=== PATIENT | male | born 1965 | race Caucasian/White ===

== ENCOUNTER 2016-07-13 00:56 | Inpatient (IN) | payer OTHER ==
[~2016-07-13] VITALS: Ht 185.4 cm; Wt 52.0 kg
[~2016-07-13 00:56] MED LIST: Z.0.NO CURRENT MEDS
[2016-07-13 01:10] VITALS: BP 135/88; PULSE 100; RESP 20; TEMP 98.2; O2SAT 100
[2016-07-13] MEDS ORDERED: ONDANSETRON HCL 4 MG/2 ML VIAL IV ONE (01:45)
[2016-07-13] MEDS ORDERED: MORPHINE SULFATE 4 MG/ML INJ IV PUSH ONE (01:45)
[2016-07-13] MEDS: SODIUM CHLOR 0.9% 1000 ML INJ 1,000 ML IV SCH ×4 (02:05→17:36)
[2016-07-13] MEDS ORDERED: QUET1TAB10 PO (02:08)
--- NOTE | 2016-07-13 02:33 | PD ---
HPI Chief Complaint: Fall Time Seen by Provider: 01:39 Travel History International Travel<30 days: No Contact w/Intl Traveler<30days: No Traveled to known affect area: No History of Present Illness HPI The patient is a 51 year old male who presents to the [facility] emergency department with a history of reportedly working on a roof at approximately 4 PM yesterday when he was attempting to throw a 10 pound bucket off the roof and got it caught on his right little finger. He reports that he has a history of right middle finger injury that does not allow him to extend it. The bucket drug him over the side of the roof. This was a 12 foot roof and he landed on his back. The patient reports that he was working with 3 other people and had to drive those people home prior to going to the emergency department. He went to the emergency Department with complaints of left-sided back pain and shortness of breath. The patient was evaluated at the hospital in [place], [place]. The patient was diagnosed with multiple left-sided rib fractures, compression fracture of T8, left-sided pneumothorax. A chest tube was placed at that facility and the patient was accepted in transfer by Dr. Parra, the trauma surgeon, on-call at this facility. The patient on arrival reports having severe left-sided chest wall pain. The chest tube appears to be in good position, minimal blood is noted to have drained from the tube. [facility] Past Medical History Narrative Medical The patient's past medical history is reportedly significant for chronic neck and back pain, hypertension, history of seizure disorder. Diminished Hearing: No Hypertension: Yes Medical other: Yes (CHRONIC BACK ISSUES, TRIGGER FINGER) Seizures: Yes Past Surgical History Narrative Surgical The patient's past surgical history is significant for a cervical spine fusion, halo placement, left arm ORIF, left foot ORIF, right hand surgery. Social History Alcohol Use: Yes Tobacco Use: Yes (ONE PACK A DAY) Substance Use: No Allergies-Medications (Allergen,Severity, Reaction): Coded Allergies: No Known Allergies (Unverified , 07/13/16) Reported Meds & Prescriptions Reported Meds & Active Scripts Active Reported Quetiapine (Quetiapine Fumarate) 300 Mg Tab 300 Mg PO HS Review of Systems Except as stated in HPI: all other systems reviewed are Neg General / Constitutional: No: Fever Eyes: No: Visual changes HENT: No: Headaches Cardiovascular: Positive: Chest Pain or Discomfort, Dyspnea on exertion Respiratory: No: Shortness of Breath Gastrointestinal: No: Abdominal Pain Genitourinary: No: Dysuria Musculoskeletal: No: Pain Skin: No Rash Neurologic: No: Weakness Psychiatric: No: Depression Endocrine: No: Polydipsia Hematologic/Lymphatic: No: Easy Bruising Physical Exam Narrative General: The patient is a well-developed thin appearing male in no acute distress. Head and Neck exam: Head is normocephalic atraumatic. Eyes: Pupils are equal round and reactive to light. Nose: Midline septum with pink mucous membranes Mouth: Dentition unremarkable. Moist mucus membranes. Posterior oropharynx is not erythematous. No tonsillar hypertrophy. Uvula midline. Airway patent. Neck: No palpable lymphadenopathy. No nuchal rigidity. No thyromegaly. Cardiovascular: Regular rate and rhythm without murmurs, gallops, or rubs. Lungs: Clear to auscultation bilaterally. No wheezes, rhonchi, or rales. The patient has left-sided chest wall tenderness on palpation. The patient has a chest tube in place on the left. Abdomen: Soft, without tenderness to palpation in all 4 quadrants of the abdomen. No guarding, rebound, or rigidity. Normal bowel sounds are audible. Extremities: No clubbing, cyanosis, or edema. 2+ pulses in all 4 extremities. Back: No spinous process tenderness to palpation. No costovertebral angle tenderness to palpation. Neurologic Exam: Grossly nonfocal. Skin Exam: No rash noted. The patient has an abrasion noted to the right arm, dorsal aspect. Data Data Last Documented VS Vital Signs Date Time Temp Pulse Resp B/P Pulse Ox O2 Delivery O2 Flow Rate FiO2 07/13/16 01:10 98.2 100 20 135/88 100 Orders Admit Order (Ed Use Only) (07/13/16 01:44) Consult Neurosurgery (07/13/16 ) Consult Application Packager (07/13/16 ) Ondansetron Inj (Zofran Inj) (07/13/16 01:45) Morphine Inj (Morphine Inj) (07/13/16 01:45) Sodium Chlor 0.9% 1000 Ml Inj (Ns 1000 M (07/13/16 01:45) MDM Medical Decision Making Medical Screen Exam Complete: Yes Emergency Medical Condition: Yes Medical Record Reviewed: Yes Interpretation(s) Last Impressions Thoracic Spine CT 07/13/16 0000 Signed Impressions: Service Date/Time: Wednesday, July 13, 2016 08:51 - CONCLUSION: T8 compressive deformity as described in detail above with appearance suggestive of an old injury, however some degree of acute or subacute progression cannot be excluded. If it would affect clinical management, injury could be further characterized with MRI. Toñito Cisneros MD Chest X-Ray 07/13/16 0000 Signed Impressions: Service Date/Time: Wednesday, July 13, 2016 03:12 - CONCLUSION: 1. Left chest tube without pneumothorax seen. 2. Left rib fractures. 3. Increased density at the left lower lung likely related to contusion, consolidation, or atelectasis. Toñito Reich MD Differential Diagnosis Intrathoracic trauma, versus pulmonary contusion, versus pneumothorax, versus rib fractures, versus intracranial abnormality, versus intra-abdominal trauma Narrative Course During the course of the patients emergency department visit, the patients history, examination, and differential diagnosis were reviewed with the patient. The patient had IV access obtained and blood work sent for analysis. The Patient was placed on a monitoring analyst with oximetry and blood pressure monitoring. The patient was placed in a TLSO. The patient was provided morphine for pain, Zofran for nausea, the patient was started on normal saline IV fluids. A call was placed out to the trauma surgeon that excepted the patient in transfer. He did agree to admit the patient for further evaluation and treatment at this time. The patients laboratory studies were reviewed from the other facility and remarkable for a white count of 12.2, hemoglobin 15.3, platelets 216 with 75.9 neutrophils lymphocytes 14.7, sodium 138, potassium 3.0, chloride 90 once, CO2 29, glucose 97, BUN is 4, creatinine 0.68, AST is 95, alkaline phosphatase 118, ALT 31, alcohol level CXXXV, CPK 429, MB percent 2.2 Radiology studies were reviewed from the other facility and remarkable for a chest x-ray that shows a left lower lobe pulmonary contusion with associated pneumothorax and multiple left rib fractures, pelvic x-ray shows no evidence of acute abnormality. CT scan of the brain without contrast shows no acute abnormality. CT scan of the C-spine shows no acute abnormality, left sided pneumothorax was noted CT scan of the abdomen and pelvis reveals no acute intra- abdominal or pelvic abnormality, CT scan of the chest with contrast reveals multiple left rib fractures with associated moderate left hydropneumothorax and left lower lobe contusion. The patients results were discussed with the patient, including the plan of care. I explained that further testing and/ or monitoring is indicated based on the patients history, examination, and/ or laboratory findings. Therefore, I recommended admission for additional evaluation. The patient expressed understanding and was agreeable with this plan. The patient was admitted to the hospital in guarded condition and sent to a bed under the care of the trauma surgeon, Dr. Parra. Critical Care Narrative Aggregate critical care time was 37 minutes. Time to perform other separately billable procedures was not included in the critical care time. My time did not include minutes spent treating any other patients simultaneously or on activities that did not directly contribute to the patient's treatment. The services I provided to this patient were to treat and/or prevent clinically significant deterioration that could result in: Respiratory failure, versus cardiovascular collapse I provided critical care services requiring my management, as noted below: Chart data review, documentation time, medication orders and management, vital sign assessments/reviewing monitor data, ordering and reviewing lab tests, ordering and interpreting/reviewing x-rays and diagnostic studies, care of the patient and discussion of the patient with the admitting physicians. Physician Communication Physician Communication The patient's case was discussed with Dr. Parra who did agree to admit the patient to the intensive care unit for close monitoring. Diagnosis Primary Impression: Multiple fractures of ribs of left side Qualified Code: S22.42XA - Closed fracture of multiple ribs of left side, initial encounter Additional Impressions: Pneumothorax on left Traumatic compression fracture of T8 thoracic vertebra Qualified Code: S22.060K - Traumatic compression fracture of T8 thoracic vertebra, with nonunion, subsequent encounter Admitting Information Admitting Physician Requests: Admit Cely Porras MD Jul 13, 2016 02:33
--- NOTE | 2016-07-13 03:48 | RADRPT ---
EXAM DATE/TIME: 07/13/2016 03:12 [facility] COMPARISON: No previous studies available for comparison. INDICATIONS : Evaluate for pneumothorax. MEDICAL HISTORY : None. SURGICAL HISTORY : None. ENCOUNTER: Initial ACUITY: 1 day PAIN SCORE: 7/10 LOCATION: Left chest FINDINGS: There is a left-sided chest tube in place. No pneumothorax is seen. There is increased density at the left base. Left-sided rib fractures are present. The right lung is clear. The heart size is normal. There is an anterior cervical fusion plate present. CONCLUSION: 1. Left chest tube without pneumothorax seen. 2. Left rib fractures. 3. Increased density at the left lower lung likely related to contusion, consolidation, or atelectasi julieth Reich MD on July 13, 2016 at 3:45 Board Certified Radiologist. This report was verified electronically.
--- NOTE | 2016-07-13 03:49 | PD.CONS ---
[facility] Service Critical Care Medicine Consult Requested By Dr. Corey Reason for Consult s/p Fall L rib fractures with pneumothorax T8 compression fracture Alcohol intoxation Primary Care Physician Juan Daniel Curtis History of Present Illness The patient is a 51 year old male who presents to [facility] emergency department as transfer from [facility]. He sustained a fall from the roof while he was working. This was a 12 foot roof and he landed on his back. He drove his coworkers home, prior to going to the emergency department. He was found to have multiple left-sided rib fractures, compression fracture of T8, left-sided pneumothorax and L lung contusion, for which a large bore chest tube was placed. The patients laboratory studies were remarkable for a white count of 12.2, potassium 3.0, alcohol level 150. I evaluated the patient in ED, he is complaining of severe left-sided chest wall pain. CXR showed chest tube appears to be in good position, with continued bloody output. Lab work pending. I have ordered PRN Dilaudid for pain Review of Systems ROS Limitations: Other (as per HPI) Past Family Social History Allergies: Coded Allergies: No Known Allergies (Unverified , 07/13/16) Past Medical History Chronic neck and back pain Seizure disorder Past Surgical History Cervical spine fusion Left arm ORIF, left foot ORIF Right hand surgery. Reported Medications Quetiapine (Quetiapine Fumarate) 300 Mg Tab 300 Mg PO HS PRN Percocet Active Ordered Medications Reviewed Family History Reviewed Social History Smokes 1 pack of cigarettes Occasional alcohol Physical Exam Vital Signs Vital Signs Date Time Temp Pulse Resp B/P Pulse Ox O2 Delivery O2 Flow Rate FiO2 07/13/16 01:10 98.2 100 20 135/88 100 Physical Exam General: well-developed thin appearing male who is dishevelled, in moderate distress due to pain Head and Neck exam: Head is normocephalic atraumatic. Eyes: Pupils are equal round and reactive to light. ENT: Moist mucus membranes. Uvula midline. Airway patent. Neck: No palpable lymphadenopathy. No nuchal rigidity. Cardiovascular: Regular rate and rhythm without murmurs, gallops, or rubs. Lungs: Clear to auscultation bilaterally. No wheezes, rhonchi, or rales. Has a left chest tube with bloody secretions Abdomen: Soft, without tenderness to palpation in all 4 quadrants of the abdomen. Extremities: No clubbing, cyanosis, or edema. 2+ pulses in all 4 extremities. Neurologic Exam: Limited exam as patient is in pain. No focal deficits Skin: Abrasion to the right arm Imaging Reports form [facility] reviewed Assessment and Plan Assessment and Plan NEURO: Acute and chronic pain T8 compression fracture Alcohol intoxication Seizure disorder Chronic pain -As needed Dilaudid for pain. -Neurosurgery consulted for T8 fracture, TLSO brace. Full spine precautions -Supplement multivitamin thiamine, watch for withdrawal RESP: L sided rib fracture L hemopneumothorax L lung contusion -Nasal cannula oxygen -DuoNeb q6 hours and PRN -Aggressive pulmonary toilet CV: -Normal saline IV fluids 125 ml per hour GI: -Nothing by mouth except Meds. Protonix for GI prophylaxis : -Monitor renal function closely. ID: -Monitor for infection especially pneumonia HEME: -Monitor CBC, CMP, coags ENDO: Hypokalemia -Electorate replace,ent protocol PROPH: -Bilateral lower extremity SCDs. Chemical DVT prophylaxis contraindicated due to hemothorax. IV Protonix for GI Prophylaxis LINES: -Utilize peripheral IVs, central line if needed Level 3 Code Status Full Discussed Condition With Dr. Colten Sibley,Tayler Fong MD Jul 13, 2016 03:49
[2016-07-13 03:50] LABS: MEAN CORPUSCULAR HGB CONC 36.5 % (32.0-36.0)
[2016-07-13] MEDS ORDERED: SODIUM PHOSPHATE INJ 30 MMOL in SODIUM CHLOR 0.9% 250 ML INJ 240 ML IV PRN ×2 (04:00→04:15)
[2016-07-13] MEDS ORDERED: MAGNESIUM OXIDE 400 MG TAB PO PRN ×2 (04:00→04:15)
[2016-07-13] MEDS ORDERED: POTASSIUM CHLOR 20 MEQ PREMIX 100 ML IV PRN ×4 (04:00→04:15)
[2016-07-13] MEDS ORDERED: MAGNESIUM SULFATE INJ 4 GM in SODIUM CHLORIDE 0.9% INJ 92 ML IV PRN ×2 (04:00→04:15)
[2016-07-13] MEDS ORDERED: POTASSIUM PHOSPHATE MONOBASIC 500 MG TAB PO PRN ×2 (04:00→04:15)
[2016-07-13] MEDS ORDERED: MAGNESIUM SULFATE INJ 2 GM in SODIUM CHLORIDE 0.9% INJ 96 ML IV PRN ×2 (04:00→04:15)
[2016-07-13] MEDS ORDERED: POTASSIUM PHOSPHATE INJ 30 MMOL in SODIUM CHLOR 0.9% 250 ML INJ 250 ML IV PRN ×2 (04:00→04:15)
[2016-07-13] MEDS ORDERED: POTASSIUM CL 40 MEQ/30 ML LIQ UDC PO/TUBE PRN ×4 (04:00→04:15)
[2016-07-13] MEDS ORDERED: POTASSIUM PHOSPHATE MONOBASIC 500 MG TAB PO/TUBE PRN ×2 (04:00→04:15)
[2016-07-13] MEDS ORDERED: POTASSIUM CHLOR 40 MEQ PREMIX 100 ML IV PRN ×4 (04:00→04:15)
[2016-07-13] MEDS ORDERED: RESP: ALBUTEROL 2.5 MG/IPRATROPIUM 0.5 MG NEB (PRN) NEB (04:15)
[2016-07-13 04:30] VITALS: BP 160/87; PULSE 95; RESP 16; O2SAT 98
[2016-07-13] MEDS: HYDROmorphone HCL PF 2 MG/ML VIAL IV PUSH PRN ×3 (04:53→19:39)
[2016-07-13 04:56] LABS: AUTOMATED NEUTROPHIL # 5.9 TH/MM3 (1.8-7.7); BASOPHIL % 0.3 % (0.0-2.0); EOSINOPHIL # 0.1 TH/MM3 (0-0.4); EOSINOPHIL % 0.8 % (0.0-4.0); HEMATOCRIT 35.5 % (39.0-51.0); LYMPH % 14.2 % (9.0-44.0); LYMPHOCYTE # 1.1 TH/MM3 (1.0-4.8); MEAN CELL VOLUME 94.6 FL (80.0-100.0); MEAN CORPUSCULAR HEMOGLOBIN 34.5 PG (27.0-34.0); MONO % 10.4 % (0.0-8.0); NEUT % 74.3 % (16.0-70.0); PLATELET COUNT 185 TH/MM3 (150-450); RED BLOOD COUNT 3.75 MIL/MM3 (4.50-5.90); RED CELL DISTRIBUTION WIDTH 12.8 % (11.6-17.2); WHITE BLOOD COUNT 7.9 TH/MM3 (4.0-11.0)
[2016-07-13 05:01] LABS: HEMO FLAGS AUTO DIFF
[2016-07-13 05:26] LABS: ANION GAP 5 MEQ/L (5-15); AST (GOT) 61 U/L (15-37); BICARBONATE 33.9 MEQ/L (21.0-32.0); BLOOD UREA NITROGEN 3 MG/DL (7-18); CHLORIDE 95 MEQ/L (98-107); GLOMERULAR FILTRATION RATE 129 ML/MIN (>89); MAGNESIUM 1.4 MG/DL (1.5-2.5); POTASSIUM 3.1 MEQ/L (3.5-5.1); SODIUM (NA) 134 MEQ/L (136-145)
[2016-07-13 05:29] LABS: ALKALINE PHOSPHATASE 110 U/L (45-117); ALT (GPT) 31 U/L (12-78)
[2016-07-13 06:01] LABS: SCAN/DIFF AUTO DIFF CONFIRMED
[2016-07-13 07:00] VITALS: O2SAT 99
[2016-07-13] MEDS ORDERED: ONDANSETRON HCL 4 MG/2 ML VIAL IV PRN (07:45)
[2016-07-13] MEDS ORDERED: ENALAPRILAT 1.25 MG/ML VIAL IV PRN (07:45)
[2016-07-13] MEDS ORDERED: MAGNESIUM HYDROXIDE SUSP 30 ML CUP PO PRN (07:45)
[2016-07-13] MEDS ORDERED: CHLORHEXIDINE GLUCONATE 2 % 1 PACK (2 CLOTHS) TOP PRN (07:45)
[2016-07-13] MEDS ORDERED: MISCELLANEOUS NURSING INFORMATION XX SCH (07:45)
[2016-07-13] MEDS ORDERED: THIAMINE INJ 100 MG in SODIUM CHLORIDE 0.9% INJ 100 ML IV SCH (09:00)
--- NOTE | 2016-07-13 09:25 | RADRPT ---
EXAM DATE/TIME: 07/13/2016 08:51 [facility] COMPARISON: CHEST SINGLE AP, July 13, 2016, 3:12. INDICATIONS : Fall. Evaluate thoracic spine fracture. RADIATION DOSE: 35.86 CTDIvol (mGy) MEDICAL HISTORY : Hypertension. SURGICAL HISTORY : C-spine surgery ENCOUNTER: Initial ACUITY: 1 day PAIN SCALE: 7/10 LOCATION: Bilateral back TECHNIQUE: Volumetric scanning of the thoracic spine was performed. Multiplanar reconstructions in the sagittal , coronal and oblique axial planes were performed. Using automated exposure control and adjustment o f the mA and/or kV according to patient size, radiation dose was kept as low as reasonably achievable to obtain optimal diagnostic quality images. FINDINGS: The thoracic spinal alignment is satisfactory. There is no evidence of bony canal stenosis or foramin al compromise. There is a severe compressive deformity at T8 with approximately 80% loss of central v ertebral body height. The compressive injury is slightly eccentric to the left. There is minimal post erior bowing of the posterior wall of the T8 vertebral body without significant fracture retropulsion . There is no involvement of the posterior elements. The age of this injury is not fully determined and some component of subacute injury is not excluded, however there are certainly areas where the margin of the bony defect are quite circumscribed and sc lerotic which would be inconsistent with recent injury. There is no significant her spinal hematoma. The vertebral elements elsewhere are intact. CONCLUSION: T8 compressive deformity as described in detail above with appearance suggestive of an old injury, ho wever some degree of acute or subacute progression cannot be excluded. If it would affect clinical ma nagement, injury could be further characterized with MRI. Toñito Cisneros MD on July 13, 2016 at 9:10 Board Certified Radiologist. This report was verified electronically.
--- NOTE | 2016-07-13 09:28 | PD.CONS ---
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 He went on a roof to be with a friend and fell. He was able to drive friends home and himself to [place] ED. He had a head CT, chest CT and was found to have a T8 compression fx as well as well as rib fx. He is at his neurologic baseline but has severe rib pain and back pain. He is on oxycodone and muscle relaxers as well as seroquel at home. He remains alert and cooperative with a GCS of 15. Review of Systems ROS Limitations: Intoxication, Other (pain) Constitutional: DENIES: Diaphoretic episodes, Fatigue, Fever, Weight gain, Weight loss, Chills, Dizziness, Change in appetite, Night Sweats Endocrine: DENIES: Heat/cold intolerance, Polydipsia, Polyuria, Polyphagia Eyes: DENIES: Blurred vision, Diplopia, Eye inflammation, Eye pain, Vision loss , Photosensitivity, Double Vision Ears, nose, mouth, throat: DENIES: Tinnitus, Hearing loss, Vertigo, Nasal discharge, Oral lesions, Throat pain, Hoarseness, Ear Pain, Running Nose, Epistaxis, Sinus Pain, Toothache, Odynophagia Respiratory: COMPLAINS OF: Shortness of breath Cardiovascular: DENIES: Chest pain, Palpitations, Syncope, Dyspnea on Exertion , PND, Lower Extremity Edema, Orthopnea, Claudication Gastrointestinal: DENIES: Abdominal pain, Black stools, Bloody stools, Constipation, Diarrhea, Nausea, Vomiting, Difficulty Swallowing, Anorexia Genitourinary: DENIES: Sexual dysfunction, Urinary frequency, Urinary incontinence, Urgency, Hematuria, Dysuria, Nocturia, Penile Discharge, Testicular Pain, Testicular Swelling Musculoskeletal: COMPLAINS OF: Muscle aches, Stiffness, Joint Swelling, Back pain, Neck pain Integumentary: DENIES: Abnormal pigmentation, Nail changes, Pruritus, Rash Hematologic/lymphatic: DENIES: Bruising, Lymphadenopathy Immunologic/allergic: DENIES: Eczema, Urticaria Past Family Social History Allergies: Coded Allergies: No Known Allergies (Unverified , 07/13/16) Past Medical History Spinal cord incomplete C9 injury , chronic pain, walks on one leg, 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 He cannot use intrinsics in both hands Chronic pain on chronic opioid and muscle relaxers Mood problems, OA Past Surgical History Cervical fusion Foot surgery Reported Medications Reported Meds & Active Scripts Active Reported Quetiapine (Quetiapine Fumarate) 300 Mg Tab 300 Mg PO HS Family History not known Social History Lives a a community home with other disabled individuals, smokes 1ppd, drinks alcohol Physical Exam Vital Signs Vital Signs Date Time Temp Pulse Resp B/P Pulse Ox O2 Delivery O2 Flow Rate FiO2 07/13/16 07:00 99 Nasal Cannula 2.00 07/13/16 04:30 95 16 160/87 98 Nasal Cannula 2 07/13/16 01:10 98.2 100 20 135/88 100 Physical Exam Alert, speech fluent, very cooperative, in severe distress secondary to pain Motor R/L delt 4/4, bib 4/4, tri 3/3, IO 1/1/ hip flex 4+/4, quads 4/3, gastroc 4/2 Hyperesthesia in the left lower extremity, no sensory change at T8/9, No Mcdermott, Babinski or clonus at this time, increased tone and fixed deformity in the hands with ulnar deviation Skin dry, muscle atrophy in all extremities, Abd with po BS, distant heart sounds, decreased lung aeration on the left with chest tube in place. Laboratory Laboratory Tests Test 07/13/16 04:45 White Blood Count 7.9 Red Blood Count 3.75 Hemoglobin 12.9 Hematocrit 35.5 Mean Corpuscular Volume 94.6 Mean Corpuscular Hemoglobin 34.5 Mean Corpuscular Hemoglobin 36.5 Concent Red Cell Distribution Width 12.8 Platelet Count 185 Mean Platelet Volume 7.2 Neutrophils (%) (Auto) 74.3 Lymphocytes (%) (Auto) 14.2 Monocytes (%) (Auto) 10.4 Eosinophils (%) (Auto) 0.8 Basophils (%) (Auto) 0.3 Neutrophils # (Auto) 5.9 Lymphocytes # (Auto) 1.1 Monocytes # (Auto) 0.8 Eosinophils # (Auto) 0.1 Basophils # (Auto) 0.0 CBC Comment AUTO DIFF Differential Comment AUTO DIFF CONFIRMED Sodium Level 134 Potassium Level 3.1 Chloride Level 95 Carbon Dioxide Level 33.9 Anion Gap 5 Blood Urea Nitrogen 3 Creatinine 0.65 Estimat Glomerular Filtration 129 Rate Random Glucose 96 Calcium Level 7.8 Phosphorus Level 3.3 Magnesium Level 1.4 Total Bilirubin 1.0 Aspartate Amino Transf 61 (AST/SGOT) Alanine Aminotransferase 31 (ALT/SGPT) Alkaline Phosphatase 110 Total Protein 7.1 Albumin 3.0 Result Diagram: 07/13/16 0445 07/13/16 0445 Imaging Last Impressions Chest X-Ray 07/13/16 0000 Signed Impressions: Service Date/Time: Wednesday, July 13, 2016 03:12 - CONCLUSION: 1. Left chest tube without pneumothorax seen. 2. Left rib fractures. 3. Increased density at the left lower lung likely related to contusion, consolidation, or atelectasis. Toñito Reich MD Assessment and Plan Diagnosis: (1) Spinal cord injury, cervical region Plan: The injury happened from the . He has very poor mobility but was independent with assistance in the community before this fall. ICD Code: S14.109A (2) Closed T8 spinal fracture Plan: The rib pain seems to be distracting the kirsten pain but a dedicated CT of the thoracic spine is pending. DVT prophylaxis with lovenox and SCDs is needed. ICD Code: S22.069A (3) Chronic pain ICD Code: G89.29 Assessment and Plan Previous medications were restarted. A low dose librium was added prn agitation for ETOH withdrawal. Problem Qualifiers (1) Spinal cord injury, cervical region: Qualified Code: S14.109A - Spinal cord injury, cervical region, initial encounter (2) Closed T8 spinal fracture: (3) Chronic pain: Qualified Code: G89.4 - Chronic pain syndrome Maged Varela Jul 13, 2016 09:28
[2016-07-13] MEDS: MULTIVITAMIN INJ 10 ML, THIAMINE INJ 100 MG, FOLIC ACID INJ 1 MG in SODIUM CHLORID 0.9%... IV SCH (09:40)
[2016-07-13] MEDS: DOCUSATE SODIUM 100 MG CAP PO SCH ×2 (09:41→21:26)
[2016-07-13] MEDS: PANTOPRAZOLE SODIUM 40 MG VIAL IV PUSH SCH (09:41)
[2016-07-13] MEDS: CYCLOBENZAPRINE HCL 10 MG TAB PO SCH ×2 (09:41→16:12)
[2016-07-13] MEDS: GABAPENTIN 400 MG CAP PO SCH ×3 (09:41→16:12)
[2016-07-13] MEDS: oxyCODONE HCL 20 MG CONTROLLED RELEASE TAB PO SCH ×2 (09:53→21:25)
[2016-07-13] MEDS: HYDROmorphone HCL PF 1 MG/ML VIAL IVP PRN ×2 (11:27→14:50)
[2016-07-13 12:00] VITALS: PULSE 76
[2016-07-13 14:00] VITALS: PULSE 86
--- NOTE | 2016-07-13 17:57 | HHI.CCPN ---
Subjective Brief History History of Present Illness The patient is a 51 year old male who presents to the [facility] emergency department as transfer from [facility]. He sustained a fall from the roof while he was working. This was a 12 foot roof and he landed on his back. He drove his coworkers home, prior to going to the emergency department. He was found to have multiple left-sided rib fractures, compression fracture of T8, left-sided pneumothorax and L lung contusion, for which a large bore chest tube was placed. The patients laboratory studies were remarkable for a white count of 12.2, potassium 3.0, alcohol level 150. Patient was transferred to surgical ICU with above-noted injuries It is conceivable that patient had aspirated at the time of event I 24 Hour Review/Hospital Course Since arrival to the ICU patient has been stable He is awake alert and oriented He is severe left chest pain and back pain which is currently managed Neurosurgery has been consult is regarding the compression fracture of T8 and additional studies have been ordered Pulmonary contusion is severe and patient will likely get worse before he gets better as far as respiratory system is concerned for aspiration has most likely occurred at the time of the accident Objective Vital Signs Date Time Temp Pulse Resp B/P Pulse Ox O2 Delivery O2 Flow Rate FiO2 07/13/16 14:00 86 07/13/16 07:00 99 Nasal Cannula 2.00 07/13/16 04:30 16 160/87 07/13/16 01:10 98.2 Result Diagram: 07/13/16 0445 07/13/16 0445 Imaging Last 24 hours Impressions Thoracic Spine CT 07/13/16 0000 Signed Impressions: Service Date/Time: Wednesday, July 13, 2016 08:51 - CONCLUSION: T8 compressive deformity as described in detail above with appearance suggestive of an old injury, however some degree of acute or subacute progression cannot be excluded. If it would affect clinical management, injury could be further characterized with MRI. Toñito Cisneros MD Chest X-Ray 07/13/16 0000 Signed Impressions: Service Date/Time: Wednesday, July 13, 2016 03:12 - CONCLUSION: 1. Left chest tube without pneumothorax seen. 2. Left rib fractures. 3. Increased density at the left lower lung likely related to contusion, consolidation, or atelectasis. 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 Neurosurgery has been consult did and their input is appreciated Hemodynamic/Cardiac Hemodynamically patient is stable but he is a heavy smoker and the cardiovascular history is really somewhat elusive He does not seem to have suffered any cardiac event at the time of his injury Pulmonary/Respiratory Severe left pulmonary contusion with serial refractions hemopneumothorax requiring chest tube placement Patient probably aspirated the time of injury so his recovery will be hampered by pulmonary problems including severe COPD on the that superimposed pulmonary injury and aspiration It is nothing conceivable that patient may and up on the respirator temporarily Abdomen/GI Nutrition Abdomen is soft patient's tolerating diet Assessment and Plan Attestation The exam, history, and the medical decision-making described in the above note were completed with the assistance of the mid-level provider. I reviewed and agree with the findings presented. I attest that I had a [id number] encounter with the patient on the same day, and personally performed and documented my assessment and findings in the medical record. Critical care time 40 minutes. Blair Cartagena MD Jul 13, 2016 17:57
[2016-07-13 20:00] VITALS: BP 132/76; PULSE 92; RESP 20; TEMP 98.8; O2SAT 94
[2016-07-13] MEDS: VALPROIC ACID 250 MG CAP PO SCH ×2 (21:00→21:26)
[2016-07-13] MEDS: QUEtiapine FUMARATE 300 MG TAB PO SCH (21:25)
[2016-07-13] MEDS: chlordiazePOXIDE 25 MG CAP PO PRN (21:34)
[2016-07-14] VITALS (7 sets, daily range): BP systolic 119–140; BP diastolic 66–100; PULSE 88–120; RESP 16–18; TEMP 96.8–98; O2SAT 94–98
[2016-07-14] MEDS: SODIUM CHLOR 0.9% 1000 ML INJ 1,000 ML IV SCH ×2 (00:24→03:36)
[2016-07-14] MEDS: CYCLOBENZAPRINE HCL 10 MG TAB PO SCH ×3 (01:35→17:42)
[2016-07-14] MEDS: HYDROmorphone HCL PF 2 MG/ML VIAL IV PUSH PRN (02:30)
[2016-07-14] MEDS ORDERED: CHLORHEXIDINE GLUCONATE 2 % 1 PACK (2 CLOTHS) TOP SCH (04:00)
[2016-07-14] MEDS: chlordiazePOXIDE 25 MG CAP PO PRN ×2 (06:11→23:24)
[2016-07-14] MEDS: ACETAMINOPHEN/HYDROcodone 325 MG/5 MG TAB PO PRN ×4 (06:12→22:31)
[2016-07-14 06:13] LABS: AUTOMATED NEUTROPHIL # 6.7 TH/MM3 (1.8-7.7); BASOPHIL % 0.4 % (0.0-2.0); EOSINOPHIL # 0.1 TH/MM3 (0-0.4); HEMATOCRIT 37.5 % (39.0-51.0); HEMO FLAGS DIFF FINAL; LYMPH % 11.9 % (9.0-44.0); MEAN CELL VOLUME 95.9 FL (80.0-100.0); MEAN CORPUSCULAR HEMOGLOBIN 34.2 PG (27.0-34.0); MEAN CORPUSCULAR HGB CONC 35.7 % (32.0-36.0); MONO % 8.5 % (0.0-8.0); NEUT % 78.2 % (16.0-70.0); PLATELET COUNT 152 TH/MM3 (150-450); RED BLOOD COUNT 3.91 MIL/MM3 (4.50-5.90); RED CELL DISTRIBUTION WIDTH 12.7 % (11.6-17.2); WHITE BLOOD COUNT 8.5 TH/MM3 (4.0-11.0)
[2016-07-14 06:33] LABS: ALT (GPT) 21 U/L (12-78); ANION GAP 8 MEQ/L (5-15); AST (GOT) 24 U/L (15-37); BICARBONATE 28.2 MEQ/L (21.0-32.0); BLOOD UREA NITROGEN 6 MG/DL (7-18); CHLORIDE 100 MEQ/L (98-107); GLOMERULAR FILTRATION RATE 160 ML/MIN (>89); POTASSIUM 3.8 MEQ/L (3.5-5.1); SODIUM (NA) 136 MEQ/L (136-145)
[2016-07-14 06:35] LABS: ALKALINE PHOSPHATASE 101 U/L (45-117); TOTAL BILIRUBIN ADULT 1.3 MG/DL (0.2-1.0)
--- NOTE | 2016-07-14 07:55 | RADRPT ---
EXAM DATE/TIME: 07/14/2016 06:52 [facility] COMPARISON: CHEST SINGLE AP, July 13, 2016, 3:12. INDICATIONS : Left pneumothorax, rib fractures, contusions. MEDICAL HISTORY : None. SURGICAL HISTORY : Chest tube, left. ENCOUNTER: Subsequent ACUITY: 2 days PAIN SCORE: 10/10 LOCATION: Left chest FINDINGS: A left thoracostomy tube remains in place. There is a residual small hemopneumothorax. There has been significant interval increase in opacity in the left lung which likely reflects significant collapse superimposed on underlying contusion. There is some leftward cardiomediastinal shift. The right lung is stable and clear. CONCLUSION: Prominence interval increase in left lung parenchymal opacity with leftward cardiomediastinal shift. This presumably reflects extensive left lung atelectasis/collapse superimposed on pre-existing lung c ontusion. Toñito Cisneros MD on July 14, 2016 at 7:50 Board Certified Radiologist. This report was verified electronically.
[2016-07-14] MEDS: GABAPENTIN 400 MG CAP PO SCH ×3 (08:15→17:42)
[2016-07-14] MEDS: DOCUSATE SODIUM 100 MG CAP PO SCH ×2 (08:15→22:30)
[2016-07-14] MEDS: VALPROIC ACID 250 MG CAP PO SCH ×2 (08:16→22:30)
[2016-07-14] MEDS: oxyCODONE HCL 20 MG CONTROLLED RELEASE TAB PO SCH ×2 (08:16→22:30)
[2016-07-14] MEDS: PANTOPRAZOLE SODIUM 40 MG VIAL IV PUSH SCH (08:17)
[2016-07-14] MEDS: HYDROmorphone HCL PF 1 MG/ML VIAL IVP PRN ×3 (09:18→18:37)
[2016-07-14] MEDS: MULTIVITAMIN INJ 10 ML, THIAMINE INJ 100 MG, FOLIC ACID INJ 1 MG in SODIUM CHLORID 0.9%... IV SCH (10:00)
--- NOTE | 2016-07-14 11:28 | HHI.NSPN ---
History Chief Complaint: pain Interval History 51 yr old on disability after a cervical injury presents after a fall from a roof. He is very drowsy from pain medications and at risk for alcohol withdrawal. GCS is 14 Review of Systems General: Negative for: fever, chills, insomnia Respiratory: Negative for: shortness of breath, cough, sputum Cardiovascular: Positive for: chest pain Exam Results Vital Signs Date Time Temp Pulse Resp B/P Pulse Ox O2 Delivery O2 Flow Rate FiO2 07/14/16 10:25 94 Nasal Cannula 2.00 07/14/16 08:00 97.4 96 18 138/93 Intake and Output 07/13/16 07/13/16 07/14/16 08:00 16:00 00:00 Intake Total 1760 ml 936 ml Output Total 345 ml 510 ml Balance 1415 ml 426 ml Physical Examination Awake, cooperative, complaint of pain, Speech slurring from sedation, oriented to [facility], follows complex commands Moves the right leg hip flexor well,weaker on the left, no new sensory level. Lab, Micro, Other Results Last Impressions Chest X-Ray 07/14/16 0600 Signed Impressions: Service Date/Time: Thursday, July 14, 2016 06:52 - CONCLUSION: Prominence interval increase in left lung parenchymal opacity with leftward cardiomediastinal shift. This presumably reflects extensive left lung atelectasis/collapse superimposed on pre-existing lung contusion. Toñito Cisneros MD Thoracic Spine CT 07/13/16 0000 Signed Impressions: Service Date/Time: Wednesday, July 13, 2016 08:51 - CONCLUSION: T8 compressive deformity as described in detail above with appearance suggestive of an old injury, however some degree of acute or subacute progression cannot be excluded. If it would affect clinical management, injury could be further characterized with MRI. Toñito Cisneros MD Laboratory Tests Test 07/13/16 07/14/16 11:30 05:26 Nasal Screen MRSA (PCR) NEGATIVE White Blood Count 8.5 TH/MM3 Red Blood Count 3.91 MIL/MM3 Hemoglobin 13.4 GM/DL Hematocrit 37.5 % Mean Corpuscular Volume 95.9 FL Mean Corpuscular Hemoglobin 34.2 PG Mean Corpuscular Hemoglobin 35.7 % Concent Red Cell Distribution Width 12.7 % Platelet Count 152 TH/MM3 Mean Platelet Volume 8.0 FL Neutrophils (%) (Auto) 78.2 % Lymphocytes (%) (Auto) 11.9 % Monocytes (%) (Auto) 8.5 % Eosinophils (%) (Auto) 1.0 % Basophils (%) (Auto) 0.4 % Neutrophils # (Auto) 6.7 TH/MM3 Lymphocytes # (Auto) 1.0 TH/MM3 Monocytes # (Auto) 0.7 TH/MM3 Eosinophils # (Auto) 0.1 TH/MM3 Basophils # (Auto) 0.0 TH/MM3 CBC Comment DIFF FINAL Differential Comment Sodium Level 136 MEQ/L Potassium Level 3.8 MEQ/L Chloride Level 100 MEQ/L Carbon Dioxide Level 28.2 MEQ/L Anion Gap 8 MEQ/L Blood Urea Nitrogen 6 MG/DL Creatinine 0.54 MG/DL Estimat Glomerular Filtration 160 ML/MIN Rate Random Glucose 91 MG/DL Calcium Level 8.1 MG/DL Total Bilirubin 1.3 MG/DL Aspartate Amino Transf 24 U/L (AST/SGOT) Alanine Aminotransferase 21 U/L (ALT/SGPT) Alkaline Phosphatase 101 U/L Total Protein 6.7 GM/DL Albumin 2.7 GM/DL Medical Decision Making Impression and Plan New fall from roof, back pain and old C5 to C7 fusion, incomplete C6 exam with some sedation from pain medication this am. The T8 fracture is healed with a kyphosis, muscle relaxers and librium is continued, PT/OT is continued. The brace is available for comfort but no instability is suspected at this time. Total Minutes: 15 Maged Varela Jul 14, 2016 11:28
--- NOTE | 2016-07-14 14:22 | HHI.PR ---
Subjective Subjective Notes Nursing reports patient's been agitated. Patient lethargic during visit Objective Vitals/I&O Vital Signs Date Time Temp Pulse Resp B/P Pulse Ox O2 Delivery O2 Flow Rate FiO2 07/14/16 12:00 97.8 110 18 139/100 95 136/88 07/14/16 10:25 Nasal Cannula 2.00 Labs Laboratory Tests Test 07/14/16 05:26 White Blood Count 8.5 Red Blood Count 3.91 Hemoglobin 13.4 Hematocrit 37.5 Mean Corpuscular Volume 95.9 Mean Corpuscular Hemoglobin 34.2 Mean Corpuscular Hemoglobin 35.7 Concent Red Cell Distribution Width 12.7 Platelet Count 152 Mean Platelet Volume 8.0 Neutrophils (%) (Auto) 78.2 Lymphocytes (%) (Auto) 11.9 Monocytes (%) (Auto) 8.5 Eosinophils (%) (Auto) 1.0 Basophils (%) (Auto) 0.4 Neutrophils # (Auto) 6.7 Lymphocytes # (Auto) 1.0 Monocytes # (Auto) 0.7 Eosinophils # (Auto) 0.1 Basophils # (Auto) 0.0 CBC Comment DIFF FINAL Differential Comment Sodium Level 136 Potassium Level 3.8 Chloride Level 100 Carbon Dioxide Level 28.2 Anion Gap 8 Blood Urea Nitrogen 6 Creatinine 0.54 Estimat Glomerular Filtration 160 Rate Random Glucose 91 Calcium Level 8.1 Total Bilirubin 1.3 Aspartate Amino Transf 24 (AST/SGOT) Alanine Aminotransferase 21 (ALT/SGPT) Alkaline Phosphatase 101 Total Protein 6.7 Albumin 2.7 Radiology Last Impressions Chest X-Ray 07/14/16 0600 Signed Impressions: Service Date/Time: Thursday, July 14, 2016 06:52 - CONCLUSION: Prominence interval increase in left lung parenchymal opacity with leftward cardiomediastinal shift. This presumably reflects extensive left lung atelectasis/collapse superimposed on pre-existing lung contusion. Toñito Cisneros MD Thoracic Spine CT 07/13/16 0000 Signed Impressions: Service Date/Time: Wednesday, July 13, 2016 08:51 - CONCLUSION: T8 compressive deformity as described in detail above with appearance suggestive of an old injury, however some degree of acute or subacute progression cannot be excluded. If it would affect clinical management, injury could be further characterized with MRI. Toñito Cisneros MD Narrative Exam GENERAL: 51-year-old cachectic male lying in bed. SKIN: Warm and dry. ENT: No nasal bleeding or discharge. Mucous membranes pink and moist. NECK: Trachea midline. No JVD. CARDIOVASCULAR: Regular rate and rhythm. RESPIRATORY: No accessory muscle use. Lungs clear and diminished to auscultation. Left lateral chest tube in place with serosanguineous drainage noted. No air leak. GASTROINTESTINAL: Abdomen soft, non-tender, nondistended. + BS. MUSCULOSKELETAL: Extremities without cyanosis, or edema. LEFT lower extremity weakness noted (chronic). NEUROLOGICAL: Lethargic, slurred speech. Follow commands x4. A/P Assessment and Plan 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 Fell from 12 ft, landing on his back. + ETOH. Ambulated at scene and was able to drive his coworkers home before transporting himself to the [facility]. Transferred to [place] for trauma services. INJURIES: T8 compression fx LEFT sided PTX LEFT lung contusion Serial LEFT rib fxs PMHx: Cervical spine fusion with halo placement, trigger finger, HTN, seizures, 1 PPD smoker, ETOH (drinks 8-12 12oz [place] Hard Lemonade daily) 07/12: LEFT [facility] (placed by [facility]) Diet: Regular Pulmonary: IS, LEFT CT still draining serosanguineous fluid. Keep on water seal. Pain: [place], Dilaudid. Flexeril, Neurontin. (Seroquel). OxyContin SR 20mg q12. Valproic Acid (for withdrawal). Librium PRN. Activity: Advance activity to OOB with assist. PT ordered. GI: IV Protonix Bowel: Colace, MOM. No BM yet. DVT: SCDs Expecting patient to go through alcohol withdrawal. Librium and Valproic acid on board. MVI bag daily. Seizure precautions. Change CT dressing daily. Case management consulted for discharge planning. Plan of care discussed with patient at bedside. Attending Statement The exam, history, and the medical decision-making described in the above note were completed with the assistance of the mid-level provider. I reviewed and agree with the findings presented. I attest that I had a [id number] encounter with the patient on the same day, and personally performed and documented my assessment and findings in the medical record. Ramesh Paul Jul 14, 2016 14:22 Blair Cartagena MD Jul 17, 2016 16:37
[2016-07-14] MEDS ORDERED: LACTULOSE SYRUP 20 GM/30 ML CUP PO ONE (14:30)
[2016-07-14] MEDS: QUEtiapine FUMARATE 300 MG TAB PO SCH (22:29)
[2016-07-14] MEDS: FAMOTIDINE 20 MG TAB PO SCH (22:30)
[2016-07-15] VITALS (7 sets, daily range): BP systolic 127–171; BP diastolic 76–97; PULSE 112–129; RESP 16–23; TEMP 96–98.7; O2SAT 90–98
[2016-07-15] MEDS: CYCLOBENZAPRINE HCL 10 MG TAB PO SCH ×4 (01:42→17:27)
[2016-07-15] MEDS: ACETAMINOPHEN/HYDROcodone 325 MG/5 MG TAB PO PRN (02:50)
[2016-07-15] MEDS: HYDROmorphone HCL PF 1 MG/ML VIAL IVP PRN ×3 (04:26→17:28)
[2016-07-15] MEDS: chlordiazePOXIDE 25 MG CAP PO PRN ×2 (08:58→21:21)
[2016-07-15] MEDS: VALPROIC ACID 250 MG CAP PO SCH ×2 (08:58→21:21)
[2016-07-15] MEDS: DOCUSATE SODIUM 100 MG CAP PO SCH ×2 (08:58→21:21)
[2016-07-15] MEDS: oxyCODONE HCL 20 MG CONTROLLED RELEASE TAB PO SCH (08:58)
[2016-07-15] MEDS: FAMOTIDINE 20 MG TAB PO SCH ×2 (08:58→21:21)
[2016-07-15] MEDS: GABAPENTIN 400 MG CAP PO SCH ×4 (08:58→17:37)
[2016-07-15] MEDS: MULTIVITAMIN INJ 10 ML, THIAMINE INJ 100 MG, FOLIC ACID INJ 1 MG in SODIUM CHLORID 0.9%... IV SCH (09:54)
--- NOTE | 2016-07-15 11:31 | HHI.PR ---
Subjective Subjective Notes PTD: 2 Patient sitting on the side of the bed with 2 staff members at bedside. Patient is anxious, and upset. He states he is in a lot of pain and wants more pain medication. Objective Vitals/I&O Vital Signs Date Time Temp Pulse Resp B/P Pulse Ox O2 Delivery O2 Flow Rate FiO2 07/15/16 08:00 96.0 112 18 142/76 94 07/14/16 22:27 Nasal Cannula 2.00 Labs Laboratory Tests Test 07/13/16 07/13/16 07/14/16 04:45 11:30 05:26 Phosphorus Level 3.3 MG/DL Magnesium Level 1.4 MG/DL Nasal Screen MRSA (PCR) NEGATIVE White Blood Count 8.5 TH/MM3 Red Blood Count 3.91 MIL/MM3 Hemoglobin 13.4 GM/DL Hematocrit 37.5 % Mean Corpuscular Volume 95.9 FL Mean Corpuscular Hemoglobin 34.2 PG Mean Corpuscular Hemoglobin 35.7 % Concent Red Cell Distribution Width 12.7 % Platelet Count 152 TH/MM3 Mean Platelet Volume 8.0 FL Neutrophils (%) (Auto) 78.2 % Lymphocytes (%) (Auto) 11.9 % Monocytes (%) (Auto) 8.5 % Eosinophils (%) (Auto) 1.0 % Basophils (%) (Auto) 0.4 % Neutrophils # (Auto) 6.7 TH/MM3 Lymphocytes # (Auto) 1.0 TH/MM3 Monocytes # (Auto) 0.7 TH/MM3 Eosinophils # (Auto) 0.1 TH/MM3 Basophils # (Auto) 0.0 TH/MM3 CBC Comment DIFF FINAL Differential Comment Sodium Level 136 MEQ/L Potassium Level 3.8 MEQ/L Chloride Level 100 MEQ/L Carbon Dioxide Level 28.2 MEQ/L Anion Gap 8 MEQ/L Blood Urea Nitrogen 6 MG/DL Creatinine 0.54 MG/DL Estimat Glomerular Filtration 160 ML/MIN Rate Random Glucose 91 MG/DL Calcium Level 8.1 MG/DL Total Bilirubin 1.3 MG/DL Aspartate Amino Transf 24 U/L (AST/SGOT) Alanine Aminotransferase 21 U/L (ALT/SGPT) Alkaline Phosphatase 101 U/L Total Protein 6.7 GM/DL Albumin 2.7 GM/DL Radiology Last Impressions Chest X-Ray 07/14/16 0600 Signed Impressions: Service Date/Time: Thursday, July 14, 2016 06:52 - CONCLUSION: Prominence interval increase in left lung parenchymal opacity with leftward cardiomediastinal shift. This presumably reflects extensive left lung atelectasis/collapse superimposed on pre-existing lung contusion. Toñito Cisneros MD Thoracic Spine CT 07/13/16 0000 Signed Impressions: Service Date/Time: Wednesday, July 13, 2016 08:51 - CONCLUSION: T8 compressive deformity as described in detail above with appearance suggestive of an old injury, however some degree of acute or subacute progression cannot be excluded. If it would affect clinical management, injury could be further characterized with MRI. Toñito Cisneros MD Narrative Exam GENERAL: This is a 51-year-old male who looks older than his stated age. He is painful and upset. SKIN: Warm and dry. HEAD: Atraumatic. Normocephalic. EYES: PERRLA ENT: No nasal bleeding or discharge. Mucous membranes pink and moist. NECK: Trachea midline. No JVD. CARDIOVASCULAR: Regular rate and rhythm. RESPIRATORY: No accessory muscle use. Lungs are clear to auscultation. Breath sounds equal bilaterally. No distress or dyspnea. Left lateral chest tube in place to Pleur-evac drainage system with serosanguineous drainage noted. Dressing D&I. GASTROINTESTINAL: BS + x 4 quads. Abdomen soft, non-tender, nondistended. MUSCULOSKELETAL: Extremities without cyanosis, or edema. + peripheral pulses x 4 extremities. Warm with good capillary refill and sensation. MAEW. NEUROLOGICAL: Awake and alert. Normal speech and pattern. A/P Problem List: (1) Spinal cord injury, cervical region (2) Chronic pain (3) Closed T8 spinal fracture (4) Pneumothorax on left (5) Multiple fractures of ribs of left side (6) Traumatic compression fracture of T8 thoracic vertebra Assessment and Plan DIOMEDE: This is a 51-year-old male who apparently was working on the top of a roof and attempted to throw a 10 pound bucket over the side and it got stuck on his hand and pulled him over the side of the roof. He fell approximately 12 feet and landed on his backside.+ EtOH. Apparently he ambulated at the scene and was able to drive his coworkers home before he transported himself to [facility]. He was then transferred to [facility] for trauma services. PMHx: Cervical spine fusion with halo placement, trigger finger, HTN, seizures, 1 PPD smoker, ETOH (drinks 8-12 12oz [place] Hard Lemonade daily) INJURIES: T8 compression fx Serial LEFT rib fxs LEFT sided PTX LEFT lung contusion Consults: Neurosurgery. [facility]. Diet: Regular diet. Tolerating po diet. Encourage good po intake with each meal. Pulmonary: Encourage good pulmonary toileting. IS at bedside and pt encouraged to use. Rationale for use explained to patient, and verbalized understanding. Intensified to include a cappella and EZ pap. CT thorax today to evaluate rib fractures, pneumothorax, lung contusion and pleural effusions. PAIN Management: [place] po. Dilaudid IV. Flexeril po. Neurontin po. Librium po. Increased OxyContin SR to 30 mg every 12. Added Ativan PRN. Additionally managed with Seroquel and valproic acid. Activity: BR. PT ordered. (TLSO brace when out of bed.) GI prophylaxis: Pepcid po. Bowel regimen: Colace and MOM. Lactulose daily. No BM yet. DVT prophylaxis: Mechanical VTE with SCDs. Chemical management TBD. DC Planning: Case management consulted for assistance with final discharge disposition. Emotional support provided to patient and family at bedside and plan of care discussed. Discussed with RN at bedside. Patient is hemodynamically stable and being managed on the med/surg floor. The exam, history, and the medical decision-making described in the above note were completed with the assistance of the mid-level provider. I reviewed and agree with the findings presented. I attest that I had a [id number] encounter with the patient on the same day, and personally performed and documented my assessment and findings in the medical record. Problem Qualifiers (1) Spinal cord injury, cervical region: Qualified Code: S14.109A - Spinal cord injury, cervical region, initial encounter (2) Chronic pain: Qualified Code: G89.4 - Chronic pain syndrome (3) Closed T8 spinal fracture: (4) Multiple fractures of ribs of left side: Qualified Code: S22.42XA - Closed fracture of multiple ribs of left side, initial encounter (5) Traumatic compression fracture of T8 thoracic vertebra: Qualified Code: S22.060K - Traumatic compression fracture of T8 thoracic vertebra, with nonunion, subsequent encounter Beatriz Murrell Jul 15, 2016 11:31 Juan Daniel Parra MD Jul 27, 2016 20:42
[2016-07-15] MEDS ORDERED: LORazepam 2 MG/ML VIAL IV PUSH PRN (12:15)
--- NOTE | 2016-07-15 17:12 | RADRPT ---
EXAM DATE/TIME: 07/15/2016 16:18 [facility] COMPARISON: CHEST SINGLE AP, July 14, 2016, 6:52. CT THORACIC SPINE W/O CONTRAST, July 13, 2016, 8:51. INDICATIONS : Follow-up rib fractures and effusions. RADIATION DOSE: 4.06 CTDIvol (mGy) MEDICAL HISTORY : Pneumothorax. SURGICAL HISTORY : Left chest tube placement. ENCOUNTER: Subsequent ACUITY: 2 days PAIN SCALE: 5/10 LOCATION: Left chest TECHNIQUE: Volumetric scanning of the chest was performed. Using automated exposure control and adjustment of t he mA and/or kV according to patient size, radiation dose was kept as low as reasonably achievable to obtain optimal diagnostic quality images. FINDINGS: A. left thoracostomy tube is present in satisfactory position with tip at the lung apex. There is min imal aerated left lung at the apex. The remainder of the lung is consolidated. The left mainstem bron chus is occluded or disrupted. Loculated pleural air and fluid is present at the posterior medial lef t lung base and a small anterior and apical pneumothorax remains. The right lung is satisfactorily ex panded. The cardiac contours are satisfactory. There is no evidence of mediastinal adenopathy. Extensive traumatic injury to the left chest wall is present with multiple rib fractures and moderate chest wall contusion present. CONCLUSION: Near-complete collapse of the left lung with occlusion or disruption of the left mainstem bronchus. S ee above discussion. Toñito Cisneros MD on July 15, 2016 at 17:05 Board Certified Radiologist. This report was verified electronically.
[2016-07-15] MEDS: MAGNESIUM HYDROXIDE SUSP 30 ML CUP PO SCH (21:00)
[2016-07-15] MEDS: QUEtiapine FUMARATE 300 MG TAB PO SCH (21:21)
[2016-07-15] MEDS: oxyCODONE HCL 10 MG CONTROLLED RELEASE TAB PO SCH (21:21)
[2016-07-15] MEDS: SODIUM CHLORIDE 0.9% FLUSH 5 ML FLUSH IVF PRN (21:22)
[2016-07-16] VITALS (10 sets, daily range): BP systolic 94–147; BP diastolic 63–81; PULSE 96–124; RESP 12–20; TEMP 98.2–99.9; O2SAT 96–100
[2016-07-16] MEDS: RESP: ALBUTEROL 2.5 MG/IPRATROPIUM 0.5 MG NEB (SCH) NEB ×7 (00:23→23:59)
[2016-07-16] MEDS: CYCLOBENZAPRINE HCL 10 MG TAB PO SCH ×3 (01:00→18:17)
[2016-07-16] MEDS: chlordiazePOXIDE 25 MG CAP PO PRN (03:15)
[2016-07-16] MEDS: HYDROmorphone HCL PF 1 MG/ML VIAL IVP PRN (03:16)
--- NOTE | 2016-07-16 04:13 | RADRPT ---
EXAM DATE/TIME: 07/16/2016 03:15 [facility] COMPARISON: CHEST SINGLE AP, July 14, 2016, 6:52. INDICATIONS : Evaluate for pulmonary effusions. MEDICAL HISTORY : None. SURGICAL HISTORY : Left sided chest tube. ENCOUNTER: Subsequent ACUITY: 4 - 6 days PAIN SCORE: Non-responsive. LOCATION: chest FINDINGS: The right lung is clear. ACDF hardware overlies the cervical spine. There is abnormal opacification o f the left mid to lower lung field with a left-sided chest tube in place. Overall there is been no si gnificant interval change in appearance of the chest. CONCLUSION: No significant change has occurred. Jovanni Moseley MD on July 16, 2016 at 4:10 Board Certified Radiologist. This report was verified electronically.
[2016-07-16] MEDS: FAMOTIDINE 20 MG TAB PO SCH ×2 (09:06→20:48)
[2016-07-16] MEDS: GABAPENTIN 400 MG CAP PO SCH ×3 (09:06→18:17)
[2016-07-16] MEDS: DOCUSATE SODIUM 100 MG CAP PO SCH ×2 (09:06→20:48)
[2016-07-16] MEDS: VALPROIC ACID 250 MG CAP PO SCH ×2 (09:06→20:48)
[2016-07-16] MEDS: oxyCODONE HCL 10 MG CONTROLLED RELEASE TAB PO SCH ×2 (09:06→20:48)
[2016-07-16 10:57] LABS: AUTOMATED NEUTROPHIL # 12.5 TH/MM3 (1.8-7.7); BASOPHIL % 0.1 % (0.0-2.0); EOSINOPHIL % 0.2 % (0.0-4.0); HEMATOCRIT 32.1 % (39.0-51.0); HEMO FLAGS DIFF FINAL; LYMPH % 4.2 % (9.0-44.0); LYMPHOCYTE # 0.6 TH/MM3 (1.0-4.8); MEAN CELL VOLUME 98.6 FL (80.0-100.0); MEAN CORPUSCULAR HEMOGLOBIN 33.5 PG (27.0-34.0); MONO % 8.1 % (0.0-8.0); NEUT % 87.4 % (16.0-70.0); PLATELET COUNT 152 TH/MM3 (150-450); RED BLOOD COUNT 3.26 MIL/MM3 (4.50-5.90); RED CELL DISTRIBUTION WIDTH 12.5 % (11.6-17.2); WHITE BLOOD COUNT 14.3 TH/MM3 (4.0-11.0)
[2016-07-16 11:20] LABS: ANION GAP 7 MEQ/L (5-15); AST (GOT) 18 U/L (15-37); BICARBONATE 27.8 MEQ/L (21.0-32.0); BLOOD UREA NITROGEN 7 MG/DL (7-18); CHLORIDE 102 MEQ/L (98-107); GLOMERULAR FILTRATION RATE 179 ML/MIN (>89); POTASSIUM 3.6 MEQ/L (3.5-5.1); SODIUM (NA) 137 MEQ/L (136-145)
[2016-07-16 11:23] LABS: ALKALINE PHOSPHATASE 81 U/L (45-117); ALT (GPT) 13 U/L (12-78); TOTAL BILIRUBIN ADULT 0.8 MG/DL (0.2-1.0)
[2016-07-16] MEDS ORDERED: PROPOFOL 500 MG/50 ML INJ 50 ML ONE (13:15)
[2016-07-16] MEDS ORDERED: PROPOFOL 1000 MG/100 ML INJ 100 ML ONE (13:29)
--- NOTE | 2016-07-16 15:47 | PD.PROCEDR ---
Procedure Note Procedure Endotracheal Intubation Diagnosis: Multitrauma, multiple rib fractures Indications: The patient is a 49-year-old male status post trauma with multiple left-sided rib fractures and associated complete atelectatic collapse with resorptive atelectasis of the left side. This is failed to clear despite maximal noninvasive medical therapy, and he is persistently hypoxemic from his inability to clear his secretions and his mucus plugging. After discussion with trauma service, decision was made to pursue elective intubation with therapeutic fiberoptic bronchoscopy to aid in pulmonary toilet and recruitment of severely atelectatic lung zones. Consent: Patient is not capacitated to make medical decisions. Family members were unable to be reached after multiple attempts. Trauma attending and myself both agree that his procedures medically necessary for the patient's continued improvement. Anesthesia: Propofol 150 mg IV, Rocuronium 100 mg IV Description of the Procedure: Patient was appropriately nothing by mouth. The patient was positioned in the sniffing position. Pre-oxygenation was performed using a [id number]. Anesthesia was induced. Patient was an easy one-handed [id number]. A Andrade #2 was used for laryngoscopy and a Grade 1 view was obtained. A 9.0 cuffed endotracheal tube was inserted atraumatically through the vocal cords. Confirmation of correct endotracheal tube placement was made by equal and bilateral breath sounds and colorimetric CO2 detection. The endotracheal tube was secured at 23 cm at the teeth. The endotracheal tube depth was confirmed to be in optimal position approximately 5 cm above the mickie visually and bronchoscopically. There were no immediate complications noted. The patient remained hemodynamically stable throughout the procedure. A chest x-ray has been ordered. I personally performed the procedure. Lauro Dunham MD Jul 16, 2016 15:47
--- NOTE | 2016-07-16 15:50 | PD.PROCEDR ---
Procedure Note Procedure Procedure: Therapeutic Fiberoptic Bronchoscopy Diagnosis: Multitrauma, multiple rib fractures Indications: The patient is a 49-year-old male status post trauma with multiple left-sided rib fractures and associated complete atelectatic collapse with resorptive atelectasis of the left side. This is failed to clear despite maximal noninvasive medical therapy, and he is persistently hypoxemic from his inability to clear his secretions and his mucus plugging. After discussion with trauma service, decision was made to pursue elective intubation with therapeutic fiberoptic bronchoscopy to aid in pulmonary toilet and recruitment of severely atelectatic lung zones. Consent: Patient is not capacitated make medical decisions. Multiple attempts were made to contact the family, which weren't reachable. The trauma attending and myself both agree that these procedures are medically necessary to the continued improvement of the patient Anesthesia: Propofol infusion Description of the Procedure: The patient was sedated and mechanically ventilated. The patient was placed on 100% FIO2 and a volume control mode of ventilation. The fiberoptic bronchoscopy was inserted via 9.0 oral endotracheal tube. The trachea, right and left mainstem bronchi, and sub- segmental bronchi were evaluated. The endobronchial anatomy was normal. Findings: Copious amounts of white secretions primarily in the left lung bernal , left upper lobe, left lingular lobe, left lower lobe. Minimal scant white secretions in the right lower lobe. These secretions were aggressively suctioned until no additional secretions were visualized. BAL samples: BAL samples were not sent. The patient remains afebrile with a downtrending white count. The patient tolerated the procedure well with no hemodynamic instability or hypoxia. There were no immediate complications noted. At the conclusion the procedure, the patient was placed on APRV ventilation for continued alveolar recruitment. There was minimal EBL. A chest x-ray has been ordered. I personally performed the procedure. Lauro Dunham MD Jul 16, 2016 15:50
--- NOTE | 2016-07-16 16:19 | RADRPT ---
EXAM DATE/TIME: 07/16/2016 15:58 [facility] COMPARISON: CHEST SINGLE AP, July 16, 2016, 3:15. INDICATIONS : Difficulty breathing. MEDICAL HISTORY : None. SURGICAL HISTORY : None. ENCOUNTER: Subsequent ACUITY: 4 - 6 days PAIN SCORE: 0/10 LOCATION: Bilateral chest FINDINGS: Left-sided chest remains in place. There is an apical left pneumothorax with 3.7 cm of separation. Th e right lung is clear and well aerated. There is parenchymal changes in the left mid lung. However, t his demonstrates improved aeration compared to the prior study. There is an endotracheal tube in plac e which appears to be in good position. The heart size is within normal limits. There are no pleural effusions. The bony structures are stable with multiple left-sided rib fractures. CONCLUSION: 1. Left chest tube in place with a 3.7 cm left apical pneumothorax. 2. Improved aeration of the left lung compared to the prior study. 3. Right lung remains grossly clear. 4. ET tube in good position. Jose Barkley MD on July 16, 2016 at 16:16 Board Certified Radiologist. This report was verified electronically.
[2016-07-16] MEDS ORDERED: ROCURONIUM INJ 100 MG/10 ML VIAL IV ONE (16:30)
[2016-07-16] MEDS ORDERED: fentaNYL DRIP 250 ML IV SCH (16:30)
[2016-07-16] MEDS ORDERED: PROPOFOL 1000 MG/100 ML INJ 100 ML IV SCH (16:30)
[2016-07-16] MEDS ORDERED: LABETALOL HCL 100 MG/20 ML VIAL ONE (18:48)
--- NOTE | 2016-07-16 18:55 | HHI.CCPN ---
Subjective Brief History History of Present Illness The patient is a 51 year old male who presents to the [facility] emergency department as transfer from [facility]. He sustained a fall from the roof while he was working. This was a 12 foot roof and he landed on his back. He drove his coworkers home, prior to going to the emergency department. He was found to have multiple left-sided rib fractures, compression fracture of T8, left-sided pneumothorax and L lung contusion, for which a large bore chest tube was placed. The patients laboratory studies were remarkable for a white count of 12.2, potassium 3.0, alcohol level 150. Patient was transferred to surgical ICU with above-noted injuries It is conceivable that patient had aspirated at the time of event I 24 Hour Review/Hospital Course Since arrival to the ICU patient has been stable He is awake alert and oriented He is severe left chest pain and back pain which is currently managed Neurosurgery has been consult is regarding the compression fracture of T8 and additional studies have been ordered Pulmonary contusion is severe and patient will likely get worse before he gets better as far as respiratory system is concerned for aspiration has most likely occurred at the time of the accident 07/16/2016 Patient was transferred to the floor 2 days ago and the has been doing well however became somewhat short of breath and repeat CAT scan was ordered which reveals complete collapse of the left lung with inspissated secretions and the collecting fluid around the lung Patient was transferred back to the ICU and remains well oxygenated on the 6 L nasal cannula nonetheless the left lung is completely atelectatic Today patient was intubated bronchoscoping and large amount of mucous material was obtained while the left lung reexpanded Drainage from the chest tube has also increased significantly pushing out all the fluid as the lung is reexpanded Will keep patient on the ventilator total tomorrow and then reassess needing possibly another bronchoscopy and then we'll work toward extubation Objective Vital Signs Date Time Temp Pulse Resp B/P Pulse Ox O2 Delivery O2 Flow Rate FiO2 07/16/16 16:53 100 60 07/16/16 08:42 Nasal Cannula 3.00 07/16/16 08:00 98.3 106 17 147/79 Intake and Output 07/15/16 07/15/16 07/16/16 08:00 16:00 00:00 Intake Total 914 ml 200 ml Output Total 780 ml 100 ml Balance 134 ml 200 ml -100 ml Result Diagram: 07/16/16 1031 07/16/16 1031 Imaging Last 24 hours Impressions Chest X-Ray 07/16/16 0000 Signed Impressions: Service Date/Time: Saturday, July 16, 2016 15:58 - CONCLUSION: 1. Left chest tube in place with a 3.7 cm left apical pneumothorax. 2. Improved aeration of the left lung compared to the prior study. 3. Right lung remains grossly clear. 4. ET tube in good position. Jose Barkley MD Chest X-Ray 07/16/16 0000 Signed Impressions: Service Date/Time: Saturday, July 16, 2016 03:15 - CONCLUSION: No significant change has occurred. 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 Alex Toscano and post bronchoscopy chest x- ray reveals reexpansion of the left lung Thanks to Dr. Toscano's great and expert job patient is now doing very well and lung is fully reexpanded Serosanguineous drainage from the chest tube Abdomen/GI Nutrition Abdomen is soft Renal/I&O Good urine output and good renal function patient well-hydrated Assessment and Plan Attestation The exam, history, and the medical decision-making described in the above note were completed with the assistance of the mid-level provider. I reviewed and agree with the findings presented. I attest that I had a [id number] encounter with the patient on the same day, and personally performed and documented my assessment and findings in the medical record. Critical care time [40] minutes. Blair Cartagena MD Jul 16, 2016 18:55
[2016-07-16] MEDS: QUEtiapine FUMARATE 300 MG TAB PO SCH (20:48)
[2016-07-16] MEDS: MAGNESIUM HYDROXIDE SUSP 30 ML CUP PO SCH (20:48)
[2016-07-16] MEDS: CHLORHEXIDINE 0.12% (ORAL KIT) 15 ML CUP MT SCH (20:56)
[2016-07-16] MEDS: SODIUM CHLOR 0.9% 1000 ML INJ 1,000 ML IV SCH (23:45)
[2016-07-17] VITALS (12 sets, daily range): BP systolic 127–155; BP diastolic 73–85; PULSE 89–105; RESP 12–16; TEMP 97.9–98; O2SAT 96–100
[2016-07-17] MEDS: CYCLOBENZAPRINE HCL 10 MG TAB PO SCH ×3 (00:01→17:00)
[2016-07-17] MEDS: NS + KCL 20 MEQ INJ 1,000 ML IV SCH ×3 (00:01→20:58)
[2016-07-17] MEDS: SODIUM CHLOR 0.9% 1000 ML INJ 1,000 ML IV SCH ×7 (00:46→06:52)
[2016-07-17] MEDS: RESP: ALBUTEROL 2.5 MG/IPRATROPIUM 0.5 MG NEB (SCH) NEB ×6 (03:33→23:46)
[2016-07-17 04:12] LABS: AUTOMATED NEUTROPHIL # 8.2 TH/MM3 (1.8-7.7); BASOPHIL % 0.2 % (0.0-2.0); EOSINOPHIL % 0.1 % (0.0-4.0); HEMATOCRIT 30.3 % (39.0-51.0); HEMO FLAGS DIFF FINAL; LYMPH % 7.1 % (9.0-44.0); LYMPHOCYTE # 0.7 TH/MM3 (1.0-4.8); MEAN CORPUSCULAR HEMOGLOBIN 34.3 PG (27.0-34.0); MEAN CORPUSCULAR HGB CONC 34.7 % (32.0-36.0); MONO % 11.3 % (0.0-8.0); NEUT % 81.3 % (16.0-70.0); PLATELET COUNT 145 TH/MM3 (150-450); RED BLOOD COUNT 3.06 MIL/MM3 (4.50-5.90); RED CELL DISTRIBUTION WIDTH 12.7 % (11.6-17.2); WHITE BLOOD COUNT 10.1 TH/MM3 (4.0-11.0)
[2016-07-17 04:55] LABS: ANION GAP 11 MEQ/L (5-15); AST (GOT) 17 U/L (15-37); BICARBONATE 22.3 MEQ/L (21.0-32.0); BLOOD UREA NITROGEN 10 MG/DL (7-18); CHLORIDE 106 MEQ/L (98-107); GLOMERULAR FILTRATION RATE 144 ML/MIN (>89); MAGNESIUM 1.6 MG/DL (1.5-2.5); POTASSIUM 3.6 MEQ/L (3.5-5.1); SODIUM (NA) 139 MEQ/L (136-145)
[2016-07-17 04:58] LABS: ALKALINE PHOSPHATASE 77 U/L (45-117); ALT (GPT) 12 U/L (12-78); TOTAL BILIRUBIN ADULT 0.8 MG/DL (0.2-1.0)
--- NOTE | 2016-07-17 07:13 | RADRPT ---
EXAM DATE/TIME: 07/17/2016 05:45 [facility] COMPARISON: CT THORAX W/O CONTRAST, July 15, 2016, 16:18. CHEST SINGLE AP, July 16, 2016, 15:58. POC UL [facility] VASCULAR ACCESS TEAM, July 16, 2016, 17:24. INDICATIONS : Trauma MEDICAL HISTORY : None. SURGICAL HISTORY : None. ENCOUNTER: Subsequent ACUITY: 4 - 6 days PAIN SCORE: Non-responsive. LOCATION: Bilateral chest FINDINGS: 2 AP views of the chest. Endotracheal tube, and left-sided chest tube remain in place. Nasogastric tu be is in place with the tip in the proximal stomach. Side port is in the stomach as well. Mild hyperaeration of the lungs. Lungs are clear. No evidence of pleural effusion or pneumothorax. Ca rdiomediastinal silhouette within normal limits. Left-sided rib fractures again seen. CONCLUSION: 1. Endotracheal tube, nasogastric tube, and left chest tube in place. 2. No evidence of pneumothorax. Stevie Prather MD on July 17, 2016 at 7:06 Board Certified Radiologist. This report was verified electronically.
[2016-07-17] MEDS: CHLORHEXIDINE 0.12% (ORAL KIT) 15 ML CUP MT SCH ×2 (08:00→20:00)
[2016-07-17] MEDS ORDERED: LACTULOSE SYRUP 20 GM/30 ML CUP PO ONE (08:30)
[2016-07-17] MEDS: FAMOTIDINE 20 MG TAB PO SCH ×2 (08:40→21:00)
[2016-07-17] MEDS: VALPROIC ACID 250 MG CAP PO SCH ×3 (08:40→20:58)
[2016-07-17] MEDS: GABAPENTIN 100 MG CAP PO SCH ×3 (08:41→17:48)
[2016-07-17] MEDS: oxyCODONE HCL 10 MG CONTROLLED RELEASE TAB PO SCH ×2 (08:42→21:00)
[2016-07-17] MEDS: DOCUSATE SODIUM 50 MG/SENNA 8.6 MG TAB PO SCH ×2 (10:45→21:00)
--- NOTE | 2016-07-17 13:04 | HHI.CCPN ---
Subjective Brief History History of Present Illness The patient is a 51 year old male who presents to the [facility] emergency department as transfer from [facility] [place]. He sustained a fall from the roof while he was working. This was a 12 foot roof and he landed on his back. He drove his coworkers home, prior to going to the emergency department. He was found to have multiple left-sided rib fractures, compression fracture of T8, left-sided pneumothorax and L lung contusion, for which a large bore chest tube was placed. The patients laboratory studies were remarkable for a white count of 12.2, potassium 3.0, alcohol level 150. Patient was transferred to surgical ICU with above-noted injuries It is conceivable that patient had aspirated at the time of event I 24 Hour Review/Hospital Course Since arrival to the ICU patient has been stable He is awake alert and oriented He is severe left chest pain and back pain which is currently managed Neurosurgery has been consult is regarding the compression fracture of T8 and additional studies have been ordered Pulmonary contusion is severe and patient will likely get worse before he gets better as far as respiratory system is concerned for aspiration has most likely occurred at the time of the accident 07/16/2016 Patient was transferred to the floor 2 days ago and the has been doing well however became somewhat short of breath and repeat CAT scan was ordered which reveals complete collapse of the left lung with inspissated secretions and the collecting fluid around the lung Patient was transferred back to the ICU and remains well oxygenated on the 6 L nasal cannula nonetheless the left lung is completely atelectatic Today patient was intubated bronchoscoping and large amount of mucous material was obtained while the left lung reexpanded Drainage from the chest tube has also increased significantly pushing out all the fluid as the lung is reexpanded Will keep patient on the ventilator total tomorrow and then reassess needing possibly another bronchoscopy and then we'll work toward extubation 07/17/2016 As above noted patient has been intubated bronchoscoping has been doing well on the ventilator and is now successfully extubated All things equal patient will be able to return to the floor either today or tomorrow Chest tube drainage has decreased after being increased for about 24 hours and is serosanguineous and straw-colored Bilateral breath sounds Objective Vital Signs Date Time Temp Pulse Resp B/P Pulse Ox O2 Delivery O2 Flow Rate FiO2 07/17/16 12:00 98.0 89 12 127/76 100 07/17/16 08:55 Nasal Cannula 3 07/17/16 07:53 40 Intake and Output 07/16/16 07/16/16 07/17/16 08:00 16:00 00:00 Intake Total 96 ml 883 ml 885 ml Output Total 610 ml 560 ml 200 ml Balance -514 ml 323 ml 685 ml Result Diagram: 07/17/16 0332 07/17/16 0332 Imaging Last 24 hours Impressions Chest X-Ray 07/17/16 0600 Signed Impressions: Service Date/Time: Sunday, July 17, 2016 05:45 - CONCLUSION: 1. Endotracheal tube, nasogastric tube, and left chest tube in place. 2. No evidence of pneumothorax. 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 however somewhat drowsy after extubation Patient's pain regiment will be addressed carefully again because patient is receiving multitude of medications all of which are narcotics and have a sedative and respiratory depressant effect Patient is on home oxycodone and hence the low tolerance for pain and threshold decrease Hemodynamic/Cardiac Hemodynamically intact Pulmonary/Respiratory Bilateral good breath sounds and good inspiratory effort patient is not splinting anymore Chest tube drainage is decreased as above noted that is not straw-colored Abdomen/GI Nutrition Abdomen is soft patient was started on diet Assessment and Plan Attestation The exam, history, and the medical decision-making described in the above note were completed with the assistance of the mid-level provider. I reviewed and agree with the findings presented. I attest that I had a [id number] encounter with the patient on the same day, and personally performed and documented my assessment and findings in the medical record. Critical care time 40 minutes. Blair Cartagena MD Jul 17, 2016 13:04
[2016-07-17] MEDS: MAGNESIUM HYDROXIDE SUSP 30 ML CUP PO SCH (20:59)
[2016-07-17] MEDS: QUEtiapine FUMARATE 300 MG TAB PO SCH (21:00)
[2016-07-17] MEDS ORDERED: SODIUM PHOSPHATE INJ 30 MMOL in SODIUM CHLOR 0.9% 250 ML INJ 240 ML IV PRN (21:15)
[2016-07-17] MEDS ORDERED: MAGNESIUM SULFATE INJ 2 GM in SODIUM CHLORIDE 0.9% INJ 96 ML IV PRN (21:15)
[2016-07-17] MEDS ORDERED: POTASSIUM CHLOR 40 MEQ PREMIX 100 ML IV PRN ×2 (21:15)
[2016-07-17] MEDS ORDERED: POTASSIUM PHOSPHATE INJ 30 MMOL in SODIUM CHLOR 0.9% 250 ML INJ 250 ML IV PRN (21:15)
[2016-07-17] MEDS ORDERED: MAGNESIUM SULFATE INJ 4 GM in SODIUM CHLORIDE 0.9% INJ 92 ML IV PRN (21:15)
[2016-07-17] MEDS ORDERED: MAGNESIUM OXIDE 400 MG TAB PO PRN (21:15)
[2016-07-17] MEDS ORDERED: POTASSIUM PHOSPHATE MONOBASIC 500 MG TAB PO PRN (21:15)
[2016-07-18] VITALS (14 sets, daily range): BP systolic 139–160; BP diastolic 71–84; PULSE 99–120; RESP 15–21; TEMP 97.9–100.4; O2SAT 91–100
[2016-07-18] MEDS: HYDROmorphone HCL PF 1 MG/ML VIAL IVP PRN ×2 (00:43→06:22)
[2016-07-18] MEDS: ACETAMINOPHEN/HYDROcodone 325 MG/5 MG TAB PO PRN ×3 (03:15→21:57)
[2016-07-18] MEDS: CYCLOBENZAPRINE HCL 10 MG TAB PO PRN ×2 (03:15→15:03)
[2016-07-18] MEDS: RESP: ALBUTEROL 2.5 MG/IPRATROPIUM 0.5 MG NEB (SCH) NEB ×6 (03:45→23:48)
[2016-07-18] MEDS: NS + KCL 20 MEQ INJ 1,000 ML IV SCH ×2 (05:45→15:06)
[2016-07-18 05:50] LABS: AUTOMATED NEUTROPHIL # 6.4 TH/MM3 (1.8-7.7); BASOPHIL % 0.2 % (0.0-2.0); EOSINOPHIL # 0.1 TH/MM3 (0-0.4); EOSINOPHIL % 1.2 % (0.0-4.0); HEMATOCRIT 30.9 % (39.0-51.0); HEMO FLAGS DIFF FINAL; LYMPH % 5.7 % (9.0-44.0); LYMPHOCYTE # 0.4 TH/MM3 (1.0-4.8); MEAN CORPUSCULAR HEMOGLOBIN 34.4 PG (27.0-34.0); MEAN CORPUSCULAR HGB CONC 34.4 % (32.0-36.0); MONO % 10.2 % (0.0-8.0); NEUT % 82.7 % (16.0-70.0); PLATELET COUNT 163 TH/MM3 (150-450); RED BLOOD COUNT 3.09 MIL/MM3 (4.50-5.90); WHITE BLOOD COUNT 7.7 TH/MM3 (4.0-11.0)
[2016-07-18 05:54] LABS: BICARBONATE 24.3 MEQ/L (21.0-32.0); MAGNESIUM 1.9 MG/DL (1.5-2.5); POTASSIUM 3.6 MEQ/L (3.5-5.1)
[2016-07-18] MEDS: GABAPENTIN 100 MG CAP PO SCH ×3 (08:46→18:14)
[2016-07-18] MEDS: FAMOTIDINE 20 MG TAB PO SCH ×2 (08:46→21:57)
[2016-07-18] MEDS: VALPROIC ACID 250 MG CAP PO SCH ×2 (08:46→21:57)
[2016-07-18] MEDS: LACTULOSE SYRUP 20 GM/30 ML CUP PO SCH (08:47)
[2016-07-18] MEDS: oxyCODONE HCL 10 MG CONTROLLED RELEASE TAB PO SCH (08:47)
[2016-07-18] MEDS: LABETALOL HCL 100 MG/20 ML VIAL IV PRN ×2 (08:48→15:15)
[2016-07-18] MEDS ORDERED: METOPROLOL SUCCINATE 50 MG EXTENDED RELEASE TAB PO SCH (11:30)
[2016-07-18] MEDS: DOCUSATE SODIUM 50 MG/SENNA 8.6 MG TAB PO SCH ×2 (15:02→21:57)
[2016-07-18] MEDS: ENOXAPARIN SODIUM 40 MG/0.4 ML SYRINGE SQ SCH (15:03)
--- NOTE | 2016-07-18 19:35 | HHI.CCPN ---
Subjective Brief History History of Present Illness The patient is a 51 year old male who presents to the [facility] emergency department as transfer from [facility]. He sustained a fall from the roof while he was working. This was a 12 foot roof and he landed on his back. He drove his coworkers home, prior to going to the emergency department. He was found to have multiple left-sided rib fractures, compression fracture of T8, left-sided pneumothorax and L lung contusion, for which a large bore chest tube was placed. The patients laboratory studies were remarkable for a white count of 12.2, potassium 3.0, alcohol level 150. Patient was transferred to surgical ICU with above-noted injuries It is conceivable that patient had aspirated at the time of event I 24 Hour Review/Hospital Course Since arrival to the ICU patient has been stable He is awake alert and oriented He is severe left chest pain and back pain which is currently managed Neurosurgery has been consult is regarding the compression fracture of T8 and additional studies have been ordered Pulmonary contusion is severe and patient will likely get worse before he gets better as far as respiratory system is concerned for aspiration has most likely occurred at the time of the accident 07/16/2016 Patient was transferred to the floor 2 days ago and the has been doing well however became somewhat short of breath and repeat CAT scan was ordered which reveals complete collapse of the left lung with inspissated secretions and the collecting fluid around the lung Patient was transferred back to the ICU and remains well oxygenated on the 6 L nasal cannula nonetheless the left lung is completely atelectatic Today patient was intubated bronchoscoping and large amount of mucous material was obtained while the left lung reexpanded Drainage from the chest tube has also increased significantly pushing out all the fluid as the lung is reexpanded Will keep patient on the ventilator total tomorrow and then reassess needing possibly another bronchoscopy and then we'll work toward extubation 07/17/2016 As above noted patient has been intubated bronchoscoping has been doing well on the ventilator and is now successfully extubated All things equal patient will be able to return to the floor either today or tomorrow Chest tube drainage has decreased after being increased for about 24 hours and is serosanguineous and straw-colored Bilateral breath sounds 07/18/16 Since the bronchoscopy intubation and now after extubation patient has been ventilating nicely Chest tube drainage is about 400 cc per last 24 hours and it straw-colored This is inflammatory reaction the pleura which is slowly resolving so we will leave chest tube in place for this purpose Patient is still sort of somnolent in bed although the takes by mouth when asked questions he answers them appropriately but mumbles it, and remains somnolent Does not participate with care Does not cooperating with physical and occupational therapy or the nurses Asking for pain medication Objective Vital Signs Date Time Temp Pulse Resp B/P Pulse Ox O2 Delivery O2 Flow Rate FiO2 07/18/16 18:00 104 07/18/16 16:00 100.4 21 139/71 95 07/18/16 07:51 Nasal Cannula 2.00 07/17/16 07:53 40 Intake and Output 07/17/16 07/17/16 07/18/16 08:00 16:00 00:00 Intake Total 2691 ml 571 ml 915 ml Output Total 550 ml 320 ml 1300 ml Balance 2141 ml 251 ml -385 ml Result Diagram: 07/18/16 0417 07/18/16 0417 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 I reviewed and agree with the findings presented. I attest that I had a [id number] encounter with the patient on the same day, and personally performed and documented my assessment and findings in the medical record. Critical care time 40 minutes. Blair Cartagena MD Jul 18, 2016 19:35
[2016-07-18] MEDS: MAGNESIUM HYDROXIDE SUSP 30 ML CUP PO SCH (21:57)
[2016-07-19] VITALS (15 sets, daily range): BP systolic 108–146; BP diastolic 64–77; PULSE 90–115; RESP 16–22; TEMP 97.8–98.4; O2SAT 95–100
[2016-07-19] MEDS: ACETAMINOPHEN/HYDROcodone 325 MG/5 MG TAB PO PRN (02:09)
[2016-07-19] MEDS: CYCLOBENZAPRINE HCL 10 MG TAB PO PRN (02:09)
[2016-07-19] MEDS: NS + KCL 20 MEQ INJ 1,000 ML IV SCH (02:10)
[2016-07-19] MEDS: RESP: ALBUTEROL 2.5 MG/IPRATROPIUM 0.5 MG NEB (SCH) NEB ×8 (03:35→23:51)
[2016-07-19 04:52] LABS: BICARBONATE 25.7 MEQ/L (21.0-32.0); POTASSIUM 4.1 MEQ/L (3.5-5.1)
[2016-07-19 04:53] LABS: AUTOMATED NEUTROPHIL # 6.5 TH/MM3 (1.8-7.7); BASOPHIL % 0.2 % (0.0-2.0); EOSINOPHIL % 0.2 % (0.0-4.0); HEMATOCRIT 30.1 % (39.0-51.0); HEMO FLAGS DIFF FINAL; LYMPH % 5.5 % (9.0-44.0); LYMPHOCYTE # 0.5 TH/MM3 (1.0-4.8); MEAN CELL VOLUME 98.9 FL (80.0-100.0); MEAN CORPUSCULAR HEMOGLOBIN 34.3 PG (27.0-34.0); MEAN CORPUSCULAR HGB CONC 34.7 % (32.0-36.0); MONO % 18.7 % (0.0-8.0); NEUT % 75.4 % (16.0-70.0); PLATELET COUNT 198 TH/MM3 (150-450); RED BLOOD COUNT 3.05 MIL/MM3 (4.50-5.90); RED CELL DISTRIBUTION WIDTH 12.8 % (11.6-17.2); WHITE BLOOD COUNT 8.6 TH/MM3 (4.0-11.0)
[2016-07-19 05:54] LABS: BLOOD GAS BASE EXCESS 1.8 mmol/L (-2-2); BLOOD GAS CARBOXYHEMOGLOBIN 1.5 % (0-4); BLOOD GAS HCO3 26 mmol/L (22-26); BLOOD GAS METHEMOGLOBIN 0.7 % (0-2); BLOOD GAS O2 HGB SATURATION 88 % (90-100); BLOOD GAS OXYGEN CONTENT 12.7 Vol % (12.0-20.0); BLOOD GAS PCO2 40 mmHg (38-42); BLOOD GAS PO2 59 mmHg (61-120); BLOOD GAS TOTAL HGB 10.2 G/DL (12.0-16.0); CRITICAL VALUE YES; DRAW SITE RT RADIAL; LITER FLOW 8 L/M; NUMBER OF ARTERIAL PUNCTURES 1; OXYGEN DEVICE SM; STAT YES; TEMP CORR TO 98.6; ULNAR PULSE PRESENT
[2016-07-19] MEDS ORDERED: FUROSEMIDE 40 MG/4 ML VIAL IV PUSH ONE (06:00)
--- NOTE | 2016-07-19 06:45 | RADRPT ---
EXAM DATE/TIME: 07/19/2016 05:28 [facility] COMPARISON: CHEST SINGLE AP, July 17, 2016, 5:45. INDICATIONS : Shortness of breath, possible pulmonary disease. MEDICAL HISTORY : None. SURGICAL HISTORY : None. ENCOUNTER: Subsequent ACUITY: 1 week PAIN SCORE: Non-responsive. LOCATION: Bilateral chest FINDINGS: Left chest tube present without significant pneumothorax. Multiple left rib fractures present. Bilate ral mostly basilar airspace disease has increased from July 17. CONCLUSION: 1. Interval extubation. Left chest tube remains present. Increasing basilar airspace disease since with small effusions. Manish Dougherty MD on July 19, 2016 at 6:42 Board Certified Radiologist. This report was verified electronically.
[2016-07-19] MEDS ORDERED: ACETAMINOPHEN 1000 MG/100 ML VIAL IV PRN (08:45)
[2016-07-19] MEDS: LACTULOSE SYRUP 20 GM/30 ML CUP PO SCH (09:00)
[2016-07-19] MEDS: DOCUSATE SODIUM 50 MG/SENNA 8.6 MG TAB PO SCH ×2 (09:00→21:00)
[2016-07-19] MEDS: PANTOPRAZOLE SODIUM 40 MG VIAL IV PUSH SCH (11:44)
[2016-07-19] MEDS: METOPROLOL TARTRATE 5 MG/5 ML VIAL IV PUSH SCH ×3 (11:52→21:09)
[2016-07-19] MEDS: ENOXAPARIN SODIUM 40 MG/0.4 ML SYRINGE SQ SCH (11:52)
[2016-07-19] MEDS ORDERED: LIDOCAINE HCL 2% 100 MG/5 ML SYRINGE ONE (12:58)
[2016-07-19] MEDS ORDERED: EPINEPHrine HCL (1:10,000) 1 MG/10 ML SYRINGE ONE (12:58)
[2016-07-19] MEDS ORDERED: ATROPINE SULFATE 1 MG/10 ML SYRINGE ONE (12:58)
[2016-07-19] MEDS ORDERED: IOHEXOL 350 MG/ML 10 ML VIAL (for RAD DIAG) IV ONE (14:00)
--- NOTE | 2016-07-19 14:09 | RADRPT ---
EXAM DATE/TIME: 07/19/2016 13:25 [facility] COMPARISON: No previous studies available for comparison. INDICATIONS : Cephalgia status post fall from roof. RADIATION DOSE: 56.35 CTDIvol (mGy) MEDICAL HISTORY : Hypertension. SURGICAL HISTORY : None. ENCOUNTER: Initial ACUITY: 1 day PAIN SCALE: Non-responsive LOCATION: Bilateral head TECHNIQUE: Multiple contiguous axial images were obtained of the head. Using automated exposure control and adjustment of the mA and/or kV according to patient size, radiation dose was kept as low as reasonably achievable to obtain optimal diagnostic quality images. FINDINGS: CEREBRUM: The ventricles are normal for age. No evidence of midline shift, mass lesion, hemorrha ge or acute infarction. No extra-axial fluid collections are seen. POSTERIOR FOSSA: The cerebellum and brainstem are intact. The 4th ventricle is midline. The cer ebellopontine angle is unremarkable. EXTRACRANIAL: The visualized portion of the orbits is intact. SKULL: The calvaria is intact. No evidence of skull fracture. CONCLUSION: Negative for an acute process. Cory Butts MD FACR on July 19, 2016 at 14:07 Board Certified Radiologist. This report was verified electronically.
--- NOTE | 2016-07-19 14:37 | RADRPT ---
EXAM DATE/TIME: 07/19/2016 13:31 [facility] COMPARISON: CT THORAX W/O CONTRAST, July 15, 2016, 16:18. INDICATIONS : Status post chest tube placement. IV CONTRAST: 65 cc Omnipaque 350 (iohexol) IV RADIATION DOSE: 5.1 CTDIvol (mGy) MEDICAL HISTORY: Hypertension. SURGICAL HISTORY: Chest tube placement ENCOUNTER: Initial ACUITY: 1 day PAIN SCALE: Non-responsive LOCATION: Bilateral chest TECHNIQUE: Volumetric scanning of the chest was performed. Using automated exposure control and adjustment of t he mA and/or kV according to patient size, radiation dose was kept as low as reasonably achievable to obtain optimal diagnostic quality images. FINDINGS: There is a small right pleural effusion evident. There is a left chest tube in good position with a small left pneumothorax evident. Multiple left ri b fractures are noted. There is dense consolidation in the left lung with endobronchial obstruction evident. There is a 3.5 cm apparent pneumatocele in the left lower lobe with air and fluid level present. There is no evidence for central pulmonary emboli. Review of bone windows reveals multiple rib fractures on the left. CONCLUSION: 1. Left chest tube in good position with small left pneumothorax evident. 2. Findings again remain suspicious for interbronchial disruption. 3. Trace pleural effusion on the right. Cory Butts MD FACR on July 19, 2016 at 14:07 Board Certified Radiologist. This report was verified electronically.
--- NOTE | 2016-07-19 18:18 | HHI.CCPN ---
Subjective Brief History History of Present Illness The patient is a 51 year old male who presents to the [facility] emergency department as transfer from [facility]. He sustained a fall from the roof while he was working. This was a 12 foot roof and he landed on his back. He drove his coworkers home, prior to going to the emergency department. He was found to have multiple left-sided rib fractures, compression fracture of T8, left-sided pneumothorax and L lung contusion, for which a large bore chest tube was placed. The patients laboratory studies were remarkable for a white count of 12.2, potassium 3.0, alcohol level 150. Patient was transferred to surgical ICU with above-noted injuries It is conceivable that patient had aspirated at the time of event I 24 Hour Review/Hospital Course Since arrival to the ICU patient has been stable He is awake alert and oriented He is severe left chest pain and back pain which is currently managed Neurosurgery has been consult is regarding the compression fracture of T8 and additional studies have been ordered Pulmonary contusion is severe and patient will likely get worse before he gets better as far as respiratory system is concerned for aspiration has most likely occurred at the time of the accident 07/16/2016 Patient was transferred to the floor 2 days ago and the has been doing well however became somewhat short of breath and repeat CAT scan was ordered which reveals complete collapse of the left lung with inspissated secretions and the collecting fluid around the lung Patient was transferred back to the ICU and remains well oxygenated on the 6 L nasal cannula nonetheless the left lung is completely atelectatic Today patient was intubated bronchoscoping and large amount of mucous material was obtained while the left lung reexpanded Drainage from the chest tube has also increased significantly pushing out all the fluid as the lung is reexpanded Will keep patient on the ventilator total tomorrow and then reassess needing possibly another bronchoscopy and then we'll work toward extubation 07/17/2016 As above noted patient has been intubated bronchoscoping has been doing well on the ventilator and is now successfully extubated All things equal patient will be able to return to the floor either today or tomorrow Chest tube drainage has decreased after being increased for about 24 hours and is serosanguineous and straw-colored Bilateral breath sounds 07/18/16 Since the bronchoscopy intubation and now after extubation patient has been ventilating nicely Chest tube drainage is about 400 cc per last 24 hours and it straw-colored This is inflammatory reaction the pleura which is slowly resolving so we will leave chest tube in place for this purpose Patient is still sort of somnolent in bed although the takes by mouth when asked questions he answers them appropriately but mumbles it, and remains somnolent Does not participate with care Does not cooperating with physical and occupational therapy or the nurses Asking for pain medication 07/19/2016 Patient is awake but slightly somnolent but oriented in time and space Patient requires increased amount of oxygen and this is a consistent with his anatomic and physiologic injuries Repeat CT scan of the chest reveals collapse of the left lower and part of the upper lobe with air-fluid level in the chest and partial collapse of the left lung Chest tube remains in place The partial anterior pneumothorax is due to the fact the patient was of suction when he went down to the radiology At this point patient will need to be intubated ventilated and bronchoscope the clearing of the secretions He may need prolonged intubation at this time and probably upon the evaluation the bronchial tree will decide whether patient needs a tracheostomy in the near future The interlobar bled could of course be due to the bronchial disruption but there is no need for surgery on this for it will eventually heal on its own The main thing is to support patient's respiration and pulmonary function Objective Vital Signs Date Time Temp Pulse Resp B/P Pulse Ox O2 Delivery O2 Flow Rate FiO2 07/19/16 08:01 99 Non-Rebreather 15.00 07/19/16 08:00 102 07/19/16 04:00 98.4 22 108/64 07/17/16 07:53 40 Intake and Output 07/18/16 07/18/16 07/19/16 08:00 16:00 00:00 Intake Total 940 ml 1087 ml 760 ml Output Total 625 ml 1200 ml 550 ml Balance 315 ml -113 ml 210 ml Result Diagram: 07/19/16 0357 07/19/16 0357 Other Results Laboratory Tests Test 07/19/16 05:43 Blood Gas Puncture Site RT RADIAL Blood Gas Patient Temperature 98.6 Blood Gas HCO3 26 mmol/L (22-26) Blood Gas Base Excess 1.8 mmol/L (-2-2) Blood Gas Oxygen Saturation 88 % (90-100) Arterial Blood pH 7.43 (7.380-7.420) Arterial Blood Partial 40 mmHg (38-42) Pressure CO2 Arterial Blood Partial 59 mmHg Pressure O2 (61-120) Arterial Blood Oxygen Content 12.7 Vol % (12.0-20.0) Arterial Blood 1.5 % (0-4) Carboxyhemoglobin Arterial Blood Methemoglobin 0.7 % (0-2) Blood Gas Hemoglobin 10.2 G/DL (12.0-16.0) Oxygen Delivery Device SM Blood Gas Liter Flow 8 L/M Imaging Last 24 hours Impressions Chest X-Ray 07/19/16 0600 Signed Impressions: Service Date/Time: Tuesday, July 19, 2016 05:28 - CONCLUSION: 1. Interval extubation. Left chest tube remains present. Increasing basilar airspace disease since July 17 with small effusions. Manish Dougherty MD Head CT 07/19/16 0000 Signed Impressions: Service Date/Time: Tuesday, July 19, 2016 13:25 - CONCLUSION: Negative for an acute process. Cory Butts MD FACR Chest CT 07/19/16 0000 Signed Impressions: Service Date/Time: Tuesday, July 19, 2016 13:31 - CONCLUSION: 1. Left chest tube in good position with small left pneumothorax evident. 2. Findings again remain suspicious for interbronchial disruption. 3. Trace pleural effusion on the right. 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 Toscano and there is no sign of injury to the bronchi An injury that might be distal to the distal arboration of bronchi would not be addressed surgically anyway At this point its likely the patient will need to be reintubated bronchoscoped and washed out He does not participating care does not cough or effectively move around Abdomen/GI Nutrition Abdomen is soft tolerates diet well Assessment and Plan Attestation The exam, history, and the medical decision-making described in the above note were completed with the assistance of the mid-level provider. I reviewed and agree with the findings presented. I attest that I had a [id number] encounter with the patient on the same day, and personally performed and documented my assessment and findings in the medical record. Critical care time 40 minutes. Blair Cartagena MD Jul 19, 2016 18:17
[2016-07-19] MEDS: MAGNESIUM HYDROXIDE SUSP 30 ML CUP PO SCH (21:00)
[2016-07-19] MEDS: HALOPERIDOL LACTATE 5 MG/ML AMP IV PRN (23:17)
[2016-07-20] VITALS (18 sets, daily range): BP systolic 101–162; BP diastolic 66–99; PULSE 86–115; RESP 23–30; TEMP 97.6–99.4; O2SAT 93–100
[2016-07-20] MEDS: LABETALOL HCL 100 MG/20 ML VIAL IV PRN (00:22)
[2016-07-20] MEDS: RESP: ALBUTEROL 2.5 MG/IPRATROPIUM 0.5 MG NEB (SCH) NEB ×5 (03:05→20:26)
--- NOTE | 2016-07-20 04:17 | RADRPT ---
EXAM DATE/TIME: 07/20/2016 03:43 [facility] COMPARISON: CHEST SINGLE AP, July 19, 2016, 5:28. INDICATIONS : Shortness of breath. MEDICAL HISTORY : Hypertension. SURGICAL HISTORY : Chest tube placement. ENCOUNTER: Subsequent ACUITY: 1 week PAIN SCORE: Non-responsive. LOCATION: Bilateral chest FINDINGS: A single view of the chest demonstrates left chest tube with multiple left rib fractures. Basilar air space disease and residual left effusion similar to July 19. Loculated air and fluid in the medi al left hemithorax similar to prior examination. CONCLUSION: 1. Stable exam compared with July 19. Left chest tube present with multiple left rib fractures, l eft greater than right effusion and bibasilar airspace disease, left greater than right. Loculated air and fluid medial left hemithorax similar to prior exam. Manish Dougherty MD on July 20, 2016 at 4:12 Board Certified Radiologist. This report was verified electronically.
[2016-07-20 04:47] LABS: AUTOMATED NEUTROPHIL # 9.6 TH/MM3 (1.8-7.7); BASOPHIL % 0.2 % (0.0-2.0); EOSINOPHIL % 0.2 % (0.0-4.0); HEMATOCRIT 30.8 % (39.0-51.0); HEMO FLAGS DIFF FINAL; LYMPHOCYTE # 0.6 TH/MM3 (1.0-4.8); MEAN CELL VOLUME 98.5 FL (80.0-100.0); MEAN CORPUSCULAR HEMOGLOBIN 33.4 PG (27.0-34.0); MONO % 12.8 % (0.0-8.0); NEUT % 81.8 % (16.0-70.0); PLATELET COUNT 266 TH/MM3 (150-450); RED BLOOD COUNT 3.13 MIL/MM3 (4.50-5.90); RED CELL DISTRIBUTION WIDTH 12.8 % (11.6-17.2); WHITE BLOOD COUNT 11.7 TH/MM3 (4.0-11.0)
[2016-07-20] MEDS: METOPROLOL TARTRATE 5 MG/5 ML VIAL IV PUSH SCH ×4 (04:50→20:40)
[2016-07-20 05:12] LABS: BICARBONATE 28.8 MEQ/L (21.0-32.0); POTASSIUM 3.8 MEQ/L (3.5-5.1)
[2016-07-20] MEDS: DOCUSATE SODIUM 50 MG/SENNA 8.6 MG TAB PO SCH ×2 (08:19→20:40)
[2016-07-20] MEDS: LACTULOSE SYRUP 20 GM/30 ML CUP PO SCH (08:19)
[2016-07-20] MEDS: PANTOPRAZOLE SODIUM 40 MG VIAL IV PUSH SCH (08:56)
[2016-07-20] MEDS: HALOPERIDOL LACTATE 5 MG/ML AMP IV PRN ×3 (08:57→21:46)
[2016-07-20] MEDS ORDERED: ETOMIDATE 40 MG/20 ML VIAL IV PUSH ONE (10:15)
[2016-07-20] MEDS ORDERED: ROCURONIUM INJ 50 MG/5 ML VIAL IV ONE (10:15)
[2016-07-20] MEDS: PROPOFOL 1000 MG/100 ML IV SCH ×4 (11:50→22:35)
[2016-07-20] MEDS ORDERED: PROPOFOL 1000 MG/100 ML INJ 100 ML IV SCH (12:00)
[2016-07-20 12:02] LABS: BLOOD GAS CARBOXYHEMOGLOBIN 0.9 % (0-4); BLOOD GAS HCO3 25 mmol/L (22-26); BLOOD GAS METHEMOGLOBIN 0.7 % (0-2); BLOOD GAS O2 HGB SATURATION 98 % (90-100); BLOOD GAS OXYGEN CONTENT 25.6 Vol % (12.0-20.0); BLOOD GAS PCO2 39 mmHg (38-42); BLOOD GAS PO2 185 mmHg (61-120); BLOOD GAS TOTAL HGB 18.4 G/DL (12.0-16.0); CRITICAL VALUE NO; OXYGEN DEVICE VENTILATOR; TEMP CORR TO 98.6; VENT SETTINGS AC/14/550/PEEP10
[2016-07-20 12:03] LABS: DRAW SITE RT RADIAL; FIO2 100 %; NUMBER OF ARTERIAL PUNCTURES 1; STAT NO; ULNAR PULSE PRESENT
--- NOTE | 2016-07-20 12:53 | RADRPT ---
EXAM DATE/TIME: 07/20/2016 11:12 [facility] COMPARISON: No previous studies available for comparison. INDICATIONS: Respiratory failure. MEDICAL HISTORY: Hypertension. SURGICAL HISTORY: None. ENCOUNTER: Subsequent ACUITY: 1 week PAIN SCORE: Non-responsive. LOCATION: Bilateral chest FINDINGS: There has been interval placement of endotracheal tube just below level of the clavicles. The left-s ided chest tube, left lower lobe of consolidation and multiple rib fractures are unchanged. There is persistent pleural air in the left lower costophrenic angle. Right lobe is relatively clear. CONCLUSION: ET tube has been placed in good position. Suspected pneumothorax anteriorly on the left despite the presence of a left-sided chest tube. Right lung remains clear. Multiple rib fracture unchanged. Nino Lopez MD on July 20, 2016 at 12:46 Board Certified Radiologist. This report was verified electronically.
[2016-07-20] MEDS: ENOXAPARIN SODIUM 40 MG/0.4 ML SYRINGE SQ SCH (13:05)
[2016-07-20] MEDS ORDERED: EPINEPHrine HCL (1:10,000) 1 MG/10 ML SYRINGE ONE (17:00)
[2016-07-20] MEDS ORDERED: ATROPINE SULFATE 1 MG/10 ML SYRINGE ONE (17:00)
[2016-07-20] MEDS ORDERED: LIDOCAINE HCL 2% 100 MG/5 ML SYRINGE ONE (17:00)
--- NOTE | 2016-07-20 17:56 | RADRPT ---
EXAM DATE/TIME: 07/20/2016 17:22 [facility] COMPARISON: CT THORAX W/O CONTRAST, July 15, 2016, 16:18. INDICATIONS : Trauma,post bronch persistent pneumothorax. RADIATION DOSE: 5.10 CTDIvol (mGy) MEDICAL HISTORY : Seizures. Hypertension. SURGICAL HISTORY : ENCOUNTER: Initial ACUITY: 1 day PAIN SCALE: Non-responsive LOCATION: chest TECHNIQUE: Volumetric scanning of the chest was performed. Using automated exposure control and adjustment of t he mA and/or kV according to patient size, radiation dose was kept as low as reasonably achievable to obtain optimal diagnostic quality images. FINDINGS: LUNGS: There again is significant consolidation within the left upper lobe inferiorly and posteriorly in the left lower lobe. It is markedly improved since the 07/15 exam. There is residual left lower pneumoth orax. At the lingular level it measures 1.4 cm smaller than on 07/15 exam. There is mild passive atele ctasis right lung base increased since 07/15. Mild atelectasis right middle lobe PLEURAE: In the left lower costophrenic angle there is a air fluid level in a collection measuring 5.1 x 7.0 c m. There is an air-fluid level within its approximate 80% filled with fluid which is slightly denser may be complicated fluid. There is a left-sided chest tube seen with its tip extending toward the le ft lung apex MEDIASTINUM: The heart and great vessels demonstrate no acute abnormality. There is no mediastinal or hilar lymph adenopathy. AXILLAE: Within normal limits. No lymphadenopathy. MUSCULOSKELETAL: Within normal limits for patient age. Questionable transverse fractures of the left L 2 and L3 transv erse processes. Questionable hairline fracture left 11th rib. MISCELLANEOUS: The visualized upper abdominal organs demonstrate no acute abnormality. CONCLUSION: Improving appearance of the left lung since the 07/15 exam. The left upper lobe is much better aerated and the pneumothorax is smaller than on the previous study. There is persisting consolidation in the left lower lobe and a persistent dense collection in the lower costophrenic angle. The chest tube is again seen near with its tip near the apex. The lower posterior collection may not be communicating with the chest tube or the rest of the pneumothorax. Nino Lopez MD on July 20, 2016 at 17:49 Board Certified Radiologist. This report was verified electronically.
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
[2016-07-20] MEDS ORDERED: SODIUM CHLORID 0.9% 500 ML INJ 500 ML IV ONE (20:00)
[2016-07-20] MEDS: CHLORHEXIDINE 0.12% (ORAL KIT) 15 ML CUP MT SCH (20:00)
[2016-07-20] MEDS: MAGNESIUM HYDROXIDE SUSP 30 ML CUP PO SCH (20:40)
[2016-07-20] MEDS: SODIUM CHLOR 0.9% 1000 ML INJ 1,000 ML IV SCH (21:00)
[2016-07-21] VITALS (18 sets, daily range): BP systolic 120–158; BP diastolic 68–85; PULSE 89–123; RESP 22–36; TEMP 98.1–99.4; O2SAT 93–100
[2016-07-21] MEDS: RESP: ALBUTEROL 2.5 MG/IPRATROPIUM 0.5 MG NEB (SCH) NEB ×6 (00:10→19:25)
[2016-07-21] MEDS: PROPOFOL 1000 MG/100 ML IV SCH ×5 (01:58→20:30)
[2016-07-21] MEDS: METOPROLOL TARTRATE 5 MG/5 ML VIAL IV PUSH SCH ×4 (03:54→20:29)
[2016-07-21] MEDS: HALOPERIDOL LACTATE 5 MG/ML AMP IV PRN ×3 (04:06→18:19)
[2016-07-21 04:39] LABS: AUTOMATED NEUTROPHIL # 9.2 TH/MM3 (1.8-7.7); BASOPHIL % 0.2 % (0.0-2.0); EOSINOPHIL # 0.1 TH/MM3 (0-0.4); EOSINOPHIL % 0.4 % (0.0-4.0); HEMATOCRIT 31.1 % (39.0-51.0); HEMO FLAGS DIFF FINAL; LYMPH % 7.6 % (9.0-44.0); LYMPHOCYTE # 0.9 TH/MM3 (1.0-4.8); MEAN CELL VOLUME 98.2 FL (80.0-100.0); MEAN CORPUSCULAR HGB CONC 33.5 % (32.0-36.0); MONO % 12.9 % (0.0-8.0); NEUT % 78.9 % (16.0-70.0); PLATELET COUNT 303 TH/MM3 (150-450); RED BLOOD COUNT 3.17 MIL/MM3 (4.50-5.90); RED CELL DISTRIBUTION WIDTH 13.2 % (11.6-17.2); WHITE BLOOD COUNT 11.7 TH/MM3 (4.0-11.0)
[2016-07-21 05:05] LABS: BICARBONATE 21.7 MEQ/L (21.0-32.0); POTASSIUM 3.5 MEQ/L (3.5-5.1)
[2016-07-21] MEDS: SODIUM CHLOR 0.9% 1000 ML INJ 1,000 ML IV SCH ×4 (07:00→23:39)
[2016-07-21] MEDS: CHLORHEXIDINE 0.12% (ORAL KIT) 15 ML CUP MT SCH ×2 (08:00→20:00)
[2016-07-21] MEDS: LACTULOSE SYRUP 20 GM/30 ML CUP PO SCH (08:30)
[2016-07-21] MEDS: DOCUSATE SODIUM 50 MG/SENNA 8.6 MG TAB PO SCH ×2 (08:31→20:29)
[2016-07-21] MEDS: PANTOPRAZOLE SODIUM 40 MG VIAL IV PUSH SCH (08:38)
[2016-07-21] MEDS: POTASSIUM CL 40 MEQ/30 ML LIQ UDC PO/TUBE PRN (09:24)
--- NOTE | 2016-07-21 09:43 | EKG ---
Date Performed: 07/21/2016 Time Performed: 05:11:02 PTAGE: 51 years EKG: Sinus rhythm Rightward axis Poor R wave progression - probable normal variant Anterior T wave changes are nonspec ific Abnormal ECG NO PREVIOUS TRACING DOCTOR: Nino Amaya Interpretating Date/Time 07/21/2016 09:41:48
[2016-07-21] MEDS ORDERED: PROPOFOL 200 MG/20 ML AMP IV ONE (09:54)
[2016-07-21] MEDS ORDERED: LACTATED RINGER'S 1000 ML INJ 1,000 ML IV ONE (09:54)
[2016-07-21] MEDS ORDERED: NORMOSOL R INJ 1,000 ML IV ONE (09:54)
[2016-07-21] MEDS ORDERED: VANCOMYCIN HCL 1000 MG VIAL ONE (09:59)
[2016-07-21] MEDS ORDERED: SODIUM CHLOR 0.9% 250 ML INJ 250 ML ONE (10:00)
[2016-07-21] MEDS: ENOXAPARIN SODIUM 40 MG/0.4 ML SYRINGE SQ SCH (11:38)
[2016-07-21 11:59] LABS: BLOOD GAS CARBOXYHEMOGLOBIN 1.1 % (0-4); BLOOD GAS HCO3 22 mmol/L (22-26); BLOOD GAS METHEMOGLOBIN 1.1 % (0-2); BLOOD GAS O2 HGB SATURATION 92 % (90-100); BLOOD GAS OXYGEN CONTENT 22.5 Vol % (12.0-20.0); BLOOD GAS PCO2 49 mmHg (38-42); BLOOD GAS PO2 86 mmHg (61-120); BLOOD GAS TOTAL HGB 17.3 G/DL (12.0-16.0); TEMP CORR TO 98.6
[2016-07-21 12:00] LABS: CRITICAL VALUE YES; FIO2 70 %; OXYGEN DEVICE VENTILATOR; STAT YES; ULNAR PULSE PRESENT
[2016-07-21] MEDS ORDERED: fentaNYL CITRATE 1000 MCG/20 ML VIAL ONE (12:56)
--- NOTE | 2016-07-21 17:06 | RADRPT ---
EXAM DATE/TIME: 07/21/2016 16:19 [facility] COMPARISON: CHEST SINGLE AP, July 20, 2016, 11:12. INDICATIONS : Respiratory distress. MEDICAL HISTORY : Hypertension. SURGICAL HISTORY : None. ENCOUNTER: Subsequent ACUITY: 1 week PAIN SCORE: Non-responsive. LOCATION: Bilateral chest FINDINGS: The cardiac silhouette is normal in transverse diameter. There is left lower lobe atelectasis versus pneumonia. 2 left-sided chest tubes are in place with tiny left apical pneumothorax. Support lines an d tubes are in satisfactory position. Multiple left rib fractures are present. CONCLUSION: 1. Tiny left apical pneumothorax unchanged. Felix Kidd MD on July 21, 2016 at 17:03 Board Certified Radiologist. This report was verified electronically.
[2016-07-21] MEDS: MAGNESIUM HYDROXIDE SUSP 30 ML CUP PO SCH (20:30)
[2016-07-22] VITALS (18 sets, daily range): BP systolic 143–157; BP diastolic 67–85; PULSE 89–118; RESP 24–31; TEMP 98.5–100; O2SAT 97–100
[2016-07-22] MEDS: RESP: ALBUTEROL 2.5 MG/IPRATROPIUM 0.5 MG NEB (SCH) NEB ×7 (00:09→23:23)
[2016-07-22] MEDS: HALOPERIDOL LACTATE 5 MG/ML AMP IV PRN (00:38)
[2016-07-22] MEDS: PROPOFOL 1000 MG/100 ML IV SCH ×5 (01:46→21:49)
[2016-07-22] MEDS: METOPROLOL TARTRATE 5 MG/5 ML VIAL IV PUSH SCH ×4 (02:21→21:50)
[2016-07-22 04:40] LABS: AUTOMATED NEUTROPHIL # 17.9 TH/MM3 (1.8-7.7); BASOPHIL % 0.1 % (0.0-2.0); HEMATOCRIT 30.9 % (39.0-51.0); LYMPH % 3.8 % (9.0-44.0); LYMPHOCYTE # 0.8 TH/MM3 (1.0-4.8); MEAN CELL VOLUME 97.8 FL (80.0-100.0); MEAN CORPUSCULAR HEMOGLOBIN 33.4 PG (27.0-34.0); MEAN CORPUSCULAR HGB CONC 34.2 % (32.0-36.0); MONO % 11.2 % (0.0-8.0); NEUT % 84.9 % (16.0-70.0); PLATELET COUNT 363 TH/MM3 (150-450); RED BLOOD COUNT 3.16 MIL/MM3 (4.50-5.90); RED CELL DISTRIBUTION WIDTH 13.4 % (11.6-17.2); WHITE BLOOD COUNT 21.1 TH/MM3 (4.0-11.0)
[2016-07-22 04:42] LABS: HEMO FLAGS AUTO DIFF
[2016-07-22 04:55] LABS: BLOOD GAS BASE EXCESS -5.3 mmol/L (-2-2); BLOOD GAS CARBOXYHEMOGLOBIN 1.2 % (0-4); BLOOD GAS HCO3 18 mmol/L (22-26); BLOOD GAS METHEMOGLOBIN 0.9 % (0-2); BLOOD GAS O2 HGB SATURATION 94 % (90-100); BLOOD GAS OXYGEN CONTENT 13.9 Vol % (12.0-20.0); BLOOD GAS PCO2 28 mmHg (38-42); BLOOD GAS PO2 82 mmHg (61-120); BLOOD GAS TOTAL HGB 10.5 G/DL (12.0-16.0); TEMP CORR TO 98.6
[2016-07-22 04:56] LABS: CRITICAL VALUE NO; DRAW SITE ART LINE; FIO2 50 %; OXYGEN DEVICE VENTILATOR; STAT NO; VENT SETTINGS PRVC/AC
[2016-07-22 05:01] LABS: ALKALINE PHOSPHATASE 136 U/L (45-117); ALT (GPT) 14 U/L (12-78); ANION GAP 16 MEQ/L (5-15); AST (GOT) 20 U/L (15-37); BICARBONATE 20.8 MEQ/L (21.0-32.0); BLOOD UREA NITROGEN 7 MG/DL (7-18); CHLORIDE 107 MEQ/L (98-107); GLOMERULAR FILTRATION RATE 240 ML/MIN (>89); MAGNESIUM 1.8 MG/DL (1.5-2.5); POTASSIUM 3.3 MEQ/L (3.5-5.1); SODIUM (NA) 144 MEQ/L (136-145); TOTAL BILIRUBIN ADULT 0.5 MG/DL (0.2-1.0)
[2016-07-22] MEDS: POTASSIUM CL 40 MEQ/30 ML LIQ UDC PO/TUBE PRN ×2 (05:27→16:19)
[2016-07-22] MEDS: POTASSIUM PHOSPHATE MONOBASIC 500 MG TAB PO/TUBE PRN (05:28)
[2016-07-22 07:18] LABS: BANDS 15 % (0-6); MYELOCYTES 1 % (0-0); NEUTROPHIL # MANUAL DIFF 19.8 TH/MM3 (1.8-7.7); POLYS (SEG NEUTROPHILS) 78 % (16-70); WBC DIFF SAMPLE 100
[2016-07-22 07:19] LABS: PLATELET ESTIMATE SMEAR NORMAL (NORMAL); PLATELET MORPHOLOGY NORMAL (NORMAL); SCAN/DIFF FINAL DIFF MANUAL
--- NOTE | 2016-07-22 08:12 | MP ---
cc: BLAIR GALLEGOS MD DATE OF SURGERY 07/21/2016 PREOPERATIVE DIAGNOSIS Status post chest trauma and loculated left chest collection, collapse of the left lung, partial entrapment of the left lower lobe. POSTOPERATIVE DIAGNOSIS Status post chest trauma and loculated left chest collection, collapse of the left lung, partial entrapment of the left lower lobe. OPERATIVE PROCEDURE Video-assisted thoracoscopy, evacuation of the collection of the left pleural space with expansion of the left lower lobe and decortication of the left lower lobe. SURGEON MD Osiel ANESTHESIA General. ESTIMATED BLOOD LOSS 100 cc. PROCEDURE The patient was prepped and draped in the usual fashion, first port inserted in the posterior axillary line and then through this port a 0-degrees camera is placed. The chest cavity is observed. The upper lobe is collapsed and easily reinflated while being observed. There are some adhesions to the anterior chest wall which are very flimsy and these are taken down, freeing up the upper lobe. The second incision is made anterior to that in the eighth intercostal space in about mid-axillary line. This allows for two-port insertion of the camera and camera manipulation. The lower part of the lung is now observed. There is a large collection consisting of blood and a fibrinous tissue in the posterior sulcus of the left chest overlying the diaphragm. This is very tenuous tissue, kind of gelatinous. Very carefully it is mobilized with some Navid dissectors and clamps and then suctioned off with a Yankauer. Cultures are obtained. The lung surface is now observed. This is covered with fibrinous adhesions. These are very carefully teased off with Navid clamps and removed. The chest is now irrigated with copious amounts of saline, then another attempt is made to inflate the lung. At this point lung inflates nicely into the posterior sulcus and over the diaphragm. At this point two chest tubes are placed, a posterior basal and superior apical 32-Persian chest tube, sutured in place with 0-silk and then the lung is reinflated while withdrawing the camera. Once the lung is fully inflated, incisions are closed with 2-0 Vicryl and 4-0 Monocryl. The patient tolerated the procedure well. Balir PUENTE /4:02 PM /8:00 AM
[2016-07-22] MEDS: DOCUSATE SODIUM 50 MG/SENNA 8.6 MG TAB PO SCH ×2 (09:10→21:49)
[2016-07-22] MEDS: LACTULOSE SYRUP 20 GM/30 ML CUP PO SCH (09:10)
[2016-07-22] MEDS: PANTOPRAZOLE SODIUM 40 MG VIAL IV PUSH SCH (09:10)
[2016-07-22] MEDS: CHLORHEXIDINE 0.12% (ORAL KIT) 15 ML CUP MT SCH ×2 (09:11→20:00)
[2016-07-22] MEDS: SODIUM CHLOR 0.9% 1000 ML INJ 1,000 ML IV SCH ×3 (09:28→21:50)
[2016-07-22] MEDS ORDERED: Vancomycin Consult Pharmacy 1 EA OTHER SCH (10:00)
[2016-07-22] MEDS ORDERED: VANCOMYCIN INJ 1,000 MG in SODIUM CHLOR 0.9% 250 ML INJ 250 ML IV SCH (10:00)
[2016-07-22] MEDS: levETIRAcetam INJ 500 MG in SODIUM CHLORIDE 0.9% INJ 100 ML IV SCH ×2 (10:55→21:49)
[2016-07-22] MEDS: PIPERACIL-TAZO 3.375 GM PREMIX 50 ML IV SCH ×2 (10:55→18:21)
[2016-07-22] MEDS: FUROSEMIDE 20 MG/2 ML VIAL IV PUSH SCH (10:55)
[2016-07-22] MEDS: VANCOMYCIN INJ 1,500 MG in SODIUM CHLORID 0.9% 500 ML INJ 500 ML IV SCH ×2 (12:46→23:48)
[2016-07-22] MEDS: ENOXAPARIN SODIUM 40 MG/0.4 ML SYRINGE SQ SCH (12:47)
--- NOTE | 2016-07-22 14:37 | HHI.CCPN ---
Subjective Brief History History of Present Illness The patient is a 51 year old male who presents to the [facility] emergency department as transfer from [facility]. He sustained a fall from the roof while he was working. This was a 12 foot roof and he landed on his back. He drove his coworkers home, prior to going to the emergency department. He was found to have multiple left-sided rib fractures, compression fracture of T8, left-sided pneumothorax and L lung contusion, for which a large bore chest tube was placed. The patients laboratory studies were remarkable for a white count of 12.2, potassium 3.0, alcohol level 150. Patient was transferred to surgical ICU with above-noted injuries It is conceivable that patient had aspirated at the time of event I 24 Hour Review/Hospital Course Since arrival to the ICU patient has been stable He is awake alert and oriented He is severe left chest pain and back pain which is currently managed Neurosurgery has been consult is regarding the compression fracture of T8 and additional studies have been ordered Pulmonary contusion is severe and patient will likely get worse before he gets better as far as respiratory system is concerned for aspiration has most likely occurred at the time of the accident 07/16/2016 Patient was transferred to the floor 2 days ago and the has been doing well however became somewhat short of breath and repeat CAT scan was ordered which reveals complete collapse of the left lung with inspissated secretions and the collecting fluid around the lung Patient was transferred back to the ICU and remains well oxygenated on the 6 L nasal cannula nonetheless the left lung is completely atelectatic Today patient was intubated bronchoscoping and large amount of mucous material was obtained while the left lung reexpanded Drainage from the chest tube has also increased significantly pushing out all the fluid as the lung is reexpanded Will keep patient on the ventilator total tomorrow and then reassess needing possibly another bronchoscopy and then we'll work toward extubation 07/17/2016 As above noted patient has been intubated bronchoscoping has been doing well on the ventilator and is now successfully extubated All things equal patient will be able to return to the floor either today or tomorrow Chest tube drainage has decreased after being increased for about 24 hours and is serosanguineous and straw-colored Bilateral breath sounds 07/18/16 Since the bronchoscopy intubation and now after extubation patient has been ventilating nicely Chest tube drainage is about 400 cc per last 24 hours and it straw-colored This is inflammatory reaction the pleura which is slowly resolving so we will leave chest tube in place for this purpose Patient is still sort of somnolent in bed although the takes by mouth when asked questions he answers them appropriately but mumbles it, and remains somnolent Does not participate with care Does not cooperating with physical and occupational therapy or the nurses Asking for pain medication 07/19/2016 Patient is awake but slightly somnolent but oriented in time and space Patient requires increased amount of oxygen and this is a consistent with his anatomic and physiologic injuries Repeat CT scan of the chest reveals collapse of the left lower and part of the upper lobe with air-fluid level in the chest and partial collapse of the left lung Chest tube remains in place The partial anterior pneumothorax is due to the fact the patient was of suction when he went down to the radiology At this point patient will need to be intubated ventilated and bronchoscope the clearing of the secretions He may need prolonged intubation at this time and probably upon the evaluation the bronchial tree will decide whether patient needs a tracheostomy in the near future The interlobar bled could of course be due to the bronchial disruption but there is no need for surgery on this for it will eventually heal on its own The main thing is to support patient's respiration and pulmonary function 07/20/16 Patient has a had decreasing left lung function with the increasing levels consolidation and atelectasis Finally required intubation this morning with the bronchoscopy and clearing of the lung Massive amounts of mucous and purulent appearing material were obtained from the left lung Patient remains on the ventilator 07/22/2016 Patient status post left VATS evacuation of a loculated hemothorax and decortication of the left lung Postoperatively patient is doing well lungs are fully expanded and remains on the ventilator The patient improves respiratory ventilator weaning down gradually Antibiotics add to care in face of previous bronchoscopy findings cultures partially back Once we have better picture will adjust antibiotic coverage Objective Vital Signs Date Time Temp Pulse Resp B/P Pulse Ox O2 Delivery O2 Flow Rate FiO2 07/22/16 12:10 99 50 07/22/16 06:00 114 07/22/16 04:00 98.8 30 144/72 07/20/16 07:52 Partial Rebreather 12.00 Intake and Output 07/21/16 07/21/16 07/22/16 08:00 16:00 00:00 Intake Total 2982 ml 647 ml 904 ml Output Total 250 ml 381 ml 271 ml Balance 2732 ml 266 ml 633 ml Result Diagram: 07/22/16 0415 07/22/16 0415 Other Results Microbiology Date/Time Procedure Status Source Growth 07/20/16 10:45 Gram Stain - Final Complete Bronchial Washings Left Lower Lobe 07/20/16 10:45 Bronchial Culture - Final Complete Staphylococcus Aureus Laboratory Tests Test 07/22/16 04:42 Blood Gas Puncture Site ART LINE Blood Gas Patient Temperature 98.6 Blood Gas HCO3 18 mmol/L (22-26) Blood Gas Base Excess -5.3 mmol/L (-2-2) Blood Gas Oxygen Saturation 94 % (90-100) Arterial Blood pH 7.43 (7.380-7.420) Arterial Blood Partial 28 mmHg (38-42) Pressure CO2 Arterial Blood Partial 82 mmHg Pressure O2 (61-120) Arterial Blood Oxygen Content 13.9 Vol % (12.0-20.0) Arterial Blood 1.2 % (0-4) Carboxyhemoglobin Arterial Blood Methemoglobin 0.9 % (0-2) Blood Gas Hemoglobin 10.5 G/DL (12.0-16.0) Oxygen Delivery Device VENTILATOR Blood Gas Ventilator Setting PRVC/AC Blood Gas Inspired Oxygen 50 % Exam FUELER Sedated and ventilated Patient had unusual motion of his mouth and had in a repetitive fashion so patient may have partial complex seizure EEG has been ordered Hemodynamic/Cardiac Hemodynamically intact Pulmonary/Respiratory Bilateral breath sounds in full extension of the left lung surgery Serosanguineous drainage from the chest tube in no air leak Abdomen/GI Nutrition Abdomen is soft enteral feedings will be started Assessment and Plan Attestation Continue supportive care the patient equilibrates and improve The exam, history, and the medical decision-making described in the above note were completed with the assistance of the mid-level provider. I reviewed and agree with the findings presented. I attest that I had a [id number] encounter with the patient on the same day, and personally performed and documented my assessment and findings in the medical record. Critical care time 40 minutes. Blair Cartagena MD Jul 22, 2016 14:36
[2016-07-22 15:21] LABS: POTASSIUM 3.5 MEQ/L (3.5-5.1)
--- NOTE | 2016-07-22 17:02 | MG ---
cc: MAHENDRA JACOBSON M.D. Lab No: [id number] Date: 07/22/2016 Age: Sex: M Race: TECHNIQUE: A 17 channel EEG. DESCRIPTION: The background rhythm is generally slow in the theta and delta frequencies. There are no lateralizing features. There are no epileptiform discharges. Occasional muscle artifact is identified. Photic does not elicit a driving response. INTERPRETATION: Abnormal study consistent with a diffuse encephalopathy. MD YANN Spencer/YAO /4:20 PM /4:52 PM
[2016-07-22] MEDS: LABETALOL HCL 100 MG/20 ML VIAL IV PRN (17:36)
[2016-07-22] MEDS: MAGNESIUM HYDROXIDE SUSP 30 ML CUP PO SCH (21:49)
[2016-07-23] VITALS (20 sets, daily range): BP systolic 115–162; BP diastolic 63–83; PULSE 78–106; RESP 17–28; TEMP 98.2–99.4; O2SAT 91–98
[2016-07-23] MEDS: RESP: ALBUTEROL 2.5 MG/IPRATROPIUM 0.5 MG NEB (SCH) NEB (04:41)
[2016-07-23] MEDS: PIPERACIL-TAZO 3.375 GM PREMIX 50 ML IV SCH ×3 (04:41→19:11)
[2016-07-23] MEDS: METOPROLOL TARTRATE 5 MG/5 ML VIAL IV PUSH SCH ×4 (04:41→20:00)
[2016-07-23] MEDS: PROPOFOL 1000 MG/100 ML IV SCH ×5 (06:02→21:52)
[2016-07-23 06:03] LABS: AUTOMATED NEUTROPHIL # 19.2 TH/MM3 (1.8-7.7); BASOPHIL % 0.2 % (0.0-2.0); EOSINOPHIL % 0.1 % (0.0-4.0); HEMATOCRIT 29.1 % (39.0-51.0); LYMPH % 2.8 % (9.0-44.0); LYMPHOCYTE # 0.6 TH/MM3 (1.0-4.8); MEAN CELL VOLUME 97.6 FL (80.0-100.0); MEAN CORPUSCULAR HEMOGLOBIN 32.2 PG (27.0-34.0); MONO % 10.3 % (0.0-8.0); NEUT % 86.6 % (16.0-70.0); PLATELET COUNT 369 TH/MM3 (150-450); RED BLOOD COUNT 2.98 MIL/MM3 (4.50-5.90); RED CELL DISTRIBUTION WIDTH 13.4 % (11.6-17.2); WHITE BLOOD COUNT 22.1 TH/MM3 (4.0-11.0)
[2016-07-23 06:18] LABS: HEMO FLAGS AUTO DIFF
--- NOTE | 2016-07-23 06:27 | RADRPT ---
EXAM DATE/TIME: 07/23/2016 03:53 [facility] COMPARISON: CHEST SINGLE AP, July 21, 2016, 16:19. INDICATIONS : Shortness of breath. MEDICAL HISTORY : Hypertension. SURGICAL HISTORY : None. ENCOUNTER: Subsequent ACUITY: 1 week PAIN SCORE: Non-responsive. LOCATION: Bilateral chest FINDINGS: Endotracheal tube is stable in satisfactory position. Nasogastric tube descends to the stomach. Left thoracostomy tubes are stable. There has been slight improvement in aeration with decrease in conflue nce of left base infiltrate. Mild basilar and perihilar parenchymal opacity on the right is grossly s table. Cardiac contours are unchanged. CONCLUSION: Slightly improving aeration Toñito Cisneros MD on July 23, 2016 at 6:24 Board Certified Radiologist. This report was verified electronically.
[2016-07-23 06:30] LABS: ALT (GPT) 14 U/L (12-78); ANION GAP 8 MEQ/L (5-15); AST (GOT) 27 U/L (15-37); BICARBONATE 27.1 MEQ/L (21.0-32.0); BLOOD UREA NITROGEN 7 MG/DL (7-18); CHLORIDE 111 MEQ/L (98-107); GLOMERULAR FILTRATION RATE 264 ML/MIN (>89); MAGNESIUM 1.8 MG/DL (1.5-2.5); POTASSIUM 3.2 MEQ/L (3.5-5.1); SODIUM (NA) 146 MEQ/L (136-145)
[2016-07-23 06:31] LABS: ALKALINE PHOSPHATASE 134 U/L (45-117); TOTAL BILIRUBIN ADULT 0.3 MG/DL (0.2-1.0)
[2016-07-23] MEDS: POTASSIUM CL 40 MEQ/30 ML LIQ UDC PO/TUBE PRN (06:54)
[2016-07-23 07:00] LABS: BANDS 4 % (0-6); METAMYELOCYTES 1 % (0-1); MYELOCYTES 1 % (0-0); NEUTROPHIL # MANUAL DIFF 19.2 TH/MM3 (1.8-7.7); POLYS (SEG NEUTROPHILS) 81 % (16-70); WBC DIFF SAMPLE 100
[2016-07-23 07:01] LABS: PLATELET ESTIMATE SMEAR NORMAL (NORMAL); PLATELET MORPHOLOGY NORMAL (NORMAL); SCAN/DIFF FINAL DIFF MANUAL
[2016-07-23] MEDS: CHLORHEXIDINE 0.12% (ORAL KIT) 15 ML CUP MT SCH ×2 (08:00→19:50)
[2016-07-23] MEDS: LACTULOSE SYRUP 20 GM/30 ML CUP PO SCH (09:00)
[2016-07-23] MEDS: DOCUSATE SODIUM 50 MG/SENNA 8.6 MG TAB PO SCH ×2 (09:00→20:00)
[2016-07-23] MEDS: FUROSEMIDE 20 MG/2 ML VIAL IV PUSH SCH (10:00)
[2016-07-23] MEDS: levETIRAcetam INJ 500 MG in SODIUM CHLORIDE 0.9% INJ 100 ML IV SCH ×2 (10:01→20:00)
[2016-07-23] MEDS: PANTOPRAZOLE SODIUM 40 MG VIAL IV PUSH SCH (10:01)
[2016-07-23] MEDS: SODIUM CHLOR 0.9% 1000 ML INJ 1,000 ML IV SCH ×2 (10:01→19:49)
[2016-07-23] MEDS: ACETAMINOPHEN 325 MG TAB PO PRN (10:02)
[2016-07-23] MEDS: POTASSIUM PHOSPHATE MONOBASIC 500 MG TAB PO/TUBE PRN (10:02)
[2016-07-23] MEDS: ENOXAPARIN SODIUM 40 MG/0.4 ML SYRINGE SQ SCH (12:06)
[2016-07-23] MEDS: VANCOMYCIN INJ 1,500 MG in SODIUM CHLORID 0.9% 500 ML INJ 500 ML IV SCH (12:06)
--- NOTE | 2016-07-23 14:55 | HHI.CCPN ---
Subjective Brief History History of Present Illness The patient is a 51 year old male who presents to the [facility] emergency department as transfer from [facility]. He sustained a fall from the roof while he was working. This was a 12 foot roof and he landed on his back. He drove his coworkers home, prior to going to the emergency department. He was found to have multiple left-sided rib fractures, compression fracture of T8, left-sided pneumothorax and L lung contusion, for which a large bore chest tube was placed. The patients laboratory studies were remarkable for a white count of 12.2, potassium 3.0, alcohol level 150. Patient was transferred to surgical ICU with above-noted injuries It is conceivable that patient had aspirated at the time of event I 24 Hour Review/Hospital Course Since arrival to the ICU patient has been stable He is awake alert and oriented He is severe left chest pain and back pain which is currently managed Neurosurgery has been consult is regarding the compression fracture of T8 and additional studies have been ordered Pulmonary contusion is severe and patient will likely get worse before he gets better as far as respiratory system is concerned for aspiration has most likely occurred at the time of the accident 07/16/2016 Patient was transferred to the floor 2 days ago and the has been doing well however became somewhat short of breath and repeat CAT scan was ordered which reveals complete collapse of the left lung with inspissated secretions and the collecting fluid around the lung Patient was transferred back to the ICU and remains well oxygenated on the 6 L nasal cannula nonetheless the left lung is completely atelectatic Today patient was intubated bronchoscoping and large amount of mucous material was obtained while the left lung reexpanded Drainage from the chest tube has also increased significantly pushing out all the fluid as the lung is reexpanded Will keep patient on the ventilator total tomorrow and then reassess needing possibly another bronchoscopy and then we'll work toward extubation 07/17/2016 As above noted patient has been intubated bronchoscoping has been doing well on the ventilator and is now successfully extubated All things equal patient will be able to return to the floor either today or tomorrow Chest tube drainage has decreased after being increased for about 24 hours and is serosanguineous and straw-colored Bilateral breath sounds 07/18/16 Since the bronchoscopy intubation and now after extubation patient has been ventilating nicely Chest tube drainage is about 400 cc per last 24 hours and it straw-colored This is inflammatory reaction the pleura which is slowly resolving so we will leave chest tube in place for this purpose Patient is still sort of somnolent in bed although the takes by mouth when asked questions he answers them appropriately but mumbles it, and remains somnolent Does not participate with care Does not cooperating with physical and occupational therapy or the nurses Asking for pain medication 07/19/2016 Patient is awake but slightly somnolent but oriented in time and space Patient requires increased amount of oxygen and this is a consistent with his anatomic and physiologic injuries Repeat CT scan of the chest reveals collapse of the left lower and part of the upper lobe with air-fluid level in the chest and partial collapse of the left lung Chest tube remains in place The partial anterior pneumothorax is due to the fact the patient was of suction when he went down to the radiology At this point patient will need to be intubated ventilated and bronchoscope the clearing of the secretions He may need prolonged intubation at this time and probably upon the evaluation the bronchial tree will decide whether patient needs a tracheostomy in the near future The interlobar bled could of course be due to the bronchial disruption but there is no need for surgery on this for it will eventually heal on its own The main thing is to support patient's respiration and pulmonary function 07/20/16 Patient has a had decreasing left lung function with the increasing levels consolidation and atelectasis Finally required intubation this morning with the bronchoscopy and clearing of the lung Massive amounts of mucous and purulent appearing material were obtained from the left lung Patient remains on the ventilator 07/22/2016 Patient status post left VATS evacuation of a loculated hemothorax and decortication of the left lung Postoperatively patient is doing well lungs are fully expanded and remains on the ventilator The patient improves respiratory ventilator weaning down gradually Antibiotics add to care in face of previous bronchoscopy findings cultures partially back Once we have better picture will adjust antibiotic coverage 07/23/16 Postoperative day 2 from his left thoracoscopic decortication Patient still has slightly elevated ventilator requirements His lung is inflated and there is no evidence of pneumothorax or air leak in the Pleur-evac Objective Vital Signs Date Time Temp Pulse Resp B/P Pulse Ox O2 Delivery O2 Flow Rate FiO2 07/23/16 13:46 93 45 07/23/16 12:00 102 07/23/16 04:00 98.8 24 147/63 07/20/16 07:52 Partial Rebreather 12.00 Intake and Output 07/22/16 07/22/16 07/23/16 08:00 16:00 00:00 Intake Total 968 ml 997 ml 1590 ml Output Total 238 ml 793.0 ml 410 ml Balance 730 ml 204.0 ml 1180 ml Result Diagram: 07/23/16 0510 07/23/16 0510 Imaging Last 24 hours Impressions Chest X-Ray 07/23/16 0600 Signed Impressions: Service Date/Time: Saturday, July 23, 2016 03:53 - CONCLUSION: Slightly improving aeration Toñito Cisneros MD Exam PORTRAIT PAINTER Intubated and sedated Hemodynamic/Cardiac Regular rate and rhythm, mild tachycardia stable Pulmonary/Respiratory Clear to auscultation bilaterally, chest tube to 20 cm of suction with no evidence of an air leak in the Pleur-evac or pneumothorax on chest x-ray Abdomen/GI Nutrition Abdomen soft nontender nondistended, tolerating tube feeds Renal/I&O Stable, good urine output Hematologic Stable Assessment and Plan Plan Acute respiratory failure with bilateral rib fractures left-sided pulmonary contusion and pneumothorax, status post decortication for empyema - Continue to wean ventilator as tolerated -Wean sedation, we will switch to Precedex when extubation is likely -Place chest tubes to water seal and repeat chest x-ray in the morning Patient remains critically ill as above, total critical care time 45 minutes Ruslan Beltran MD Jul 23, 2016 14:54
[2016-07-23] MEDS: oxyCODONE HCL ORAL CONC 20 MG/ML SYRINGE PO PRN (15:50)
[2016-07-23] MEDS: MAGNESIUM HYDROXIDE SUSP 30 ML CUP PO SCH (20:00)
[2016-07-24] VITALS (18 sets, daily range): BP systolic 114–157; BP diastolic 65–85; PULSE 79–93; RESP 14–19; TEMP 98.3–99.8; O2SAT 92–98
[2016-07-24] MEDS: VANCOMYCIN INJ 1,500 MG in SODIUM CHLORID 0.9% 500 ML INJ 500 ML IV SCH ×2 (00:15→11:46)
[2016-07-24] MEDS: PIPERACIL-TAZO 3.375 GM PREMIX 50 ML IV SCH ×3 (02:05→18:34)
[2016-07-24] MEDS: METOPROLOL TARTRATE 5 MG/5 ML VIAL IV PUSH SCH ×4 (02:06→20:44)
[2016-07-24] MEDS: PROPOFOL 1000 MG/100 ML IV SCH ×5 (04:05→20:44)
[2016-07-24] MEDS: SODIUM CHLOR 0.9% 1000 ML INJ 1,000 ML IV SCH ×2 (04:08→15:31)
[2016-07-24] MEDS: oxyCODONE HCL ORAL CONC 20 MG/ML SYRINGE PO PRN (04:22)
[2016-07-24 05:02] LABS: AUTOMATED NEUTROPHIL # 18.2 TH/MM3 (1.8-7.7); BASOPHIL # 0.1 TH/MM3 (0-0.2); BASOPHIL % 0.4 % (0.0-2.0); EOSINOPHIL # 0.1 TH/MM3 (0-0.4); EOSINOPHIL % 0.5 % (0.0-4.0); HEMATOCRIT 27.1 % (39.0-51.0); LYMPH % 4.5 % (9.0-44.0); MEAN CELL VOLUME 97.6 FL (80.0-100.0); MEAN CORPUSCULAR HEMOGLOBIN 33.4 PG (27.0-34.0); MEAN CORPUSCULAR HGB CONC 34.3 % (32.0-36.0); MONO % 9.9 % (0.0-8.0); NEUT % 84.7 % (16.0-70.0); PLATELET COUNT 349 TH/MM3 (150-450); RED BLOOD COUNT 2.78 MIL/MM3 (4.50-5.90); RED CELL DISTRIBUTION WIDTH 13.7 % (11.6-17.2); WHITE BLOOD COUNT 21.5 TH/MM3 (4.0-11.0)
[2016-07-24 05:14] LABS: ALT (GPT) 20 U/L (12-78); ANION GAP 8 MEQ/L (5-15); AST (GOT) 41 U/L (15-37); BICARBONATE 27.3 MEQ/L (21.0-32.0); BLOOD UREA NITROGEN 9 MG/DL (7-18); CHLORIDE 112 MEQ/L (98-107); GLOMERULAR FILTRATION RATE 292 ML/MIN (>89); MAGNESIUM 1.7 MG/DL (1.5-2.5); POTASSIUM 3.1 MEQ/L (3.5-5.1); SODIUM (NA) 147 MEQ/L (136-145)
[2016-07-24 05:15] LABS: HEMO FLAGS AUTO DIFF
[2016-07-24 05:16] LABS: ALKALINE PHOSPHATASE 135 U/L (45-117); TOTAL BILIRUBIN ADULT 0.4 MG/DL (0.2-1.0)
[2016-07-24] MEDS: POTASSIUM CL 40 MEQ/30 ML LIQ UDC PO/TUBE PRN (05:24)
[2016-07-24] MEDS: POTASSIUM PHOSPHATE MONOBASIC 500 MG TAB PO/TUBE PRN (05:24)
[2016-07-24 05:42] LABS: BLOOD GAS BASE EXCESS 1.6 mmol/L (-2-2); BLOOD GAS CARBOXYHEMOGLOBIN 1.2 % (0-4); BLOOD GAS HCO3 25 mmol/L (22-26); BLOOD GAS METHEMOGLOBIN 0.8 % (0-2); BLOOD GAS O2 HGB SATURATION 94 % (90-100); BLOOD GAS OXYGEN CONTENT 12.5 Vol % (12.0-20.0); BLOOD GAS PCO2 34 mmHg (38-42); BLOOD GAS PO2 77 mmHg (61-120); BLOOD GAS TOTAL HGB 9.4 G/DL (12.0-16.0); CRITICAL VALUE NO; OXYGEN DEVICE VENTILATOR; TEMP CORR TO 98.6
[2016-07-24 05:43] LABS: DRAW SITE ART LINE; FIO2 45 %; STAT NO; VENT SETTINGS PRVC/AC
--- NOTE | 2016-07-24 06:48 | RADRPT ---
EXAM DATE/TIME: 07/24/2016 05:03 [facility] COMPARISON: CHEST SINGLE AP, July 23, 2016, 3:53. INDICATIONS : Shortness of breath. MEDICAL HISTORY : Hypertension. SURGICAL HISTORY : None. ENCOUNTER: Subsequent ACUITY: 1 week PAIN SCORE: Non-responsive. LOCATION: Bilateral chest FINDINGS: Endotracheal tube and nasogastric tube remain in place. Left thoracostomy tubes are stable area there is persistent dense consolidation and effusion at the left lung base and hazy perihilar and basilar parenchymal opacity in the right. Cardiac contours are grossly stable. CONCLUSION: No significant change Toñito Cisneros MD on July 24, 2016 at 6:46 Board Certified Radiologist. This report was verified electronically.
[2016-07-24 06:49] LABS: METAMYELOCYTES 5 % (0-1); NEUTROPHIL # MANUAL DIFF 19.6 TH/MM3 (1.8-7.7); PLATELET ESTIMATE SMEAR NORMAL (NORMAL); PLATELET MORPHOLOGY NORMAL (NORMAL); POLYS (SEG NEUTROPHILS) 86 % (16-70); SCAN/DIFF FINAL DIFF MANUAL; TOXIC VACUOLATION PRESENT (NONE SEEN); WBC DIFF SAMPLE 100
[2016-07-24] MEDS: CHLORHEXIDINE 0.12% (ORAL KIT) 15 ML CUP MT SCH ×2 (08:47→20:00)
[2016-07-24] MEDS: levETIRAcetam INJ 500 MG in SODIUM CHLORIDE 0.9% INJ 100 ML IV SCH ×2 (08:47→20:44)
[2016-07-24] MEDS: PANTOPRAZOLE SODIUM 40 MG VIAL IV PUSH SCH (08:48)
[2016-07-24] MEDS: SODIUM CHLORIDE 0.9% FLUSH 5 ML FLUSH IVF PRN (08:48)
[2016-07-24] MEDS: LACTULOSE SYRUP 20 GM/30 ML CUP PO SCH (08:48)
[2016-07-24] MEDS: FUROSEMIDE 20 MG/2 ML VIAL IV PUSH SCH (08:48)
[2016-07-24] MEDS: DOCUSATE SODIUM 50 MG/SENNA 8.6 MG TAB PO SCH ×2 (08:49→20:44)
[2016-07-24 10:58] LABS: BACTERIA, URINE RARE /hpf; BLOOD, URINE MOD (NEG); GLUCOSE,URINE NEG (NEG); KETONE, URINE NEG (NEG); MUCUS URINE FEW /lpf (OCC); NITRITE,URINE NEG (NEG); URINE COLOR LIGHT-YELLOW (YELLW/STRAW)
[2016-07-24 10:59] LABS: COMMENT (UR) CATH-CULTURE IND; CULTURE IF INDICATED CATH CULTURE IND
[2016-07-24] MEDS: ENOXAPARIN SODIUM 40 MG/0.4 ML SYRINGE SQ SCH (11:10)
[2016-07-24] MEDS ORDERED: PHARMACY ORDERED LAB XX ONE (11:45)
--- NOTE | 2016-07-24 13:07 | HHI.CCPN ---
Subjective Brief History History of Present Illness The patient is a 51 year old male who presents to the [facility] emergency department as transfer from [facility]. He sustained a fall from the roof while he was working. This was a 12 foot roof and he landed on his back. He drove his coworkers home, prior to going to the emergency department. He was found to have multiple left-sided rib fractures, compression fracture of T8, left-sided pneumothorax and L lung contusion, for which a large bore chest tube was placed. The patients laboratory studies were remarkable for a white count of 12.2, potassium 3.0, alcohol level 150. Patient was transferred to surgical ICU with above-noted injuries It is conceivable that patient had aspirated at the time of event I 24 Hour Review/Hospital Course Since arrival to the ICU patient has been stable He is awake alert and oriented He is severe left chest pain and back pain which is currently managed Neurosurgery has been consult is regarding the compression fracture of T8 and additional studies have been ordered Pulmonary contusion is severe and patient will likely get worse before he gets better as far as respiratory system is concerned for aspiration has most likely occurred at the time of the accident 07/16/2016 Patient was transferred to the floor 2 days ago and the has been doing well however became somewhat short of breath and repeat CAT scan was ordered which reveals complete collapse of the left lung with inspissated secretions and the collecting fluid around the lung Patient was transferred back to the ICU and remains well oxygenated on the 6 L nasal cannula nonetheless the left lung is completely atelectatic Today patient was intubated bronchoscoping and large amount of mucous material was obtained while the left lung reexpanded Drainage from the chest tube has also increased significantly pushing out all the fluid as the lung is reexpanded Will keep patient on the ventilator total tomorrow and then reassess needing possibly another bronchoscopy and then we'll work toward extubation 07/17/2016 As above noted patient has been intubated bronchoscoping has been doing well on the ventilator and is now successfully extubated All things equal patient will be able to return to the floor either today or tomorrow Chest tube drainage has decreased after being increased for about 24 hours and is serosanguineous and straw-colored Bilateral breath sounds 07/18/16 Since the bronchoscopy intubation and now after extubation patient has been ventilating nicely Chest tube drainage is about 400 cc per last 24 hours and it straw-colored This is inflammatory reaction the pleura which is slowly resolving so we will leave chest tube in place for this purpose Patient is still sort of somnolent in bed although the takes by mouth when asked questions he answers them appropriately but mumbles it, and remains somnolent Does not participate with care Does not cooperating with physical and occupational therapy or the nurses Asking for pain medication 07/19/2016 Patient is awake but slightly somnolent but oriented in time and space Patient requires increased amount of oxygen and this is a consistent with his anatomic and physiologic injuries Repeat CT scan of the chest reveals collapse of the left lower and part of the upper lobe with air-fluid level in the chest and partial collapse of the left lung Chest tube remains in place The partial anterior pneumothorax is due to the fact the patient was of suction when he went down to the radiology At this point patient will need to be intubated ventilated and bronchoscope the clearing of the secretions He may need prolonged intubation at this time and probably upon the evaluation the bronchial tree will decide whether patient needs a tracheostomy in the near future The interlobar bled could of course be due to the bronchial disruption but there is no need for surgery on this for it will eventually heal on its own The main thing is to support patient's respiration and pulmonary function 07/20/16 Patient has a had decreasing left lung function with the increasing levels consolidation and atelectasis Finally required intubation this morning with the bronchoscopy and clearing of the lung Massive amounts of mucous and purulent appearing material were obtained from the left lung Patient remains on the ventilator 07/22/2016 Patient status post left VATS evacuation of a loculated hemothorax and decortication of the left lung Postoperatively patient is doing well lungs are fully expanded and remains on the ventilator The patient improves respiratory ventilator weaning down gradually Antibiotics add to care in face of previous bronchoscopy findings cultures partially back Once we have better picture will adjust antibiotic coverage 07/23/16 Postoperative day 2 from his left thoracoscopic decortication Patient still has slightly elevated ventilator requirements His lung is inflated and there is no evidence of pneumothorax or air leak in the Pleur-evac 07/24/16 Tolerating chest tubes to water seal with minimal output He still has high FiO2 requirement on the ventilator He follows commands when sedation is lightened Objective Vital Signs Date Time Temp Pulse Resp B/P Pulse Ox O2 Delivery O2 Flow Rate FiO2 07/24/16 12:32 93 45 07/24/16 08:00 85 3/4/17 08:00 99.8 14 136/69 07/20/16 07:52 Partial Rebreather 12.00 Intake and Output 07/23/16 07/23/16 07/24/16 08:00 16:00 00:00 Intake Total 1355 ml 1556 ml 1076 ml Output Total 390.0 ml 950 ml 300 ml Balance 965.0 ml 606 ml 776 ml Result Diagram: 07/24/16 0427 07/24/16 0427 Other Results Laboratory Tests Test 07/24/16 05:29 Blood Gas Puncture Site ART LINE Blood Gas Patient Temperature 98.6 Blood Gas HCO3 25 mmol/L (22-26) Blood Gas Base Excess 1.6 mmol/L (-2-2) Blood Gas Oxygen Saturation 94 % (90-100) Arterial Blood pH 7.48 (7.380-7.420) Arterial Blood Partial 34 mmHg (38-42) Pressure CO2 Arterial Blood Partial 77 mmHg Pressure O2 (61-120) Arterial Blood Oxygen Content 12.5 Vol % (12.0-20.0) Arterial Blood 1.2 % (0-4) Carboxyhemoglobin Arterial Blood Methemoglobin 0.8 % (0-2) Blood Gas Hemoglobin 9.4 G/DL (12.0-16.0) Oxygen Delivery Device VENTILATOR Blood Gas Ventilator Setting PRVC/AC Blood Gas Inspired Oxygen 45 % Imaging Last 24 hours Impressions Chest X-Ray 07/24/16 0600 Signed Impressions: Service Date/Time: Sunday, July 24, 2016 05:03 - CONCLUSION: No significant change Toñito Cisneros MD Exam IT ADMIN Intubated and sedated, follows commands off sedation Hemodynamic/Cardiac Regular rate and rhythm, hemodynamically stable Pulmonary/Respiratory Clear to auscultation bilaterally, minimal chest tube output with no evidence of air leak. Chest tube incisions inspected no evidence of purulence or erythema, dressing however as a slight green tinge and likely pseudomonal over Abdomen/GI Nutrition Soft, nontender, nondistended, tolerating tube feeds Renal/I&O Adequate urine output, Dinero in place, stable Hematologic Stable, leukocytosis persists Assessment and Plan Plan Acute respiratory failure with bilateral rib fractures left-sided pulmonary contusion and pneumothorax, status post decortication for empyema - Continue to wean ventilator as tolerated -Wean sedation, we will switch to Precedex when extubation is likely, she'll have asked abatable today however -Continue chest tubes to water seal and daily dressing changes -Continue nutritional support -Continue empiric antibiotics until cultures finalize Patient remains critically ill as above, total critical care time 45 minutes Code Status Full code Ruslan Beltran MD Jul 24, 2016 13:07
[2016-07-24] MEDS: RESP: ALBUTEROL 2.5 MG/IPRATROPIUM 0.5 MG NEB (PRN) NEB (17:14)
[2016-07-24] MEDS: MAGNESIUM HYDROXIDE SUSP 30 ML CUP PO SCH (20:44)
[2016-07-24] MEDS: HALOPERIDOL LACTATE 5 MG/ML AMP IV PRN (20:44)
[2016-07-25] VITALS (18 sets, daily range): BP systolic 135–157; BP diastolic 69–85; PULSE 77–93; RESP 15–19; TEMP 97.8–100.4; O2SAT 93–99
[2016-07-25] MEDS: PROPOFOL 1000 MG/100 ML IV SCH ×7 (00:43→21:58)
[2016-07-25] MEDS: VANCOMYCIN INJ 1,500 MG in SODIUM CHLORID 0.9% 500 ML INJ 500 ML IV SCH ×3 (00:43→23:17)
[2016-07-25] MEDS: SODIUM CHLOR 0.9% 1000 ML INJ 1,000 ML IV SCH ×3 (02:24→20:42)
[2016-07-25] MEDS: METOPROLOL TARTRATE 5 MG/5 ML VIAL IV PUSH SCH ×4 (02:24→20:40)
[2016-07-25] MEDS: PIPERACIL-TAZO 3.375 GM PREMIX 50 ML IV SCH ×3 (02:24→18:33)
[2016-07-25] MEDS: oxyCODONE HCL ORAL CONC 20 MG/ML SYRINGE PO PRN (03:24)
[2016-07-25 04:31] LABS: AUTOMATED NEUTROPHIL # 12.6 TH/MM3 (1.8-7.7); BASOPHIL # 0.1 TH/MM3 (0-0.2); BASOPHIL % 0.4 % (0.0-2.0); EOSINOPHIL # 0.2 TH/MM3 (0-0.4); HEMATOCRIT 25.2 % (39.0-51.0); LYMPH % 5.3 % (9.0-44.0); LYMPHOCYTE # 0.8 TH/MM3 (1.0-4.8); MEAN CELL VOLUME 97.2 FL (80.0-100.0); MEAN CORPUSCULAR HEMOGLOBIN 33.1 PG (27.0-34.0); MONO % 11.2 % (0.0-8.0); NEUT % 82.1 % (16.0-70.0); PLATELET COUNT 297 TH/MM3 (150-450); RED BLOOD COUNT 2.59 MIL/MM3 (4.50-5.90); RED CELL DISTRIBUTION WIDTH 13.7 % (11.6-17.2); WHITE BLOOD COUNT 15.4 TH/MM3 (4.0-11.0)
[2016-07-25 04:32] LABS: HEMO FLAGS AUTO DIFF
[2016-07-25 05:14] LABS: BANDS 1 % (0-6); EOSINOPHILS 4 % (0-4); MYELOCYTES 3 % (0-0); NEUTROPHIL # MANUAL DIFF 13.4 TH/MM3 (1.8-7.7); POLYS (SEG NEUTROPHILS) 82 % (16-70); PROMYELOCYTES 1 % (0-0); WBC DIFF SAMPLE 100
[2016-07-25 05:15] LABS: PLATELET ESTIMATE SMEAR NORMAL (NORMAL); PLATELET MORPHOLOGY NORMAL (NORMAL); SCAN/DIFF FINAL DIFF MANUAL
[2016-07-25 05:30] LABS: ALKALINE PHOSPHATASE 167 U/L (45-117); ALT (GPT) 25 U/L (12-78); ANION GAP 9 MEQ/L (5-15); AST (GOT) 56 U/L (15-37); BICARBONATE 25.2 MEQ/L (21.0-32.0); BLOOD UREA NITROGEN 8 MG/DL (7-18); CHLORIDE 113 MEQ/L (98-107); GLOMERULAR FILTRATION RATE 255 ML/MIN (>89); MAGNESIUM 1.6 MG/DL (1.5-2.5); SODIUM (NA) 147 MEQ/L (136-145); TOTAL BILIRUBIN ADULT 0.4 MG/DL (0.2-1.0)
--- NOTE | 2016-07-25 05:36 | RADRPT ---
EXAM DATE/TIME: 07/25/2016 05:11 [facility] COMPARISON: CHEST SINGLE AP, July 24, 2016, 5:03. INDICATIONS : Shortness of breath. MEDICAL HISTORY : Hypertension. SURGICAL HISTORY : None. ENCOUNTER: Subsequent ACUITY: 1 week PAIN SCORE: Non-responsive. LOCATION: Bilateral chest FINDINGS: Endotracheal tube, nasogastric tube and left thoracostomy tubes remain in place. Left base pleural fl uid and bilateral perihilar and basilar parenchymal opacities are grossly stable. Cardiomediastinal c ontours are stable. CONCLUSION: No significant interval change Toñito Cisneros MD on July 25, 2016 at 5:33 Board Certified Radiologist. This report was verified electronically.
[2016-07-25 05:38] LABS: POTASSIUM 2.8 MEQ/L (3.5-5.1)
[2016-07-25] MEDS: POTASSIUM CHLOR 20 MEQ PREMIX 100 ML IV PRN ×5 (05:57→23:18)
[2016-07-25] MEDS: CHLORHEXIDINE 0.12% (ORAL KIT) 15 ML CUP MT SCH ×2 (08:00→20:40)
[2016-07-25] MEDS: LACTULOSE SYRUP 20 GM/30 ML CUP PO SCH (08:20)
[2016-07-25] MEDS: FUROSEMIDE 20 MG/2 ML VIAL IV PUSH SCH (08:21)
[2016-07-25] MEDS: PANTOPRAZOLE SODIUM 40 MG VIAL IV PUSH SCH (08:22)
[2016-07-25] MEDS: levETIRAcetam INJ 500 MG in SODIUM CHLORIDE 0.9% INJ 100 ML IV SCH ×2 (08:23→20:41)
[2016-07-25] MEDS: DOCUSATE SODIUM 50 MG/SENNA 8.6 MG TAB PO SCH ×2 (08:32→20:41)
[2016-07-25] MEDS: ENOXAPARIN SODIUM 40 MG/0.4 ML SYRINGE SQ SCH (11:12)
[2016-07-25] MEDS: HALOPERIDOL LACTATE 5 MG/ML AMP IV PRN (11:56)
--- NOTE | 2016-07-25 12:36 | HHI.CCPN ---
Subjective Brief History History of Present Illness The patient is a 51 year old male who presents to the [facility] emergency department as transfer from [facility]. He sustained a fall from the roof while he was working. This was a 12 foot roof and he landed on his back. He drove his coworkers home, prior to going to the emergency department. He was found to have multiple left-sided rib fractures, compression fracture of T8, left-sided pneumothorax and L lung contusion, for which a large bore chest tube was placed. The patients laboratory studies were remarkable for a white count of 12.2, potassium 3.0, alcohol level 150. Patient was transferred to surgical ICU with above-noted injuries It is conceivable that patient had aspirated at the time of event I 24 Hour Review/Hospital Course Since arrival to the ICU patient has been stable He is awake alert and oriented He is severe left chest pain and back pain which is currently managed Neurosurgery has been consult is regarding the compression fracture of T8 and additional studies have been ordered Pulmonary contusion is severe and patient will likely get worse before he gets better as far as respiratory system is concerned for aspiration has most likely occurred at the time of the accident 07/16/2016 Patient was transferred to the floor 2 days ago and the has been doing well however became somewhat short of breath and repeat CAT scan was ordered which reveals complete collapse of the left lung with inspissated secretions and the collecting fluid around the lung Patient was transferred back to the ICU and remains well oxygenated on the 6 L nasal cannula nonetheless the left lung is completely atelectatic Today patient was intubated bronchoscoping and large amount of mucous material was obtained while the left lung reexpanded Drainage from the chest tube has also increased significantly pushing out all the fluid as the lung is reexpanded Will keep patient on the ventilator total tomorrow and then reassess needing possibly another bronchoscopy and then we'll work toward extubation 07/17/2016 As above noted patient has been intubated bronchoscoping has been doing well on the ventilator and is now successfully extubated All things equal patient will be able to return to the floor either today or tomorrow Chest tube drainage has decreased after being increased for about 24 hours and is serosanguineous and straw-colored Bilateral breath sounds 07/18/16 Since the bronchoscopy intubation and now after extubation patient has been ventilating nicely Chest tube drainage is about 400 cc per last 24 hours and it straw-colored This is inflammatory reaction the pleura which is slowly resolving so we will leave chest tube in place for this purpose Patient is still sort of somnolent in bed although the takes by mouth when asked questions he answers them appropriately but mumbles it, and remains somnolent Does not participate with care Does not cooperating with physical and occupational therapy or the nurses Asking for pain medication 07/19/2016 Patient is awake but slightly somnolent but oriented in time and space Patient requires increased amount of oxygen and this is a consistent with his anatomic and physiologic injuries Repeat CT scan of the chest reveals collapse of the left lower and part of the upper lobe with air-fluid level in the chest and partial collapse of the left lung Chest tube remains in place The partial anterior pneumothorax is due to the fact the patient was of suction when he went down to the radiology At this point patient will need to be intubated ventilated and bronchoscope the clearing of the secretions He may need prolonged intubation at this time and probably upon the evaluation the bronchial tree will decide whether patient needs a tracheostomy in the near future The interlobar bled could of course be due to the bronchial disruption but there is no need for surgery on this for it will eventually heal on its own The main thing is to support patient's respiration and pulmonary function 07/20/16 Patient has a had decreasing left lung function with the increasing levels consolidation and atelectasis Finally required intubation this morning with the bronchoscopy and clearing of the lung Massive amounts of mucous and purulent appearing material were obtained from the left lung Patient remains on the ventilator 07/22/2016 Patient status post left VATS evacuation of a loculated hemothorax and decortication of the left lung Postoperatively patient is doing well lungs are fully expanded and remains on the ventilator The patient improves respiratory ventilator weaning down gradually Antibiotics add to care in face of previous bronchoscopy findings cultures partially back Once we have better picture will adjust antibiotic coverage 07/23/16 Postoperative day 2 from his left thoracoscopic decortication Patient still has slightly elevated ventilator requirements His lung is inflated and there is no evidence of pneumothorax or air leak in the Pleur-evac 07/24/16 Tolerating chest tubes to water seal with minimal output He still has high FiO2 requirement on the ventilator He follows commands when sedation is lightened 07/25/16 Blood cultures came back 1 out of 2 with gram-positive cocci, he is already on vancomycin and Zosyn Slow weaning on the ventilator, chest x-ray remains stable with no evidence of pneumothorax and low chest tube output Objective Vital Signs Date Time Temp Pulse Resp B/P Pulse Ox O2 Delivery O2 Flow Rate FiO2 07/25/16 10:46 96 45 07/25/16 10:00 85 07/25/16 04:00 100.4 18 135/81 Arterial Line Intake and Output 07/24/16 07/24/16 07/25/16 08:00 16:00 00:00 Intake Total 1432 ml 1741 ml 1093 ml Output Total 250.0 ml 1155.0 ml 320.0 ml Balance 1182.0 ml 586.0 ml 773.0 ml Result Diagram: 07/25/16 0415 07/25/16 0415 Imaging Last 24 hours Impressions Chest X-Ray 07/25/16 0600 Signed Impressions: Service Date/Time: Monday, July 25, 2016 05:11 - CONCLUSION: No significant interval change Toñito Cisneros MD Exam [employer], follows commands when sedation is lightened Hemodynamic/Cardiac Regular rate and rhythm, Stable Pulmonary/Respiratory Clear to auscultation bilaterally Abdomen/GI Nutrition Soft, nontender, nondistended Hematologic Stable Assessment and Plan Plan Acute respiratory failure with bilateral rib fractures left-sided pulmonary contusion and pneumothorax, status post decortication for empyema - Continue to wean ventilator as tolerated -Wean sedation as tolerated -We will remove the posterior basal chest tube and continue the anterior apical chest tube -Continue nutritional support -Continue empiric antibiotics, 1 out of 2 blood cultures positive for gram- positive cocci Patient remains critically ill as above, total critical care time 45 minutes Ruslan Beltran MD Jul 25, 2016 12:36
[2016-07-25] MEDS: MAGNESIUM HYDROXIDE SUSP 30 ML CUP PO SCH (20:41)
[2016-07-26] VITALS (21 sets, daily range): BP systolic 124–145; BP diastolic 71–84; PULSE 78–91; RESP 15–23; TEMP 97.8–100.6; O2SAT 93–99
[2016-07-26] MEDS: POTASSIUM CHLOR 20 MEQ PREMIX 100 ML IV PRN ×3 (01:20→06:23)
[2016-07-26] MEDS: PROPOFOL 1000 MG/100 ML IV SCH ×5 (02:40→21:19)
[2016-07-26] MEDS: METOPROLOL TARTRATE 5 MG/5 ML VIAL IV PUSH SCH ×4 (02:43→20:17)
[2016-07-26] MEDS: PIPERACIL-TAZO 3.375 GM PREMIX 50 ML IV SCH ×3 (02:44→20:16)
[2016-07-26 04:06] LABS: AUTOMATED NEUTROPHIL # 11.4 TH/MM3 (1.8-7.7); BASOPHIL # 0.1 TH/MM3 (0-0.2); BASOPHIL % 0.7 % (0.0-2.0); EOSINOPHIL # 0.2 TH/MM3 (0-0.4); EOSINOPHIL % 1.7 % (0.0-4.0); HEMATOCRIT 25.3 % (39.0-51.0); LYMPHOCYTE # 0.9 TH/MM3 (1.0-4.8); MEAN CELL VOLUME 95.2 FL (80.0-100.0); MEAN CORPUSCULAR HEMOGLOBIN 33.1 PG (27.0-34.0); MEAN CORPUSCULAR HGB CONC 34.8 % (32.0-36.0); MONO % 12.3 % (0.0-8.0); NEUT % 79.3 % (16.0-70.0); PLATELET COUNT 327 TH/MM3 (150-450); RED BLOOD COUNT 2.66 MIL/MM3 (4.50-5.90); RED CELL DISTRIBUTION WIDTH 13.7 % (11.6-17.2); WHITE BLOOD COUNT 14.4 TH/MM3 (4.0-11.0)
[2016-07-26 04:24] LABS: HEMO FLAGS AUTO DIFF
[2016-07-26 04:25] LABS: ALKALINE PHOSPHATASE 178 U/L (45-117); ALT (GPT) 41 U/L (12-78); ANION GAP 8 MEQ/L (5-15); AST (GOT) 69 U/L (15-37); BICARBONATE 25.4 MEQ/L (21.0-32.0); BLOOD UREA NITROGEN 6 MG/DL (7-18); CHLORIDE 112 MEQ/L (98-107); GLOMERULAR FILTRATION RATE 273 ML/MIN (>89); MAGNESIUM 1.6 MG/DL (1.5-2.5); POTASSIUM 3.7 MEQ/L (3.5-5.1); SODIUM (NA) 145 MEQ/L (136-145); TOTAL BILIRUBIN ADULT 0.3 MG/DL (0.2-1.0)
--- NOTE | 2016-07-26 04:32 | RADRPT ---
EXAM DATE/TIME: 07/26/2016 03:34 [facility] COMPARISON: CHEST SINGLE AP, July 25, 2016, 5:11. INDICATIONS : Shortness of breath. MEDICAL HISTORY : Hypertension. SURGICAL HISTORY : None. ENCOUNTER: Subsequent ACUITY: 2 weeks PAIN SCORE: Non-responsive. LOCATION: Bilateral chest FINDINGS: A single view of the chest demonstrates a interval removal of one of 2 left-sided thoracostomy tubes. Multiple left-sided rib fractures without pneumothorax. Persistent bibasilar airspace disease with p robable associated left-sided effusion. Heart size remains normal. Endotracheal and nasogastric tubes are stable in position. CONCLUSION: 1. Patient appears to have had one of the 2 left-sided chest tubes removed. There is no pneumothorax. 2. Persistent bibasilar airspace disease and probable associated left-sided effusion, unchanged. 3. Otherwise, stable position of remaining life support tubes. . Shemar Lundy MD on July 26, 2016 at 4:27 Board Certified Radiologist. This report was verified electronically.
[2016-07-26 05:29] LABS: BLOOD GAS BASE EXCESS 0.7 mmol/L (-2-2); BLOOD GAS HCO3 24 mmol/L (22-26); BLOOD GAS METHEMOGLOBIN 0.9 % (0-2); BLOOD GAS O2 HGB SATURATION 94 % (90-100); BLOOD GAS OXYGEN CONTENT 15.3 Vol % (12.0-20.0); BLOOD GAS PCO2 32 mmHg (38-42); BLOOD GAS PO2 80 mmHg (61-120); BLOOD GAS TOTAL HGB 11.5 G/DL (12.0-16.0); CRITICAL VALUE NO; OXYGEN DEVICE VENTILATOR; TEMP CORR TO 98.6; VENT SETTINGS PRVC/AC
[2016-07-26 05:30] LABS: DRAW SITE ART LINE; FIO2 45 %; STAT NO
[2016-07-26 07:02] LABS: BANDS 3 % (0-6); EOSINOPHILS 2 % (0-4); MYELOCYTES 2 % (0-0); POLYS (SEG NEUTROPHILS) 78 % (16-70); WBC DIFF SAMPLE 100
[2016-07-26 07:03] LABS: PLATELET ESTIMATE SMEAR NORMAL (NORMAL); PLATELET MORPHOLOGY NORMAL (NORMAL); SCAN/DIFF FINAL DIFF MANUAL
[2016-07-26] MEDS: levETIRAcetam INJ 500 MG in SODIUM CHLORIDE 0.9% INJ 100 ML IV SCH ×2 (08:20→20:17)
[2016-07-26] MEDS: PANTOPRAZOLE SODIUM 40 MG VIAL IV PUSH SCH (08:20)
[2016-07-26] MEDS: CHLORHEXIDINE 0.12% (ORAL KIT) 15 ML CUP MT SCH ×2 (08:20→20:17)
[2016-07-26] MEDS: SODIUM CHLOR 0.9% 1000 ML INJ 1,000 ML IV SCH (08:20)
[2016-07-26] MEDS: DOCUSATE SODIUM 50 MG/SENNA 8.6 MG TAB PO SCH ×3 (08:21→21:00)
[2016-07-26] MEDS: LACTULOSE SYRUP 20 GM/30 ML CUP PO SCH (08:21)
[2016-07-26] MEDS: VANCOMYCIN INJ 1,500 MG in SODIUM CHLORID 0.9% 500 ML INJ 500 ML IV SCH (11:29)
[2016-07-26] MEDS: ENOXAPARIN SODIUM 40 MG/0.4 ML SYRINGE SQ SCH (12:04)
[2016-07-26] MEDS: RESP: ALBUTEROL 2.5 MG/IPRATROPIUM 0.5 MG NEB (PRN) NEB (14:40)
[2016-07-26] MEDS: oxyCODONE HCL ORAL CONC 20 MG/ML SYRINGE PO PRN (15:05)
[2016-07-26] MEDS: MAGNESIUM HYDROXIDE SUSP 30 ML CUP PO SCH ×2 (20:18→21:00)
--- NOTE | 2016-07-26 20:25 | HHI.CCPN ---
Subjective Brief History History of Present Illness The patient is a 51 year old male who presents to the [facility] emergency department as transfer from [facility]. He sustained a fall from the roof while he was working. This was a 12 foot roof and he landed on his back. He drove his coworkers home, prior to going to the emergency department. He was found to have multiple left-sided rib fractures, compression fracture of T8, left-sided pneumothorax and L lung contusion, for which a large bore chest tube was placed. The patients laboratory studies were remarkable for a white count of 12.2, potassium 3.0, alcohol level 150. Patient was transferred to surgical ICU with above-noted injuries It is conceivable that patient had aspirated at the time of event I 24 Hour Review/Hospital Course Since arrival to the ICU patient has been stable He is awake alert and oriented He is severe left chest pain and back pain which is currently managed Neurosurgery has been consult is regarding the compression fracture of T8 and additional studies have been ordered Pulmonary contusion is severe and patient will likely get worse before he gets better as far as respiratory system is concerned for aspiration has most likely occurred at the time of the accident 07/16/2016 Patient was transferred to the floor 2 days ago and the has been doing well however became somewhat short of breath and repeat CAT scan was ordered which reveals complete collapse of the left lung with inspissated secretions and the collecting fluid around the lung Patient was transferred back to the ICU and remains well oxygenated on the 6 L nasal cannula nonetheless the left lung is completely atelectatic Today patient was intubated bronchoscoping and large amount of mucous material was obtained while the left lung reexpanded Drainage from the chest tube has also increased significantly pushing out all the fluid as the lung is reexpanded Will keep patient on the ventilator total tomorrow and then reassess needing possibly another bronchoscopy and then we'll work toward extubation 07/17/2016 As above noted patient has been intubated bronchoscoping has been doing well on the ventilator and is now successfully extubated All things equal patient will be able to return to the floor either today or tomorrow Chest tube drainage has decreased after being increased for about 24 hours and is serosanguineous and straw-colored Bilateral breath sounds 07/18/16 Since the bronchoscopy intubation and now after extubation patient has been ventilating nicely Chest tube drainage is about 400 cc per last 24 hours and it straw-colored This is inflammatory reaction the pleura which is slowly resolving so we will leave chest tube in place for this purpose Patient is still sort of somnolent in bed although the takes by mouth when asked questions he answers them appropriately but mumbles it, and remains somnolent Does not participate with care Does not cooperating with physical and occupational therapy or the nurses Asking for pain medication 07/19/2016 Patient is awake but slightly somnolent but oriented in time and space Patient requires increased amount of oxygen and this is a consistent with his anatomic and physiologic injuries Repeat CT scan of the chest reveals collapse of the left lower and part of the upper lobe with air-fluid level in the chest and partial collapse of the left lung Chest tube remains in place The partial anterior pneumothorax is due to the fact the patient was of suction when he went down to the radiology At this point patient will need to be intubated ventilated and bronchoscope the clearing of the secretions He may need prolonged intubation at this time and probably upon the evaluation the bronchial tree will decide whether patient needs a tracheostomy in the near future The interlobar bled could of course be due to the bronchial disruption but there is no need for surgery on this for it will eventually heal on its own The main thing is to support patient's respiration and pulmonary function 07/20/16 Patient has a had decreasing left lung function with the increasing levels consolidation and atelectasis Finally required intubation this morning with the bronchoscopy and clearing of the lung Massive amounts of mucous and purulent appearing material were obtained from the left lung Patient remains on the ventilator 07/22/2016 Patient status post left VATS evacuation of a loculated hemothorax and decortication of the left lung Postoperatively patient is doing well lungs are fully expanded and remains on the ventilator The patient improves respiratory ventilator weaning down gradually Antibiotics add to care in face of previous bronchoscopy findings cultures partially back Once we have better picture will adjust antibiotic coverage 07/23/16 Postoperative day 2 from his left thoracoscopic decortication Patient still has slightly elevated ventilator requirements His lung is inflated and there is no evidence of pneumothorax or air leak in the Pleur-evac 07/24/16 Tolerating chest tubes to water seal with minimal output He still has high FiO2 requirement on the ventilator He follows commands when sedation is lightened 07/25/16 Blood cultures came back 1 out of 2 with gram-positive cocci, he is already on vancomycin and Zosyn Slow weaning on the ventilator, chest x-ray remains stable with no evidence of pneumothorax and low chest tube output 07/26/16 Patient has been stable on the ventilator Drainage from the chest tubes has decreased and we will pull tomorrow the posterior chest tube and keep the anterior apical tube in place Patient has severe COPD and compromised lungs in addition to trauma so the pulmonary situation remains precarious Gram-positive cocci as per ID treatment treatment Objective Vital Signs Date Time Temp Pulse Resp B/P Pulse Ox O2 Delivery O2 Flow Rate FiO2 07/26/16 18:00 84 07/26/16 16:30 94 50 07/26/16 16:00 100.6 15 124/71 Intake and Output 07/25/16 07/25/16 07/26/16 08:00 16:00 00:00 Intake Total 1425 ml 1779 ml 1199 ml Output Total 440 ml 1580 ml 375 ml Balance 985 ml 199 ml 824 ml Result Diagram: 07/26/16 0355 07/26/16 1750 Other Results Microbiology Date/Time Procedure Status Source Growth 07/24/16 10:15 Urine Culture - Final Complete Urine Clean Catch NO GROWTH IN 48 HOURS. 07/24/16 10:20 Gram Stain - Final Complete Sputum Endotracheal 07/24/16 10:20 Sputum Culture - Final Complete Klebsiella Pneumoniae Staphylococcus Aureus Laboratory Tests Test 07/26/16 05:17 Blood Gas Puncture Site ART LINE Blood Gas Patient Temperature 98.6 Blood Gas HCO3 24 mmol/L (22-26) Blood Gas Base Excess 0.7 mmol/L (-2-2) Blood Gas Oxygen Saturation 94 % (90-100) Arterial Blood pH 7.49 (7.380-7.420) Arterial Blood Partial 32 mmHg (38-42) Pressure CO2 Arterial Blood Partial 80 mmHg Pressure O2 (61-120) Arterial Blood Oxygen Content 15.3 Vol % (12.0-20.0) Arterial Blood 1.0 % (0-4) Carboxyhemoglobin Arterial Blood Methemoglobin 0.9 % (0-2) Blood Gas Hemoglobin 11.5 G/DL (12.0-16.0) Oxygen Delivery Device VENTILATOR Blood Gas Ventilator Setting PRVC/AC Blood Gas Inspired Oxygen 45 % Imaging Last 24 hours Impressions Chest X-Ray 07/26/16 0600 Signed Impressions: Service Date/Time: Tuesday, July 26, 2016 03:34 - CONCLUSION: 1. Patient appears to have had one of the 2 left-sided chest tubes removed. There is no pneumothorax. 2. Persistent bibasilar airspace disease and probable associated left-sided effusion, unchanged. 3. Otherwise, stable position of remaining life support tubes. . Shemar Lundy MD Exam [employer] When sedation decreased patient responds to stimuli Hemodynamic/Cardiac Hemodynamically remains stable Pulmonary/Respiratory Bilateral breath sounds and minimal drainage from the chest tubes with decreasing white count and full pulmonary expansion Will DC posterior chest tube tomorrow and leave the anterior apical tube in place It'll take a few days to get this patient off the ventilator considering the poor status of his lungs prior to this event and now superimposed contusion surgery etc. Abdomen/GI Nutrition Abdomen soft enteral feeds tolerated Renal/I&O Good urine output Metabolic/Acid-Base Metabolically intact Assessment and Plan Plan Acute respiratory failure with bilateral rib fractures left-sided pulmonary contusion and pneumothorax, status post decortication for empyema - Continue to wean ventilator as tolerated -Wean sedation as tolerated -We will remove the posterior basal chest tube and continue the anterior apical chest tube -Continue nutritional support -Continue empiric antibiotics, 1 out of 2 blood cultures positive for gram- positive cocci Patient remains critically ill as above, total critical care time 45 minutes Attestation The exam, history, and the medical decision-making described in the above note were completed with the assistance of the mid-level provider. I reviewed and agree with the findings presented. I attest that I had a [id number] encounter with the patient on the same day, and personally performed and documented my assessment and findings in the medical record. Critical care time 40 minutes. Blair Cartagena MD Jul 26, 2016 20:25
[2016-07-27] VITALS (22 sets, daily range): BP systolic 117–163; BP diastolic 70–88; PULSE 77–93; RESP 14–20; TEMP 98.6–100; O2SAT 88–99
[2016-07-27] MEDS: PROPOFOL 1000 MG/100 ML IV SCH ×5 (02:19→23:45)
[2016-07-27] MEDS: VANCOMYCIN INJ 1,500 MG in SODIUM CHLORID 0.9% 500 ML INJ 500 ML IV SCH ×2 (02:25→13:11)
[2016-07-27] MEDS: METOPROLOL TARTRATE 5 MG/5 ML VIAL IV PUSH SCH ×4 (04:21→20:10)
[2016-07-27] MEDS: PIPERACIL-TAZO 3.375 GM PREMIX 50 ML IV SCH ×3 (04:22→20:07)
[2016-07-27 05:33] LABS: AUTOMATED NEUTROPHIL # 15.5 TH/MM3 (1.8-7.7); BASOPHIL % 0.2 % (0.0-2.0); EOSINOPHIL # 0.2 TH/MM3 (0-0.4); EOSINOPHIL % 1.1 % (0.0-4.0); HEMATOCRIT 25.5 % (39.0-51.0); HEMO FLAGS DIFF FINAL; LYMPHOCYTE # 0.9 TH/MM3 (1.0-4.8); MEAN CELL VOLUME 95.4 FL (80.0-100.0); MEAN CORPUSCULAR HEMOGLOBIN 32.5 PG (27.0-34.0); MEAN CORPUSCULAR HGB CONC 34.1 % (32.0-36.0); MONO % 10.2 % (0.0-8.0); NEUT % 83.5 % (16.0-70.0); PLATELET COUNT 351 TH/MM3 (150-450); RED BLOOD COUNT 2.68 MIL/MM3 (4.50-5.90); RED CELL DISTRIBUTION WIDTH 13.5 % (11.6-17.2); WHITE BLOOD COUNT 18.6 TH/MM3 (4.0-11.0)
[2016-07-27 05:52] LABS: MAGNESIUM 1.7 MG/DL (1.5-2.5); POTASSIUM 3.4 MEQ/L (3.5-5.1)
[2016-07-27] MEDS: POTASSIUM CHLOR 20 MEQ PREMIX 100 ML IV PRN (07:25)
[2016-07-27] MEDS: levETIRAcetam INJ 500 MG in SODIUM CHLORIDE 0.9% INJ 100 ML IV SCH ×2 (08:09→20:09)
[2016-07-27] MEDS: PANTOPRAZOLE SODIUM 40 MG VIAL IV PUSH SCH (08:12)
[2016-07-27] MEDS: CHLORHEXIDINE 0.12% (ORAL KIT) 15 ML CUP MT SCH ×2 (08:12→20:07)
[2016-07-27] MEDS: DOCUSATE SODIUM 50 MG/SENNA 8.6 MG TAB PO SCH ×2 (08:12→20:10)
[2016-07-27] MEDS: LACTULOSE SYRUP 20 GM/30 ML CUP PO SCH (08:12)
[2016-07-27] MEDS: hydrALAZINE HCL 25 MG TAB PO SCH ×2 (09:00→20:09)
[2016-07-27] MEDS: oxyCODONE HCL ORAL CONC 20 MG/ML SYRINGE PO SCH ×3 (11:15→23:00)
[2016-07-27] MEDS: ENOXAPARIN SODIUM 40 MG/0.4 ML SYRINGE SQ SCH (11:15)
[2016-07-27] MEDS: DEXMEDETOMIDINE INJ 50 ML IV SCH (11:15)
[2016-07-27] MEDS: QUEtiapine FUMARATE 25 MG TAB PO SCH ×2 (11:17→20:09)
[2016-07-27] MEDS ORDERED: PHARMACY ORDERED LAB XX ONE (11:45)
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
[2016-07-27] MEDS: RESP: ALBUTEROL 2.5 MG/IPRATROPIUM 0.5 MG NEB (PRN) NEB (14:30)
[2016-07-27] MEDS ORDERED: ETOMIDATE 20 MG/10 ML VIAL ONE (16:22)
[2016-07-27] MEDS ORDERED: ROCURONIUM INJ 50 MG/5 ML VIAL IV ONE (16:45)
[2016-07-27] MEDS ORDERED: ETOMIDATE 20 MG/10 ML VIAL IV PUSH ONE (16:45)
--- NOTE | 2016-07-27 17:17 | EC ---
Study Study Date:07/27/2016 STUDY CONCLUSIONS SUMMARY - Left ventricle: The cavity size was normal. Wall thickness was normal. Systolic function was normal. The estimated ejection fraction was in the range of 55% to 60%. Wall motion was normal; there were no regional wall motion abnormalities. - Aortic valve: Valve area: 2.66cm^2(VTI). Valve area: 2.55cm^2 (Vmax). If LV function is below 40, please consider prescribing an ACEI or ARB or document rationale for non-use. PROCEDURE DATA STUDY STATUS: Elective. Procedure: Transthoracic echocardiography. Image quality was good. Scanning was performed from the parasternal, apical, and subcostal acoustic windows. Study completion: The patient tolerated the procedure well. Transthoracic echocardiography. M-mode, complete 2D, complete spectral Doppler, and color Doppler. Height: Height: 73in. Weight: Weight: 176.6lb. Body mass index: BMI: 23.4kg/m^2. Body surface area: BSA: 2.04m^2. Patient status: Inpatient. CARDIAC ANATOMY LEFT VENTRICLE: The cavity size was normal. Wall thickness was normal. Systolic function was normal. The estimated ejection fraction was in the range of 55% to 60%. Wall motion was normal; there were no regional wall motion abnormalities. AORTIC VALVE: Trileaflet; normal thickness leaflets. Doppler: Transvalvular velocity was within the normal range. There was no stenosis. No regurgitation. Valve area: 2.66cm^2(VTI). Indexed valve area: 1.3cm^2/m^2 (VTI). Valve area: 2.55cm^2 (Vmax). Indexed valve area: 1.25cm^2/m^2 (Vmax). Mean gradient: 2mm Hg (S). AORTA: Aortic root: The aortic root was normal in size. MITRAL VALVE: Structurally normal valve. Doppler: Transvalvular velocity was within the normal range. There was no evidence for stenosis. No regurgitation. LEFT ATRIUM: The atrium was normal in size. RIGHT VENTRICLE: The cavity size was normal. Wall thickness was normal. PULMONIC VALVE: Doppler: Transvalvular velocity was within the normal range. There was no evidence for stenosis. No regurgitation. TRICUSPID VALVE: Structurally normal valve. Doppler: Transvalvular velocity was within the normal range. No regurgitation. PULMONARY ARTERY: The main pulmonary artery was normal-sized. Systolic pressure was within the normal range. RIGHT ATRIUM: The atrium was normal in size. PERICARDIUM: There was no pericardial effusion. SYSTEMIC VEINS: Inferior vena cava: The vessel was normal in size. Patient weight: 176.6lb _Ejection fraction:_ 65-75% _Fractional shortening:_ 32% up to 5Kg 5-11.5Kg 11.6-22.9Kg 23-45Kg 45-57Kg Aortic Root 7-13 <17 13-22 17-27 17-27 LA diam 6-13 <23 24-38 33-47 37-40 RVID 10-17 7-15 7-15 7-18 8-17 LVIDd 12-22 <32 24-38 33-47 37-40 LVPW 2-4 3-6 5-7 6-8 7-8 IVS 2-4 3-6 5-7 6-8 7-8 BASIC MEASUREMENTS ADULT NORMAL Left ventricle LV internal dimension, ED, chordal 50.2 mm 43-52 level, PLAX LV internal dimension, ES, chordal 31.3 mm 23-38 level, PLAX Fractional shortening, chordal level, 38 % >29 PLAX LV posterior wall thickness, ED 9.61 mm IVS/LVPW ratio, ED 0.98 <1.3 Ventricular septum Septal thickness, ED 9.42 mm Aortic valve Leaflet separation 23 mm 15-26 Aorta Root diameter, ED 33 mm Left atrium Anterior-posterior dimension 29 mm Anterior-posterior dimension index 1.42 cm/m^2 <2.2 Right ventricle RV internal dimension, ED, PLAX 28.8 mm 19-38 BASIC MEASUREMENTS ADULT NORMAL Aortic valve Leaflet separation 23 mm 15-26 DOPPLER MEASUREMENTS ADULT NORMAL Aortic valve Peak velocity, S 99.3 cm/s Mean velocity, S 69.5 cm/s VTI, S 15.4 cm Mean gradient, S 2 mm Hg Valve area, VTI 2.66 cm^2 Valve area index, VTI 1.3 cm^2/m^2 Valve area, Vmax 2.55 cm^2 Valve area index, Vmax 1.25 cm^2/m^2 Mitral valve Peak E-wave velocity 67.1 cm/s Peak A-wave velocity 43.4 cm/s Deceleration time 155 ms 150-230 Peak E/A ratio 1.5 Tricuspid valve Regurgitant peak velocity 190 cm/s Peak RV-RA gradient, S 14 mm Hg Maximal regurgitant velocity 190 cm/s Pulmonic valve Peak velocity, S 63.9 cm/s LEGEND: Mean values are shown as u=mean value. Asterisk (*) castañeda values outside specified normal range. Prepared and signed by Jr Shaffer [id number]
--- NOTE | 2016-07-27 17:44 | RADRPT ---
EXAM DATE/TIME: 07/27/2016 17:00 [facility] COMPARISON: CHEST SINGLE AP, July 26, 2016, 3:34. INDICATIONS : ETT placement. MEDICAL HISTORY : Hypertension. SURGICAL HISTORY : None. ENCOUNTER: Subsequent ACUITY: 2 weeks PAIN SCORE: Non-responsive. LOCATION: Bilateral chest FINDINGS: A single view of the chest demonstrates ET tube placement 4 cm above the mickie. Left-sided chest tub e again noted. There is volume loss on the left with pleural-parenchymal density. Minimal right basil ar density. Multiple left-sided rib fractures. Increasing volume loss in the left. CONCLUSION: 1. Pleural-parenchymal density throughout the left lung, more prominent on current study. 2. Increasing volume loss on the left suggesting atelectasis. 3. Endotracheal tube 4 cm above the mickie. Tee Valdes MD on July 27, 2016 at 17:40 Board Certified Radiologist. This report was verified electronically.
[2016-07-27] MEDS: MAGNESIUM HYDROXIDE SUSP 30 ML CUP PO SCH (20:08)
--- NOTE | 2016-07-27 21:43 | HHI.CCPN ---
Subjective Brief History History of Present Illness The patient is a 51 year old male who presents to the [facility] emergency department as transfer from [facility]. He sustained a fall from the roof while he was working. This was a 12 foot roof and he landed on his back. He drove his coworkers home, prior to going to the emergency department. He was found to have multiple left-sided rib fractures, compression fracture of T8, left-sided pneumothorax and L lung contusion, for which a large bore chest tube was placed. The patients laboratory studies were remarkable for a white count of 12.2, potassium 3.0, alcohol level 150. Patient was transferred to surgical ICU with above-noted injuries It is conceivable that patient had aspirated at the time of event I 24 Hour Review/Hospital Course Since arrival to the ICU patient has been stable He is awake alert and oriented He is severe left chest pain and back pain which is currently managed Neurosurgery has been consult is regarding the compression fracture of T8 and additional studies have been ordered Pulmonary contusion is severe and patient will likely get worse before he gets better as far as respiratory system is concerned for aspiration has most likely occurred at the time of the accident 07/16/2016 Patient was transferred to the floor 2 days ago and the has been doing well however became somewhat short of breath and repeat CAT scan was ordered which reveals complete collapse of the left lung with inspissated secretions and the collecting fluid around the lung Patient was transferred back to the ICU and remains well oxygenated on the 6 L nasal cannula nonetheless the left lung is completely atelectatic Today patient was intubated bronchoscoping and large amount of mucous material was obtained while the left lung reexpanded Drainage from the chest tube has also increased significantly pushing out all the fluid as the lung is reexpanded Will keep patient on the ventilator total tomorrow and then reassess needing possibly another bronchoscopy and then we'll work toward extubation 07/17/2016 As above noted patient has been intubated bronchoscoping has been doing well on the ventilator and is now successfully extubated All things equal patient will be able to return to the floor either today or tomorrow Chest tube drainage has decreased after being increased for about 24 hours and is serosanguineous and straw-colored Bilateral breath sounds 07/18/16 Since the bronchoscopy intubation and now after extubation patient has been ventilating nicely Chest tube drainage is about 400 cc per last 24 hours and it straw-colored This is inflammatory reaction the pleura which is slowly resolving so we will leave chest tube in place for this purpose Patient is still sort of somnolent in bed although the takes by mouth when asked questions he answers them appropriately but mumbles it, and remains somnolent Does not participate with care Does not cooperating with physical and occupational therapy or the nurses Asking for pain medication 07/19/2016 Patient is awake but slightly somnolent but oriented in time and space Patient requires increased amount of oxygen and this is a consistent with his anatomic and physiologic injuries Repeat CT scan of the chest reveals collapse of the left lower and part of the upper lobe with air-fluid level in the chest and partial collapse of the left lung Chest tube remains in place The partial anterior pneumothorax is due to the fact the patient was of suction when he went down to the radiology At this point patient will need to be intubated ventilated and bronchoscope the clearing of the secretions He may need prolonged intubation at this time and probably upon the evaluation the bronchial tree will decide whether patient needs a tracheostomy in the near future The interlobar bled could of course be due to the bronchial disruption but there is no need for surgery on this for it will eventually heal on its own The main thing is to support patient's respiration and pulmonary function 07/20/16 Patient has a had decreasing left lung function with the increasing levels consolidation and atelectasis Finally required intubation this morning with the bronchoscopy and clearing of the lung Massive amounts of mucous and purulent appearing material were obtained from the left lung Patient remains on the ventilator 07/22/2016 Patient status post left VATS evacuation of a loculated hemothorax and decortication of the left lung Postoperatively patient is doing well lungs are fully expanded and remains on the ventilator The patient improves respiratory ventilator weaning down gradually Antibiotics add to care in face of previous bronchoscopy findings cultures partially back Once we have better picture will adjust antibiotic coverage 07/23/16 Postoperative day 2 from his left thoracoscopic decortication Patient still has slightly elevated ventilator requirements His lung is inflated and there is no evidence of pneumothorax or air leak in the Pleur-evac 07/24/16 Tolerating chest tubes to water seal with minimal output He still has high FiO2 requirement on the ventilator He follows commands when sedation is lightened 07/25/16 Blood cultures came back 1 out of 2 with gram-positive cocci, he is already on vancomycin and Zosyn Slow weaning on the ventilator, chest x-ray remains stable with no evidence of pneumothorax and low chest tube output 07/26/16 Patient has been stable on the ventilator Drainage from the chest tubes has decreased and we will pull tomorrow the posterior chest tube and keep the anterior apical tube in place Patient has severe COPD and compromised lungs in addition to trauma so the pulmonary situation remains precarious Gram-positive cocci as per ID treatment treatment 07/27/16 Patient is gradually weaned and was extubated however asked he cannot clear secretions and while he is breathing is intact his the secretions are this point so I have it is not coughing up and not following commands Patient had to be reintubated the a few hours later Will have tracheostomy tomorrow considering this patient is extremely hard to wean in face of lung contusion heavy secretions as well as underlying severe pulmonary emphysema Objective Vital Signs Date Time Temp Pulse Resp B/P Pulse Ox O2 Delivery O2 Flow Rate FiO2 07/27/16 20:00 84 07/27/16 20:00 60 07/27/16 20:00 100.0 16 142/72 96 163/70 07/27/16 14:30 Venturi Mask 6.00 Intake and Output 07/26/16 07/26/16 07/27/16 08:00 16:00 00:00 Intake Total 2204 ml 1471 ml 390 ml Output Total 375 ml 795.0 ml 430 ml Balance 1829 ml 676.0 ml -40 ml Result Diagram: 07/27/16 0500 07/27/16 0500 Imaging Last 24 hours Impressions Chest X-Ray 07/27/16 0000 Signed Impressions: Service Date/Time: Wednesday, July 27, 2016 17:00 - CONCLUSION: 1. Pleural-parenchymal density throughout the left lung, more prominent on current study. 2. Increasing volume loss on the left suggesting atelectasis. 3. Endotracheal tube 4 cm above the mickie. Tee Valdes MD Exam DIRECTOR OF ANNUAL GIVING When sedation removed patient responds appropriately however goes wild Hemodynamic/Cardiac Hemodynamically intact Pulmonary/Respiratory Bilateral breath sounds chest tube drainage about 500 cc of serosanguineous fluid so we will leave apical tube in Patient was extubated today but did not tolerate this filled up with secretions had to be reintubated For tracheostomy tomorrow Abdomen/GI Nutrition Abdomen soft enteral feeds tolerated Assessment and Plan Plan Acute respiratory failure with bilateral rib fractures left-sided pulmonary contusion and pneumothorax, status post decortication for empyema - Continue to wean ventilator as tolerated -Wean sedation as tolerated -We will remove the posterior basal chest tube and continue the anterior apical chest tube -Continue nutritional support -Continue empiric antibiotics, 1 out of 2 blood cultures positive for gram- positive cocci Patient remains critically ill as above, total critical care time 45 minutes Attestation The exam, history, and the medical decision-making described in the above note were completed with the assistance of the mid-level provider. I reviewed and agree with the findings presented. I attest that I had a [id number] encounter with the patient on the same day, and personally performed and documented my assessment and findings in the medical record. Critical care time 50 minutes. Blair Cartagena MD Jul 27, 2016 21:43
[2016-07-28] VITALS (20 sets, daily range): BP systolic 104–144; BP diastolic 7–75; PULSE 85–103; RESP 16–20; TEMP 99.2–100.2; O2SAT 94–100
[2016-07-28] MEDS: METOPROLOL TARTRATE 5 MG/5 ML VIAL IV PUSH SCH ×4 (03:00→20:53)
[2016-07-28] MEDS: PIPERACIL-TAZO 3.375 GM PREMIX 50 ML IV SCH ×3 (03:00→18:20)
[2016-07-28] MEDS: PROPOFOL 1000 MG/100 ML IV SCH ×3 (03:56→22:32)
[2016-07-28 05:43] LABS: AUTOMATED NEUTROPHIL # 12.2 TH/MM3 (1.8-7.7); BASOPHIL # 0.1 TH/MM3 (0-0.2); BASOPHIL % 0.9 % (0.0-2.0); EOSINOPHIL # 0.2 TH/MM3 (0-0.4); EOSINOPHIL % 1.3 % (0.0-4.0); HEMATOCRIT 24.2 % (39.0-51.0); LYMPH % 6.8 % (9.0-44.0); MEAN CELL VOLUME 95.4 FL (80.0-100.0); MEAN CORPUSCULAR HEMOGLOBIN 33.4 PG (27.0-34.0); MONO % 10.1 % (0.0-8.0); NEUT % 80.9 % (16.0-70.0); PLATELET COUNT 330 TH/MM3 (150-450); RED BLOOD COUNT 2.54 MIL/MM3 (4.50-5.90); RED CELL DISTRIBUTION WIDTH 13.6 % (11.6-17.2)
[2016-07-28 06:15] LABS: BICARBONATE 26.1 MEQ/L (21.0-32.0); POTASSIUM 3.1 MEQ/L (3.5-5.1)
[2016-07-28 06:18] LABS: HEMO FLAGS AUTO DIFF
[2016-07-28 07:08] LABS: BANDS 2 % (0-6); METAMYELOCYTES 2 % (0-1); MYELOCYTES 2 % (0-0); NEUTROPHIL # MANUAL DIFF 13.7 TH/MM3 (1.8-7.7); PLATELET ESTIMATE SMEAR NORMAL (NORMAL); PLATELET MORPHOLOGY NORMAL (NORMAL); POLYS (SEG NEUTROPHILS) 85 % (16-70); SCAN/DIFF FINAL DIFF MANUAL; WBC DIFF SAMPLE 100
[2016-07-28] MEDS: CHLORHEXIDINE 0.12% (ORAL KIT) 15 ML CUP MT SCH ×2 (08:00→20:53)
[2016-07-28] MEDS: hydrALAZINE HCL 25 MG TAB PO SCH ×2 (09:00→20:53)
[2016-07-28] MEDS ORDERED: POTASSIUM CHLORIDE 20 MEQ PWD PACKET OG ONE (09:30)
[2016-07-28] MEDS: levETIRAcetam INJ 500 MG in SODIUM CHLORIDE 0.9% INJ 100 ML IV SCH ×2 (09:53→20:52)
[2016-07-28] MEDS: LACTULOSE SYRUP 20 GM/30 ML CUP PO SCH (09:54)
[2016-07-28] MEDS: DOCUSATE SODIUM 50 MG/SENNA 8.6 MG TAB PO SCH ×2 (09:56→20:53)
[2016-07-28] MEDS: QUEtiapine FUMARATE 25 MG TAB PO SCH ×2 (10:04→20:53)
[2016-07-28] MEDS: PANTOPRAZOLE SODIUM 40 MG VIAL IV PUSH SCH (10:05)
[2016-07-28] MEDS: oxyCODONE HCL ORAL CONC 20 MG/ML SYRINGE PO SCH ×3 (10:06→22:32)
[2016-07-28] MEDS: ENOXAPARIN SODIUM 40 MG/0.4 ML SYRINGE SQ SCH (11:32)
[2016-07-28] MEDS: VANCOMYCIN INJ 1,500 MG in SODIUM CHLORID 0.9% 500 ML INJ 500 ML IV SCH ×3 (11:44)
--- NOTE | 2016-07-28 12:18 | HHI.PR ---
Neuropsych Emotional Emotional: Severe: Irritable/Angry/Frustrate, Labile Progress Notes/Response to Tx Contents of Sessions: Adjustment Time with Patient: 30 minutes Premorbid psychological status Premorbid Cognitive, Emotional and Behavioral Status: Tenuous. 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 The patient has prior psychiatric difficulties, and reportedly was on Seroquel 300 mg qHS prior to the accident. Substance abuse history includes TOB and ETOH. Behavioral Reactions of Patient and Family/Support System: Tenuous. The patient has no family stepping up. He was living at a half-way for disabled individuals, where reportedly he spent much of the time smoking and drinking. Emotional/Behavioral Status of Patient and Family/Support System: Tenuous. Pertinent issues, if appropriate to this patients clinical care, are described in detail above. Maximizing acute care outcome It is recommended that the patient be monitored for emergent behavioral impulsivity as the medical condition evolves. This patients psychiatric and substance dependence issues will limit their rehabilitation potential going forward, and these challenges will require specialized therapeutic skills to maximize outcome. Anticipated Problems Ongoing areas of concern will include agitation, behavioral impulsivity, lack of insight and judgment, which is unlikely to improve with time or treatment. Treatment Plan This clinician will continue to follow with you throughout the course of this patients rehabilitation treatment, and I will be available to meet with the patients family/support system to facilitate their understanding and the ongoing care of their family member. The goals of neuropsychological intervention shall be both educational and supportive to the family/support system as is deemed clinically appropriate. Diagnosis: Progress Note Narrative Ongoing follow-up of patient who was seen within the context of daily trauma rounding and bedside. A discussion with nursing staff also transpired. Dr. Solis's notes indicated that prior to this admission, this patient was taking 300 mg of Seroquel HS (he is presently on 25 mg BID), and this is new information. Also, nursing staff reported that his agitation is only controlled by sedation at present. Tomorrow at rounds, I will discuss with the team possible pharmacological changes to consider in light of the understanding of his prior medication regimen before injury and agitation control. I will continue to follow with you. Bernard Higgins PhD Jul 28, 2016 12:18 pm
[2016-07-28] MEDS ORDERED: MIDAZOLAM HCL 5 MG/ML VIAL (1 ML) ONE ×2 (13:43→13:54)
[2016-07-28] MEDS ORDERED: ROCURONIUM INJ 50 MG/5 ML VIAL ONE (13:44)
--- NOTE | 2016-07-28 14:19 | PD.PROCEDR ---
Procedure Note Procedure Procedure Procedure: Fiberoptic Bronchoscopy for percutaneous tracheostomy guidance Diagnosis/Indication: Respiratory failure, encephalopathy, unable to wean from ventilator Consent: Informed consent obtained and a time out performed Anesthesia: Total 15 mg of IV Versed, propofol drip at 50 mu./kg/m the 20 mg IV bolus 1 for sedation. Neuromuscular paralysis with rocuronium 50 g IV 1 Description of the Procedure: The patient was sedated and mechanically ventilated, was placed on 100% FIO2 and PRVC mode of ventilation. I entered this 8.0 ET tube the fiberoptic bronchoscope The endobronchial anatomy was normal. ETT was withdrawn slowly to 17.0 CM. Insertion of introducer needle, guidewire, followed by serial Blue Rhino dilation and tracheostomy placement was directly visualized on video bronchoscopy. (see separate tracheostomy procedure note by Dr. Trejo). After tracheostomy placement, position was confirmed by introducing the bronchoscope through the new trach and visualizing the main mickie. The fiberoptic bronchoscopy was inserted via endotracheal tube and the trachea, right and left mainstem bronchi, were evaluated. Copious white thick secretions were noted in the left mainstem/upper/lingula and lower lobes and right lower lobe. Diffuse left lower lobe such with 60 cc of sterile saline and sent for several suffered BAL. Mucosa was normal. The patient tolerated the procedure well with no hemodynamic instability or hypoxia. There were no immediate complications noted. EBL for bronchoscopy was negligible. A chest x-ray has been ordered. I personally performed the procedure. Jacinto Shelton MD Jul 28, 2016 14:19
[2016-07-28] MEDS: POTASSIUM CHLOR 20 MEQ PREMIX 100 ML IV PRN (14:40)
--- NOTE | 2016-07-28 15:23 | RADRPT ---
EXAM DATE/TIME: 07/28/2016 14:47 [facility] COMPARISON: CHEST SINGLE AP, July 26, 2016, 3:34. CHEST SINGLE AP, July 27, 2016, 17:00. INDICATIONS : Percutaneous tracheostomy . MEDICAL HISTORY : Hypertension. seizures SURGICAL HISTORY : None. ENCOUNTER: Initial ACUITY: 2 weeks PAIN SCORE: Non-responsive. LOCATION: Bilateral upper chest FINDINGS: Portable AP view the chest demonstrates a normal-sized cardiac silhouette. Endotracheal tube is been removed and tracheostomy has been placed. Tracheostomy overlies the tracheal air shadow. No pneumotho rax is visualized. Left chest tube remains present. There is mild volume loss left hemithorax with pl eural-parenchymal opacity left lung base. There is also a stable right basilar pleural-parenchymal op acity. CONCLUSION: 1. Tracheostomy in appropriate position. No pneumothorax is seen. 2. Persistent volume loss in the left hemithorax but improved aeration. There are stable bilateral pl eural effusions with associated volume loss and/or airspace consolidation. Toñito Rollins MD on July 28, 2016 at 15:20 Board Certified Radiologist. This report was verified electronically.
[2016-07-28] MEDS: RESP: ALBUTEROL 2.5 MG/IPRATROPIUM 0.5 MG NEB (PRN) NEB (15:24)
[2016-07-28 15:55] LABS: BRONCHOALVEOLAR LAVAGE RBC 910 /MM3; BRONCHOALVEOLAR LAVAGE WBC 5450 /MM3; BRONCHOAVEOLAR HISTIOCYTES 1 %; BRONCHOAVEOLAR LYMPHOCYTES 2 %; BRONCHOAVEOLAR NEUTROPHILS 97 %; LAVAGE TOTAL WBC COUNT 125.3 MILLION (4.7-7.1)
--- NOTE | 2016-07-28 17:22 | HHI.CCPN ---
Subjective Brief History History of Present Illness The patient is a 51 year old male who presents to the [facility] emergency department as transfer from [facility]. He sustained a fall from the roof while he was working. This was a 12 foot roof and he landed on his back. He drove his coworkers home, prior to going to the emergency department. He was found to have multiple left-sided rib fractures, compression fracture of T8, left-sided pneumothorax and L lung contusion, for which a large bore chest tube was placed. The patients laboratory studies were remarkable for a white count of 12.2, potassium 3.0, alcohol level 150. Patient was transferred to surgical ICU with above-noted injuries It is conceivable that patient had aspirated at the time of event I 24 Hour Review/Hospital Course Since arrival to the ICU patient has been stable He is awake alert and oriented He is severe left chest pain and back pain which is currently managed Neurosurgery has been consult is regarding the compression fracture of T8 and additional studies have been ordered Pulmonary contusion is severe and patient will likely get worse before he gets better as far as respiratory system is concerned for aspiration has most likely occurred at the time of the accident 07/16/2016 Patient was transferred to the floor 2 days ago and the has been doing well however became somewhat short of breath and repeat CAT scan was ordered which reveals complete collapse of the left lung with inspissated secretions and the collecting fluid around the lung Patient was transferred back to the ICU and remains well oxygenated on the 6 L nasal cannula nonetheless the left lung is completely atelectatic Today patient was intubated bronchoscoping and large amount of mucous material was obtained while the left lung reexpanded Drainage from the chest tube has also increased significantly pushing out all the fluid as the lung is reexpanded Will keep patient on the ventilator total tomorrow and then reassess needing possibly another bronchoscopy and then we'll work toward extubation 07/17/2016 As above noted patient has been intubated bronchoscoping has been doing well on the ventilator and is now successfully extubated All things equal patient will be able to return to the floor either today or tomorrow Chest tube drainage has decreased after being increased for about 24 hours and is serosanguineous and straw-colored Bilateral breath sounds 07/18/16 Since the bronchoscopy intubation and now after extubation patient has been ventilating nicely Chest tube drainage is about 400 cc per last 24 hours and it straw-colored This is inflammatory reaction the pleura which is slowly resolving so we will leave chest tube in place for this purpose Patient is still sort of somnolent in bed although the takes by mouth when asked questions he answers them appropriately but mumbles it, and remains somnolent Does not participate with care Does not cooperating with physical and occupational therapy or the nurses Asking for pain medication 07/19/2016 Patient is awake but slightly somnolent but oriented in time and space Patient requires increased amount of oxygen and this is a consistent with his anatomic and physiologic injuries Repeat CT scan of the chest reveals collapse of the left lower and part of the upper lobe with air-fluid level in the chest and partial collapse of the left lung Chest tube remains in place The partial anterior pneumothorax is due to the fact the patient was of suction when he went down to the radiology At this point patient will need to be intubated ventilated and bronchoscope the clearing of the secretions He may need prolonged intubation at this time and probably upon the evaluation the bronchial tree will decide whether patient needs a tracheostomy in the near future The interlobar bled could of course be due to the bronchial disruption but there is no need for surgery on this for it will eventually heal on its own The main thing is to support patient's respiration and pulmonary function 07/20/16 Patient has a had decreasing left lung function with the increasing levels consolidation and atelectasis Finally required intubation this morning with the bronchoscopy and clearing of the lung Massive amounts of mucous and purulent appearing material were obtained from the left lung Patient remains on the ventilator 07/22/2016 Patient status post left VATS evacuation of a loculated hemothorax and decortication of the left lung Postoperatively patient is doing well lungs are fully expanded and remains on the ventilator The patient improves respiratory ventilator weaning down gradually Antibiotics add to care in face of previous bronchoscopy findings cultures partially back Once we have better picture will adjust antibiotic coverage 07/23/16 Postoperative day 2 from his left thoracoscopic decortication Patient still has slightly elevated ventilator requirements His lung is inflated and there is no evidence of pneumothorax or air leak in the Pleur-evac 07/24/16 Tolerating chest tubes to water seal with minimal output He still has high FiO2 requirement on the ventilator He follows commands when sedation is lightened 07/25/16 Blood cultures came back 1 out of 2 with gram-positive cocci, he is already on vancomycin and Zosyn Slow weaning on the ventilator, chest x-ray remains stable with no evidence of pneumothorax and low chest tube output 07/26/16 Patient has been stable on the ventilator Drainage from the chest tubes has decreased and we will pull tomorrow the posterior chest tube and keep the anterior apical tube in place Patient has severe COPD and compromised lungs in addition to trauma so the pulmonary situation remains precarious Gram-positive cocci as per ID treatment treatment 07/27/16 Patient is gradually weaned and was extubated however asked he cannot clear secretions and while he is breathing is intact his the secretions are this point so I have it is not coughing up and not following commands Patient had to be reintubated the a few hours later Will have tracheostomy tomorrow considering this patient is extremely hard to wean in face of lung contusion heavy secretions as well as underlying severe pulmonary emphysema 07/28/16 As above noted patient was on successfully extubated yesterday had to be reintubated few hours later due to heavy secretions will collapse of the left lower lobe and the inability to ventilate and follow commands Patient underwent today tracheostomy placement and is currently on the ventilator Underwent the extensive bronchoscopy lavage with reinflation of the left upper and lower lobes At this point we'll be able to gradually we the presence of tracheostomy Objective Vital Signs Date Time Temp Pulse Resp B/P Pulse Ox O2 Delivery O2 Flow Rate FiO2 07/28/16 16:00 50 07/28/16 16:00 99.4 91 18 118/69 95 07/27/16 14:30 Venturi Mask 6.00 Intake and Output 07/27/16 07/27/16 07/28/16 08:00 16:00 00:00 Intake Total 952 ml 781 ml 618 ml Output Total 410 ml 300 ml 1103 ml Balance 542 ml 481 ml -485 ml Result Diagram: 07/28/16 0530 07/28/16 0530 Imaging Last 24 hours Impressions Chest X-Ray 07/28/16 0000 Signed Impressions: Service Date/Time: Thursday, July 28, 2016 14:47 - CONCLUSION: 1. Tracheostomy in appropriate position. No pneumothorax is seen. 2. Persistent volume loss in the left hemithorax but improved aeration. There are stable bilateral pleural effusions with associated volume loss and/or airspace consolidation. Toñito Rollins MD Exam [employer] Remains sedated Hemodynamic/Cardiac Hemodynamically intact Pulmonary/Respiratory Bilateral breath sounds very heavy secretions with collapse of the left lung and obstruction of the entire bronchial tree with mucousy debris Underwent Blue Rhino tracheostomy today Will wean to separate from the ventilator at this point easier considering tracheostomy Assessment and Plan Plan Acute respiratory failure with bilateral rib fractures left-sided pulmonary contusion and pneumothorax, status post decortication for empyema - Continue to wean ventilator as tolerated -Wean sedation as tolerated -We will remove the posterior basal chest tube and continue the anterior apical chest tube -Continue nutritional support -Continue empiric antibiotics, 1 out of 2 blood cultures positive for gram- positive cocci Patient remains critically ill as above, total critical care time 45 minutes Attestation The exam, history, and the medical decision-making described in the above note were completed with the assistance of the mid-level provider. I reviewed and agree with the findings presented. I attest that I had a [id number] encounter with the patient on the same day, and personally performed and documented my assessment and findings in the medical record. Critical care time 35 minutes. Blair Cartagena MD Jul 28, 2016 17:22
--- NOTE | 2016-07-28 18:02 | RADRPT ---
EXAM DATE/TIME: 07/28/2016 17:45 [facility] COMPARISON: No previous studies available for comparison. INDICATIONS : Evaluate for dobhoff placement. MEDICAL HISTORY : None. SURGICAL HISTORY : None. ENCOUNTER: Initial ACUITY: 1 day PAIN SCORE: Non-responsive. LOCATION: chest FINDINGS: Nonobstructive bowel gas pattern. Dobbhoff feeding tube has its tip in the mid stomach. CONCLUSION: Tip of the Dobbhoff feeding tube is in the mid stomach. Toñito Bacon MD on July 28, 2016 at 18:00 Board Certified Radiologist. This report was verified electronically.
[2016-07-28] MEDS: MAGNESIUM HYDROXIDE SUSP 30 ML CUP PO SCH (20:52)
[2016-07-28] MEDS: BISACODYL 10 MG SUPP RECTAL PRN (20:53)
[2016-07-29] VITALS (18 sets, daily range): BP systolic 94–158; BP diastolic 53–84; PULSE 75–103; RESP 16–20; TEMP 97.7–99.9; O2SAT 94–100
[2016-07-29] MEDS: PIPERACIL-TAZO 3.375 GM PREMIX 50 ML IV SCH ×3 (03:00→18:21)
[2016-07-29] MEDS: METOPROLOL TARTRATE 5 MG/5 ML VIAL IV PUSH SCH ×4 (03:00→21:00)
--- NOTE | 2016-07-29 03:17 | RADRPT ---
EXAM DATE/TIME: 07/29/2016 02:34 [facility] COMPARISON: CHEST SINGLE AP, July 28, 2016, 14:47. INDICATIONS : Shortness of breath. MEDICAL HISTORY : Hypertension. seizures SURGICAL HISTORY : None. ENCOUNTER: Subsequent ACUITY: 2 weeks PAIN SCORE: Non-responsive. LOCATION: Bilateral chest FINDINGS: A single view of the chest demonstrates stable bibasilar airspace disease with associated effusions. Left-sided thoracostomy tube without pneumothorax. Interval placement of a feeding tube which enters the stomach and extends off the inferior aspect of the film. Heart size is normal. Stable position of tracheostomy tube. Anterior fixation of the lower cervical spine. CONCLUSION: Stable bibasilar airspace disease with associated effusions, left greater than right. No pneumot horax. Shemar Lundy MD on July 29, 2016 at 3:14 Board Certified Radiologist. This report was verified electronically.
[2016-07-29 04:02] LABS: AUTOMATED NEUTROPHIL # 11.9 TH/MM3 (1.8-7.7); BASOPHIL # 0.1 TH/MM3 (0-0.2); EOSINOPHIL # 0.1 TH/MM3 (0-0.4); HEMATOCRIT 25.5 % (39.0-51.0); LYMPH % 3.9 % (9.0-44.0); LYMPHOCYTE # 0.5 TH/MM3 (1.0-4.8); MEAN CELL VOLUME 94.7 FL (80.0-100.0); MEAN CORPUSCULAR HEMOGLOBIN 33.1 PG (27.0-34.0); MEAN CORPUSCULAR HGB CONC 34.9 % (32.0-36.0); MONO % 4.9 % (0.0-8.0); NEUT % 89.2 % (16.0-70.0); PLATELET COUNT 341 TH/MM3 (150-450); RED CELL DISTRIBUTION WIDTH 13.3 % (11.6-17.2); WHITE BLOOD COUNT 13.3 TH/MM3 (4.0-11.0)
[2016-07-29 04:11] LABS: HEMO FLAGS AUTO DIFF
[2016-07-29 04:19] LABS: ALT (GPT) 31 U/L (12-78); ANION GAP 9 MEQ/L (5-15); AST (GOT) 34 U/L (15-37); BICARBONATE 24.2 MEQ/L (21.0-32.0); BLOOD UREA NITROGEN 4 MG/DL (7-18); CHLORIDE 107 MEQ/L (98-107); GLOMERULAR FILTRATION RATE 153 ML/MIN (>89); MAGNESIUM 1.8 MG/DL (1.5-2.5); POTASSIUM 3.9 MEQ/L (3.5-5.1); SODIUM (NA) 140 MEQ/L (136-145)
[2016-07-29 04:21] LABS: ALKALINE PHOSPHATASE 174 U/L (45-117); TOTAL BILIRUBIN ADULT 0.5 MG/DL (0.2-1.0)
[2016-07-29 04:40] LABS: BANDS 5 % (0-6); METAMYELOCYTES 2 % (0-1); POLYS (SEG NEUTROPHILS) 91 % (16-70); SCAN/DIFF FINAL DIFF MANUAL; TOXIC GRANULATION 1+ (NORMAL); WBC DIFF SAMPLE 100
[2016-07-29 04:41] LABS: PLATELET ESTIMATE SMEAR NORMAL (NORMAL); PLATELET MORPHOLOGY NORMAL (NORMAL)
[2016-07-29] MEDS: oxyCODONE HCL ORAL CONC 20 MG/ML SYRINGE PO SCH ×4 (05:00→23:00)
[2016-07-29 05:39] LABS: BLOOD GAS BASE EXCESS -0.3 mmol/L (-2-2); BLOOD GAS CARBOXYHEMOGLOBIN 1.2 % (0-4); BLOOD GAS HCO3 23 mmol/L (22-26); BLOOD GAS METHEMOGLOBIN 0.8 % (0-2); BLOOD GAS O2 HGB SATURATION 96 % (90-100); BLOOD GAS OXYGEN CONTENT 11.6 Vol % (12.0-20.0); BLOOD GAS PCO2 33 mmHg (38-42); BLOOD GAS PO2 102 mmHg (61-120); BLOOD GAS TOTAL HGB 8.4 G/DL (12.0-16.0); TEMP CORR TO 98.6
[2016-07-29 05:40] LABS: CRITICAL VALUE NO; OXYGEN DEVICE VENTILATOR
[2016-07-29 05:41] LABS: DRAW SITE ALINE; FIO2 50 %; STAT NO
[2016-07-29] MEDS: LACTULOSE SYRUP 20 GM/30 ML CUP PO SCH (07:50)
[2016-07-29] MEDS: hydrALAZINE HCL 25 MG TAB PO SCH ×2 (07:50→21:00)
[2016-07-29] MEDS: DOCUSATE SODIUM 50 MG/SENNA 8.6 MG TAB PO SCH ×2 (07:50→21:00)
[2016-07-29] MEDS: CHLORHEXIDINE 0.12% (ORAL KIT) 15 ML CUP MT SCH ×2 (07:52→20:00)
[2016-07-29] MEDS: levETIRAcetam INJ 500 MG in SODIUM CHLORIDE 0.9% INJ 100 ML IV SCH ×2 (07:52→21:00)
[2016-07-29] MEDS: QUEtiapine FUMARATE 25 MG TAB PO SCH ×2 (07:52→21:00)
[2016-07-29] MEDS: PANTOPRAZOLE SODIUM 40 MG VIAL IV PUSH SCH (07:53)
[2016-07-29] MEDS: PROPOFOL 1000 MG/100 ML IV SCH ×3 (10:16→18:59)
--- NOTE | 2016-07-29 10:58 | PD.CONS ---
HPI History of Present Illness This is an unfortunate 51 year old male who sustained a fall from the roof while working and suffered as a result of L sided rib fracture, L hemopneumothorax, L lung contusion, T8 compression fracture. He was intubated and extubated, however couldn't clear secretions and was reintubated. He under went a tracheostomy on (07/28/16). GI have been consulted for PEG tube placement. Currently patient still with chest tube, tolerating TF okay. Spoke to patient daughter and explained procedure risk alternatives and she is agreeing PFSH Past Medical History Per EMR Chronic neck and back pain Seizure disorder pneumothorax T8 compression fracture L sided rib fracture L hemopneumothorax Past Surgical History Per EMR Cervical spine fusion Left arm ORIF, left foot ORIF Right hand surgery. trach Coded Allergies: No Known Allergies (Unverified , 07/13/16) Medications Current Medications Medications (Trade) Dose Ordered Sig/Krzysztof Route Start Time Stop Time Status Last Admin (NS Flush) 2 ml UNSCH PRN IVF 07/13/16 07:45 07/24/16 08:48 (Zofran Inj) 4 mg Q6H PRN IV 07/13/16 07:45 (Depakene) 250 mg Q12HR PO 07/13/16 11:00 Hold 07/18/16 21:57 (Milk Of Magnesia Liq) 30 ml HS PO 07/15/16 21:00 07/28/16 20:52 (Trandate Inj) 20 mg Q1HR PRN IV 07/16/16 19:15 07/22/16 17:36 (Neurontin) 200 mg TID PO 07/17/16 09:00 Hold 07/18/16 18:14 (Johanne-Colace) 1 tab BID PO 07/17/16 09:00 07/28/16 20:53 Lactulose 30 ml 30 ml DAILY PO 07/18/16 09:00 07/28/16 09:54 Potassium Chloride 100 ml @ 50 mls/hr Q2H PRN IV 07/17/16 21:15 (KCl 20 Meq Premix Inj) 100 ml @ 50 mls/hr Q2H PRN IV 07/17/16 21:15 07/28/16 14:40 Potassium Chloride 40 meq 40 meq UNSCH PRN PO/TUBE 07/17/16 21:15 07/23/16 06:54 Potassium Chloride 100 ml @ 25 mls/hr UNSCH PRN IV 07/17/16 21:15 Potassium Chloride 100 ml @ 50 mls/hr Q2H PRN IV 07/17/16 21:15 07/27/16 07:25 (Magnesium Sulfate Inj/NS Inj) 100 ml @ 50 mls/hr UNSCH PRN IV 07/17/16 21:15 Magnesium Oxide 800 mg 800 mg UNSCH PRN PO 07/17/16 21:15 (Magnesium Sulfate Inj/NS Inj) 100 ml @ 50 mls/hr UNSCH PRN IV 07/17/16 21:15 Potassium Phosphate 2000 mg 2,000 mg Q4H PRN PO 07/17/16 21:15 (Sodium Phosphate Inj/NS 250 ml Inj) 250 ml @ 42 mls/hr UNSCH PRN IV 07/17/16 21:15 (KCl 40 Meq/30 ml Liq) 40 meq UNSCH PRN PO/TUBE 07/17/16 21:15 07/24/16 05:24 Potassium Phosphate 2000 mg 2,000 mg UNSCH PRN PO/TUBE 07/17/16 21:15 07/24/16 05:24 (Potassium Phosphate Inj/NS 250 ml Inj) 260 ml @ 42 mls/hr UNSCH PRN IV 07/17/16 21:15 (Lovenox Inj) 40 mg Q24H SQ 07/18/16 12:00 07/28/16 11:32 (Lopressor Inj) 5 mg Q6H IV PUSH 07/19/16 09:00 07/29/16 03:00 (Dulcolax Supp) 10 mg DAILY PRN RECTAL 07/19/16 08:45 07/28/16 20:53 Pantoprazole Sodium 40 mg 40 mg Q24H IV PUSH 07/19/16 09:00 07/29/16 07:53 (Diprivan 1000 Mg/100ml Inj) 100 ml @ 0 mls/hr TITRATE IV 07/20/16 11:30 07/29/16 10:16 (Peridex 0.12% Liq) 15 ml BID@08,20 MT 07/20/16 20:00 07/29/16 07:52 Acetaminophen 650 mg 650 mg Q4H PRN PO 07/20/16 12:00 07/23/16 10:02 Levetriacetam 500 mg/Sodium Chloride 105 ml @ 420 mls/hr Q12HR IV 07/22/16 11:00 07/29/16 07:52 Pharmacy Profile Note 0 ml @ 0 mls/hr UNSCH OTHER 07/22/16 10:00 Piperacillin Sod/ Tazobactam Sod 50 ml @ 100 mls/hr Q8H IV 07/22/16 11:00 07/29/16 10:16 (Vancomycin Inj/ NS 500 ml Inj) 515 ml @ 250 mls/hr Q12H IV 07/22/16 12:00 07/29/16 00:00 (Roxicodone Intensol Liq) 5 mg Q4H PRN PO 07/23/16 14:00 07/24/16 04:22 (Roxicodone Intensol Liq) 10 mg Q4H PRN PO 07/23/16 14:00 07/26/16 15:05 Hydralazine HCl 25 mg 25 mg Q12HR PO 07/27/16 09:00 07/28/16 20:53 (Precedex Inj) 50 ml @ 0 mls/hr TITRATE IV 07/27/16 08:45 07/27/16 11:15 (SEROquel) 25 mg BID PO 07/27/16 10:15 07/29/16 07:52 (Roxicodone Intensol Liq) 10 mg Q6H PO 07/27/16 11:00 07/29/16 10:17 Miscellaneous Information SPECIFIC LAB TO BE FRANCIS... ONCE ONCE XX 07/30/16 11:45 07/30/16 11:46 Family History Non contributory Social History Per EMR Smokes 1 pack of cigarettes Occasional alcohol Review of Systems ROS Patient is ventilated via Trach, not able to obtain ROS GI Exam Vitals I&O Vital Signs Date Time Temp Pulse Resp B/P Pulse Ox O2 Delivery O2 Flow Rate FiO2 07/29/16 09:45 96 40 07/29/16 08:24 94 50 07/29/16 06:00 96 07/29/16 04:05 96 50 07/29/16 04:00 103 07/29/16 04:00 60 07/29/16 04:00 98.6 103 18 158/82 98 07/29/16 02:00 96 07/29/16 00:45 97 50 07/29/16 00:00 60 07/29/16 00:00 92 07/29/16 00:00 99.5 92 16 142/72 98 07/28/16 22:00 90 07/28/16 20:00 99.5 91 20 144/7 100 07/28/16 20:00 60 07/28/16 20:00 91 07/28/16 19:37 97 50 07/28/16 18:00 89 07/28/16 16:00 50 07/28/16 16:00 99.4 91 18 118/69 95 07/28/16 16:00 91 07/28/16 15:36 95 50 07/28/16 15:17 99 50 07/28/16 14:00 92 07/28/16 14:00 99 07/28/16 13:40 99 100 07/28/16 12:13 97 100 07/28/16 12:00 60 07/28/16 12:00 99.9 86 16 104/64 98 07/28/16 12:00 86 I/O 07/28/16 07/28/16 07/28/16 07/29/16 07/29/16 07/29/16 07:00 15:00 23:00 07:00 15:00 23:00 Intake Total 831 ml 1570 ml 530 ml 726 ml Output Total 400 ml 310 ml 770 ml 701 ml Balance 431 ml 1260 ml -240 ml 25 ml IV Total 676 ml 1335 ml 348 ml 552 ml Tube Feeding 175 ml Lipid 155 ml 182 ml 174 ml Other 60 ml Output Urine Total 350 ml 300 ml 750 ml 700 ml Stool Total 0 ml 0 ml 1 ml Chest Tube Drainage Total 50 ml 10 ml 20 ml 0 ml # Bowel Movements 0 Imaging Last Impressions Chest X-Ray 07/29/16 0600 Signed Impressions: Service Date/Time: July 02:34 - CONCLUSION: Stable bibasilar airspace disease with associated effusions, left greater than right. No pneumothorax. Shemar Lundy MD Abdomen X-Ray 07/28/16 0000 Signed Impressions: Service Date/Time: Thursday, July 28, 2016 17:45 - CONCLUSION: Tip of the Dobbhoff feeding tube is in the mid stomach. Toñito Bacon MD Chest CT 07/20/16 0000 Signed Impressions: Service Date/Time: Wednesday, July 20, 2016 17:22 - CONCLUSION: Improving appearance of the left lung since the 07/15 exam. The left upper lobe is much better aerated and the pneumothorax is smaller than on the previous study. There is persisting consolidation in the left lower lobe and a persistent dense collection in the lower costophrenic angle. The chest tube is again seen near with its tip near the apex. The lower posterior collection may not be communicating with the chest tube or the rest of the pneumothorax. Nino Lopez MD Head CT 07/19/16 0000 Signed Impressions: Service Date/Time: Tuesday, July 19, 2016 13:25 - CONCLUSION: Negative for an acute process. Cory Butts MD FACR Thoracic Spine CT 07/13/16 0000 Signed Impressions: Service Date/Time: Wednesday, July 13, 2016 08:51 - CONCLUSION: T8 compressive deformity as described in detail above with appearance suggestive of an old injury, however some degree of acute or subacute progression cannot be excluded. If it would affect clinical management, injury could be further characterized with MRI. Toñito Cisneros MD Laboratory Test 07/28/16 07/29/16 07/29/16 14:10 03:55 05:28 Bronchoalveolar Lavage WBC 5450 /MM3 Bronchoalveolar Lavage RBC 910 /MM3 Bronchoalveolar Lavage 97 % Neutrophils Bronchoalveolar Lavage 2 % Lymphocytes Bronchoalveolar Lavage 1 % Histiocytes Lavage Fluid Total Volume 23.0 ML Lavage Fluid Total WBC Count 125.3 MILLION White Blood Count 13.3 TH/MM3 Red Blood Count 2.70 MIL/MM3 Hemoglobin 8.9 GM/DL Hematocrit 25.5 % Mean Corpuscular Volume 94.7 FL Mean Corpuscular Hemoglobin 33.1 PG Mean Corpuscular Hemoglobin 34.9 % Concent Red Cell Distribution Width 13.3 % Platelet Count 341 TH/MM3 Mean Platelet Volume 7.3 FL Neutrophils (%) (Auto) 89.2 % Lymphocytes (%) (Auto) 3.9 % Monocytes (%) (Auto) 4.9 % Eosinophils (%) (Auto) 1.0 % Basophils (%) (Auto) 1.0 % Neutrophils # (Auto) 11.9 TH/MM3 Lymphocytes # (Auto) 0.5 TH/MM3 Monocytes # (Auto) 0.6 TH/MM3 Eosinophils # (Auto) 0.1 TH/MM3 Basophils # (Auto) 0.1 TH/MM3 CBC Comment AUTO DIFF Differential Total Cells 100 Counted Neutrophils % (Manual) 91 % Band Neutrophils % 5 % Monocytes % 2 % Neutrophils # (Manual) 13.0 TH/MM3 Metamyelocytes 2 % Differential Comment FINAL DIFF MANUAL Toxic Granulation 1+ Platelet Estimate NORMAL Platelet Morphology Comment NORMAL Red Cell Morphology Comment NORMAL Sodium Level 140 MEQ/L Potassium Level 3.9 MEQ/L Chloride Level 107 MEQ/L Carbon Dioxide Level 24.2 MEQ/L Anion Gap 9 MEQ/L Blood Urea Nitrogen 4 MG/DL Creatinine 0.56 MG/DL Estimat Glomerular Filtration 153 ML/MIN Rate Random Glucose 97 MG/DL Calcium Level 7.6 MG/DL Phosphorus Level 2.9 MG/DL Magnesium Level 1.8 MG/DL Total Bilirubin 0.5 MG/DL Aspartate Amino Transf 34 U/L (AST/SGOT) Alanine Aminotransferase 31 U/L (ALT/SGPT) Alkaline Phosphatase 174 U/L Total Protein 6.4 GM/DL Albumin 1.4 GM/DL Blood Gas Puncture Site JOJO Blood Gas Patient Temperature 98.6 Blood Gas HCO3 23 mmol/L Blood Gas Base Excess -0.3 mmol/L Blood Gas Oxygen Saturation 96 % Arterial Blood pH 7.46 Arterial Blood Partial 33 mmHg Pressure CO2 Arterial Blood Partial 102 mmHg Pressure O2 Arterial Blood Oxygen Content 11.6 Vol % Arterial Blood 1.2 % Carboxyhemoglobin Arterial Blood Methemoglobin 0.8 % Blood Gas Hemoglobin 8.4 G/DL Oxygen Delivery Device VENTILATOR Blood Gas Ventilator Setting SEE COMMENT Blood Gas Inspired Oxygen 50 % Date/Time Procedure Status Source Growth 07/28/16 14:10 Gram Stain Received Bronchial Washings Left Lower Lobe Pending 07/28/16 14:10 Bronchial Culture Received Bronchial Washings Left Lower Lobe Pending 07/28/16 14:10 Fungal Smear Received Bronchial Washings Left Lower Lobe Pending 07/28/16 14:10 Fungal Culture Received Bronchial Washings Left Lower Lobe Pending 07/28/16 14:10 Acid Fast Stain Received Bronchial Washings Left Lower Lobe Pending 07/28/16 14:10 Mycobacterial Culture Received Bronchial Washings Left Lower Lobe Pending 07/24/16 11:46 Aerobic Blood Culture - Preliminary Resulted Blood Peripheral NO GROWTH IN 4 DAYS 07/24/16 11:46 Anaerobic Blood Culture - Preliminary Resulted Blood Peripheral NO GROWTH IN 4 DAYS 07/24/16 11:41 Aerobic Blood Culture - Final Complete Blood Peripheral Staphylococcus Aureus 07/24/16 11:41 Anaerobic Blood Culture - Final Complete Blood Peripheral QNS - SEE AEROBE REPORT Physical Examination HEENT: normocephalic; atraumatic; no jaundice. NECK: Neck is supple, no JVD, no lymphadenopathy. trach CHEST: Chest is clear to auscultation and percussion. CARDIAC: Regular rate and rhythm with no murmur gallop or rubs. ABDOMEN: Soft, nondistended, nontender; no hepatosplenomegaly; bowel sounds are present in all four quadrants. EXTREMITIES: No clubbing, cyanosis, or edema. SKIN: Normal; no rash; no jaundice. 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 He was intubated and extubated, however couldn't clear secretions and was reintubated. He under went a tracheostomy on (07/28/16). GI have been consulted for PEG tube placement. Currently patient still with chest tube, tolerating TF okay. Spoke to patient daughter and explained procedure risk alternatives and she is agreeing Plan: - NPO - EGD/PEG today - He is already on abx - Supportive care - Patient seen and examined by Dr. Packer and myself and this note is written on his behalf Jose Luis Long Jul 29, 2016 10:58
[2016-07-29] MEDS: ENOXAPARIN SODIUM 40 MG/0.4 ML SYRINGE SQ SCH (11:26)
--- NOTE | 2016-07-29 11:33 | HHI.PR ---
Neuropsych Emotional Emotional: UnabletoAssess: Emotional, Anxious/Fearful, Depressed/Sad, Hostile/ Resentful, Irritable/Angry/Frustrate, Labile, Constricted/Blunted Behavior Behavior: Unable to Asses: Behavior, Coping/Acceptance, Cooperative w/ Treatment, Motivation, Frustration Tolerance/[place], Impulsive/Agitated, Suicidal/ Homicidal Risk Cognitive Cognitive: Unable to Asses: Cognitive, Attention/Concentration, Confused/ Orientation, Insight/Awareness, Judgement/Problem-Solving, Memory Psychosocial Psychosocial: Severe: Psychosocial, Family/Other Adjustment, Realistic Expectation, Unable to Asses: Self-Esteem/Confidence Progress Notes/Response to Tx Contents of Sessions: Adjustment Time with Patient: 45 minutes Premorbid psychological status Premorbid Cognitive, Emotional and Behavioral Status: Tenuous. 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 The patient has prior psychiatric difficulties, and reportedly was on Seroquel 300 mg qHS prior to the accident. Substance abuse history includes TOB and ETOH. Behavioral Reactions of Patient and Family/Support System: Tenuous. The patient has no family stepping up. He was living at a senior living for disabled individuals, where reportedly he spent much of the time smoking and drinking. Emotional/Behavioral Status of Patient and Family/Support System: Tenuous. Pertinent issues, if appropriate to this patients clinical care, are described in detail above. Maximizing acute care outcome It is recommended that the patient be monitored for emergent behavioral impulsivity as the medical condition evolves. This patients psychiatric and substance dependence issues will limit their rehabilitation potential going forward, and these challenges will require specialized therapeutic skills to maximize outcome. Anticipated Problems Ongoing areas of concern will include agitation, behavioral impulsivity, lack of insight and judgment, which is unlikely to improve with time or treatment. Treatment Plan This clinician will continue to follow with you throughout the course of this patients rehabilitation treatment, and I will be available to meet with the patients family/support system to facilitate their understanding and the ongoing care of their family member. The goals of neuropsychological intervention shall be both educational and supportive to the family/support system as is deemed clinically appropriate. Diagnosis: Progress Note Narrative Ongoing follow-up of patient both within context of daily trauma rounding and bedside. This patient has been unable to be weaned from the vent, not following commands and becomes agitated with lowering sedation. In his medical chart, there was a notation by another physician that he was taking 300 mg of seroquel HS (presently he is on 25 mg of seroquel BID), but that this medication was discontinued 4 days post injury. There is a team consensus that this patient's dosage should be titrated to return to the level he was taking initially, particularly in light of the fact that he has a preexisting psychiatric disorder. I discussed with SANDI Malik, and he is being increased to 50 mg BID, with eventual increases from there to 150 mg BID. On exam, the patient was resting comfortably and was non-agitated. I will continue to follow. Bernard Higgins PhD Jul 29, 2016 11:33 am
[2016-07-29] MEDS: VANCOMYCIN INJ 1,500 MG in SODIUM CHLORID 0.9% 500 ML INJ 500 ML IV SCH ×3 (11:48)
--- NOTE | 2016-07-29 15:34 | HHI.CCPN ---
Subjective Brief History History of Present Illness This patient is a 51 year old male who presents to the [facility] emergency department as transfer from Formerly named [facility]. He sustained a fall from the roof while he was working. This was a 12 foot roof and he landed on his back. He drove his coworkers home, prior to going to the emergency department. He was found to have multiple left-sided rib fractures, compression fracture of T8, left-sided pneumothorax and L lung contusion, for which a large bore chest tube was placed. The patients laboratory studies were remarkable for a white count of 12.2, potassium 3.0, alcohol level 150. Patient was transferred to surgical ICU with above-noted injuries It is conceivable that patient had aspirated at the time of event PMHx: Cervical spine fusion with halo placement, trigger finger, HTN, seizures, 1 PPD smoker, ETOH (drinks 8-12 12oz Harman Hard Lemonade daily) PAIN MANAGEMENT INJURIES: T8 compression fx Serial LEFT rib fxs LEFT sided PTX LEFT lung contusion Procedures: 07/12: LEFT CT (placed by [facility] 07/16: Intubation and BRONCH 07/17: extubated 07/20: INTUBATION and BRONCH again 07/21: LEFT thoracoscopy; evacuation of empyema and decortication of the lung 07/27: Extubate & reintubated d/t secretions 07/28: Bedside trach 07/29: PEG I 24 Hour Review/Hospital Course Since arrival to the ICU patient has been stable He is awake alert and oriented He is severe left chest pain and back pain which is currently managed Neurosurgery has been consult is regarding the compression fracture of T8 and additional studies have been ordered Pulmonary contusion is severe and patient will likely get worse before he gets better as far as respiratory system is concerned for aspiration has most likely occurred at the time of the accident 07/16/2016 Patient was transferred to the floor 2 days ago and the has been doing well however became somewhat short of breath and repeat CAT scan was ordered which reveals complete collapse of the left lung with inspissated secretions and the collecting fluid around the lung Patient was transferred back to the ICU and remains well oxygenated on the 6 L nasal cannula nonetheless the left lung is completely atelectatic Today patient was intubated bronchoscoping and large amount of mucous material was obtained while the left lung reexpanded Drainage from the chest tube has also increased significantly pushing out all the fluid as the lung is reexpanded Will keep patient on the ventilator total tomorrow and then reassess needing possibly another bronchoscopy and then we'll work toward extubation 07/17/2016 As above noted patient has been intubated bronchoscoping has been doing well on the ventilator and is now successfully extubated All things equal patient will be able to return to the floor either today or tomorrow Chest tube drainage has decreased after being increased for about 24 hours and is serosanguineous and straw-colored Bilateral breath sounds 07/18/16 Since the bronchoscopy intubation and now after extubation patient has been ventilating nicely Chest tube drainage is about 400 cc per last 24 hours and it straw-colored This is inflammatory reaction the pleura which is slowly resolving so we will leave chest tube in place for this purpose Patient is still sort of somnolent in bed although the takes by mouth when asked questions he answers them appropriately but mumbles it, and remains somnolent Does not participate with care Does not cooperating with physical and occupational therapy or the nurses Asking for pain medication 07/19/2016 Patient is awake but slightly somnolent but oriented in time and space Patient requires increased amount of oxygen and this is a consistent with his anatomic and physiologic injuries Repeat CT scan of the chest reveals collapse of the left lower and part of the upper lobe with air-fluid level in the chest and partial collapse of the left lung Chest tube remains in place The partial anterior pneumothorax is due to the fact the patient was of suction when he went down to the radiology At this point patient will need to be intubated ventilated and bronchoscope the clearing of the secretions He may need prolonged intubation at this time and probably upon the evaluation the bronchial tree will decide whether patient needs a tracheostomy in the near future The interlobar bled could of course be due to the bronchial disruption but there is no need for surgery on this for it will eventually heal on its own The main thing is to support patient's respiration and pulmonary function 07/20/16 Patient has a had decreasing left lung function with the increasing levels consolidation and atelectasis Finally required intubation this morning with the bronchoscopy and clearing of the lung Massive amounts of mucous and purulent appearing material were obtained from the left lung Patient remains on the ventilator 07/22/2016 Patient status post left VATS evacuation of a loculated hemothorax and decortication of the left lung Postoperatively patient is doing well lungs are fully expanded and remains on the ventilator The patient improves respiratory ventilator weaning down gradually Antibiotics add to care in face of previous bronchoscopy findings cultures partially back Once we have better picture will adjust antibiotic coverage 07/23/16 Postoperative day 2 from his left thoracoscopic decortication Patient still has slightly elevated ventilator requirements His lung is inflated and there is no evidence of pneumothorax or air leak in the Pleur-evac 07/24/16 Tolerating chest tubes to water seal with minimal output He still has high FiO2 requirement on the ventilator He follows commands when sedation is lightened 07/25/16 Blood cultures came back 1 out of 2 with gram-positive cocci, he is already on vancomycin and Zosyn Slow weaning on the ventilator, chest x-ray remains stable with no evidence of pneumothorax and low chest tube output 07/26/16 Patient has been stable on the ventilator Drainage from the chest tubes has decreased and we will pull tomorrow the posterior chest tube and keep the anterior apical tube in place Patient has severe COPD and compromised lungs in addition to trauma so the pulmonary situation remains precarious Gram-positive cocci as per ID treatment treatment 07/27/16 Patient is gradually weaned and was extubated however asked he cannot clear secretions and while he is breathing is intact his the secretions are this point so I have it is not coughing up and not following commands Patient had to be reintubated the a few hours later Will have tracheostomy tomorrow considering this patient is extremely hard to wean in face of lung contusion heavy secretions as well as underlying severe pulmonary emphysema 07/28/16 As above noted patient was on successfully extubated yesterday had to be reintubated few hours later due to heavy secretions will collapse of the left lower lobe and the inability to ventilate and follow commands Patient underwent today tracheostomy placement and is currently on the ventilator Underwent the extensive bronchoscopy lavage with reinflation of the left upper and lower lobes At this point we'll be able to gradually we the presence of tracheostomy 07/29/2016 PTD: 16 Status post Dobbhoff placement last evening and continuation of tube feeding Patient remains on the ventilator today. He will receive a PEG from GI later today. Objective Vital Signs Date Time Temp Pulse Resp B/P Pulse Ox O2 Delivery O2 Flow Rate FiO2 07/29/16 13:47 99 40 07/29/16 12:00 75 07/29/16 12:00 97.7 16 111/62 07/27/16 14:30 Venturi Mask 6.00 Intake and Output 07/28/16 07/28/16 07/29/16 08:00 16:00 00:00 Intake Total 831 ml 1570 ml 530 ml Output Total 400 ml 310 ml 770 ml Balance 431 ml 1260 ml -240 ml Result Diagram: 07/29/16 0355 07/29/16 0355 Other Results Laboratory Tests Test 07/29/16 05:28 Blood Gas Puncture Site JOJO Blood Gas Patient Temperature 98.6 Blood Gas HCO3 23 mmol/L (22-26) Blood Gas Base Excess -0.3 mmol/L (-2-2) Blood Gas Oxygen Saturation 96 % (90-100) Arterial Blood pH 7.46 (7.380-7.420) Arterial Blood Partial 33 mmHg (38-42) Pressure CO2 Arterial Blood Partial 102 mmHg Pressure O2 (61-120) Arterial Blood Oxygen Content 11.6 Vol % (12.0-20.0) Arterial Blood 1.2 % (0-4) Carboxyhemoglobin Arterial Blood Methemoglobin 0.8 % (0-2) Blood Gas Hemoglobin 8.4 G/DL (12.0-16.0) Oxygen Delivery Device VENTILATOR Blood Gas Ventilator Setting SEE COMMENT Blood Gas Inspired Oxygen 50 % Imaging Last 24 hours Impressions Chest X-Ray 07/29/16 0600 Signed Impressions: Service Date/Time: July 02:34 - CONCLUSION: Stable bibasilar airspace disease with associated effusions, left greater than right. No pneumothorax. Shemar Lundy MD Objective Remarks GENERAL: This is a 51 year old male mechanically ventilated. SKIN: Warm and dry. HEAD: Atraumatic. Normocephalic. EYES: PERRLA ENT: Dobhoff in place. No nasal bleeding or discharge. Mucous membranes pink and moist. NECK: Midline trach n place. Trachea midline. No JVD. CARDIOVASCULAR: Regular rate and rhythm. CM shows sinus rhythm. RESPIRATORY: Vent. No accessory muscle use. Lungs are course and diminished throughout. (worse on LEFT) No distress or dyspnea. Left lateral chest tube in place to Pleur-evac drainage system. GASTROINTESTINAL: BS + x 4 quads. Abdomen soft, non-tender, nondistended. MUSCULOSKELETAL: Extremities without cyanosis, or edema. + peripheral pulses x 4 extremities. Warm with good capillary refill and sensation. MAEW. NEUROLOGICAL: Sedated and mechanically ventilated. Urinary Catheter Assessment Urinary Catheter: Yes Assessment to: Continue Dinero insert reason: Measure Accurate Output Vascular Central Line Catheter Vascular Central Line Catheter: No Assessment and Plan Assessment: (1) Spinal cord injury, cervical region ICD Code: S14.109A Status: Acute (2) Chronic pain ICD Code: G89.29 Status: Acute (3) Closed T8 spinal fracture ICD Code: S22.069A Status: Acute (4) Pneumothorax on left ICD Code: J93.9 Status: Acute (5) Multiple fractures of ribs of left side ICD Code: S22.42XA Status: Acute (6) Traumatic compression fracture of T8 thoracic vertebra ICD Code: S22.060A Status: Acute Plan This is a 51-year-old male who was working 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 He attempted to 308 bucket over the side and a cut stuck in his hand and pulled over the side of the roof. He fell from approximately 12 feet and landed on his back. EtOH +. He ambulated at the scene and was able to drive his coworkers home before transporting himself to [facility]. He was then transferred to [place] for trauma services. INJURIES: T8 compression fx Serial LEFT rib fxs LEFT sided PTX LEFT lung contusion Assessment and plan by systems: NEUROLOGICAL: Patient sedated with propofol drip Pt is sedated with a RASS score of -2. Provide analgesia for comfort and pain - scheduled Roxicodone. Seizure prophylaxis - Keppra for questionable alcoholic seizures HOB elevated 30 degrees. Increased Seroquel 250 mg BID. + peripheral pulses x 4 extremities. Neurosurgery is assisting in care. CARDIOVASCULAR: HR = 75-80. Sinus rhythm BP 111/62. Continually monitor for hemodynamic instability (shock and hypotension). BP meds - Lopressor 5 IV, labetalol when necessary Follow CMP Electrolyte protocol in place Remove Jojo. RESPIRATORY: Vent settings: PRVC-AC 600 / 16 / 1.0 / 50% / +8 PF ratio = 204. Increase PEEP carefully (to assist in oxygenation by recruiting alveoli.) Weaning - as tolerated O2 Sats Monitor for hypoxemia Follow ABGs - Lung sounds - coarse and diminished. Worse on left. Pulmonary toilet L&S. Status post bronchoscopy yesterday. Bronchodilators - Breathing treatments duonebs. Chest X-Ray results - stable bibasilar airspace disease with associated effusions left greater than right. No pneumothorax. Left lateral chest tube in place to Pleur-evac drainage system. Bronchial washings sent 07/28 - left lower lobe - gram-negative rods/ Staphylococcus aureus Sputum culture 07/24: Klebsiella pneumonia. Staphylococcus aureus. Antibiotics - Vanco and Zosyn. VAP protocol in place Labs tomorrow Chest X-Ray tomorrow GASTROINTESTINAL: Diet : Tube feeding vital at 50 cc an hour via dobhoff- Plan for PEG placement today. Bowel sounds - + x 4 quads. Bowel regimen: Johanne-Colace, MOM. Lactulose daily bisacodyl RI PRN. LBM: 07/26 RENAL / URINARY: I&O - +1075 BUN / creat 41 / 0.[address] to bedside drainage bag draining clear yellow urine. Urine culture - 07/24 no growth ENDOCRINE: BGM - 97 via AM labs SSI HEMATOLOGY: H&H n8. Continue to monitor for signs and symptoms of bleeding. Evaluate need for IVC filter. Transfuse for < 7.0 Monitor patient for any bleeding complications. INFECTIOUS DISEASE: Follow CBC WBC - 13.3 Fevers - low grade Administer antipyretics for temp as needed. Blood cultures 07/24: Staphylococcus aureus Urine 07/24: No growth IV antibiotics: Vancomycin and Zosyn Monitor pneumonia evolution with repeat chest X-Rays as needed. Maintain vigorous aseptic care of central line to avoid blood stream infections. Consider a consult to ID for further management. LINES: 07/28: Trach 07/29: PEG 07/21: L CT 07/17: F/C PROPHYLAXIS: VAP protocol in place GI: Pepcid po DVT - Mechanical VTE with SCDs. Chemical management with Lovenox 40SQ daily. SKIN: Warm and dry Daily chest tube dressing changes. Every shift trach care. ACTIVITY: Status - BR OOB with TLSO brace PT and OT ordered. CASE MANAGEMENT: Consulted for assist with DC planning. Placement - disposition TBD. EMOTIONAL SUPPORT: Provided to patient. Plan of care discussed. Questions answered to the best of my knowledge. This patient is currently critically ill and injured with respiratory failure and being managed in the ICU. The trauma team will round, assess and evaluate the patient on a day to day basis. Problem Qualifiers (1) Spinal cord injury, cervical region: Qualified Code: S14.109A - Spinal cord injury, cervical region, initial encounter (2) Chronic pain: Qualified Code: G89.4 - Chronic pain syndrome (3) Closed T8 spinal fracture: (4) Multiple fractures of ribs of left side: Qualified Code: S22.42XA - Closed fracture of multiple ribs of left side, initial encounter (5) Traumatic compression fracture of T8 thoracic vertebra: Qualified Code: S22.060K - Traumatic compression fracture of T8 thoracic vertebra, with nonunion, subsequent encounter Beatriz Murrell Jul 29, 2016 15:34
[2016-07-29] MEDS ORDERED: PROPOFOL 200 MG/20 ML AMP IV ONE (15:48)
--- NOTE | 2016-07-29 16:06 | PD.PROCEDR ---
GI Procedure REFERRING PHYSICIAN Dr. Corey PROCEDURE PERFORMED EGD with PEG placement INDICATION FOR PROCEDURE Dysphagia PROCEDURE: The procedure, risks and benefits were discussed with Mr. Barriga and informed consent was obtained. Anesthesia sedated him with Diprivan. He was placed in the left lateral decubitus position. EGD: The Pentax videoscope was introduced through the oropharynx and advanced to the second portion of the duodenum under direct visualization. Retroflexion was performed in the stomach. FINDINGS: Esophagus this was normal Stomach this was normal Duodenum this was normal Following the evaluation of the stomach and the duodenum the stomach was insufflated with air and the area of PEG placement was identified through indentation and transillumination the area was prepped and draped in usual fashion 5 cc of lidocaine were injected locally a small incision was made then an Angiocath was passed into the stomach through which a guidewire was passed this was retrieved with the scope into that a PEG tube was attached and pulled into place and thereafter secured in usual fashion The patient tolerated procedure well and there are no immediate complications ESTIMATED BLOOD LOSS: None SPECIMENS REMOVED: None COMPLICATIONS: None IMPRESSION: Normal EGD Successful PEG placement PLAN: PLAN: 1. May use PEG tube for medications today 2. May start feeding tomorrow 3. May obtain nutritional consult for tube feeding 4. Flush tube with 50 cc of water every 4-6 hours 5. Always flush tube after feedings 6. Apply abdominal binder as necessary 7. Clamp G-tube after use and flush. Mikal Johnston MD Jul 29, 2016 16:06
[2016-07-29] MEDS: MAGNESIUM HYDROXIDE SUSP 30 ML CUP PO SCH (21:00)
[2016-07-30] VITALS (18 sets, daily range): BP systolic 118–144; BP diastolic 57–85; PULSE 68–93; RESP 16–36; TEMP 98.2–99.7; O2SAT 92–100
[2016-07-30] MEDS: METOPROLOL TARTRATE 5 MG/5 ML VIAL IV PUSH SCH ×4 (03:00→21:38)
[2016-07-30] MEDS: PIPERACIL-TAZO 3.375 GM PREMIX 50 ML IV SCH ×3 (03:00→18:05)
[2016-07-30] MEDS: PROPOFOL 1000 MG/100 ML IV SCH ×3 (03:22→18:05)
[2016-07-30 04:49] LABS: BASOPHIL # 0.1 TH/MM3 (0-0.2); BASOPHIL % 0.7 % (0.0-2.0); EOSINOPHIL # 0.1 TH/MM3 (0-0.4); HEMO FLAGS DIFF FINAL; LYMPH % 8.4 % (9.0-44.0); LYMPHOCYTE # 0.9 TH/MM3 (1.0-4.8); MEAN CELL VOLUME 95.9 FL (80.0-100.0); MEAN CORPUSCULAR HEMOGLOBIN 33.1 PG (27.0-34.0); MEAN CORPUSCULAR HGB CONC 34.5 % (32.0-36.0); MONO % 9.5 % (0.0-8.0); NEUT % 80.4 % (16.0-70.0); PLATELET COUNT 370 TH/MM3 (150-450); RED BLOOD COUNT 2.39 MIL/MM3 (4.50-5.90); RED CELL DISTRIBUTION WIDTH 13.6 % (11.6-17.2); WHITE BLOOD COUNT 11.2 TH/MM3 (4.0-11.0)
--- NOTE | 2016-07-30 04:59 | RADRPT ---
EXAM DATE/TIME: 07/30/2016 04:10 [place] COMPARISON: CHEST SINGLE AP, July 29, 2016, 2:34. INDICATIONS : Shortness of breath. MEDICAL HISTORY : Hypertension. SURGICAL HISTORY : None. ENCOUNTER: Subsequent ACUITY: 2 weeks PAIN SCORE: Non-responsive. LOCATION: Bilateral chest FINDINGS: Left chest drainage tube tip remains projected at the left apex. Tracheostomy in place. There is pe rsistent consolidation left mid and lower lung with loss of delineation of the left heart border and entire left hemidiaphragm. Patchy areas of infiltrate in the right mid and lower lung are similar to prior. Multiple left rib fractures, stable. CONCLUSION: Persistent left mid and lower lung consolidation and non- consolidative infiltrates in the right lowe r lung. Andrea Menendez MD on July 30, 2016 at 4:56 Board Certified Radiologist. This report was verified electronically.
[2016-07-30] MEDS: oxyCODONE HCL ORAL CONC 20 MG/ML SYRINGE PO SCH ×4 (05:00→22:12)
[2016-07-30 05:09] LABS: BICARBONATE 21.6 MEQ/L (21.0-32.0); CALCIUM-PROTEIN CORRECTED 8.2 MG/DL (8.5-10.1); MAGNESIUM 1.8 MG/DL (1.5-2.5); POTASSIUM 3.4 MEQ/L (3.5-5.1); TOTAL BILIRUBIN ADULT 0.4 MG/DL (0.2-1.0)
[2016-07-30] MEDS: DOCUSATE SODIUM 50 MG/SENNA 8.6 MG TAB PO SCH ×2 (07:31→21:39)
[2016-07-30] MEDS: hydrALAZINE HCL 25 MG TAB PO SCH ×2 (07:31→21:39)
[2016-07-30] MEDS: LACTULOSE SYRUP 20 GM/30 ML CUP PO SCH (07:31)
[2016-07-30] MEDS: PANTOPRAZOLE SODIUM 40 MG VIAL IV PUSH SCH (07:39)
[2016-07-30] MEDS: CHLORHEXIDINE 0.12% (ORAL KIT) 15 ML CUP MT SCH ×2 (07:39→20:23)
[2016-07-30] MEDS: levETIRAcetam INJ 500 MG in SODIUM CHLORIDE 0.9% INJ 100 ML IV SCH ×2 (07:39→21:38)
[2016-07-30] MEDS: QUEtiapine FUMARATE 25 MG TAB PO SCH ×2 (07:40→21:39)
[2016-07-30] MEDS: DEXMEDETOMIDINE INJ 50 ML IV SCH ×6 (07:54→22:11)
[2016-07-30] MEDS: ENOXAPARIN SODIUM 40 MG/0.4 ML SYRINGE SQ SCH (10:50)
--- NOTE | 2016-07-30 11:09 | HHI.CCPN ---
Subjective Brief History History of Present Illness This patient is a 51 year old male who presents to the [facility] emergency department as transfer from [facility]. He sustained a fall from the roof while he was working. This was a 12 foot roof and he landed on his back. He drove his coworkers home, prior to going to the emergency department. He was found to have multiple left-sided rib fractures, compression fracture of T8, left-sided pneumothorax and L lung contusion, for which a large bore chest tube was placed. The patients laboratory studies were remarkable for a white count of 12.2, potassium 3.0, alcohol level 150. Patient was transferred to surgical ICU with above-noted injuries It is conceivable that patient had aspirated at the time of event PMHx: Cervical spine fusion with halo placement, trigger finger, HTN, seizures, 1 PPD smoker, ETOH (drinks 8-12 12oz [place] Hard Lemonade daily) PAIN MANAGEMENT INJURIES: T8 compression fx Serial LEFT rib fxs LEFT sided PTX LEFT lung contusion Procedures: 07/12: LEFT CT (placed by [facility]) 07/16: Intubation and BRONCH 07/17: extubated 07/20: INTUBATION and BRONCH again 07/21: LEFT thoracoscopy; evacuation of empyema and decortication of the lung 07/27: Extubate & reintubated d/t secretions 07/28: Bedside trach 07/29: PEG I 24 Hour Review/Hospital Course Since arrival to the ICU patient has been stable He is awake alert and oriented He is severe left chest pain and back pain which is currently managed Neurosurgery has been consult is regarding the compression fracture of T8 and additional studies have been ordered Pulmonary contusion is severe and patient will likely get worse before he gets better as far as respiratory system is concerned for aspiration has most likely occurred at the time of the accident 07/16/2016 Patient was transferred to the floor 2 days ago and the has been doing well however became somewhat short of breath and repeat CAT scan was ordered which reveals complete collapse of the left lung with inspissated secretions and the collecting fluid around the lung Patient was transferred back to the ICU and remains well oxygenated on the 6 L nasal cannula nonetheless the left lung is completely atelectatic Today patient was intubated bronchoscoping and large amount of mucous material was obtained while the left lung reexpanded Drainage from the chest tube has also increased significantly pushing out all the fluid as the lung is reexpanded Will keep patient on the ventilator total tomorrow and then reassess needing possibly another bronchoscopy and then we'll work toward extubation 07/17/2016 As above noted patient has been intubated bronchoscoping has been doing well on the ventilator and is now successfully extubated All things equal patient will be able to return to the floor either today or tomorrow Chest tube drainage has decreased after being increased for about 24 hours and is serosanguineous and straw-colored Bilateral breath sounds 07/18/16 Since the bronchoscopy intubation and now after extubation patient has been ventilating nicely Chest tube drainage is about 400 cc per last 24 hours and it straw-colored This is inflammatory reaction the pleura which is slowly resolving so we will leave chest tube in place for this purpose Patient is still sort of somnolent in bed although the takes by mouth when asked questions he answers them appropriately but mumbles it, and remains somnolent Does not participate with care Does not cooperating with physical and occupational therapy or the nurses Asking for pain medication 07/19/2016 Patient is awake but slightly somnolent but oriented in time and space Patient requires increased amount of oxygen and this is a consistent with his anatomic and physiologic injuries Repeat CT scan of the chest reveals collapse of the left lower and part of the upper lobe with air-fluid level in the chest and partial collapse of the left lung Chest tube remains in place The partial anterior pneumothorax is due to the fact the patient was of suction when he went down to the radiology At this point patient will need to be intubated ventilated and bronchoscope the clearing of the secretions He may need prolonged intubation at this time and probably upon the evaluation the bronchial tree will decide whether patient needs a tracheostomy in the near future The interlobar bled could of course be due to the bronchial disruption but there is no need for surgery on this for it will eventually heal on its own The main thing is to support patient's respiration and pulmonary function 07/20/16 Patient has a had decreasing left lung function with the increasing levels consolidation and atelectasis Finally required intubation this morning with the bronchoscopy and clearing of the lung Massive amounts of mucous and purulent appearing material were obtained from the left lung Patient remains on the ventilator 07/22/2016 Patient status post left VATS evacuation of a loculated hemothorax and decortication of the left lung Postoperatively patient is doing well lungs are fully expanded and remains on the ventilator The patient improves respiratory ventilator weaning down gradually Antibiotics add to care in face of previous bronchoscopy findings cultures partially back Once we have better picture will adjust antibiotic coverage 07/23/16 Postoperative day 2 from his left thoracoscopic decortication Patient still has slightly elevated ventilator requirements His lung is inflated and there is no evidence of pneumothorax or air leak in the Pleur-evac 07/24/16 Tolerating chest tubes to water seal with minimal output He still has high FiO2 requirement on the ventilator He follows commands when sedation is lightened 07/25/16 Blood cultures came back 1 out of 2 with gram-positive cocci, he is already on vancomycin and Zosyn Slow weaning on the ventilator, chest x-ray remains stable with no evidence of pneumothorax and low chest tube output 07/26/16 Patient has been stable on the ventilator Drainage from the chest tubes has decreased and we will pull tomorrow the posterior chest tube and keep the anterior apical tube in place Patient has severe COPD and compromised lungs in addition to trauma so the pulmonary situation remains precarious Gram-positive cocci as per ID treatment treatment 07/27/16 Patient is gradually weaned and was extubated however asked he cannot clear secretions and while he is breathing is intact his the secretions are this point so I have it is not coughing up and not following commands Patient had to be reintubated the a few hours later Will have tracheostomy tomorrow considering this patient is extremely hard to wean in face of lung contusion heavy secretions as well as underlying severe pulmonary emphysema 07/28/16 As above noted patient was on successfully extubated yesterday had to be reintubated few hours later due to heavy secretions will collapse of the left lower lobe and the inability to ventilate and follow commands Patient underwent today tracheostomy placement and is currently on the ventilator Underwent the extensive bronchoscopy lavage with reinflation of the left upper and lower lobes At this point we'll be able to gradually we the presence of tracheostomy 07/29/2016 PTD: 16 Status post Dobbhoff placement last evening and continuation of tube feeding Patient remains on the ventilator today. He will receive a PEG from GI later today. 07/30/2016 PTD: 17 Pt remains mechanically ventilated. We will attempt a CPAP trial today, to see if we can begin weaning the vent in progression to trach collar. (Beatriz Murrell) Objective Vital Signs Date Time Temp Pulse Resp B/P Pulse Ox O2 Delivery O2 Flow Rate FiO2 07/30/16 10:30 30 07/30/16 10:30 97 07/30/16 08:00 78 07/30/16 08:00 98.5 16 123/64 07/27/16 14:30 Venturi Mask 6.00 Intake and Output 07/29/16 07/29/16 07/30/16 08:00 16:00 00:00 Intake Total 726 ml 901 ml 705 ml Output Total 701 ml 560 ml 721 ml Balance 25 ml 341 ml -16 ml (Beatriz Murrell) Result Diagram: 07/30/16 0421 07/30/16 0421 Other Results Microbiology Date/Time Procedure Status Source Growth 07/28/16 14:10 Gram Stain - Final Complete Bronchial Washings Left Lower Lobe 07/28/16 14:10 Bronchial Culture - Final Complete Klebsiella Pneumoniae Staphylococcus Aureus Imaging Last 24 hours Impressions Chest X-Ray 07/30/16 0600 Signed Impressions: Service Date/Time: Saturday, July 30, 2016 04:10 - CONCLUSION: Persistent left mid and lower lung consolidation and non- consolidative infiltrates in the right lower lung. Andrea Menendez MD Objective Remarks GENERAL: This is a 51 year old male mechanically ventilated. SKIN: Warm and dry. HEAD: Atraumatic. Normocephalic. EYES: PERRLA ENT: . No nasal bleeding or discharge. Mucous membranes pink and moist. NECK: Midline trach in place. Trachea midline. No JVD. CARDIOVASCULAR: Regular rate and rhythm. HR = 78-95 CM shows sinus rhythm. RESPIRATORY: Vent. No accessory muscle use. Lungs are course and diminished throughout. (worse on LEFT) No distress or dyspnea. LEFT lateral CT in place to Pleuravac drainage system. GASTROINTESTINAL: BS + x 4 quads. Abdomen soft, non-tender, nondistended. PEG tube now in place. MUSCULOSKELETAL: Extremities without cyanosis, or edema. + peripheral pulses x 4 extremities. Warm with good capillary refill and sensation. MAEW. NEUROLOGICAL: Mechanically ventilated via trach. (Beatriz Murrell) Urinary Catheter Assessment Urinary Catheter: Yes Assessment to: Continue (Beatriz Murrell) Vascular Central Line Catheter Vascular Central Line Catheter: No (Beatriz Murrell) Assessment and Plan Assessment: (1) Spinal cord injury, cervical region ICD Code: S14.109A Status: Acute (2) Chronic pain ICD Code: G89.29 Status: Acute (3) Closed T8 spinal fracture ICD Code: S22.069A Status: Acute (4) Pneumothorax on left ICD Code: J93.9 Status: Acute (5) Multiple fractures of ribs of left side ICD Code: S22.42XA Status: Acute (6) Traumatic compression fracture of T8 thoracic vertebra ICD Code: S22.060A Status: Acute Plan This is a 51-year-old male who was working on top of the [employer] . He attempted to 308 bucket over the side and a cut stuck in his hand and pulled over the side of the roof. He fell from approximately 12 feet and landed on his back. EtOH +. He ambulated at the scene and was able to drive his coworkers home before transporting himself to [facility]. He was then transferred to [place] for trauma services. INJURIES: T8 compression fx Serial LEFT rib fxs LEFT sided PTX LEFT lung contusion Assessment and plan by systems: NEUROLOGICAL: Patient sedated with propofol drip. DC. Precedex. Pt is sedated with a RASS score of -2. Provide analgesia for comfort and pain - scheduled Roxicodone. Seizure prophylaxis - Keppra for questionable alcoholic seizures HOB elevated 30 degrees. Increased Seroquel 250 mg BID. + peripheral pulses x 4 extremities. Neurosurgery is assisting in care. CARDIOVASCULAR: HR = 78-95. Sinus rhythm BP 123/64 Continually monitor for hemodynamic instability (shock and hypotension). BP meds - Lopressor 5 IV, labetalol when necessary Follow [facility] Electrolyte protocol in place. Replace K+ = 3.4 today per protocol. RESPIRATORY: Vent settings: PRVC-AC 600 / 16 / 1.0 / 30% / +8 Attempt CPAP trial today. (Rest back on previous settings if needed.) Increase PEEP carefully (to assist in oxygenation by recruiting alveoli.) Weaning - as tolerated O2 Sats Monitor for hypoxemia Follow ABGs - Lung sounds - coarse and diminished. Worse on left. Pulmonary toilet L&S. Pt may require another bronchoscopy Bronchodilators - Breathing treatments duonebs. Chest X-Ray results - Persistant LEFT mid and LEFT lower lung consolidation and non-consolidative infiltrates on the RIGHT lower lung. No pneumothorax. Left lateral chest tube in place to Pleur-evac drainage system. Bronchial washings sent 07/28 - left lower lobe - gram-negative rods/ Staphylococcus aureus Sputum culture 07/24: Klebsiella pneumonia. Staphylococcus aureus. Antibiotics - Vanco and Zosyn. VAP protocol in place Labs tomorrow Chest X-Ray tomorrow GASTROINTESTINAL: Diet : Tube feeding changed to JEVITY at 60 cc/hour goal per dietary recommendations. PEG placed yesterday without incident. Bowel sounds - + x 4 quads. Bowel regimen: Johanne-Colace, MOM. Lactulose daily bisacodyl SC PRN. LBM: 07/30 RENAL / URINARY: I&O - +445 BUN / creat 6 / 0.[address] to bedside drainage bag draining clear yellow urine. Urine culture - 07/24 no growth ENDOCRINE: BGM - 150 via AM labs SSI HEMATOLOGY: H&H 7.9 / 23.0 - monitor closely Continue to monitor for signs and symptoms of bleeding. Evaluate need for IVC filter. Transfuse for < 7.0 Monitor patient for any bleeding complications. INFECTIOUS DISEASE: Follow CBC WBC - 11.2 Fevers - low grade Administer antipyretics for temp as needed. Blood cultures 07/24: Staphylococcus aureus Urine 07/24: No growth IV antibiotics: Vancomycin and Zosyn Monitor pneumonia evolution with repeat chest X-Rays as needed. Maintain vigorous aseptic care of central line to avoid blood stream infections. Consult to ID for further management. LINES: 07/28: Trach 07/29: PEG 07/21: L CT 07/17: F/C PROPHYLAXIS: VAP protocol in place GI: Pepcid po DVT - Mechanical VTE with SCDs. Chemical management with Lovenox 40 SQ daily. SKIN: Warm and dry Daily chest tube dressing changes. Every shift trach care. ACTIVITY: Status - BR When OOB must wear TLSO brace PT and OT ordered. CASE MANAGEMENT: Consulted for assist with DC planning. Placement - disposition TBD. EMOTIONAL SUPPORT: Provided to patient. Plan of care discussed. Questions answered to the best of my knowledge. This patient is currently critically ill and injured with respiratory failure and being managed in the ICU. The trauma team will round, assess and evaluate the patient on a day to day basis. (Beatriz Murrell) Attestation Patient with severe COPD and repeated the aspiration and consolidation of the left lung Patient will unlikely, the respirator without a tracheostomy and hence the procedure This gentleman will likely require long-term ventilatory care in face of his underlying poor lung function The exam, history, and the medical decision-making described in the above note were completed with the assistance of the mid-level provider. I reviewed and agree with the findings presented. I attest that I had a [id number] encounter with the patient on the same day, and personally performed and documented my assessment and findings in the medical record. Critical care time 40 minutes. (Blair Cartagena MD) Problem Qualifiers (1) Spinal cord injury, cervical region: Qualified Code: S14.109A - Spinal cord injury, cervical region, initial encounter (2) Chronic pain: Qualified Code: G89.4 - Chronic pain syndrome (3) Closed T8 spinal fracture: (4) Multiple fractures of ribs of left side: Qualified Code: S22.42XA - Closed fracture of multiple ribs of left side, initial encounter (5) Traumatic compression fracture of T8 thoracic vertebra: Qualified Code: S22.060K - Traumatic compression fracture of T8 thoracic vertebra, with nonunion, subsequent encounter Beatriz Murrell Jul 30, 2016 11:09 Blair Cartagena MD Aug 05, 2016 16:54
--- NOTE | 2016-07-30 11:39 | HHI.PR ---
Neuropsych Emotional Emotional: UnabletoAssess: Emotional, Anxious/Fearful, Depressed/Sad, Hostile/ Resentful, Irritable/Angry/Frustrate, Labile, Constricted/Blunted Behavior Behavior: Unable to Asses: Behavior, Coping/Acceptance, Cooperative w/ Treatment, Motivation, Frustration Tolerance/[place], Impulsive/Agitated, Suicidal/ Homicidal Risk Cognitive Cognitive: Unable to Asses: Cognitive, Attention/Concentration, Confused/ Orientation, Insight/Awareness, Judgement/Problem-Solving, Memory Psychosocial Psychosocial: Severe: Psychosocial, Family/Other Adjustment, Unable to Asses: Realistic Expectation, Self-Esteem/Confidence Progress Notes/Response to Tx Contents of Sessions: Adjustment, Level of Consciousness Time with Patient: 30 minutes Premorbid psychological status Premorbid Cognitive, Emotional and Behavioral Status: Tenuous. 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 The patient has prior psychiatric difficulties, and reportedly was on Seroquel 300 mg qHS prior to the accident. Substance abuse history includes TOB and ETOH. Behavioral Reactions of Patient and Family/Support System: Tenuous. The patient has no family stepping up. He was living at a senior living for disabled individuals, where reportedly he spent much of the time smoking and drinking. Emotional/Behavioral Status of Patient and Family/Support System: Tenuous. Pertinent issues, if appropriate to this patients clinical care, are described in detail above. Maximizing acute care outcome It is recommended that the patient be monitored for emergent behavioral impulsivity as the medical condition evolves. This patients psychiatric and substance dependence issues will limit their rehabilitation potential going forward, and these challenges will require specialized therapeutic skills to maximize outcome. Anticipated Problems Ongoing areas of concern will include agitation, behavioral impulsivity, lack of insight and judgment, which is unlikely to improve with time or treatment. Treatment Plan This clinician will continue to follow with you throughout the course of this patients rehabilitation treatment, and I will be available to meet with the patients family/support system to facilitate their understanding and the ongoing care of their family member. The goals of neuropsychological intervention shall be both educational and supportive to the family/support system as is deemed clinically appropriate. Diagnosis: Progress Note Narrative Ongoing follow-up of patient within the context of daily trauma rounding and bedside. The patient underwent PEG placement, has a RASS of -2 (reflecting light sedation, and briefly awakens to voice). A plan is in place for reintroducing his mood stabilization medications, balancing his sedation needs, which during rounds are reported to be trending down. He is reportedly ready for discharge to a LTAC facility. Until then, I will continue to follow with you. Bernard Higgins PhD Jul 30, 2016 11:39 am
[2016-07-30] MEDS: VANCOMYCIN INJ 1,500 MG in SODIUM CHLORID 0.9% 500 ML INJ 500 ML IV SCH ×3 (11:44)
[2016-07-30] MEDS ORDERED: PHARMACY ORDERED LAB XX ONE (11:45)
--- NOTE | 2016-07-30 17:05 | HHI.GIFU ---
Subjective Remarks Resting in bed. Awake. Tolerating TF. Denies abdominal pain. (Yesi Gonzales) Objective Vitals I&O Vital Signs Date Time Temp Pulse Resp B/P Pulse Ox O2 Delivery O2 Flow Rate FiO2 07/30/16 16:12 95 30 07/30/16 14:00 78 07/30/16 12:00 30 07/30/16 12:00 76 07/30/16 12:00 98.7 76 22 144/73 92 07/30/16 10:30 30 07/30/16 10:30 97 30 07/30/16 10:00 92 07/30/16 08:05 98 30 07/30/16 08:00 78 07/30/16 08:00 98.5 78 16 123/64 94 07/30/16 08:00 30 07/30/16 06:00 92 07/30/16 04:28 94 40 07/30/16 04:00 99.0 81 16 121/59 94 07/30/16 04:00 40 07/30/16 04:00 81 07/30/16 02:00 93 07/30/16 01:14 95 40 07/30/16 00:00 99.0 92 18 134/77 97 07/30/16 00:00 92 07/30/16 00:00 40 07/29/16 22:00 82 07/29/16 20:00 99.9 87 16 147/84 96 07/29/16 20:00 87 07/29/16 20:00 40 07/29/16 18:00 78 I/O 07/29/16 07/29/16 07/29/16 07/30/16 07/30/16 07/30/16 07:00 15:00 23:00 07:00 15:00 23:00 Intake Total 726 ml 901 ml 705 ml 590 ml 863 ml Output Total 701 ml 560 ml 721 ml 470 ml 420 ml Balance 25 ml 341 ml -16 ml 120 ml 443 ml IV Total 552 ml 901 ml 555 ml 465 ml 863 ml Lipid 174 ml 150 ml 125 ml Output Urine Total 700 ml 500 ml 700 ml 350 ml 400 ml Stool Total 1 ml 1 ml 0 ml 0 ml Chest Tube Drainage Total 0 ml 60 ml 20 ml 120 ml 20 ml # Bowel Movements 3 Laboratory Laboratory Tests Test 07/30/16 07/30/16 04:21 11:40 White Blood Count 11.2 Red Blood Count 2.39 Hemoglobin 7.9 Hematocrit 23.0 Mean Corpuscular Volume 95.9 Mean Corpuscular Hemoglobin 33.1 Mean Corpuscular Hemoglobin 34.5 Concent Red Cell Distribution Width 13.6 Platelet Count 370 Mean Platelet Volume 7.9 Neutrophils (%) (Auto) 80.4 Lymphocytes (%) (Auto) 8.4 Monocytes (%) (Auto) 9.5 Eosinophils (%) (Auto) 1.0 Basophils (%) (Auto) 0.7 Neutrophils # (Auto) 9.0 Lymphocytes # (Auto) 0.9 Monocytes # (Auto) 1.1 Eosinophils # (Auto) 0.1 Basophils # (Auto) 0.1 CBC Comment DIFF FINAL Differential Comment Sodium Level 138 Potassium Level 3.4 Chloride Level 106 Carbon Dioxide Level 21.6 Anion Gap 10 Blood Urea Nitrogen 6 Creatinine 0.57 Estimat Glomerular Filtration 150 Rate Random Glucose 76 Calcium Level 7.4 Protein Corrected Calcium 8.2 Phosphorus Level 2.9 Magnesium Level 1.8 Total Bilirubin 0.4 Aspartate Amino Transf 25 (AST/SGOT) Alanine Aminotransferase 21 (ALT/SGPT) Alkaline Phosphatase 136 Total Protein 5.7 Albumin 1.2 Vancomycin Level Trough 25.8 Date/Time Procedure Status Source Growth 07/28/16 14:10 Gram Stain - Final Complete Bronchial Washings Left Lower Lobe 07/28/16 14:10 Bronchial Culture - Final Complete Klebsiella Pneumoniae Staphylococcus Aureus 07/28/16 14:10 Fungal Smear - Final Resulted Bronchial Washings Left Lower Lobe NO FUNGAL ELEMENTS SEEN. 07/28/16 14:10 Fungal Culture Resulted Bronchial Washings Left Lower Lobe Pending 07/28/16 14:10 Acid Fast Stain - Final Resulted Bronchial Washings Left Lower Lobe NO ACID FAST BACILLI SEEN 07/28/16 14:10 Mycobacterial Culture Resulted Bronchial Washings Left Lower Lobe Pending Imaging Last Impressions Chest X-Ray 07/30/16 0600 Signed Impressions: Service Date/Time: Saturday, July 30, 2016 04:10 - CONCLUSION: Persistent left mid and lower lung consolidation and non- consolidative infiltrates in the right lower lung. Andrea Menendez MD Abdomen X-Ray 07/28/16 0000 Signed Impressions: Service Date/Time: Thursday, July 28, 2016 17:45 - CONCLUSION: Tip of the Dobbhoff feeding tube is in the mid stomach. Tñoito Bacon MD Chest CT 07/20/16 0000 Signed Impressions: Service Date/Time: Wednesday, July 20, 2016 17:22 - CONCLUSION: Improving appearance of the left lung since the 07/15 exam. The left upper lobe is much better aerated and the pneumothorax is smaller than on the previous study. There is persisting consolidation in the left lower lobe and a persistent dense collection in the lower costophrenic angle. The chest tube is again seen near with its tip near the apex. The lower posterior collection may not be communicating with the chest tube or the rest of the pneumothorax. Nino Lopez MD Head CT 07/19/16 0000 Signed Impressions: Service Date/Time: Tuesday, July 19, 2016 13:25 - CONCLUSION: Negative for an acute process. Cory Butts MD FACR Thoracic Spine CT 07/13/16 0000 Signed Impressions: Service Date/Time: Wednesday, July 13, 2016 08:51 - CONCLUSION: T8 compressive deformity as described in detail above with appearance suggestive of an old injury, however some degree of acute or subacute progression cannot be excluded. If it would affect clinical management, injury could be further characterized with MRI. Toñito Cisneros MD Physical Exam HEENT: Normocephalic; atraumatic; no jaundice. Eczema type rash to face. CHEST: CTA, tracheostomy CARDIAC: RRR ABDOMEN: Soft, nondistended, nontender; no hepatosplenomegaly; bowel sounds are present in all four quadrants. PEG tube site without redness or swelling EXTREMITIES: Generalized edema. SKIN: Normal; no rash; no jaundice. 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 Site without redness or swelling. [employer] following, recommends Jevity 1.5 at 30cc/hr, increase by 10cc/hr q4h to GR of 60cc/hr Plan: - S/P EGD with peg tube placement - Jevity 1.5 at 30cc/hr, increase by 10cc/hr q4h to GR of 60cc/hr - GI will sign off, please reconsult as needed - Patient seen and examined by and myself and this note is written on his behalf (Yesi Gonzales) Physician Comments Seen and examined with DEVULCANIZER CHARGER, s/p peg, tolerating TF. Flush peg with water Q shift. Gi fu as needed. Thank you (Rafael Alvarado MD) Yesi Gonzales Jul 30, 2016 17:05 Rafael Alvarado MD Jul 30, 2016 20:11
[2016-07-30] MEDS: POTASSIUM CL 40 MEQ/30 ML LIQ UDC PO/TUBE PRN (20:23)
--- NOTE | 2016-07-30 21:26 | PD.ID.CON ---
History of Present Illness Service ID Consult Requested By Dr Cartagena Reason for Consult PNA, leukocytosis Primary Care Physician Juan Daniel Curtis Diagnoses: History of Present Illness This patient is a 51 year old male who presents to the [facility] emergency department as transfer from [facility] after he sustained a fall from the roof while he was working. He was found to have multiple left-sided rib fractures, compression fracture of T8, left-sided pneumothorax and L lung contusion, for which a large bore chest tube was placed. The patients laboratory studies were remarkable for a white count of 12.2, potassium 3.0, alcohol level 150. Patient was transferred to surgical ICU with above-noted injuries It is conceivable that patient had aspirated at the time of event He underwent extubation and re-intubatio 2 times since admission and had 2 BAL last one yday: thick brown mucus plugs were present He is sp tracheostomy Not tolerating CPAP CXR showed persistent left mid and lower lung consolidation and non- consolidative infiltrates in the right He is growuing MSSA and valdes S Kleb pneumo i the sputum repeatedly and one of his blood clx is positive for MSSA Review of Systems ROS Limitations: Clinical Condition, Intubated, Altered Mental Status Past Family Social History Allergies: Coded Allergies: No Known Allergies (Unverified , 07/13/16) Past Medical History trigger finger, HTN, seizures, Past Surgical History Cervical spine fusion with halo placement, Active Ordered Medications Medications where reviewed in EMR Antibiotics Include: zosyn vancomycin Family History No Tobacco. No ETOH. No Illicit Drugs. Social History 1 PPD smoker, ETOH (drinks 8-12 12oz [place] Hard Lemonade daily) no drugs Physical Exam Vital Signs Vital Signs Date Time Temp Pulse Resp B/P Pulse Ox O2 Delivery O2 Flow Rate FiO2 07/30/16 20:59 98 30 07/30/16 20:00 98.2 72 23 118/57 100 07/30/16 20:00 30 07/30/16 20:00 72 07/30/16 18:00 69 07/30/16 16:12 95 30 07/30/16 16:00 99.7 81 36 136/85 93 07/30/16 16:00 81 07/30/16 16:00 30 07/30/16 14:00 78 07/30/16 12:00 30 07/30/16 12:00 76 07/30/16 12:00 98.7 76 22 144/73 92 07/30/16 10:30 30 07/30/16 10:30 97 30 07/30/16 10:00 92 07/30/16 08:05 98 30 07/30/16 08:00 78 07/30/16 08:00 98.5 78 16 123/64 94 07/30/16 08:00 30 07/30/16 06:00 92 07/30/16 04:28 94 40 07/30/16 04:00 99.0 81 16 121/59 94 07/30/16 04:00 40 07/30/16 04:00 81 07/30/16 02:00 93 07/30/16 01:14 95 40 07/30/16 00:00 99.0 92 18 134/77 97 07/30/16 00:00 92 07/30/16 00:00 40 07/29/16 22:00 82 Physical Exam CONSTITUTIONAL/GENERAL: This is an adequately nourished patient, in no apparent distress. sedated int'd on [facility] vent'n TUBES/LINES/DRAINS: SKIN: No jaundice, rashes, or lesions. Skin temperature appropriate. Not diaphoretic. HEAD: Atraumatic. Normocephalic. EYES: Pupils equal and round and reactive. Extraocular motions intact. No scleral icterus. No injection or drainage. Fundi not examined. ENT: Nose without bleeding or purulent drainage. Throat without visible erythema , exudates, masses, or lesions. NECK: Trachea midline. Supple, nontender. trach in place, site [place] CARDIOVASCULAR: Regular rate and rhythm without murmurs, gallops, or rubs. No JVD. Peripheral pulses symmetric. RESPIRATORY/CHEST: Symmetric, unlabored respirations. Clear to auscultation. Breath sounds diminished on the L CT in place w serosag dc GASTROINTESTINAL: Abdomen soft, non-tender, nondistended. No hepato-splenomegaly , or palpable masses. No guarding. Bowel sounds present. GENITOURINARY: Without palpable bladder distension. Dinero catheter in place. MUSCULOSKELETAL: Extremities without clubbing, cyanosis, + soft 2+ pitting edema. No mottling or clubbing. LYMPHATICS: No palpable cervical or supraclavicular adenopathy. NEUROLOGICAL: sedated; not following commands PSYCHIATRIC: unable to assess Laboratory Laboratory Tests Test 07/30/16 07/30/16 04:21 11:40 White Blood Count 11.2 Red Blood Count 2.39 Hemoglobin 7.9 Hematocrit 23.0 Mean Corpuscular Volume 95.9 Mean Corpuscular Hemoglobin 33.1 Mean Corpuscular Hemoglobin 34.5 Concent Red Cell Distribution Width 13.6 Platelet Count 370 Mean Platelet Volume 7.9 Neutrophils (%) (Auto) 80.4 Lymphocytes (%) (Auto) 8.4 Monocytes (%) (Auto) 9.5 Eosinophils (%) (Auto) 1.0 Basophils (%) (Auto) 0.7 Neutrophils # (Auto) 9.0 Lymphocytes # (Auto) 0.9 Monocytes # (Auto) 1.1 Eosinophils # (Auto) 0.1 Basophils # (Auto) 0.1 CBC Comment DIFF FINAL Differential Comment Sodium Level 138 Potassium Level 3.4 Chloride Level 106 Carbon Dioxide Level 21.6 Anion Gap 10 Blood Urea Nitrogen 6 Creatinine 0.57 Estimat Glomerular Filtration 150 Rate Random Glucose 76 Calcium Level 7.4 Protein Corrected Calcium 8.2 Phosphorus Level 2.9 Magnesium Level 1.8 Total Bilirubin 0.4 Aspartate Amino Transf 25 (AST/SGOT) Alanine Aminotransferase 21 (ALT/SGPT) Alkaline Phosphatase 136 Total Protein 5.7 Albumin 1.2 Vancomycin Level Trough 25.8 Date/Time Procedure Status Source Growth 07/28/16 14:10 Gram Stain - Final Complete Bronchial Washings Left Lower Lobe 07/28/16 14:10 Bronchial Culture - Final Complete Klebsiella Pneumoniae Staphylococcus Aureus 07/28/16 14:10 Fungal Smear - Final Resulted Bronchial Washings Left Lower Lobe NO FUNGAL ELEMENTS SEEN. 07/28/16 14:10 Fungal Culture Resulted Bronchial Washings Left Lower Lobe Pending 07/28/16 14:10 Acid Fast Stain - Final Resulted Bronchial Washings Left Lower Lobe NO ACID FAST BACILLI SEEN 07/28/16 14:10 Mycobacterial Culture Resulted Bronchial Washings Left Lower Lobe Pending Result Diagram: 07/30/1642007/30/16 042 Imaging Last Impressions Chest X-Ray 07/30/16 0600 Signed Impressions: Service Date/Time: Saturday, July 30, 2016 04:10 - CONCLUSION: Persistent left mid and lower lung consolidation and non- consolidative infiltrates in the right lower lung. Andrea Menendez MD Abdomen X-Ray 07/28/16 0000 Signed Impressions: Service Date/Time: Thursday, July 28, 2016 17:45 - CONCLUSION: Tip of the Dobbhoff feeding tube is in the mid stomach. Toñito Bacon MD Chest CT 07/20/16 0000 Signed Impressions: Service Date/Time: Wednesday, July 20, 2016 17:22 - CONCLUSION: Improving appearance of the left lung since the 07/15 exam. The left upper lobe is much better aerated and the pneumothorax is smaller than on the previous study. There is persisting consolidation in the left lower lobe and a persistent dense collection in the lower costophrenic angle. The chest tube is again seen near with its tip near the apex. The lower posterior collection may not be communicating with the chest tube or the rest of the pneumothorax. Nino Lopez MD Head CT 07/19/16 0000 Signed Impressions: Service Date/Time: Tuesday, July 19, 2016 13:25 - CONCLUSION: Negative for an acute process. Cory Butts MD FACR Thoracic Spine CT 07/13/16 0000 Signed Impressions: Service Date/Time: Wednesday, July 13, 2016 08:51 - CONCLUSION: T8 compressive deformity as described in detail above with appearance suggestive of an old injury, however some degree of acute or subacute progression cannot be excluded. If it would affect clinical management, injury could be further characterized with MRI. Toñito Cisneros MD Assessment and Plan Assessment and Plan L lung pulm contusion L PNA, Kleb, MSSA - has been on appropriate abx > 1 week MSSA bacteremia, low grade Acute VDRF, failure to wean ETOHism and tobaccoism -dc zosyn, vancomycin - start ceftraixone - consider chest CT if not improving Discussed Condition With Martine Courtney MD Jul 30, 2016 21:26
[2016-07-30] MEDS: MAGNESIUM HYDROXIDE SUSP 30 ML CUP PO SCH (21:39)
[2016-07-30] MEDS: cefTRIAXone INJ 2,000 MG in SODIUM CHLORIDE 0.9% INJ 100 ML IV SCH (22:05)
[2016-07-31] VITALS (18 sets, daily range): BP systolic 102–136; BP diastolic 57–77; PULSE 62–90; RESP 13–21; TEMP 98–100.2; O2SAT 76–100
[2016-07-31] MEDS: DEXMEDETOMIDINE INJ 50 ML IV SCH ×5 (02:28→11:51)
[2016-07-31] MEDS: PROPOFOL 1000 MG/100 ML IV SCH ×5 (02:28→22:25)
[2016-07-31] MEDS: METOPROLOL TARTRATE 5 MG/5 ML VIAL IV PUSH SCH ×4 (02:30→20:58)
[2016-07-31] MEDS: oxyCODONE HCL ORAL CONC 20 MG/ML SYRINGE PO SCH ×4 (05:00→22:25)
[2016-07-31 05:54] LABS: HEMATOCRIT 26.6 % (39.0-51.0); MEAN CELL VOLUME 95.2 FL (80.0-100.0); MEAN CORPUSCULAR HEMOGLOBIN 33.1 PG (27.0-34.0); MEAN CORPUSCULAR HGB CONC 34.7 % (32.0-36.0); PLATELET COUNT 459 TH/MM3 (150-450); RED CELL DISTRIBUTION WIDTH 13.6 % (11.6-17.2); REVIEW FLAG FINAL; WHITE BLOOD COUNT 11.2 TH/MM3 (4.0-11.0)
--- NOTE | 2016-07-31 05:57 | RADRPT ---
EXAM DATE/TIME: 07/31/2016 04:42 [place] COMPARISON: CHEST SINGLE AP, July 30, 2016, 4:10. INDICATIONS : Shortness of breath. MEDICAL HISTORY : Hypertension. SURGICAL HISTORY : None. ENCOUNTER: Subsequent ACUITY: 2 weeks PAIN SCORE: Non-responsive. LOCATION: Bilateral chest FINDINGS: Dense consolidation in the left mid and lower lung with loss of delineation of the entire left hemidi aphragm is similar in appearance to prior exam. Non-consolidative infiltrate in the right lower lung appears slightly improved. The upper lungs are clear. Tracheostomy in place. Left chest drainage tube projects at the left apex. Multiple left rib fractures. No pneumothorax seen. CONCLUSION: Persisting consolidation in the left lower lobe. No evidence of pneumothorax on the left side. Impr jalen opacities in the lower right lung. Andrea Menendez MD on July 31, 2016 at 5:55 Board Certified Radiologist. This report was verified electronically.
[2016-07-31 06:24] LABS: BICARBONATE 21.4 MEQ/L (21.0-32.0); MAGNESIUM 1.9 MG/DL (1.5-2.5); POTASSIUM 4.1 MEQ/L (3.5-5.1)
[2016-07-31] MEDS: CHLORHEXIDINE 0.12% (ORAL KIT) 15 ML CUP MT SCH ×2 (08:00→20:52)
[2016-07-31] MEDS: PANTOPRAZOLE SODIUM 40 MG VIAL IV PUSH SCH (08:38)
[2016-07-31] MEDS: levETIRAcetam INJ 500 MG in SODIUM CHLORIDE 0.9% INJ 100 ML IV SCH ×2 (08:38→20:56)
[2016-07-31] MEDS: hydrALAZINE HCL 25 MG TAB PO SCH ×2 (08:39→20:58)
[2016-07-31] MEDS: DOCUSATE SODIUM 50 MG/SENNA 8.6 MG TAB PO SCH ×2 (08:39→20:59)
[2016-07-31] MEDS: QUEtiapine FUMARATE 25 MG TAB PO SCH ×2 (08:39→20:57)
[2016-07-31] MEDS: LACTULOSE SYRUP 20 GM/30 ML CUP PO SCH (09:00)
[2016-07-31] MEDS: ENOXAPARIN SODIUM 40 MG/0.4 ML SYRINGE SQ SCH (11:51)
[2016-07-31] MEDS: oxyCODONE HCL ORAL CONC 20 MG/ML SYRINGE PO PRN (13:27)
--- NOTE | 2016-07-31 17:32 | HHI.CCPN ---
Subjective Brief History History of Present Illness This patient is a 51 year old male who presents to the [facility] emergency department as transfer from [facility]. He sustained a fall from the roof while he was working. This was a 12 foot roof and he landed on his back. He drove his coworkers home, prior to going to the emergency department. He was found to have multiple left-sided rib fractures, compression fracture of T8, left-sided pneumothorax and L lung contusion, for which a large bore chest tube was placed. The patients laboratory studies were remarkable for a white count of 12.2, potassium 3.0, alcohol level 150. Patient was transferred to surgical ICU with above-noted injuries It is conceivable that patient had aspirated at the time of event PMHx: Cervical spine fusion with halo placement, trigger finger, HTN, seizures, 1 PPD smoker, ETOH (drinks 8-12 12oz [place] Hard Lemonade daily) PAIN MANAGEMENT INJURIES: T8 compression fx Serial LEFT rib fxs LEFT sided PTX LEFT lung contusion Procedures: 07/12: LEFT CT (placed by [facility]) 07/16: Intubation and BRONCH 07/17: extubated 07/20: INTUBATION and BRONCH again 07/21: LEFT thoracoscopy; evacuation of empyema and decortication of the lung 07/27: Extubate & reintubated d/t secretions 07/28: Bedside trach 07/29: PEG I 24 Hour Review/Hospital Course Since arrival to the ICU patient has been stable He is awake alert and oriented He is severe left chest pain and back pain which is currently managed Neurosurgery has been consult is regarding the compression fracture of T8 and additional studies have been ordered Pulmonary contusion is severe and patient will likely get worse before he gets better as far as respiratory system is concerned for aspiration has most likely occurred at the time of the accident 07/16/2016 Patient was transferred to the floor 2 days ago and the has been doing well however became somewhat short of breath and repeat CAT scan was ordered which reveals complete collapse of the left lung with inspissated secretions and the collecting fluid around the lung Patient was transferred back to the ICU and remains well oxygenated on the 6 L nasal cannula nonetheless the left lung is completely atelectatic Today patient was intubated bronchoscoping and large amount of mucous material was obtained while the left lung reexpanded Drainage from the chest tube has also increased significantly pushing out all the fluid as the lung is reexpanded Will keep patient on the ventilator total tomorrow and then reassess needing possibly another bronchoscopy and then we'll work toward extubation 07/17/2016 As above noted patient has been intubated bronchoscoping has been doing well on the ventilator and is now successfully extubated All things equal patient will be able to return to the floor either today or tomorrow Chest tube drainage has decreased after being increased for about 24 hours and is serosanguineous and straw-colored Bilateral breath sounds 07/18/16 Since the bronchoscopy intubation and now after extubation patient has been ventilating nicely Chest tube drainage is about 400 cc per last 24 hours and it straw-colored This is inflammatory reaction the pleura which is slowly resolving so we will leave chest tube in place for this purpose Patient is still sort of somnolent in bed although the takes by mouth when asked questions he answers them appropriately but mumbles it, and remains somnolent Does not participate with care Does not cooperating with physical and occupational therapy or the nurses Asking for pain medication 07/19/2016 Patient is awake but slightly somnolent but oriented in time and space Patient requires increased amount of oxygen and this is a consistent with his anatomic and physiologic injuries Repeat CT scan of the chest reveals collapse of the left lower and part of the upper lobe with air-fluid level in the chest and partial collapse of the left lung Chest tube remains in place The partial anterior pneumothorax is due to the fact the patient was of suction when he went down to the radiology At this point patient will need to be intubated ventilated and bronchoscope the clearing of the secretions He may need prolonged intubation at this time and probably upon the evaluation the bronchial tree will decide whether patient needs a tracheostomy in the near future The interlobar bled could of course be due to the bronchial disruption but there is no need for surgery on this for it will eventually heal on its own The main thing is to support patient's respiration and pulmonary function 07/20/16 Patient has a had decreasing left lung function with the increasing levels consolidation and atelectasis Finally required intubation this morning with the bronchoscopy and clearing of the lung Massive amounts of mucous and purulent appearing material were obtained from the left lung Patient remains on the ventilator 07/22/2016 Patient status post left VATS evacuation of a loculated hemothorax and decortication of the left lung Postoperatively patient is doing well lungs are fully expanded and remains on the ventilator The patient improves respiratory ventilator weaning down gradually Antibiotics add to care in face of previous bronchoscopy findings cultures partially back Once we have better picture will adjust antibiotic coverage 07/23/16 Postoperative day 2 from his left thoracoscopic decortication Patient still has slightly elevated ventilator requirements His lung is inflated and there is no evidence of pneumothorax or air leak in the Pleur-evac 07/24/16 Tolerating chest tubes to water seal with minimal output He still has high FiO2 requirement on the ventilator He follows commands when sedation is lightened 07/25/16 Blood cultures came back 1 out of 2 with gram-positive cocci, he is already on vancomycin and Zosyn Slow weaning on the ventilator, chest x-ray remains stable with no evidence of pneumothorax and low chest tube output 07/26/16 Patient has been stable on the ventilator Drainage from the chest tubes has decreased and we will pull tomorrow the posterior chest tube and keep the anterior apical tube in place Patient has severe COPD and compromised lungs in addition to trauma so the pulmonary situation remains precarious Gram-positive cocci as per ID treatment treatment 07/27/16 Patient is gradually weaned and was extubated however asked he cannot clear secretions and while he is breathing is intact his the secretions are this point so I have it is not coughing up and not following commands Patient had to be reintubated the a few hours later Will have tracheostomy tomorrow considering this patient is extremely hard to wean in face of lung contusion heavy secretions as well as underlying severe pulmonary emphysema 07/28/16 As above noted patient was on successfully extubated yesterday had to be reintubated few hours later due to heavy secretions will collapse of the left lower lobe and the inability to ventilate and follow commands Patient underwent today tracheostomy placement and is currently on the ventilator Underwent the extensive bronchoscopy lavage with reinflation of the left upper and lower lobes At this point we'll be able to gradually we the presence of tracheostomy 07/29/2016 PTD: 16 Status post Dobbhoff placement last evening and continuation of tube feeding Patient remains on the ventilator today. He will receive a PEG from GI later today. 07/30/2016 PTD: 17 Pt remains mechanically ventilated. We will attempt a CPAP trial today, to see if we can begin weaning the vent in progression to trach collar. 07/31/2016 PTD: 18 Pt awake on rounds. Mouthing words. Very agitated and impatient. Attempt CPAP trials and progressed to T-piece. After some time on a t-piece, the patient became, agitated, restless, tachypneic and began kicking and thrashing around in the bed. Pt was placed back on previous settings, and sedation resumed for comfort and patient, and staff safety. (Beatriz Murrell) Objective Vital Signs Date Time Temp Pulse Resp B/P Pulse Ox O2 Delivery O2 Flow Rate FiO2 07/31/16 16:26 99 40 07/31/16 16:00 99.0 76 16 102/61 07/31/16 11:54 T-piece 6.00 Intake and Output 07/30/16 07/30/16 07/31/16 08:00 16:00 00:00 Intake Total 590 ml 863 ml 953 ml Output Total 470 ml 420 ml 810 ml Balance 120 ml 443 ml 143 ml (Beatriz Murrell) Result Diagram: 07/31/16 0510 07/31/16 0510 Imaging Last 24 hours Impressions Chest X-Ray 07/31/16 0600 Signed Impressions: Service Date/Time: Sunday, July 31, 2016 04:42 - CONCLUSION: Persisting consolidation in the left lower lobe. No evidence of pneumothorax on the left side. Improved opacities in the lower right lung. Andrea Menendez MD Objective Remarks GENERAL: This is a 51 year old male mechanically ventilated. SKIN: Warm and dry. HEAD: Atraumatic. Normocephalic. EYES: PERRLA ENT: . No nasal bleeding or discharge. Mucous membranes pink and moist. NECK: Midline trach in place. Trachea midline. No JVD. CARDIOVASCULAR: Regular rate and rhythm. HR = 76-86 CM shows sinus rhythm. RESPIRATORY: Vent. No accessory muscle use. Lungs are course and diminished throughout. (remains worse on LEFT) No distress or dyspnea. LEFT lateral CT in place to Pleuravac drainage system. GASTROINTESTINAL: BS + x 4 quads. Abdomen soft, non-tender, nondistended. PEG tube now in place. MUSCULOSKELETAL: Extremities without cyanosis, or edema. + peripheral pulses x 4 extremities. Warm with good capillary refill and sensation. MAEW. NEUROLOGICAL: Mechanically ventilated via trach. (Beatriz Murrell) Urinary Catheter Assessment Urinary Catheter: Yes Assessment to: Continue Dinero insert reason: Measure Accurate Output (Beatriz Murrell) Vascular Central Line Catheter Vascular Central Line Catheter: No (Beatriz Murrell) Assessment and Plan Assessment: (1) Spinal cord injury, cervical region ICD Code: S14.109A Status: Acute (2) Chronic pain ICD Code: G89.29 Status: Acute (3) Closed T8 spinal fracture ICD Code: S22.069A Status: Acute (4) Pneumothorax on left ICD Code: J93.9 Status: Acute (5) Multiple fractures of ribs of left side ICD Code: S22.42XA Status: Acute (6) Traumatic compression fracture of T8 thoracic vertebra ICD Code: S22.060A Status: Acute Plan This is a 51-year-old male 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 He attempted to throw bucket over the side and a cut stuck in his hand and pulled over the side of the roof. He fell from approximately 12 feet and landed on his back. EtOH +. He ambulated at the scene and was able to drive his coworkers home before transporting himself to [facility]. He was then transferred to [place] for trauma services. INJURIES: T8 compression fx Serial LEFT rib fxs LEFT sided PTX LEFT lung contusion Assessment and plan by systems: NEUROLOGICAL: Patient sedated lightly with propofol drip. Sedation off for CPAP trial. Then his is wide awake and mouthing words. Pt is sedated with a RASS score of 1 Provide analgesia for comfort and pain - scheduled Roxicodone. Seizure prophylaxis - Keppra for questionable alcoholic seizures HOB elevated 30 degrees. Increased Seroquel 250 mg BID. + peripheral pulses x 4 extremities. Neurosurgery is assisting in care. CARDIOVASCULAR: HR = 78-86. Sinus rhythm BP = 102/57 Continually monitor for hemodynamic instability (shock and hypotension). BP meds - Lopressor 5 IV, labetalol when necessary Follow CMP Electrolyte protocol in place. RESPIRATORY: Vent settings: PRVC-AC 600 / 16 / 1.0 / 30% / +8 Attempt CPAP trial today and progress to T-piece. Pt became restless, agitated and began thrashing around ove wide awake and on T- piece. Pt needed to be re-sedated and returned to previous settings for patient safety. Increase PEEP carefully (to assist in oxygenation by recruiting alveoli.) Weaning - as tolerated O2 Sats Monitor for hypoxemia Follow ABGs - Lung sounds - coarse and diminished. Worse on left. Pulmonary toilet L&S. Pt may require eventually another bronchoscopy Bronchodilators - Breathing treatments duonebs. Chest X-Ray results - Persistant consolidation in LEFT lower lobe. NO PTX. Improved opacities in the RIGHT lower lobe.. Left lateral chest tube in place to Pleur-evac drainage system. Bronchial washings sent 07/28 - left lower lobe - gram-negative rods/ Staphylococcus aureus Sputum culture 07/24: Klebsiella pneumonia. Staphylococcus aureus. Antibiotics -Rocephin VAP protocol in place Labs tomorrow Chest X-Ray tomorrow GASTROINTESTINAL: Diet : Tube feeding changed to JEVITY at 60 cc/hour goal per dietary recommendations. PEG . Bowel sounds - + x 4 quads. Bowel regimen: Johanne-Colace, MOM. Lactulose daily bisacodyl TX PRN. LBM: 07/31 RENAL / URINARY: I&O - +655 BUN / creat 8 / 0.[address] to bedside drainage bag draining clear yellow urine. Urine culture - 07/24 no growth ENDOCRINE: BGM - 122 via AM labs SSI HEMATOLOGY: H&H 9.2 / - monitor closely Continue to monitor for signs and symptoms of bleeding. Evaluate need for IVC filter. Transfuse for < 7.0 Monitor patient for any bleeding complications. INFECTIOUS DISEASE: Follow CBC WBC - 11.2 Fevers - low grade Administer antipyretics for temp as needed. Blood cultures 07/24: Staphylococcus aureus Urine 07/24: No growth IV antibiotics: Rocephin Monitor pneumonia evolution with repeat chest X-Rays as needed. Maintain vigorous aseptic care of central line to avoid blood stream infections. Consult to ID for further management. LINES: 07/28: Trach 07/29: PEG 07/21: L CT 07/17: F/C PROPHYLAXIS: VAP protocol in place GI: Pepcid po DVT - Mechanical VTE with SCDs. Chemical management with Lovenox 40 SQ daily. SKIN: Warm and dry Daily chest tube dressing changes. Every shift trach care. ACTIVITY: Status - BR When OOB must wear TLSO brace PT and OT ordered. CASE MANAGEMENT: Consulted for assist with DC planning. Placement - disposition TBD. EMOTIONAL SUPPORT: Provided to patient. Plan of care discussed. Questions answered to the best of my knowledge. This patient is currently critically ill and injured with respiratory failure and being managed in the ICU. The trauma team will round, assess and evaluate the patient on a day to day basis. (Beatriz Murrell) Attestation In the face of the agents chronic lung insufficiency due to COPD and recurrent aspiration of the left lung he'll require LTAC management inability to come off the vent The exam, history, and the medical decision-making described in the above note were completed with the assistance of the mid-level provider. I reviewed and agree with the findings presented. I attest that I had a [id number] encounter with the patient on the same day, and personally performed and documented my assessment and findings in the medical record. Critical care time 35 minutes. (Blair Cartagena MD) Problem Qualifiers (1) Spinal cord injury, cervical region: Qualified Code: S14.109A - Spinal cord injury, cervical region, initial encounter (2) Chronic pain: Qualified Code: G89.4 - Chronic pain syndrome (3) Closed T8 spinal fracture: (4) Multiple fractures of ribs of left side: Qualified Code: S22.42XA - Closed fracture of multiple ribs of left side, initial encounter (5) Traumatic compression fracture of T8 thoracic vertebra: Qualified Code: S22.060K - Traumatic compression fracture of T8 thoracic vertebra, with nonunion, subsequent encounter Beatriz Murrell Jul 31, 2016 17:32 Blair Cartagena MD Aug 05, 2016 17:09
--- NOTE | 2016-07-31 19:02 | MP ---
cc: MD ROSY,RUSSEL DATE OF SURGERY: 07/28/2016. PREOPERATIVE DIAGNOSIS: 1. Respiratory failure. 2. Left lung contusion. 3. Left lung entrapment POSTOPERATIVE DIAGNOSIS: 1. Respiratory failure. 2. Left lung contusion. 3. Left lung entrapment OPERATIVE PROCEDURE PERFORMED: Blue Rhino tracheostomy. SURGEON: Russel Cartagena M.D. DIGITAL PHOTO PRINTER: Jacinto Shelton MD. ANESTHESIA: General propofol and 1% Xylocaine ESTIMATED BLOOD LOSS Minimal. DESCRIPTION OF THE PROCEDURE IN DETAIL: The patient was prepped and draped in the usual fashion. A vertical neck incision was made in the skin just above the sternal notch and deepened down with a hemostat to the level of the trachea by the tissues. The level of the second and third tracheal rings was now palpated and then the needle inserted. Under direct vision, the guidewire was introduced distally. The needle was withdrawn and a small dilator was passed over the needle. This was followed by the large Blue Rhino dilator and then placement of #8 Shiley tracheal cannula. The cannula was sutured to skin with 2-0 Prolene and connected to the ventilator. End-tidal CO2 checked. The patient tolerated the procedure well. Russel GONCALVES/YAO /5:30 PM /6:55 PM
[2016-07-31] MEDS: cefTRIAXone INJ 2,000 MG in SODIUM CHLORIDE 0.9% INJ 100 ML IV SCH (20:56)
[2016-07-31] MEDS: MAGNESIUM HYDROXIDE SUSP 30 ML CUP PO SCH (20:58)
[2016-08-01] VITALS (16 sets, daily range): BP systolic 136–146; BP diastolic 73–96; PULSE 88–108; RESP 14–22; TEMP 97.8–100.8; O2SAT 96–100
[2016-08-01] MEDS: LABETALOL HCL 100 MG/20 ML VIAL IV PRN (01:07)
[2016-08-01] MEDS: METOPROLOL TARTRATE 5 MG/5 ML VIAL IV PUSH SCH ×4 (03:14→20:01)
[2016-08-01 04:37] LABS: AUTOMATED NEUTROPHIL # 8.9 TH/MM3 (1.8-7.7); BASOPHIL # 0.2 TH/MM3 (0-0.2); BASOPHIL % 1.4 % (0.0-2.0); EOSINOPHIL # 0.1 TH/MM3 (0-0.4); EOSINOPHIL % 1.2 % (0.0-4.0); HEMATOCRIT 24.1 % (39.0-51.0); HEMO FLAGS DIFF FINAL; LYMPH % 11.1 % (9.0-44.0); LYMPHOCYTE # 1.3 TH/MM3 (1.0-4.8); MEAN CELL VOLUME 95.2 FL (80.0-100.0); MEAN CORPUSCULAR HEMOGLOBIN 32.2 PG (27.0-34.0); MEAN CORPUSCULAR HGB CONC 33.8 % (32.0-36.0); MONO % 10.3 % (0.0-8.0); PLATELET COUNT 417 TH/MM3 (150-450); RED BLOOD COUNT 2.53 MIL/MM3 (4.50-5.90); RED CELL DISTRIBUTION WIDTH 13.4 % (11.6-17.2); WHITE BLOOD COUNT 11.7 TH/MM3 (4.0-11.0)
[2016-08-01] MEDS: oxyCODONE HCL ORAL CONC 20 MG/ML SYRINGE PO SCH ×4 (05:00→23:29)
[2016-08-01 05:10] LABS: ALKALINE PHOSPHATASE 147 U/L (45-117); ALT (GPT) 22 U/L (12-78); ANION GAP 10 MEQ/L (5-15); AST (GOT) 44 U/L (15-37); BICARBONATE 24.6 MEQ/L (21.0-32.0); BLOOD UREA NITROGEN 8 MG/DL (7-18); CHLORIDE 105 MEQ/L (98-107); GLOMERULAR FILTRATION RATE 96 ML/MIN (>89); MAGNESIUM 1.8 MG/DL (1.5-2.5); SODIUM (NA) 140 MEQ/L (136-145); TOTAL BILIRUBIN ADULT 0.3 MG/DL (0.2-1.0)
[2016-08-01 05:13] LABS: POTASSIUM 4.7 MEQ/L (3.5-5.1)
--- NOTE | 2016-08-01 05:54 | RADRPT ---
EXAM DATE/TIME: 08/01/2016 04:36 [facility] COMPARISON: CHEST SINGLE AP, July 31, 2016, 4:42. INDICATIONS : Shortness of breath. MEDICAL HISTORY : Hypertension. SURGICAL HISTORY : None. ENCOUNTER: Subsequent ACUITY: 2 weeks PAIN SCORE: Non-responsive. LOCATION: Bilateral chest FINDINGS: The left lateral chest is not included in the [id number]. There is persistent prominent consolida tion in the left hemithorax. Tracheostomy in place. Left chest drainage tube projects at the apex. There is considerably less aerated lung in the left hemithorax when compared to prior examination. The right lung has hazy opacity in the lower one third with loss of delineation of the right hemidiap hragm. There is no evidence of pneumothorax on the right side. CONCLUSION: Increasing opacity in the left hemithorax with only a small amount of aerated left upper lung. New i ll-defined opacity in the lower right chest suggesting pleural effusion. There is stable mediastinal shift towards the left. Andrea Menenedz MD on August 01, 2016 at 5:50 Board Certified Radiologist. This report was verified electronically.
[2016-08-01] MEDS: CHLORHEXIDINE 0.12% (ORAL KIT) 15 ML CUP MT SCH ×2 (08:00→20:02)
[2016-08-01] MEDS: RESP: ALBUTEROL 2.5 MG/IPRATROPIUM 0.5 MG NEB (PRN) NEB (08:20)
[2016-08-01] MEDS: QUEtiapine FUMARATE 25 MG TAB PO SCH ×2 (09:32→20:01)
[2016-08-01] MEDS: PANTOPRAZOLE SODIUM 40 MG VIAL IV PUSH SCH (09:32)
[2016-08-01] MEDS: LACTULOSE SYRUP 20 GM/30 ML CUP PO SCH (09:32)
[2016-08-01] MEDS: DOCUSATE SODIUM 50 MG/SENNA 8.6 MG TAB PO SCH ×2 (09:32→20:01)
[2016-08-01] MEDS: levETIRAcetam INJ 500 MG in SODIUM CHLORIDE 0.9% INJ 100 ML IV SCH ×2 (09:32→20:56)
[2016-08-01] MEDS: hydrALAZINE HCL 25 MG TAB PO SCH ×2 (09:32→20:01)
[2016-08-01] MEDS: PROPOFOL 1000 MG/100 ML IV SCH ×4 (09:32→23:54)
[2016-08-01] MEDS: ENOXAPARIN SODIUM 40 MG/0.4 ML SYRINGE SQ SCH (12:41)
--- NOTE | 2016-08-01 17:16 | HHI.CCPN ---
Subjective Brief History History of Present Illness This patient is a 51 year old male who presents to the [facility] emergency department as transfer from [facility]. He sustained a fall from the roof while he was working. This was a 12 foot roof and he landed on his back. He drove his coworkers home, prior to going to the emergency department. He was found to have multiple left-sided rib fractures, compression fracture of T8, left-sided pneumothorax and L lung contusion, for which a large bore chest tube was placed. The patients laboratory studies were remarkable for a white count of 12.2, potassium 3.0, alcohol level 150. Patient was transferred to surgical ICU with above-noted injuries It is conceivable that patient had aspirated at the time of event PMHx: Cervical spine fusion with halo placement, trigger finger, HTN, seizures, 1 PPD smoker, ETOH (drinks 8-12 12oz [place] Hard Lemonade daily) PAIN MANAGEMENT INJURIES: T8 compression fx Serial LEFT rib fxs LEFT sided PTX LEFT lung contusion Procedures: 07/12: LEFT CT (placed by [facility]) 07/16: Intubation and BRONCH 07/17: extubated 07/20: INTUBATION and BRONCH again 07/21: LEFT thoracoscopy; evacuation of empyema and decortication of the lung 07/27: Extubate & reintubated d/t secretions 07/28: Bedside trach 07/29: PEG I 24 Hour Review/Hospital Course Since arrival to the ICU patient has been stable He is awake alert and oriented He is severe left chest pain and back pain which is currently managed Neurosurgery has been consult is regarding the compression fracture of T8 and additional studies have been ordered Pulmonary contusion is severe and patient will likely get worse before he gets better as far as respiratory system is concerned for aspiration has most likely occurred at the time of the accident 07/16/2016 Patient was transferred to the floor 2 days ago and the has been doing well however became somewhat short of breath and repeat CAT scan was ordered which reveals complete collapse of the left lung with inspissated secretions and the collecting fluid around the lung Patient was transferred back to the ICU and remains well oxygenated on the 6 L nasal cannula nonetheless the left lung is completely atelectatic Today patient was intubated bronchoscoping and large amount of mucous material was obtained while the left lung reexpanded Drainage from the chest tube has also increased significantly pushing out all the fluid as the lung is reexpanded Will keep patient on the ventilator total tomorrow and then reassess needing possibly another bronchoscopy and then we'll work toward extubation 07/17/2016 As above noted patient has been intubated bronchoscoping has been doing well on the ventilator and is now successfully extubated All things equal patient will be able to return to the floor either today or tomorrow Chest tube drainage has decreased after being increased for about 24 hours and is serosanguineous and straw-colored Bilateral breath sounds 07/18/16 Since the bronchoscopy intubation and now after extubation patient has been ventilating nicely Chest tube drainage is about 400 cc per last 24 hours and it straw-colored This is inflammatory reaction the pleura which is slowly resolving so we will leave chest tube in place for this purpose Patient is still sort of somnolent in bed although the takes by mouth when asked questions he answers them appropriately but mumbles it, and remains somnolent Does not participate with care Does not cooperating with physical and occupational therapy or the nurses Asking for pain medication 07/19/2016 Patient is awake but slightly somnolent but oriented in time and space Patient requires increased amount of oxygen and this is a consistent with his anatomic and physiologic injuries Repeat CT scan of the chest reveals collapse of the left lower and part of the upper lobe with air-fluid level in the chest and partial collapse of the left lung Chest tube remains in place The partial anterior pneumothorax is due to the fact the patient was of suction when he went down to the radiology At this point patient will need to be intubated ventilated and bronchoscope the clearing of the secretions He may need prolonged intubation at this time and probably upon the evaluation the bronchial tree will decide whether patient needs a tracheostomy in the near future The interlobar bled could of course be due to the bronchial disruption but there is no need for surgery on this for it will eventually heal on its own The main thing is to support patient's respiration and pulmonary function 07/20/16 Patient has a had decreasing left lung function with the increasing levels consolidation and atelectasis Finally required intubation this morning with the bronchoscopy and clearing of the lung Massive amounts of mucous and purulent appearing material were obtained from the left lung Patient remains on the ventilator 07/22/2016 Patient status post left VATS evacuation of a loculated hemothorax and decortication of the left lung Postoperatively patient is doing well lungs are fully expanded and remains on the ventilator The patient improves respiratory ventilator weaning down gradually Antibiotics add to care in face of previous bronchoscopy findings cultures partially back Once we have better picture will adjust antibiotic coverage 07/23/16 Postoperative day 2 from his left thoracoscopic decortication Patient still has slightly elevated ventilator requirements His lung is inflated and there is no evidence of pneumothorax or air leak in the Pleur-evac 07/24/16 Tolerating chest tubes to water seal with minimal output He still has high FiO2 requirement on the ventilator He follows commands when sedation is lightened 07/25/16 Blood cultures came back 1 out of 2 with gram-positive cocci, he is already on vancomycin and Zosyn Slow weaning on the ventilator, chest x-ray remains stable with no evidence of pneumothorax and low chest tube output 07/26/16 Patient has been stable on the ventilator Drainage from the chest tubes has decreased and we will pull tomorrow the posterior chest tube and keep the anterior apical tube in place Patient has severe COPD and compromised lungs in addition to trauma so the pulmonary situation remains precarious Gram-positive cocci as per ID treatment treatment 07/27/16 Patient is gradually weaned and was extubated however asked he cannot clear secretions and while he is breathing is intact his the secretions are this point so I have it is not coughing up and not following commands Patient had to be reintubated the a few hours later Will have tracheostomy tomorrow considering this patient is extremely hard to wean in face of lung contusion heavy secretions as well as underlying severe pulmonary emphysema 07/28/16 As above noted patient was on successfully extubated yesterday had to be reintubated few hours later due to heavy secretions will collapse of the left lower lobe and the inability to ventilate and follow commands Patient underwent today tracheostomy placement and is currently on the ventilator Underwent the extensive bronchoscopy lavage with reinflation of the left upper and lower lobes At this point we'll be able to gradually we the presence of tracheostomy 07/29/2016 PTD: 16 Status post Dobbhoff placement last evening and continuation of tube feeding Patient remains on the ventilator today. He will receive a PEG from GI later today. 07/30/2016 PTD: 17 Pt remains mechanically ventilated. We will attempt a CPAP trial today, to see if we can begin weaning the vent in progression to trach collar. 07/31/2016 PTD: 18 Pt awake on rounds. Mouthing words. Very agitated and impatient. Attempt CPAP trials and progressed to T-piece. After some time on a t-piece, the patient became, agitated, restless, tachypneic and began kicking and thrashing around in the bed. Pt was placed back on previous settings, and sedation resumed for comfort and patient, and staff safety. 08/01/2016 PTD: 19 Patient is on a T piece 40% FiO2. Tolerating well. Sats equal 99% He is awake, mouthing words, and following commands. No distress noted. (Beatriz Brunner) Objective Vital Signs Date Time Temp Pulse Resp B/P Pulse Ox O2 Delivery O2 Flow Rate FiO2 08/01/16 14:00 105 08/01/16 12:15 14 08/01/16 12:00 99.4 136/85 100 08/01/16 12:00 40 08/01/16 11:30 T-piece 8.00 Intake and Output 07/31/16 07/31/16 08/01/16 08:00 16:00 00:00 Intake Total 829 ml 836 ml 1079 ml Output Total 760 ml 458 ml 247 ml Balance 69 ml 378 ml 832 ml (Beatriz Murrell) Result Diagram: 08/01/16 0430 08/01/16 0417 Objective Remarks GENERAL: This is a 51 year old male mechanically ventilated. SKIN: Warm and dry. HEAD: Atraumatic. Normocephalic. EYES: PERRLA ENT: . No nasal bleeding or discharge. Mucous membranes pink and moist. NECK: Midline trach in place. Trachea midline. No JVD. CARDIOVASCULAR: Regular rate and rhythm. HR = 100-105. CM shows sinus rhythm. RESPIRATORY: 40% T piece. No accessory muscle use. Lungs are more clear upon auscultation today. No distress or dyspnea. LEFT lateral CT in place to Pleuravac drainage system. GASTROINTESTINAL: BS + x 4 quads. Abdomen soft, non-tender, nondistended. PEG tube now in place. MUSCULOSKELETAL: Extremities without cyanosis, or edema. + peripheral pulses x 4 extremities. Warm with good capillary refill and sensation. MAEW. NEUROLOGICAL: Mechanically ventilated via trach. (Beatriz Murrell) Urinary Catheter Assessment Urinary Catheter: Yes Assessment to: Continue (Beatriz Murrell) Vascular Central Line Catheter Vascular Central Line Catheter: No (Beatriz Murrell) Assessment and Plan Assessment: (1) Spinal cord injury, cervical region ICD Code: S14.109A Status: Acute (2) Chronic pain ICD Code: G89.29 Status: Acute (3) Closed T8 spinal fracture ICD Code: S22.069A Status: Acute (4) Pneumothorax on left ICD Code: J93.9 Status: Acute (5) Multiple fractures of ribs of left side ICD Code: S22.42XA Status: Acute (6) Traumatic compression fracture of T8 thoracic vertebra ICD Code: S22.060A Status: Acute Plan This is a 51-year-old male 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 He attempted to throw bucket over the side and a cut stuck in his hand and pulled over the side of the roof. He fell from approximately 12 feet and landed on his back. EtOH +. He ambulated at the scene and was able to drive his coworkers home before transporting himself to [facility]. He was then transferred to [facility] for trauma services. INJURIES: T8 compression fx Serial LEFT rib fxs LEFT sided PTX LEFT lung contusion Assessment and plan by systems: NEUROLOGICAL: Patient sedated lightly with propofol drip. Sedation off for CPAP trial. Then his is wide awake and mouthing words. Pt is sedated with a RASS score of 1 Provide analgesia for comfort and pain - scheduled Roxicodone. Seizure prophylaxis - Keppra for questionable alcoholic seizures HOB elevated 30 degrees. Increased Seroquel 250 mg BID. + peripheral pulses x 4 extremities. Neurosurgery is assisting in care. CARDIOVASCULAR: HR = 100-104. Sinus tachycardia BP = 136/35 Continually monitor for hemodynamic instability (shock and hypotension). BP meds - Lopressor 5 IV, labetalol when necessary Follow [facility] Electrolyte protocol in place. RESPIRATORY: Vent settings: PRVC-AC 600 / 16 / 1.0 / 30% / +8 Attempt CPAP trial today and progress to T-piece - 40%. Patient tolerating very well at this time, sats equal 99% on T piece. Increase PEEP carefully (to assist in oxygenation by recruiting alveoli.) Weaning - as tolerated O2 Sats Monitor for hypoxemia Follow ABGs - Lung sounds - are much more clear today to auscultation. Pulmonary toilet L&S. Pt may require eventually another bronchoscopy Bronchodilators - Breathing treatments duonebs. Chest X-Ray results - increasing opacity in the left hemithorax with only a small amount of aerated left upper lung. New ill-defined opacity in the lower right chest suggesting pleural effusion. Left lateral chest tube in place to Pleur-evac drainage system. Bronchial washings sent 07/28 - left lower lobe - /Staphylococcus aureus Sputum culture 07/24: Klebsiella pneumonia. Staphylococcus aureus. Antibiotics -Rocephin VAP protocol in place Labs tomorrow Chest X-Ray tomorrow GASTROINTESTINAL: Diet : Tube feeding changed to JEVITY at 60 cc/hour goal per dietary recommendations. PEG . Bowel sounds - + x 4 quads. Bowel regimen: Johanne-Colace, MOM. Lactulose daily bisacodyl IA PRN. LBM: 07/31 RENAL / URINARY: I&O - +1885 BUN / creat 8 / 0.[address] to bedside drainage bag draining clear yellow urine. Urine culture - 07/24 no growth ENDOCRINE: BGM - 97 via AM labs SSI HEMATOLOGY: H&H 8.2 / 24.1 - monitor closely Continue to monitor for signs and symptoms of bleeding. Evaluate need for IVC filter. Transfuse for < 7.0 Monitor patient for any bleeding complications. INFECTIOUS DISEASE: Follow CBC WBC - 11.0 Fevers - low grade Administer antipyretics for temp as needed. Blood cultures 07/24: Staphylococcus aureus Urine 07/24: No growth IV antibiotics: Rocephin Monitor pneumonia evolution with repeat chest X-Rays as needed. Maintain vigorous aseptic care of central line to avoid blood stream infections. Consult to ID for further management. LINES: 07/28: Trach 07/29: PEG 07/21: L CT 07/17: F/C PROPHYLAXIS: VAP protocol in place GI: Pepcid po DVT - Mechanical VTE with SCDs. Chemical management with Lovenox 40 SQ daily. SKIN: Warm and dry Daily chest tube dressing changes. Every shift trach care. ACTIVITY: Status - BR When OOB must wear TLSO brace PT and OT ordered. CASE MANAGEMENT: Consulted for assist with DC planning. Placement - disposition TBD. EMOTIONAL SUPPORT: Provided to patient. Plan of care discussed. Questions answered to the best of my knowledge. This patient is currently critically ill and injured with respiratory failure and being managed in the ICU. The trauma team will round, assess and evaluate the patient on a day to day basis. (Beatriz Murrell) Attestation Patient remains ventilatory dependent due to the poor left lung function This is slightly improved and patient is on TPs versus CPAP He will need LTAC management and arrangements are being made to accept the patient to a nearby LTAC The exam, history, and the medical decision-making described in the above note were completed with the assistance of the mid-level provider. I reviewed and agree with the findings presented. I attest that I had a [id number] encounter with the patient on the same day, and personally performed and documented my assessment and findings in the medical record. Critical care time 35 minutes. (Blair Cartagena MD) Problem Qualifiers (1) Spinal cord injury, cervical region: Qualified Code: S14.109A - Spinal cord injury, cervical region, initial encounter (2) Chronic pain: Qualified Code: G89.4 - Chronic pain syndrome (3) Closed T8 spinal fracture: (4) Multiple fractures of ribs of left side: Qualified Code: S22.42XA - Closed fracture of multiple ribs of left side, initial encounter (5) Traumatic compression fracture of T8 thoracic vertebra: Qualified Code: S22.060K - Traumatic compression fracture of T8 thoracic vertebra, with nonunion, subsequent encounter Beatriz Murrell Aug 01, 2016 17:16 Blair Cartagena MD Aug 05, 2016 17:19
[2016-08-01] MEDS: cefTRIAXone INJ 2,000 MG in SODIUM CHLORIDE 0.9% INJ 100 ML IV SCH (20:00)
[2016-08-01] MEDS: MAGNESIUM HYDROXIDE SUSP 30 ML CUP PO SCH (20:01)
[2016-08-01] MEDS: DEXMEDETOMIDINE INJ 50 ML IV SCH (23:53)
[2016-08-02] VITALS (14 sets, daily range): BP systolic 148–162; BP diastolic 76–91; PULSE 62–104; RESP 18–36; TEMP 97.4–99.5; O2SAT 90–100
[2016-08-02] MEDS: METOPROLOL TARTRATE 5 MG/5 ML VIAL IV PUSH SCH ×4 (02:34→20:43)
[2016-08-02] MEDS: LABETALOL HCL 100 MG/20 ML VIAL IV PRN ×4 (02:39→17:23)
[2016-08-02 04:09] LABS: HEMATOCRIT 23.9 % (39.0-51.0); MEAN CELL VOLUME 94.2 FL (80.0-100.0); MEAN CORPUSCULAR HEMOGLOBIN 32.4 PG (27.0-34.0); MEAN CORPUSCULAR HGB CONC 34.5 % (32.0-36.0); PLATELET COUNT 482 TH/MM3 (150-450); RED BLOOD COUNT 2.53 MIL/MM3 (4.50-5.90); RED CELL DISTRIBUTION WIDTH 13.5 % (11.6-17.2); REVIEW FLAG FINAL; WHITE BLOOD COUNT 11.5 TH/MM3 (4.0-11.0)
[2016-08-02 04:42] LABS: BICARBONATE 25.6 MEQ/L (21.0-32.0); MAGNESIUM 1.8 MG/DL (1.5-2.5); POTASSIUM 3.6 MEQ/L (3.5-5.1)
[2016-08-02] MEDS: oxyCODONE HCL ORAL CONC 20 MG/ML SYRINGE PO SCH ×4 (04:45→23:33)
[2016-08-02] MEDS: DEXMEDETOMIDINE INJ 50 ML IV SCH ×7 (04:55→20:44)
[2016-08-02 05:53] LABS: BLOOD GAS BASE EXCESS 2.1 mmol/L (-2-2); BLOOD GAS CARBOXYHEMOGLOBIN 1.4 % (0-4); BLOOD GAS HCO3 26 mmol/L (22-26); BLOOD GAS METHEMOGLOBIN 0.9 % (0-2); BLOOD GAS O2 HGB SATURATION 93 % (90-100); BLOOD GAS OXYGEN CONTENT 10.8 Vol % (12.0-20.0); BLOOD GAS PCO2 37 mmHg (38-42); BLOOD GAS PO2 72 mmHg (61-120); BLOOD GAS TOTAL HGB 8.3 G/DL (12.0-16.0); TEMP CORR TO 98.6
[2016-08-02 05:54] LABS: CRITICAL VALUE NO; DRAW SITE RT RADIAL; FIO2 50 %; NUMBER OF ARTERIAL PUNCTURES 1; OXYGEN DEVICE T PIECE; STAT NO; ULNAR PULSE PRESENT
--- NOTE | 2016-08-02 06:02 | RADRPT ---
EXAM DATE/TIME: 08/02/2016 04:36 [facility] COMPARISON: CHEST SINGLE AP, August 01, 2016, 4:36. INDICATIONS : Shortness of breath. MEDICAL HISTORY : Hypertension. Arthritis. Smoker. SURGICAL HISTORY : None. ENCOUNTER: Subsequent ACUITY: 3 weeks PAIN SCORE: Non-responsive. LOCATION: Bilateral chest FINDINGS: Single AP view of the chest. Tracheostomy tube remains in place. Left-sided chest tube remains in kaylin ce. Persistent near complete opacification of the left hemithorax. Prominent right lung opacity with perihilar and lower lung zone predominance. No significant interval change. Small right pleural effus ion. CONCLUSION: No significant interval change with persistent near complete left lung opacification and moderate rig ht mid to lower lung zone opacity. Stevie Prather MD on August 02, 2016 at 5:59 Board Certified Radiologist. This report was verified electronically.
[2016-08-02] MEDS: levETIRAcetam INJ 500 MG in SODIUM CHLORIDE 0.9% INJ 100 ML IV SCH ×2 (08:07→20:43)
[2016-08-02] MEDS: PANTOPRAZOLE SODIUM 40 MG VIAL IV PUSH SCH (08:08)
[2016-08-02] MEDS: LACTULOSE SYRUP 20 GM/30 ML CUP PO SCH (08:08)
[2016-08-02] MEDS: CHLORHEXIDINE 0.12% (ORAL KIT) 15 ML CUP MT SCH ×2 (08:08→20:42)
[2016-08-02] MEDS: hydrALAZINE HCL 25 MG TAB PO SCH ×2 (08:08→20:43)
[2016-08-02] MEDS: DOCUSATE SODIUM 50 MG/SENNA 8.6 MG TAB PO SCH ×2 (08:09→20:42)
[2016-08-02] MEDS: QUEtiapine FUMARATE 25 MG TAB PO SCH (08:24)
--- NOTE | 2016-08-02 10:10 | HHI.CCPN ---
Subjective Brief History History of Present Illness This patient is a 51 year old male who presents to the [facility] emergency department as transfer from [facility]. He sustained a fall from the roof while he was working. This was a 12 foot roof and he landed on his back. He drove his coworkers home, prior to going to the emergency department. He was found to have multiple left-sided rib fractures, compression fracture of T8, left-sided pneumothorax and L lung contusion, for which a large bore chest tube was placed. The patients laboratory studies were remarkable for a white count of 12.2, potassium 3.0, alcohol level 150. Patient was transferred to surgical ICU with above-noted injuries It is conceivable that patient had aspirated at the time of event PMHx: Cervical spine fusion with halo placement, trigger finger, HTN, seizures, 1 PPD smoker, ETOH (drinks 8-12 12oz [place] Hard Lemonade daily) PAIN MANAGEMENT INJURIES: T8 compression fx Serial LEFT rib fxs LEFT sided PTX LEFT lung contusion Procedures: 07/12: LEFT CT (placed by [facility]) 07/16: Intubation and BRONCH 07/17: extubated 07/20: INTUBATION and BRONCH again 07/21: LEFT thoracoscopy; evacuation of empyema and decortication of the lung 07/27: Extubate & reintubated d/t secretions 07/28: Bedside trach 07/29: PEG I 24 Hour Review/Hospital Course Since arrival to the ICU patient has been stable He is awake alert and oriented He is severe left chest pain and back pain which is currently managed Neurosurgery has been consult is regarding the compression fracture of T8 and additional studies have been ordered Pulmonary contusion is severe and patient will likely get worse before he gets better as far as respiratory system is concerned for aspiration has most likely occurred at the time of the accident 07/16/2016 Patient was transferred to the floor 2 days ago and the has been doing well however became somewhat short of breath and repeat CAT scan was ordered which reveals complete collapse of the left lung with inspissated secretions and the collecting fluid around the lung Patient was transferred back to the ICU and remains well oxygenated on the 6 L nasal cannula nonetheless the left lung is completely atelectatic Today patient was intubated bronchoscoping and large amount of mucous material was obtained while the left lung reexpanded Drainage from the chest tube has also increased significantly pushing out all the fluid as the lung is reexpanded Will keep patient on the ventilator total tomorrow and then reassess needing possibly another bronchoscopy and then we'll work toward extubation 07/17/2016 As above noted patient has been intubated bronchoscoping has been doing well on the ventilator and is now successfully extubated All things equal patient will be able to return to the floor either today or tomorrow Chest tube drainage has decreased after being increased for about 24 hours and is serosanguineous and straw-colored Bilateral breath sounds 07/18/16 Since the bronchoscopy intubation and now after extubation patient has been ventilating nicely Chest tube drainage is about 400 cc per last 24 hours and it straw-colored This is inflammatory reaction the pleura which is slowly resolving so we will leave chest tube in place for this purpose Patient is still sort of somnolent in bed although the takes by mouth when asked questions he answers them appropriately but mumbles it, and remains somnolent Does not participate with care Does not cooperating with physical and occupational therapy or the nurses Asking for pain medication 07/19/2016 Patient is awake but slightly somnolent but oriented in time and space Patient requires increased amount of oxygen and this is a consistent with his anatomic and physiologic injuries Repeat CT scan of the chest reveals collapse of the left lower and part of the upper lobe with air-fluid level in the chest and partial collapse of the left lung Chest tube remains in place The partial anterior pneumothorax is due to the fact the patient was of suction when he went down to the radiology At this point patient will need to be intubated ventilated and bronchoscope the clearing of the secretions He may need prolonged intubation at this time and probably upon the evaluation the bronchial tree will decide whether patient needs a tracheostomy in the near future The interlobar bled could of course be due to the bronchial disruption but there is no need for surgery on this for it will eventually heal on its own The main thing is to support patient's respiration and pulmonary function 07/20/16 Patient has a had decreasing left lung function with the increasing levels consolidation and atelectasis Finally required intubation this morning with the bronchoscopy and clearing of the lung Massive amounts of mucous and purulent appearing material were obtained from the left lung Patient remains on the ventilator 07/22/2016 Patient status post left VATS evacuation of a loculated hemothorax and decortication of the left lung Postoperatively patient is doing well lungs are fully expanded and remains on the ventilator The patient improves respiratory ventilator weaning down gradually Antibiotics add to care in face of previous bronchoscopy findings cultures partially back Once we have better picture will adjust antibiotic coverage 07/23/16 Postoperative day 2 from his left thoracoscopic decortication Patient still has slightly elevated ventilator requirements His lung is inflated and there is no evidence of pneumothorax or air leak in the Pleur-evac 07/24/16 Tolerating chest tubes to water seal with minimal output He still has high FiO2 requirement on the ventilator He follows commands when sedation is lightened 07/25/16 Blood cultures came back 1 out of 2 with gram-positive cocci, he is already on vancomycin and Zosyn Slow weaning on the ventilator, chest x-ray remains stable with no evidence of pneumothorax and low chest tube output 07/26/16 Patient has been stable on the ventilator Drainage from the chest tubes has decreased and we will pull tomorrow the posterior chest tube and keep the anterior apical tube in place Patient has severe COPD and compromised lungs in addition to trauma so the pulmonary situation remains precarious Gram-positive cocci as per ID treatment treatment 07/27/16 Patient is gradually weaned and was extubated however asked he cannot clear secretions and while he is breathing is intact his the secretions are this point so I have it is not coughing up and not following commands Patient had to be reintubated the a few hours later Will have tracheostomy tomorrow considering this patient is extremely hard to wean in face of lung contusion heavy secretions as well as underlying severe pulmonary emphysema 07/28/16 As above noted patient was on successfully extubated yesterday had to be reintubated few hours later due to heavy secretions will collapse of the left lower lobe and the inability to ventilate and follow commands Patient underwent today tracheostomy placement and is currently on the ventilator Underwent the extensive bronchoscopy lavage with reinflation of the left upper and lower lobes At this point we'll be able to gradually we the presence of tracheostomy 07/29/2016 PTD: 16 Status post Dobbhoff placement last evening and continuation of tube feeding Patient remains on the ventilator today. He will receive a PEG from GI later today. 07/30/2016 PTD: 17 Pt remains mechanically ventilated. We will attempt a CPAP trial today, to see if we can begin weaning the vent in progression to trach collar. 07/31/2016 PTD: 18 Pt awake on rounds. Mouthing words. Very agitated and impatient. Attempt CPAP trials and progressed to T-piece. After some time on a t-piece, the patient became, agitated, restless, tachypneic and began kicking and thrashing around in the bed. Pt was placed back on previous settings, and sedation resumed for comfort and patient, and staff safety. 08/01/2016 PTD: 19 Patient is on a T piece 40% FiO2. Tolerating well. Sats equal 99% He is awake, mouthing words, and following commands. No distress noted. 08/02/2016 PTD: 20 Patient is wide awake, despite Precedex drip. Chest x-ray looks worse - persistent complete opacification of the left hemithorax. Plan for bronchoscopy at the bedside today (Beatriz Murrell) Objective Vital Signs Date Time Temp Pulse Resp B/P Pulse Ox O2 Delivery O2 Flow Rate FiO2 08/02/16 08:10 93 T-piece 8.00 50 08/02/16 08:00 88 08/02/16 08:00 98.5 31 153/87 Intake and Output 08/01/16 08/01/16 08/02/16 08:00 16:00 00:00 Intake Total 800 ml 761 ml 987 ml Output Total 125 ml 610 ml 800 ml Balance 675 ml 151 ml 187 ml (Beatriz Murrell) Result Diagram: 08/02/16 0349 08/02/16 0349 Other Results Laboratory Tests Test 08/02/16 05:45 Blood Gas Puncture Site RT RADIAL Blood Gas Patient Temperature 98.6 Blood Gas HCO3 26 mmol/L (22-26) Blood Gas Base Excess 2.1 mmol/L (-2-2) Blood Gas Oxygen Saturation 93 % (90-100) Arterial Blood pH 7.46 (7.380-7.420) Arterial Blood Partial 37 mmHg (38-42) Pressure CO2 Arterial Blood Partial 72 mmHg Pressure O2 (61-120) Arterial Blood Oxygen Content 10.8 Vol % (12.0-20.0) Arterial Blood 1.4 % (0-4) Carboxyhemoglobin Arterial Blood Methemoglobin 0.9 % (0-2) Blood Gas Hemoglobin 8.3 G/DL (12.0-16.0) Oxygen Delivery Device T PIECE Blood Gas Inspired Oxygen 50 % Objective Remarks GENERAL: This is a 51 year old male mechanically ventilated, however wide-awake. SKIN: Warm and dry. HEAD: Atraumatic. Normocephalic. EYES: PERRLA ENT: . No nasal bleeding or discharge. Mucous membranes pink and moist. NECK: Midline trach in place. Trachea midline. No JVD. CARDIOVASCULAR: Regular rate and rhythm. HR = 68-70 CM shows sinus rhythm. RESPIRATORY: 40% T piece. No accessory muscle use. Lungs are more clear upon auscultation today. No distress or dyspnea. LEFT lateral CT in place to Pleuravac drainage system. GASTROINTESTINAL: BS + x 4 quads. Abdomen soft, non-tender, nondistended. PEG tube in place with tube feeding. MUSCULOSKELETAL: Extremities without cyanosis, or edema. + peripheral pulses x 4 extremities. Warm with good capillary refill and sensation. MAEW. NEUROLOGICAL: Mechanically ventilated via trach. Awake, mouthing words. (Beatriz Brunner) Urinary Catheter Assessment Urinary Catheter: Yes Assessment to: Continue (Beatriz Murrell) Vascular Central Line Catheter Vascular Central Line Catheter: No (Beatriz Murrell) Assessment and Plan Assessment: (1) Spinal cord injury, cervical region ICD Code: S14.109A Status: Acute (2) Chronic pain ICD Code: G89.29 Status: Acute (3) Closed T8 spinal fracture ICD Code: S22.069A Status: Acute (4) Pneumothorax on left ICD Code: J93.9 Status: Acute (5) Multiple fractures of ribs of left side ICD Code: S22.42XA Status: Acute (6) Traumatic compression fracture of T8 thoracic vertebra ICD Code: S22.060A Status: Acute Plan This is a 51-year-old male 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 He attempted to throw bucket over the side and a cut stuck in his hand and pulled over the side of the roof. He fell from approximately 12 feet and landed on his back. EtOH +. He ambulated at the scene and was able to drive his coworkers home before transporting himself to [facility]. He was then transferred to [place] for trauma services. INJURIES: T8 compression fx Serial LEFT rib fxs LEFT sided PTX LEFT lung contusion Assessment and plan by systems: NEUROLOGICAL: Patient sedated lightly with Precedex Sedation off for CPAP trial. Then his is wide awake and mouthing words. Pt is sedated with a RASS score of 1 Provide analgesia for comfort and pain - scheduled Roxicodone. Seizure prophylaxis - Keppra for questionable alcoholic seizures HOB elevated 30 degrees. Increased Seroquel 100 mg BID. + peripheral pulses x 4 extremities. Neurosurgery is assisting in care. CARDIOVASCULAR: HR = 68-70. Sinus rhythm BP = 153/87 Continually monitor for hemodynamic instability (shock and hypotension). BP meds - Lopressor 5 IV, labetalol when necessary Follow [facility] Electrolyte protocol in place. RESPIRATORY: Vent settings: AC 600 / 12 / 1.0 / 40% / +5 Increase PEEP carefully (to assist in oxygenation by recruiting alveoli.) Weaning - as tolerated O2 Sats Monitor for hypoxemia Follow ABGs - Lung sounds - coarse with rhonchi. LEFT side is worse. Pulmonary toilet L&S. Plan for bronchoscopy at bedside today. Bronchodilators - Breathing treatments duonebs. Chest X-Ray results - persistent near-complete opacification of the left hemithorax. Prominent right lung opacity with perihilar and lower lung zone prodominance. Small right pleural effusion. Left lateral chest tube in place to Pleur-evac drainage system. Bronchial washings sent 07/28 - left lower lobe - Staphylococcus aureus Sputum culture 07/24: Klebsiella pneumonia. Staphylococcus aureus. Antibiotics - Rocephin VAP protocol in place Labs tomorrow Chest X-Ray tomorrow GASTROINTESTINAL: Diet : Tube feeding - JEVITY at 60 cc/hour goal per dietary recommendations. PEG . Bowel sounds - + x 4 quads. Bowel regimen: Johanne-Colace, MOM. Lactulose daily bisacodyl [place] PRN. LBM: 08/02 RENAL / URINARY: I&O - +249 BUN / creat 6 / 0.0.[address] to bedside drainage bag draining clear yellow urine. Urine culture - 07/24 no growth ENDOCRINE: BGM - 104 via AM labs SSI HEMATOLOGY: H&H 8.2 / 23.9 - monitor closely Continue to monitor for signs and symptoms of bleeding. Evaluate need for IVC filter. Transfuse for < 7.0 Monitor patient for any bleeding complications. INFECTIOUS DISEASE: Follow CBC WBC - 11.5 Fevers - low grade Administer antipyretics for temp as needed. Blood cultures 07/24: Staphylococcus aureus Urine 34: No growth IV antibiotics: Rocephin Monitor pneumonia evolution with repeat chest X-Rays as needed. Maintain vigorous aseptic care of central line to avoid blood stream infections. Infectious disease is consulted to assist in management. LINES: 07/28: Trach 07/29: PEG 07/21: L CT 07/17: F/C PROPHYLAXIS: VAP protocol in place GI: Pepcid po DVT - Mechanical VTE with SCDs. Chemical management with Lovenox 40 SQ daily. SKIN: Warm and dry Daily chest tube dressing changes. Every shift trach care. ACTIVITY: Status - BR When OOB must wear TLSO brace PT and OT ordered. CASE MANAGEMENT: Consulted for assist with DC planning. Placement - disposition TBD. EMOTIONAL SUPPORT: Provided to patient. Plan of care discussed. Questions answered to the best of my knowledge. This patient is currently critically ill and injured with respiratory failure and being managed in the ICU. The trauma team will round, assess and evaluate the patient on a day to day basis. (Beatriz Murrell) Attestation The exam, history, and the medical decision-making described in the above note were completed with the assistance of the mid-level provider. I reviewed and agree with the findings presented. I attest that I had a [id number] encounter with the patient on the same day, and personally performed and documented my assessment and findings in the medical record. Critical care time 35 minutes. (Blair Cartagena MD) Problem Qualifiers (1) Spinal cord injury, cervical region: Qualified Code: S14.109A - Spinal cord injury, cervical region, initial encounter (2) Chronic pain: Qualified Code: G89.4 - Chronic pain syndrome (3) Closed T8 spinal fracture: (4) Multiple fractures of ribs of left side: Qualified Code: S22.42XA - Closed fracture of multiple ribs of left side, initial encounter (5) Traumatic compression fracture of T8 thoracic vertebra: Qualified Code: S22.060K - Traumatic compression fracture of T8 thoracic vertebra, with nonunion, subsequent encounter Beatriz Murrell Aug 02, 2016 10:10 Blair Cartagena MD Aug 05, 2016 17:36
--- NOTE | 2016-08-02 11:41 | HHI.PR ---
Neuropsych Emotional Emotional: UnabletoAssess: Emotional, Anxious/Fearful, Depressed/Sad, Hostile/ Resentful, Irritable/Angry/Frustrate, Labile, Constricted/Blunted Behavior Behavior: Unable to Asses: Behavior, Coping/Acceptance, Cooperative w/ Treatment, Motivation, Frustration Tolerance/Hazel, Impulsive/Agitated, Suicidal/ Homicidal Risk Cognitive Cognitive: Unable to Asses: Cognitive, Attention/Concentration, Confused/ Orientation, Insight/Awareness, Judgement/Problem-Solving, Memory Progress Notes/Response to Tx Contents of Sessions: Adjustment, Level of Consciousness Time with Patient: 30 minutes Premorbid psychological status Premorbid Cognitive, Emotional and Behavioral Status: Tenuous. 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 The patient has prior psychiatric difficulties, and reportedly was on Seroquel 300 mg qHS prior to the accident. Substance abuse history includes TOB and ETOH. Behavioral Reactions of Patient and Family/Support System: Tenuous. The patient has no family stepping up. He was living at a senior living for disabled individuals, where reportedly he spent much of the time smoking and drinking. Emotional/Behavioral Status of Patient and Family/Support System: Tenuous. Pertinent issues, if appropriate to this patients clinical care, are described in detail above. Maximizing acute care outcome It is recommended that the patient be monitored for emergent behavioral impulsivity as the medical condition evolves. This patients psychiatric and substance dependence issues will limit their rehabilitation potential going forward, and these challenges will require specialized therapeutic skills to maximize outcome. Anticipated Problems Ongoing areas of concern will include agitation, behavioral impulsivity, lack of insight and judgment, which is unlikely to improve with time or treatment. Treatment Plan This clinician will continue to follow with you throughout the course of this patients rehabilitation treatment, and I will be available to meet with the patients family/support system to facilitate their understanding and the ongoing care of their family member. The goals of neuropsychological intervention shall be both educational and supportive to the family/support system as is deemed clinically appropriate. Diagnosis: (1) Bipolar affective, manic, unspec Status: Chronic Progress Note Narrative Ongoing follow-up of patient within the context of daily trauma rounding and bedside. The patient underwent PEG placement. Since last week, this patient has become increasingly more agitated and restless to the point where his restlessness and agitation is interfering with his plan of care. We continue the plan of reintroducing his mood stabilization medications, and now he is at Seroquel 100 mg bid, with the goal of Seroquel 150 mg bid, which is where he was at initially. We will closely follow whether these changes effect optimal neurobehavioral status. He is reportedly ready for discharge to a LTAC facility. Until then, I will continue to follow with you. Bernard Higgins PhD Aug 02, 2016 11:41 am
[2016-08-02] MEDS: ENOXAPARIN SODIUM 40 MG/0.4 ML SYRINGE SQ SCH (12:00)
[2016-08-02] MEDS: HALOPERIDOL LACTATE 5 MG/ML AMP IV PUSH PRN ×2 (13:10→19:15)
--- NOTE | 2016-08-02 18:50 | HHI.IDPN ---
Subjective Subjective Remarks tolerating Tpiece afebrile for 24 hrs + Worsening CXR: Increasing opacity in the left hemithorax with only a small amount of aerated left upper lung. New ill-defined opacity in the lower right chest suggesting pleural effusion. Antibiotics CFTX Allergies: Coded Allergies: No Known Allergies (Unverified , 07/13/16) Objective . Vital Signs Date Time Temp Pulse Resp B/P Pulse Ox O2 Delivery O2 Flow Rate FiO2 08/02/16 18:22 23 08/02/16 16:00 98.2 63 25 148/83 100 08/02/16 16:00 50 08/02/16 16:00 62 08/02/16 14:00 62 08/02/16 12:00 68 08/02/16 12:00 50 08/02/16 12:00 98.0 72 24 149/91 95 08/02/16 10:00 87 08/02/16 08:10 93 T-piece 8.00 50 08/02/16 08:00 50 08/02/16 08:00 88 08/02/16 08:00 98.5 88 31 153/87 90 08/02/16 06:00 76 08/02/16 04:00 96 08/02/16 04:00 50 08/02/16 04:00 97.4 96 36 154/81 91 08/02/16 02:00 98 08/02/16 00:00 40 08/02/16 00:00 99.2 104 18 149/89 95 08/02/16 00:00 104 08/01/16 22:00 100 08/01/16 20:00 40 08/01/16 20:00 96 08/01/16 20:00 99.8 96 15 137/81 97 08/01/16 08/01/16 08/02/16 15:00 23:00 07:00 Intake Total 761 ml 987 ml 711 ml Output Total 610 ml 800 ml 800 ml Balance 151 ml 187 ml -89 ml IV Total 260 ml 413 ml 231 ml Tube Feeding 501 ml 514 ml 420 ml Other 60 ml 60 ml Output Urine Total 600 ml 600 ml 600 ml Stool Total 0 ml 200 ml 200 ml Chest Tube Drainage Total 10 ml 0 ml . Laboratory Tests Test 08/01/16 08/02/16 04:30 03:49 White Blood Count 11.7 TH/MM3 11.5 TH/MM3 Red Blood Count 2.53 MIL/MM3 2.53 MIL/MM3 Hemoglobin 8.2 GM/DL 8.2 GM/DL Hematocrit 24.1 % 23.9 % Mean Corpuscular Volume 95.2 FL 94.2 FL Mean Corpuscular Hemoglobin 32.2 PG 32.4 PG Mean Corpuscular Hemoglobin 33.8 % 34.5 % Concent Red Cell Distribution Width 13.4 % 13.5 % Platelet Count 417 TH/MM3 482 TH/MM3 Mean Platelet Volume 7.9 FL 7.5 FL Neutrophils (%) (Auto) 76.0 % Lymphocytes (%) (Auto) 11.1 % Monocytes (%) (Auto) 10.3 % Eosinophils (%) (Auto) 1.2 % Basophils (%) (Auto) 1.4 % Neutrophils # (Auto) 8.9 TH/MM3 Lymphocytes # (Auto) 1.3 TH/MM3 Monocytes # (Auto) 1.2 TH/MM3 Eosinophils # (Auto) 0.1 TH/MM3 Basophils # (Auto) 0.2 TH/MM3 CBC Comment DIFF FINAL Differential Comment Laboratory Tests Test 08/01/16 08/02/16 04:17 03:49 Sodium Level 140 MEQ/L 141 MEQ/L Potassium Level 4.7 MEQ/L 3.6 MEQ/L Chloride Level 105 MEQ/L 107 MEQ/L Carbon Dioxide Level 24.6 MEQ/L 25.6 MEQ/L Anion Gap 10 MEQ/L 8 MEQ/L Blood Urea Nitrogen 8 MG/DL 6 MG/DL Creatinine 0.84 MG/DL 0.59 MG/DL Estimat Glomerular Filtration 96 ML/MIN 144 ML/MIN Rate Random Glucose 97 MG/DL 104 MG/DL Calcium Level 7.6 MG/DL 7.5 MG/DL Phosphorus Level 2.7 MG/DL Magnesium Level 1.8 MG/DL 1.8 MG/DL Total Bilirubin 0.3 MG/DL Aspartate Amino Transf 44 U/L (AST/SGOT) Alanine Aminotransferase 22 U/L (ALT/SGPT) Alkaline Phosphatase 147 U/L Total Protein 6.8 GM/DL Albumin 1.4 GM/DL Imaging Last Impressions Chest X-Ray 08/01/16 0600 Signed Impressions: Service Date/Time: Monday, August 01, 2016 04:36 - CONCLUSION: Increasing opacity in the left hemithorax with only a small amount of aerated left upper lung. New ill-defined opacity in the lower right chest suggesting pleural effusion. There is stable mediastinal shift towards the left. Andrea Menendez MD Abdomen X-Ray 07/28/16 0000 Signed Impressions: Service Date/Time: Thursday, July 28, 2016 17:45 - CONCLUSION: Tip of the Dobbhoff feeding tube is in the mid stomach. Toñito Bacon MD Chest CT 07/20/16 0000 Signed Impressions: Service Date/Time: Wednesday, July 20, 2016 17:22 - CONCLUSION: Improving appearance of the left lung since the 07/15 exam. The left upper lobe is much better aerated and the pneumothorax is smaller than on the previous study. There is persisting consolidation in the left lower lobe and a persistent dense collection in the lower costophrenic angle. The chest tube is again seen near with its tip near the apex. The lower posterior collection may not be communicating with the chest tube or the rest of the pneumothorax. Nino Lopez MD Head CT 07/19/16 0000 Signed Impressions: Service Date/Time: Tuesday, July 19, 2016 13:25 - CONCLUSION: Negative for an acute process. Cory Butts MD FACR Thoracic Spine CT 07/13/16 0000 Signed Impressions: Service Date/Time: Wednesday, July 13, 2016 08:51 - CONCLUSION: T8 compressive deformity as described in detail above with appearance suggestive of an old injury, however some degree of acute or subacute progression cannot be excluded. If it would affect clinical management, injury could be further characterized with MRI. Toñito Cisneros MD Physical Exam CONSTITUTIONAL/GENERAL: This is an adequately nourished patient, in no apparent distress. sedated int'd on [facility] vent'n TUBES/LINES/DRAINS: SKIN: No jaundice, rashes, or lesions. Skin temperature appropriate. Not diaphoretic. EYES: Pupils equal and round and reactive. Extraocular motions intact. No scleral icterus. No injection or drainage. Fundi not examined. ENT: oral mucosae moist NECK: trach in place, site OK CARDIOVASCULAR: Regular rate and rhythm without murmurs, gallops, or rubs. No JVD. Peripheral pulses symmetric. RESPIRATORY/CHEST: Symmetric, unlabored respirations. Clear to auscultation. Breath sounds diminished on the L CT in place w serosag dc GASTROINTESTINAL: Abdomen soft, non-tender, nondistended. No hepato-splenomegaly , or palpable masses. No guarding. Bowel sounds present. GENITOURINARY: Without palpable bladder distension. Dinero catheter in place. MUSCULOSKELETAL: Extremities without clubbing, cyanosis, + soft 2+ pitting edema. No mottling or clubbing. NEUROLOGICAL: obtunded, not following commands Assessment & Plan Remarks L lung pulm contusion L PNA, Kleb, MSSA - has been on appropriate abx > 1 week - worsening CXR MSSA bacteremia, low grade Acute VDRF, failure to wean ETOHism and tobaccoism -cont ceftraixone -chk CT dw Martine Thompson MD Aug 02, 2016 18:50
[2016-08-02] MEDS: cefTRIAXone INJ 2,000 MG in SODIUM CHLORIDE 0.9% INJ 100 ML IV SCH (20:43)
[2016-08-02] MEDS: MAGNESIUM HYDROXIDE SUSP 30 ML CUP PO SCH (20:43)
[2016-08-02] MEDS: QUEtiapine FUMARATE 100 MG TAB PO SCH (20:43)
[2016-08-02] MEDS ORDERED: ATROPINE SULFATE 1 MG/10 ML SYRINGE ONE (22:35)
[2016-08-02] MEDS ORDERED: EPINEPHrine HCL (1:10,000) 1 MG/10 ML SYRINGE ONE (22:35)
[2016-08-02] MEDS ORDERED: LIDOCAINE HCL 2% 100 MG/5 ML SYRINGE ONE (22:35)
--- NOTE | 2016-08-02 23:48 | RADRPT ---
EXAM DATE/TIME: 08/02/2016 22:56 [facility] COMPARISON: CT THORAX W/O CONTRAST, July 20, 2016, 17:22. INDICATIONS : Evaluate for pneumothorax. RADIATION DOSE: 9.89 CTDIvol (mGy) MEDICAL HISTORY : Hypertension. Seizures. SURGICAL HISTORY : None. ENCOUNTER: Subsequent ACUITY: 2 weeks PAIN SCALE: Non-responsive LOCATION: chest TECHNIQUE: Volumetric scanning of the chest was performed. Using automated exposure control and adjustment of the mA and/or kV according to patient size, radiation dose was kept as low as reasonab ly achievable to obtain optimal diagnostic quality images. FINDINGS: LUNGS: There is a rounded fluid collection within the medial posterior right lung base measuring 6.0 x 5.3 cm. This is in the area of previously noted cavity with air-fluid level seen on the prior s tudy of 07/20/2016. Increased atelectasis/consolidation of the left lower lobe and lingula. Small left hydropneumothorax with small pneumothorax component. The pneumothorax component has decreased when c ompared to the prior study. Moderate-sized right pleural effusion, increased from the prior study. De pendent right lung parenchymal opacity similar to the prior study. Left sided chest tube is seen with tip at the apex. MEDIASTINUM: Tracheostomy tube is in place. Aorta normal diameter. No enlarged lymph nodes. AXILLAE: Within normal limits. No lymphadenopathy. MUSCULOSKELETAL: Multiple left-sided rib fractures again seen. MISCELLANEOUS: The visualized upper abdominal organs demonstrate no acute abnormality. CONCLUSION: 1. Bilateral pulmonary parenchymal opacity and bilateral pleural effusions. The parenchymal opacity i s more severe on the left. The pleural effusion is larger on the right. Differential diagnosis for th severino findings includes pulmonary edema and infection. There is diffuse superficial soft tissue edema. 2. There is a 6 cm rounded fluid filled cavity in the lower lobe on the left. Previously this contain ed and air-fluid level. 3. Hydropneumothorax is again seen on the left with pneumothorax component smaller than on the previo us study. Left-sided chest tube remains in place. 4. Multiple left-sided rib fractures again seen. Stevie Prather MD on August 02, 2016 at 23:39 Board Certified Radiologist. This report was verified electronically.
[2016-08-03] VITALS (16 sets, daily range): BP systolic 128–154; BP diastolic 67–85; PULSE 54–83; RESP 18–24; TEMP 98.3–100.8; O2SAT 93–100
[2016-08-03] MEDS: DEXMEDETOMIDINE INJ 50 ML IV SCH ×9 (00:25→22:34)
[2016-08-03] MEDS: HALOPERIDOL LACTATE 5 MG/ML AMP IV PUSH PRN (01:14)
[2016-08-03] MEDS: METOPROLOL TARTRATE 5 MG/5 ML VIAL IV PUSH SCH ×5 (02:28→21:00)
[2016-08-03] MEDS: oxyCODONE HCL ORAL CONC 20 MG/ML SYRINGE PO SCH ×4 (04:05→22:34)
[2016-08-03 04:21] LABS: HEMATOCRIT 25.5 % (39.0-51.0); MEAN CELL VOLUME 95.5 FL (80.0-100.0); MEAN CORPUSCULAR HEMOGLOBIN 32.8 PG (27.0-34.0); MEAN CORPUSCULAR HGB CONC 34.4 % (32.0-36.0); PLATELET COUNT 540 TH/MM3 (150-450); RED BLOOD COUNT 2.68 MIL/MM3 (4.50-5.90); REVIEW FLAG FINAL; WHITE BLOOD COUNT 14.4 TH/MM3 (4.0-11.0)
--- NOTE | 2016-08-03 04:52 | RADRPT ---
EXAM DATE/TIME: 08/03/2016 03:48 [facility] COMPARISON: CHEST SINGLE AP, August 02, 2016, 4:36. INDICATIONS : Short of breath. MEDICAL HISTORY : Hypertension. Arthritis. Smoker. SURGICAL HISTORY : None. ENCOUNTER: Subsequent ACUITY: 3 weeks PAIN SCORE: Non-responsive. LOCATION: Bilateral chest FINDINGS: Single AP view of the chest. Tracheostomy tube remains in place. Left-sided chest tube remains in kaylin ce. There is been interval increase in aeration of the left lung. Persistent bilateral pulmonary pare nchymal opacity and bilateral pleural effusions. No evidence of pneumothorax. CONCLUSION: Increased aeration of the left lung. Persistent bilateral pulmonary parenchymal opacity and bilateral pleural effusions. Stevie Prather MD on August 03, 2016 at 4:47 Board Certified Radiologist. This report was verified electronically.
[2016-08-03 04:55] LABS: MAGNESIUM 1.8 MG/DL (1.5-2.5); POTASSIUM 4.9 MEQ/L (3.5-5.1)
[2016-08-03] MEDS: CHLORHEXIDINE 0.12% (ORAL KIT) 15 ML CUP MT SCH ×2 (08:08→20:47)
[2016-08-03] MEDS: levETIRAcetam INJ 500 MG in SODIUM CHLORIDE 0.9% INJ 100 ML IV SCH ×2 (09:36→22:34)
[2016-08-03] MEDS: PANTOPRAZOLE SODIUM 40 MG VIAL IV PUSH SCH (09:37)
[2016-08-03] MEDS: LACTULOSE SYRUP 20 GM/30 ML CUP PO SCH (09:37)
[2016-08-03] MEDS: DOCUSATE SODIUM 50 MG/SENNA 8.6 MG TAB PO SCH ×2 (09:38→20:57)
[2016-08-03] MEDS: hydrALAZINE HCL 25 MG TAB PO SCH ×2 (09:38→20:57)
[2016-08-03] MEDS: QUEtiapine FUMARATE 100 MG TAB PO SCH ×2 (09:38→20:57)
--- NOTE | 2016-08-03 10:17 | HHI.PR ---
Neuropsych Progress Notes/Response to Tx Contents of Sessions: Adjustment Time with Patient: 15 minutes Premorbid psychological status Premorbid Cognitive, Emotional and Behavioral Status: Tenuous. 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 The patient has prior psychiatric difficulties, and reportedly was on Seroquel 300 mg qHS prior to the accident. Substance abuse history includes TOB and ETOH. Behavioral Reactions of Patient and Family/Support System: Tenuous. The patient has no family stepping up. [facility], where reportedly he spent much of the time smoking and drinking. Emotional/Behavioral Status of Patient and Family/Support System: Tenuous. Pertinent issues, if appropriate to this patients clinical care, are described in detail above. Maximizing acute care outcome It is recommended that the patient be monitored for emergent behavioral impulsivity as the medical condition evolves. This patients psychiatric and substance dependence issues will limit their rehabilitation potential going forward, and these challenges will require specialized therapeutic skills to maximize outcome. Anticipated Problems Ongoing areas of concern will include agitation, behavioral impulsivity, lack of insight and judgment, which is unlikely to improve with time or treatment. Treatment Plan This clinician will continue to follow with you throughout the course of this patients rehabilitation treatment, and I will be available to meet with the patients family/support system to facilitate their understanding and the ongoing care of their family member. The goals of neuropsychological intervention shall be both educational and supportive to the family/support system as is deemed clinically appropriate. Diagnosis: (1) Bipolar affective, manic, unspec Status: Chronic Progress Note Narrative Ongoing follow-up of patient who was seen briefly at bedside. Discussion with RN. Patient is reportedly on sedation which has attenuated his agitation. He remains on seroquel 100 mg BID and Haldol PRN for agitation. I will continue to follow with you. Bernrad Higgins PhD Aug 03, 2016 10:17 am
[2016-08-03] MEDS ORDERED: SENN1TAB PO (11:55)
[2016-08-03] MEDS ORDERED: PILL SPLITTER OTHER PRN (12:00)
[2016-08-03] MEDS: ENOXAPARIN SODIUM 40 MG/0.4 ML SYRINGE SQ SCH (12:00)
--- NOTE | 2016-08-03 17:28 | HHI.CCPN ---
Subjective Brief History History of Present Illness This patient is a 51 year old male who presents to the [facility] emergency department as transfer from [facility]. He sustained a fall from the roof while he was working. This was a 12 foot roof and he landed on his back. He drove his coworkers home, prior to going to the emergency department. He was found to have multiple left-sided rib fractures, compression fracture of T8, left-sided pneumothorax and L lung contusion, for which a large bore chest tube was placed. The patients laboratory studies were remarkable for a white count of 12.2, potassium 3.0, alcohol level 150. Patient was transferred to surgical ICU with above-noted injuries It is conceivable that patient had aspirated at the time of event PMHx: Cervical spine fusion with halo placement, trigger finger, HTN, seizures, 1 PPD smoker, ETOH (drinks 8-12 12oz [place] Hard Lemonade daily) PAIN MANAGEMENT INJURIES: T8 compression fx Serial LEFT rib fxs LEFT sided PTX LEFT lung contusion Procedures: 07/12: LEFT CT (placed by [facility]) 07/16: Intubation and BRONCH 07/17: extubated 07/20: INTUBATION and BRONCH again 07/21: LEFT thoracoscopy; evacuation of empyema and decortication of the lung 07/27: Extubate & reintubated d/t secretions 07/28: Bedside trach 07/29: PEG I 24 Hour Review/Hospital Course Since arrival to the ICU patient has been stable He is awake alert and oriented He is severe left chest pain and back pain which is currently managed Neurosurgery has been consult is regarding the compression fracture of T8 and additional studies have been ordered Pulmonary contusion is severe and patient will likely get worse before he gets better as far as respiratory system is concerned for aspiration has most likely occurred at the time of the accident 07/16/2016 Patient was transferred to the floor 2 days ago and the has been doing well however became somewhat short of breath and repeat CAT scan was ordered which reveals complete collapse of the left lung with inspissated secretions and the collecting fluid around the lung Patient was transferred back to the ICU and remains well oxygenated on the 6 L nasal cannula nonetheless the left lung is completely atelectatic Today patient was intubated bronchoscoping and large amount of mucous material was obtained while the left lung reexpanded Drainage from the chest tube has also increased significantly pushing out all the fluid as the lung is reexpanded Will keep patient on the ventilator total tomorrow and then reassess needing possibly another bronchoscopy and then we'll work toward extubation 07/17/2016 As above noted patient has been intubated bronchoscoping has been doing well on the ventilator and is now successfully extubated All things equal patient will be able to return to the floor either today or tomorrow Chest tube drainage has decreased after being increased for about 24 hours and is serosanguineous and straw-colored Bilateral breath sounds 07/18/16 Since the bronchoscopy intubation and now after extubation patient has been ventilating nicely Chest tube drainage is about 400 cc per last 24 hours and it straw-colored This is inflammatory reaction the pleura which is slowly resolving so we will leave chest tube in place for this purpose Patient is still sort of somnolent in bed although the takes by mouth when asked questions he answers them appropriately but mumbles it, and remains somnolent Does not participate with care Does not cooperating with physical and occupational therapy or the nurses Asking for pain medication 07/19/2016 Patient is awake but slightly somnolent but oriented in time and space Patient requires increased amount of oxygen and this is a consistent with his anatomic and physiologic injuries Repeat CT scan of the chest reveals collapse of the left lower and part of the upper lobe with air-fluid level in the chest and partial collapse of the left lung Chest tube remains in place The partial anterior pneumothorax is due to the fact the patient was of suction when he went down to the radiology At this point patient will need to be intubated ventilated and bronchoscope the clearing of the secretions He may need prolonged intubation at this time and probably upon the evaluation the bronchial tree will decide whether patient needs a tracheostomy in the near future The interlobar bled could of course be due to the bronchial disruption but there is no need for surgery on this for it will eventually heal on its own The main thing is to support patient's respiration and pulmonary function 07/20/16 Patient has a had decreasing left lung function with the increasing levels consolidation and atelectasis Finally required intubation this morning with the bronchoscopy and clearing of the lung Massive amounts of mucous and purulent appearing material were obtained from the left lung Patient remains on the ventilator 07/22/2016 Patient status post left VATS evacuation of a loculated hemothorax and decortication of the left lung Postoperatively patient is doing well lungs are fully expanded and remains on the ventilator The patient improves respiratory ventilator weaning down gradually Antibiotics add to care in face of previous bronchoscopy findings cultures partially back Once we have better picture will adjust antibiotic coverage 07/23/16 Postoperative day 2 from his left thoracoscopic decortication Patient still has slightly elevated ventilator requirements His lung is inflated and there is no evidence of pneumothorax or air leak in the Pleur-evac 07/24/16 Tolerating chest tubes to water seal with minimal output He still has high FiO2 requirement on the ventilator He follows commands when sedation is lightened 07/25/16 Blood cultures came back 1 out of 2 with gram-positive cocci, he is already on vancomycin and Zosyn Slow weaning on the ventilator, chest x-ray remains stable with no evidence of pneumothorax and low chest tube output 07/26/16 Patient has been stable on the ventilator Drainage from the chest tubes has decreased and we will pull tomorrow the posterior chest tube and keep the anterior apical tube in place Patient has severe COPD and compromised lungs in addition to trauma so the pulmonary situation remains precarious Gram-positive cocci as per ID treatment treatment 07/27/16 Patient is gradually weaned and was extubated however asked he cannot clear secretions and while he is breathing is intact his the secretions are this point so I have it is not coughing up and not following commands Patient had to be reintubated the a few hours later Will have tracheostomy tomorrow considering this patient is extremely hard to wean in face of lung contusion heavy secretions as well as underlying severe pulmonary emphysema 07/28/16 As above noted patient was on successfully extubated yesterday had to be reintubated few hours later due to heavy secretions will collapse of the left lower lobe and the inability to ventilate and follow commands Patient underwent today tracheostomy placement and is currently on the ventilator Underwent the extensive bronchoscopy lavage with reinflation of the left upper and lower lobes At this point we'll be able to gradually we the presence of tracheostomy 07/29/2016 PTD: 16 Status post Dobbhoff placement last evening and continuation of tube feeding Patient remains on the ventilator today. He will receive a PEG from GI later today. 07/30/2016 PTD: 17 Pt remains mechanically ventilated. We will attempt a CPAP trial today, to see if we can begin weaning the vent in progression to trach collar. 07/31/2016 PTD: 18 Pt awake on rounds. Mouthing words. Very agitated and impatient. Attempt CPAP trials and progressed to T-piece. After some time on a t-piece, the patient became, agitated, restless, tachypneic and began kicking and thrashing around in the bed. Pt was placed back on previous settings, and sedation resumed for comfort and patient, and staff safety. 08/01/2016 PTD: 19 Patient is on a T piece 40% FiO2. Tolerating well. Sats equal 99% He is awake, mouthing words, and following commands. No distress noted. 08/02/2016 PTD: 20 Patient is wide awake, despite Precedex drip. Chest x-ray looks worse - persistent complete opacification of the left hemithorax. Plan for bronchoscopy at the bedside today 08/03/2016 PTD: 21 Patient in bed, wide awake. Okay to transfer to [facility] - they will be able to complete his bronchoscopy there. (Beatriz Murrell) Objective Vital Signs Date Time Temp Pulse Resp B/P Pulse Ox O2 Delivery O2 Flow Rate FiO2 08/03/16 16:00 98.6 55 19 146/71 93 08/03/16 14:00 T-piece 5.00 28 Intake and Output 08/02/16 08/02/16 08/03/16 08:00 16:00 00:00 Intake Total 711 ml 562 ml 603 ml Output Total 800 ml 650 ml 650 ml Balance -89 ml -88 ml -47 ml (Beatriz Murrell) Result Diagram: 08/03/16 0337 08/03/16 0337 Imaging Last Impressions Chest X-Ray 08/02/16 0600 Signed Impressions: Service Date/Time: Tuesday, August 02, 2016 04:36 - CONCLUSION: No significant interval change with persistent near complete left lung opacification and moderate right mid to lower lung zone opacity. Stevie Prather MD Chest CT 08/02/16 0000 Signed Impressions: Service Date/Time: Tuesday, August 02, 2016 22:56 - CONCLUSION: 1. Bilateral pulmonary parenchymal opacity and bilateral pleural effusions. The parenchymal opacity is more severe on the left. The pleural effusion is larger on the right. Differential diagnosis for these findings includes pulmonary edema and infection. There is diffuse superficial soft tissue edema. 2. There is a 6 cm rounded fluid filled cavity in the lower lobe on the left. Previously this contained and air-fluid level. 3. Hydropneumothorax is again seen on the left with pneumothorax component smaller than on the previous study. Left-sided chest tube remains in place. 4. Multiple left-sided rib fractures again seen. Stevie Prather MD Abdomen X-Ray 07/28/16 0000 Signed Impressions: Service Date/Time: Thursday, July 28, 2016 17:45 - CONCLUSION: Tip of the Dobbhoff feeding tube is in the mid stomach. Toñito Bacon MD Head CT 07/19/16 0000 Signed Impressions: Service Date/Time: Tuesday, July 19, 2016 13:25 - CONCLUSION: Negative for an acute process. Cory Butts MD FACR Thoracic Spine CT 07/13/16 0000 Signed Impressions: Service Date/Time: Wednesday, July 13, 2016 08:51 - CONCLUSION: T8 compressive deformity as described in detail above with appearance suggestive of an old injury, however some degree of acute or subacute progression cannot be excluded. If it would affect clinical management, injury could be further characterized with MRI. Toñito Cisneros MD Objective Remarks GENERAL: This is a 51 year old male mechanically ventilated, however wide-awake. SKIN: Warm and dry. HEAD: Atraumatic. Normocephalic. EYES: PERRLA ENT: . No nasal bleeding or discharge. Mucous membranes pink and moist. NECK: Midline trach in place. Trachea midline. No JVD. CARDIOVASCULAR: Regular rate and rhythm. HR = 63-64. CM shows sinus rhythm. RESPIRATORY: T piece. No accessory muscle use. Lungs are more clear upon auscultation today. No distress or dyspnea. LEFT lateral CT in place to Pleuravac drainage system. GASTROINTESTINAL: BS + x 4 quads. Abdomen soft, non-tender, nondistended. PEG tube in place with tube feeding. MUSCULOSKELETAL: Extremities without cyanosis, or edema. + peripheral pulses x 4 extremities. Warm with good capillary refill and sensation. MAEW. NEUROLOGICAL: Mechanically ventilated via trach. Awake, mouthing words. (Beatriz Brunner) Urinary Catheter Assessment Urinary Catheter: Yes Assessment to: Continue (Beatriz Murrell) Vascular Central Line Catheter Vascular Central Line Catheter: No (Beatriz Murrell) Assessment and Plan Assessment: (1) Spinal cord injury, cervical region ICD Code: S14.109A Status: Acute (2) Chronic pain ICD Code: G89.29 Status: Acute (3) Closed T8 spinal fracture ICD Code: S22.069A Status: Acute (4) Pneumothorax on left ICD Code: J93.9 Status: Acute (5) Multiple fractures of ribs of left side ICD Code: S22.42XA Status: Acute (6) Traumatic compression fracture of T8 thoracic vertebra ICD Code: S22.060A Status: Acute Plan This is a 51-year-old male 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 He attempted to throw bucket over the side and a cut stuck in his hand and pulled over the side of the roof. He fell from approximately 12 feet and landed on his back. EtOH +. He ambulated at the scene and was able to drive his coworkers home before transporting himself to [facility]. He was then transferred to [place] for trauma services. INJURIES: T8 compression fx Serial LEFT rib fxs LEFT sided PTX LEFT lung contusion Assessment and plan by systems: NEUROLOGICAL: Patient sedated lightly with Precedex T-piece continues. Then his is wide awake and mouthing words. Pt is sedated with a RASS score of 1 Provide analgesia for comfort and pain - scheduled Roxicodone. Seizure prophylaxis - Keppra for questionable alcoholic seizures HOB elevated 30 degrees. Increased Seroquel 250 mg BID. Serial neuro checks. + peripheral pulses x 4 extremities. Neurosurgery is assisting in care. CARDIOVASCULAR: HR = 78-86. Sinus rhythm BP = 102/57 Continually monitor for hemodynamic instability (shock and hypotension). BP meds - Lopressor 5 IV, labetalol when necessary Follow [facility] Electrolyte protocol in place. RESPIRATORY: T-piece continues. Patient awake, follows commands. He is restless at times. Mouth's words to communicate. Increase PEEP carefully (to assist in oxygenation by recruiting alveoli.) Weaning - as tolerated O2 Sats Monitor for hypoxemia Follow ABGs - Lung sounds - coarse and diminished. Worse on left. Bronchoscopy needed - Dr. Blanton to complete. Pulmonary toilet L&S. Bronchodilators - Breathing treatments duonebs. Chest X-Ray results - increase in aeration of left lung. However persistent bilateral pulmonary parenchymal opacity and bilateral pleural effusions. Left lateral chest tube in place to Pleur-evac drainage system - Bronchial washings sent 07/28 - left lower lobe - gram-negative rods/ Staphylococcus aureus Sputum culture 07/24: Klebsiella pneumonia. Staphylococcus aureus. Antibiotics -Rocephin VAP protocol in place Labs tomorrow Chest X-Ray tomorrow GASTROINTESTINAL: Diet : Tube feeding: JEVITY at 60 cc/hour goal per dietary recommendations. PEG . Bowel sounds - + x 4 quads. Bowel regimen: Johanne-Colace, MOM. Lactulose daily bisacodyl [place] PRN. LBM: 08/03 RENAL / URINARY: I&O - -483 BUN / creat 6 / 0.[address] to bedside drainage bag draining clear yellow urine. Urine culture - 07/24 no growth ENDOCRINE: BGM - 91 via AM labs SSI HEMATOLOGY: H&H . - monitor closely Continue to monitor for signs and symptoms of bleeding. Evaluate need for IVC filter. Transfuse for < 7.0 Monitor patient for any bleeding complications. INFECTIOUS DISEASE: Follow CBC WBC - 14 Fevers - low grade Administer antipyretics for temp as needed. Blood cultures 07/24: Staphylococcus aureus Bronch washings 07/28: Staphylococcus aureus and Klebsiella pneumonia Urine 07/24: No growth IV antibiotics: Rocephin Monitor pneumonia evolution with repeat chest X-Rays as needed. Maintain vigorous aseptic care of central line to avoid blood stream infections. Consult to ID for further management. LINES: 07/28: Trach 07/29: PEG 07/21: L CT 07/17: F/C PROPHYLAXIS: VAP protocol in place GI: Pepcid po DVT - Mechanical VTE with SCDs. Chemical management with Lovenox 40 SQ daily. SKIN: Warm and dry Daily chest tube dressing changes. Every shift trach care. ACTIVITY: Status - BR When OOB must wear TLSO brace PT and OT ordered. CASE MANAGEMENT: Consulted for assist with DC planning. Placement - disposition TBD. EMOTIONAL SUPPORT: Provided to patient. Plan of care discussed. Questions answered to the best of my knowledge. [facility]. This patient is currently critically ill and injured with respiratory failure and being managed in the ICU. The trauma team will round, assess and evaluate the patient on a day to day basis. (Beatriz Murrell) Assessment: (1) Spinal cord injury, cervical region ICD Code: S14.109A Status: Acute (2) Chronic pain ICD Code: G89.29 Status: Acute (3) Closed T8 spinal fracture ICD Code: S22.069A Status: Acute (4) Pneumothorax on left ICD Code: J93.9 Status: Acute (5) Multiple fractures of ribs of left side ICD Code: S22.42XA Status: Acute (6) Traumatic compression fracture of T8 thoracic vertebra ICD Code: S22.060A Status: Acute Attestation The exam, history, and the medical decision-making described in the above note were completed with the assistance of the mid-level provider. I reviewed and agree with the findings presented. I attest that I had a tsbf-cp-auic encounter with the patient on the same day, and personally performed and documented my assessment and findings in the medical record. Critical care time 35 minutes. (Blair Cartagena MD) Problem Qualifiers (1) Spinal cord injury, cervical region: Qualified Code: S14.109A - Spinal cord injury, cervical region, initial encounter (2) Chronic pain: Qualified Code: G89.4 - Chronic pain syndrome (3) Closed T8 spinal fracture: (4) Multiple fractures of ribs of left side: Qualified Code: S22.42XA - Closed fracture of multiple ribs of left side, initial encounter (5) Traumatic compression fracture of T8 thoracic vertebra: Qualified Code: S22.060K - Traumatic compression fracture of T8 thoracic vertebra, with nonunion, subsequent encounter Beatriz Murrell Aug 03, 2016 17:27 Blair Cartagena MD Aug 05, 2016 17:55
[2016-08-03] MEDS: cefTRIAXone INJ 2,000 MG in SODIUM CHLORIDE 0.9% INJ 100 ML IV SCH (20:56)
[2016-08-03] MEDS: MAGNESIUM HYDROXIDE SUSP 30 ML CUP PO SCH (20:57)
[2016-08-04] VITALS (13 sets, daily range): BP systolic 119–166; BP diastolic 66–77; PULSE 45–86; RESP 16–20; TEMP 98–98.6; O2SAT 93–100
[2016-08-04] MEDS: DEXMEDETOMIDINE INJ 50 ML IV SCH ×2 (00:50→01:58)
[2016-08-04] MEDS: HALOPERIDOL LACTATE 5 MG/ML AMP IV PUSH PRN ×2 (01:48→18:42)
[2016-08-04] MEDS: DEXMEDETOMIDINE INJ 1,000 MCG in SODIUM CHLOR 0.9% 250 ML INJ 240 ML IV SCH ×3 (02:43→19:38)
[2016-08-04] MEDS: METOPROLOL TARTRATE 5 MG/5 ML VIAL IV PUSH SCH ×4 (04:42→19:56)
[2016-08-04] MEDS: oxyCODONE HCL ORAL CONC 20 MG/ML SYRINGE PO SCH ×4 (04:42→23:15)
[2016-08-04] MEDS: QUEtiapine FUMARATE 100 MG TAB PO SCH ×2 (07:32→19:58)
[2016-08-04] MEDS: hydrALAZINE HCL 25 MG TAB PO SCH ×2 (07:33→19:58)
[2016-08-04] MEDS: levETIRAcetam INJ 500 MG in SODIUM CHLORIDE 0.9% INJ 100 ML IV SCH ×2 (07:33→19:57)
[2016-08-04] MEDS: PANTOPRAZOLE SODIUM 40 MG VIAL IV PUSH SCH (07:33)
[2016-08-04] MEDS: LACTULOSE SYRUP 20 GM/30 ML CUP PO SCH (07:34)
[2016-08-04] MEDS: DOCUSATE SODIUM 50 MG/SENNA 8.6 MG TAB PO SCH ×2 (07:34→19:58)
[2016-08-04] MEDS: CHLORHEXIDINE 0.12% (ORAL KIT) 15 ML CUP MT SCH ×2 (07:34→20:00)
--- NOTE | 2016-08-04 12:24 | HHI.PR ---
Neuropsych Progress Notes/Response to Tx Contents of Sessions: Adjustment Time with Patient: 15 minutes Premorbid psychological status Premorbid Cognitive, Emotional and Behavioral Status: Tenuous. 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 The patient has prior psychiatric difficulties, and reportedly was on Seroquel 300 mg qHS prior to the accident. Substance abuse history includes TOB and ETOH. Behavioral Reactions of Patient and Family/Support System: Tenuous. The patient has no family stepping up. He was living at a alf for disabled individuals, where reportedly he spent much of the time smoking and drinking. Emotional/Behavioral Status of Patient and Family/Support System: Tenuous. Pertinent issues, if appropriate to this patients clinical care, are described in detail above. Maximizing acute care outcome It is recommended that the patient be monitored for emergent behavioral impulsivity as the medical condition evolves. This patients psychiatric and substance dependence issues will limit their rehabilitation potential going forward, and these challenges will require specialized therapeutic skills to maximize outcome. Anticipated Problems Ongoing areas of concern will include agitation, behavioral impulsivity, lack of insight and judgment, which is unlikely to improve with time or treatment. Treatment Plan This clinician will continue to follow with you throughout the course of this patients rehabilitation treatment, and I will be available to meet with the patients family/support system to facilitate their understanding and the ongoing care of their family member. The goals of neuropsychological intervention shall be both educational and supportive to the family/support system as is deemed clinically appropriate. Diagnosis: (1) Bipolar affective, manic, unspec Status: Chronic Progress Note Narrative Ongoing follow-up of patient during trauma rounds and bedside. This patient's agitation has improved on seroquel 150 mg BID. He is reportedly being discharged to [facility] Until that time, I will continue to follow with you. Bernard Higgins PhD Aug 04, 2016 12:24 pm
[2016-08-04] MEDS: ENOXAPARIN SODIUM 40 MG/0.4 ML SYRINGE SQ SCH (12:33)
--- NOTE | 2016-08-04 14:02 | HHI.IDPN ---
Subjective Subjective Remarks tolerating Tpiece afebrile for 24 hrs +, but hadf low grade fever yday WBC went up CT showed L sided hydrothorax Antibiotics CFTX Allergies: Coded Allergies: No Known Allergies (Unverified , 07/13/16) Objective . Vital Signs Date Time Temp Pulse Resp B/P Pulse Ox O2 Delivery O2 Flow Rate FiO2 08/04/16 12:00 98.2 76 18 119/67 98 08/04/16 12:00 76 08/04/16 10:00 69 08/04/16 08:00 98.0 69 19 120/67 100 08/04/16 08:00 69 08/04/16 06:00 74 08/04/16 04:00 98.2 62 20 136/74 96 08/04/16 04:00 45 08/04/16 02:00 65 08/04/16 00:00 86 08/04/16 00:00 98.6 83 20 166/66 96 08/03/16 22:00 61 08/03/16 20:00 73 08/03/16 20:00 98.3 66 24 146/67 94 08/03/16 19:47 95 T-piece 6.00 28 08/03/16 18:00 75 08/03/16 16:00 98.6 55 19 146/71 93 08/03/16 16:00 54 08/03/16 14:00 68 08/03/16 14:00 95 T-piece 5.00 28 08/03/16 08/03/16 08/04/16 15:00 23:00 07:00 Intake Total 787 ml 842 ml 1255 ml Output Total 810 ml 1305 ml 1120 ml Balance -23 ml -463 ml 135 ml Intake Oral 100 ml IV Total 587 ml 510 ml 770 ml Tube Feeding 0 ml 212 ml 385 ml Other 100 ml 120 ml 100 ml Output Urine Total 550 ml 875 ml 1100 ml Chest Tube Drainage Total 260 ml 430 ml 20 ml # Bowel Movements 0 1 . Laboratory Tests Test 08/03/16 03:37 White Blood Count 14.4 TH/MM3 Red Blood Count 2.68 MIL/MM3 Hemoglobin 8.8 GM/DL Hematocrit 25.5 % Mean Corpuscular Volume 95.5 FL Mean Corpuscular Hemoglobin 32.8 PG Mean Corpuscular Hemoglobin 34.4 % Concent Red Cell Distribution Width 14.0 % Platelet Count 540 TH/MM3 Mean Platelet Volume 8.3 FL Laboratory Tests Test 08/03/16 03:37 Sodium Level 138 MEQ/L Potassium Level 4.9 MEQ/L Chloride Level 102 MEQ/L Carbon Dioxide Level 28.0 MEQ/L Anion Gap 8 MEQ/L Blood Urea Nitrogen 6 MG/DL Creatinine 0.57 MG/DL Estimat Glomerular Filtration 150 ML/MIN Rate Random Glucose 91 MG/DL Calcium Level 7.9 MG/DL Magnesium Level 1.8 MG/DL Imaging Last Impressions Chest X-Ray 08/03/16 0600 Signed Impressions: Wednesday, August 03, 2016 03:48 CONCLUSION: Increased aeration of the left lung. Persistent bilateral pulmonary parenchymal opacity and bilateral pleural effusions. Stevie Prather MD Chest CT 08/02/16 0000 Signed Impressions: Service Date/Time: Tuesday, August 02, 2016 22:56 - CONCLUSION: 1. Bilateral pulmonary parenchymal opacity and bilateral pleural effusions. The parenchymal opacity is more severe on the left. The pleural effusion is larger on the right. Differential diagnosis for these findings includes pulmonary edema and infection. There is diffuse superficial soft tissue edema. 2. There is a 6 cm rounded fluid filled cavity in the lower lobe on the left. Previously this contained and air-fluid level. 3. Hydropneumothorax is again seen on the left with pneumothorax component smaller than on the previous study. Left-sided chest tube remains in place. 4. Multiple left-sided rib fractures again seen. Stevie Prather MD Abdomen X-Ray 07/28/16 0000 Signed Impressions: Service Date/Time: Thursday, July 28, 2016 17:45 - CONCLUSION: Tip of the Dobbhoff feeding tube is in the mid stomach. Toñito Bacon MD Head CT 07/19/16 0000 Signed Impressions: Service Date/Time: Tuesday, July 19, 2016 13:25 - CONCLUSION: Negative for an acute process. Cory Butts MD FACR Thoracic Spine CT 07/13/16 0000 Signed Impressions: Service Date/Time: Wednesday, July 13, 2016 08:51 - CONCLUSION: T8 compressive deformity as described in detail above with appearance suggestive of an old injury, however some degree of acute or subacute progression cannot be excluded. If it would affect clinical management, injury could be further characterized with MRI. Toñito Cisneros MD Physical Exam CONSTITUTIONAL/GENERAL: This is an adequately nourished patient, in no apparent distress. sedated int'd on mech vent'n TUBES/LINES/DRAINS: SKIN: No jaundice, rashes, or lesions. Skin temperature appropriate. Not diaphoretic. EYES: Pupils equal and round and reactive. Extraocular motions intact. No scleral icterus. No injection or drainage. Fundi not examined. ENT: oral mucosae moist NECK: trach in place, site [place] CARDIOVASCULAR: Regular rate and rhythm without murmurs, gallops, or rubs. No JVD. Peripheral pulses symmetric. RESPIRATORY/CHEST: Symmetric, unlabored respirations. Clear to auscultation. CT in place w serosag dc; 200 cc in the last 24 hrs GASTROINTESTINAL: Abdomen soft, non-tender, nondistended. No hepato-splenomegaly , or palpable masses. No guarding. Bowel sounds present. GENITOURINARY: Without palpable bladder distension. Dinero catheter in place. MUSCULOSKELETAL: Extremities without clubbing, cyanosis, + soft 2+ pitting edema. No mottling or clubbing. NEUROLOGICAL: awake, makes eye contact, communicates and following commands Assessment & Plan Remarks L lung pulm contusion L PNA, Kleb, MSSA - has been on appropriate abx > 1 week - worsening CXR MSSA bacteremia, low grade Acute VDRF, failure to wean ETOHism and tobaccoism -cont ceftraixone -repeat blood clx - dc CFTX -mstart cefazoline - start levaquine - If needed more CT chk clx dw Martine Hart RN, MD Aug 04, 2016 14:02
[2016-08-04] MEDS: ceFAZolin 2 GM PREMIX 50 ML IV SCH ×2 (16:21→23:16)
[2016-08-04] MEDS: LEVOFLOXACIN 750 MG PREMIX INJ 150 ML IV SCH (16:21)
--- NOTE | 2016-08-04 17:27 | HHI.CCPN ---
Subjective Brief History History of Present Illness This patient is a 51 year old male who presents to the [facility] emergency department as transfer from [facility]. He sustained a fall from the roof while he was working. This was a 12 foot roof and he landed on his back. He drove his coworkers home, prior to going to the emergency department. He was found to have multiple left-sided rib fractures, compression fracture of T8, left-sided pneumothorax and L lung contusion, for which a large bore chest tube was placed. The patients laboratory studies were remarkable for a white count of 12.2, potassium 3.0, alcohol level 150. Patient was transferred to surgical ICU with above-noted injuries It is conceivable that patient had aspirated at the time of event PMHx: Cervical spine fusion with halo placement, trigger finger, HTN, seizures, 1 PPD smoker, ETOH (drinks 8-12 12oz [place] Hard Lemonade daily) PAIN MANAGEMENT INJURIES: T8 compression fx Serial LEFT rib fxs LEFT sided PTX LEFT lung contusion Procedures: 07/12: LEFT CT (placed by [facility]) 07/16: Intubation and BRONCH 07/17: extubated 07/20: INTUBATION and BRONCH again 07/21: LEFT thoracoscopy; evacuation of empyema and decortication of the lung 07/27: Extubate & reintubated d/t secretions 07/28: Bedside trach 07/29: PEG I 24 Hour Review/Hospital Course Since arrival to the ICU patient has been stable He is awake alert and oriented He is severe left chest pain and back pain which is currently managed Neurosurgery has been consult is regarding the compression fracture of T8 and additional studies have been ordered Pulmonary contusion is severe and patient will likely get worse before he gets better as far as respiratory system is concerned for aspiration has most likely occurred at the time of the accident 07/16/2016 Patient was transferred to the floor 2 days ago and the has been doing well however became somewhat short of breath and repeat CAT scan was ordered which reveals complete collapse of the left lung with inspissated secretions and the collecting fluid around the lung Patient was transferred back to the ICU and remains well oxygenated on the 6 L nasal cannula nonetheless the left lung is completely atelectatic Today patient was intubated bronchoscoping and large amount of mucous material was obtained while the left lung reexpanded Drainage from the chest tube has also increased significantly pushing out all the fluid as the lung is reexpanded Will keep patient on the ventilator total tomorrow and then reassess needing possibly another bronchoscopy and then we'll work toward extubation 07/17/2016 As above noted patient has been intubated bronchoscoping has been doing well on the ventilator and is now successfully extubated All things equal patient will be able to return to the floor either today or tomorrow Chest tube drainage has decreased after being increased for about 24 hours and is serosanguineous and straw-colored Bilateral breath sounds 07/18/16 Since the bronchoscopy intubation and now after extubation patient has been ventilating nicely Chest tube drainage is about 400 cc per last 24 hours and it straw-colored This is inflammatory reaction the pleura which is slowly resolving so we will leave chest tube in place for this purpose Patient is still sort of somnolent in bed although the takes by mouth when asked questions he answers them appropriately but mumbles it, and remains somnolent Does not participate with care Does not cooperating with physical and occupational therapy or the nurses Asking for pain medication 07/19/2016 Patient is awake but slightly somnolent but oriented in time and space Patient requires increased amount of oxygen and this is a consistent with his anatomic and physiologic injuries Repeat CT scan of the chest reveals collapse of the left lower and part of the upper lobe with air-fluid level in the chest and partial collapse of the left lung Chest tube remains in place The partial anterior pneumothorax is due to the fact the patient was of suction when he went down to the radiology At this point patient will need to be intubated ventilated and bronchoscope the clearing of the secretions He may need prolonged intubation at this time and probably upon the evaluation the bronchial tree will decide whether patient needs a tracheostomy in the near future The interlobar bled could of course be due to the bronchial disruption but there is no need for surgery on this for it will eventually heal on its own The main thing is to support patient's respiration and pulmonary function 07/20/16 Patient has a had decreasing left lung function with the increasing levels consolidation and atelectasis Finally required intubation this morning with the bronchoscopy and clearing of the lung Massive amounts of mucous and purulent appearing material were obtained from the left lung Patient remains on the ventilator 07/22/2016 Patient status post left VATS evacuation of a loculated hemothorax and decortication of the left lung Postoperatively patient is doing well lungs are fully expanded and remains on the ventilator The patient improves respiratory ventilator weaning down gradually Antibiotics add to care in face of previous bronchoscopy findings cultures partially back Once we have better picture will adjust antibiotic coverage 07/23/16 Postoperative day 2 from his left thoracoscopic decortication Patient still has slightly elevated ventilator requirements His lung is inflated and there is no evidence of pneumothorax or air leak in the Pleur-evac 07/24/16 Tolerating chest tubes to water seal with minimal output He still has high FiO2 requirement on the ventilator He follows commands when sedation is lightened 07/25/16 Blood cultures came back 1 out of 2 with gram-positive cocci, he is already on vancomycin and Zosyn Slow weaning on the ventilator, chest x-ray remains stable with no evidence of pneumothorax and low chest tube output 07/26/16 Patient has been stable on the ventilator Drainage from the chest tubes has decreased and we will pull tomorrow the posterior chest tube and keep the anterior apical tube in place Patient has severe COPD and compromised lungs in addition to trauma so the pulmonary situation remains precarious Gram-positive cocci as per ID treatment treatment 07/27/16 Patient is gradually weaned and was extubated however asked he cannot clear secretions and while he is breathing is intact his the secretions are this point so I have it is not coughing up and not following commands Patient had to be reintubated the a few hours later Will have tracheostomy tomorrow considering this patient is extremely hard to wean in face of lung contusion heavy secretions as well as underlying severe pulmonary emphysema 07/28/16 As above noted patient was on successfully extubated yesterday had to be reintubated few hours later due to heavy secretions will collapse of the left lower lobe and the inability to ventilate and follow commands Patient underwent today tracheostomy placement and is currently on the ventilator Underwent the extensive bronchoscopy lavage with reinflation of the left upper and lower lobes At this point we'll be able to gradually we the presence of tracheostomy 07/29/2016 PTD: 16 Status post Dobbhoff placement last evening and continuation of tube feeding Patient remains on the ventilator today. He will receive a PEG from GI later today. 07/30/2016 PTD: 17 Pt remains mechanically ventilated. We will attempt a CPAP trial today, to see if we can begin weaning the vent in progression to trach collar. 07/31/2016 PTD: 18 Pt awake on rounds. Mouthing words. Very agitated and impatient. Attempt CPAP trials and progressed to T-piece. After some time on a t-piece, the patient became, agitated, restless, tachypneic and began kicking and thrashing around in the bed. Pt was placed back on previous settings, and sedation resumed for comfort and patient, and staff safety. 08/01/2016 PTD: 19 Patient is on a T piece 40% FiO2. Tolerating well. Sats equal 99% He is awake, mouthing words, and following commands. No distress noted. 08/02/2016 PTD: 20 Patient is wide awake, despite Precedex drip. Chest x-ray looks worse - persistent complete opacification of the left hemithorax. Plan for bronchoscopy at the bedside today 08/03/2016 PTD: 21 Patient in bed, wide awake. Okay to transfer [facility] - they will be able to complete his bronchoscopy there. 08/04/2016 PTD: 22 Patient awake in bed. No distress noted. Patient will mouth words. Case management is working diligently to get the patient [facility]. (Beatriz Murrell) Objective Vital Signs Date Time Temp Pulse Resp B/P Pulse Ox O2 Delivery O2 Flow Rate FiO2 08/04/16 16:00 98.2 76 20 144/69 93 08/03/16 19:47 T-piece 6.00 28 Intake and Output 08/03/16 08/03/16 08/04/16 08:00 16:00 00:00 Intake Total 402 ml 787 ml 842 ml Output Total 750 ml 810 ml 1305 ml Balance -348 ml -23 ml -463 ml (Beatriz Murrell) Result Diagram: 08/03/16 0337 08/03/16 0337 Imaging Last Impressions Chest X-Ray 08/03/16 0600 Signed Impressions: Wednesday, August 03, 2016 03:48 CONCLUSION: Increased aeration of the left lung. Persistent bilateral pulmonary parenchymal opacity and bilateral pleural effusions. Stevie Prather MD Chest CT 08/02/16 0000 Signed Impressions: Service Date/Time: Tuesday, August 02, 2016 22:56 - CONCLUSION: 1. Bilateral pulmonary parenchymal opacity and bilateral pleural effusions. The parenchymal opacity is more severe on the left. The pleural effusion is larger on the right. Differential diagnosis for these findings includes pulmonary edema and infection. There is diffuse superficial soft tissue edema. 2. There is a 6 cm rounded fluid filled cavity in the lower lobe on the left. Previously this contained and air-fluid level. 3. Hydropneumothorax is again seen on the left with pneumothorax component smaller than on the previous study. Left-sided chest tube remains in place. 4. Multiple left-sided rib fractures again seen. Stevie Prather MD Abdomen X-Ray 07/28/16 0000 Signed Impressions: Service Date/Time: Thursday, July 28, 2016 17:45 - CONCLUSION: Tip of the Dobbhoff feeding tube is in the mid stomach. Toñito Bacon MD Head CT 07/19/16 0000 Signed Impressions: Service Date/Time: Tuesday, July 19, 2016 13:25 - CONCLUSION: Negative for an acute process. Cory Butts MD FACR Thoracic Spine CT 07/13/16 0000 Signed Impressions: Service Date/Time: Wednesday, July 13, 2016 08:51 - CONCLUSION: T8 compressive deformity as described in detail above with appearance suggestive of an old injury, however some degree of acute or subacute progression cannot be excluded. If it would affect clinical management, injury could be further characterized with MRI. Toñito Cisneros MD Objective Remarks GENERAL: This is a 51 year old male mechanically ventilated, however wide-awake. SKIN: Warm and dry. HEAD: Atraumatic. Normocephalic. EYES: PERRLA ENT: . No nasal bleeding or discharge. Mucous membranes pink and moist. NECK: Midline trach in place. Trachea midline. No JVD. CARDIOVASCULAR: Regular rate and rhythm. HR = 63-64. CM shows sinus rhythm. RESPIRATORY: T piece. No accessory muscle use. Lungs are more clear upon auscultation today. No distress or dyspnea. LEFT lateral CT in place to Pleuravac drainage system. GASTROINTESTINAL: BS + x 4 quads. Abdomen soft, non-tender, nondistended. PEG tube in place with tube feeding. MUSCULOSKELETAL: Extremities without cyanosis, or edema. + peripheral pulses x 4 extremities. Warm with good capillary refill and sensation. MAEW. NEUROLOGICAL: Mechanically ventilated via trach. Awake, mouthing words. (Beatriz Brunner) Urinary Catheter Assessment Urinary Catheter: Yes Assessment to: Continue (Beatriz Murrell) Vascular Central Line Catheter Vascular Central Line Catheter: No (Beatriz Murrell) Assessment and Plan Assessment: (1) Spinal cord injury, cervical region ICD Code: S14.109A Status: Acute (2) Chronic pain ICD Code: G89.29 Status: Acute (3) Closed T8 spinal fracture ICD Code: S22.069A Status: Acute (4) Pneumothorax on left ICD Code: J93.9 Status: Acute (5) Multiple fractures of ribs of left side ICD Code: S22.42XA Status: Acute (6) Traumatic compression fracture of T8 thoracic vertebra ICD Code: S22.060A Status: Acute Plan This is a 51-year-old male 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 He attempted to throw bucket over the side and a cut stuck in his hand and pulled over the side of the roof. He fell from approximately 12 feet and landed on his back. EtOH +. He ambulated at the scene and was able to drive his coworkers home before transporting himself to [facility]. He was then transferred to [place] for trauma services. INJURIES: T8 compression fx Serial LEFT rib fxs LEFT sided PTX LEFT lung contusion Assessment and plan by systems: NEUROLOGICAL: Patient sedated lightly with Precedex T-piece continues. He is wide awake and mouthing words. Pt is sedated with a RASS score of 1-2 Provide analgesia for comfort and pain - scheduled Roxicodone. Seizure prophylaxis - Keppra for questionable alcoholic seizures HOB elevated 30 degrees. Increased Seroquel 250 mg BID. Serial neuro checks. + peripheral pulses x 4 extremities. Neurosurgery is assisting in care. CARDIOVASCULAR: HR = 67-76. Sinus rhythm BP = 144/69 Continually monitor for hemodynamic instability (shock and hypotension). BP meds - Lopressor 5 IV, labetalol when necessary Follow [facility] Electrolyte protocol in place. RESPIRATORY: T-piece continues. Patient awake, follows commands. He is restless at times. Mouth's words to communicate. Increase PEEP carefully (to assist in oxygenation by recruiting alveoli.) Weaning - as tolerated O2 Sats Monitor for hypoxemia Follow ABGs - Lung sounds - coarse and diminished. Worse on left. Bronchoscopy needed - Dr. Blanton to complete. Pulmonary toilet L&S. Bronchodilators - Breathing treatments duonebs. Chest X-Ray results - increase in aeration of left lung. However persistent bilateral pulmonary parenchymal opacity and bilateral pleural effusions. Left lateral chest tube in place to Pleur-evac drainage system - Bronchial washings sent 07/28 - left lower lobe - gram-negative rods/ Staphylococcus aureus Sputum culture 07/24: Klebsiella pneumonia. Staphylococcus aureus. Antibiotics -Ancef and Levaquin VAP protocol in place Labs tomorrow Chest X-Ray tomorrow GASTROINTESTINAL: Diet : Tube feeding: JEVITY at 60 cc/hour goal per dietary recommendations. PEG . Bowel sounds - + x 4 quads. Bowel regimen: Johanne-Colace, MOM. Lactulose daily bisacodyl SC PRN. LBM: 08/04 RENAL / URINARY: I&O - 418 BUN / creat 6 / 0.[address] to bedside drainage bag draining clear yellow urine. Urine culture - 07/24 no growth ENDOCRINE: BGM - 91 via AM labs SSI HEMATOLOGY: H&H . - monitor closely Continue to monitor for signs and symptoms of bleeding. Evaluate need for IVC filter. Transfuse for < 7.0 Monitor patient for any bleeding complications. INFECTIOUS DISEASE: Follow CBC WBC - 14 Fevers - low grade Administer antipyretics for temp as needed. Blood cultures 07/24: Staphylococcus aureus 08/04: Blood cultures repeated - Bronch washings 07/28: Staphylococcus aureus and Klebsiella pneumonia Urine 07/24: No growth IV antibiotics: Rocephin Monitor pneumonia evolution with repeat chest X-Rays as needed. Maintain vigorous aseptic care of central line to avoid blood stream infections. Consult to ID for further management. LINES: 07/28: Trach 07/29: PEG 07/21: L CT 07/17: F/C PROPHYLAXIS: VAP protocol in place GI: Pepcid po DVT - Mechanical VTE with SCDs. Chemical management with Lovenox 40 SQ daily. SKIN: Warm and dry Daily chest tube dressing changes. Every shift trach care. ACTIVITY: Status - BR When OOB must wear TLSO brace PT and OT ordered. CASE MANAGEMENT: Consulted case management for DC planning. Placement - disposition - [facility]. Case management is working diligently to obtain authorization for placement. EMOTIONAL SUPPORT: Provided to patient. Plan of care discussed. Questions answered to the best of my knowledge. [facility] complete. This patient is currently critically ill and injured with respiratory failure and being managed in the ICU. The trauma team will round, assess and evaluate the patient on a day to day basis. (Beatriz Murrell) Attestation The exam, history, and the medical decision-making described in the above note were completed with the assistance of the mid-level provider. I reviewed and agree with the findings presented. I attest that I had a [id number] encounter with the patient on the same day, and personally performed and documented my assessment and findings in the medical record. Critical care time 35 minutes. (Blair Cartagena MD) Problem Qualifiers (1) Spinal cord injury, cervical region: Qualified Code: S14.109A - Spinal cord injury, cervical region, initial encounter (2) Chronic pain: Qualified Code: G89.4 - Chronic pain syndrome (3) Closed T8 spinal fracture: (4) Multiple fractures of ribs of left side: Qualified Code: S22.42XA - Closed fracture of multiple ribs of left side, initial encounter (5) Traumatic compression fracture of T8 thoracic vertebra: Qualified Code: S22.060K - Traumatic compression fracture of T8 thoracic vertebra, with nonunion, subsequent encounter Beatriz Murrell Aug 04, 2016 17:27 Blair Cartagena MD Aug 05, 2016 18:08
[2016-08-04] MEDS: MAGNESIUM HYDROXIDE SUSP 30 ML CUP PO SCH (19:56)
[2016-08-04] MEDS: SODIUM CHLORIDE 0.9% FLUSH 5 ML FLUSH IVF PRN (19:58)
[2016-08-04] MEDS: oxyCODONE HCL ORAL CONC 20 MG/ML SYRINGE PO PRN (21:17)
[2016-08-05] VITALS (17 sets, daily range): BP systolic 103–174; BP diastolic 59–82; PULSE 62–118; RESP 12–26; TEMP 97.5–98.7; O2SAT 92–100
[2016-08-05] MEDS: METOPROLOL TARTRATE 5 MG/5 ML VIAL IV PUSH SCH ×4 (02:19→20:04)
[2016-08-05 04:33] LABS: MEAN CELL VOLUME 93.7 FL (80.0-100.0); MEAN CORPUSCULAR HEMOGLOBIN 31.7 PG (27.0-34.0); MEAN CORPUSCULAR HGB CONC 33.8 % (32.0-36.0); PLATELET COUNT 565 TH/MM3 (150-450); RED BLOOD COUNT 2.77 MIL/MM3 (4.50-5.90); RED CELL DISTRIBUTION WIDTH 13.7 % (11.6-17.2); REVIEW FLAG FINAL; WHITE BLOOD COUNT 14.3 TH/MM3 (4.0-11.0)
[2016-08-05 04:59] LABS: BICARBONATE 26.6 MEQ/L (21.0-32.0); MAGNESIUM 1.5 MG/DL (1.5-2.5); POTASSIUM 3.5 MEQ/L (3.5-5.1)
[2016-08-05] MEDS: oxyCODONE HCL ORAL CONC 20 MG/ML SYRINGE PO SCH ×4 (05:04→22:17)
[2016-08-05] MEDS: DEXMEDETOMIDINE INJ 1,000 MCG in SODIUM CHLOR 0.9% 250 ML INJ 240 ML IV SCH ×3 (06:17→21:27)
[2016-08-05] MEDS: ceFAZolin 2 GM PREMIX 50 ML IV SCH ×3 (06:23→22:16)
--- NOTE | 2016-08-05 06:23 | RADRPT ---
EXAM DATE/TIME: 08/05/2016 05:09 [place] COMPARISON: CHEST SINGLE AP, August 03, 2016, 3:48. INDICATIONS : Follow up trauma. Respiratory status. MEDICAL HISTORY : None. SURGICAL HISTORY : None. ENCOUNTER: Subsequent ACUITY: 4 - 6 days PAIN SCORE: Non-responsive. LOCATION: Bilateral chest FINDINGS: Single AP view of the chest. Tracheostomy tube remains in place along with left-sided chest tube. Sev ere bilateral pulmonary opacity again seen. Bilateral pleural effusions unchanged. CONCLUSION: No significant interval change in severe bilateral pulmonary parenchymal opacity and bilateral pleura l effusions. Stevie Prather MD on August 05, 2016 at 6:20 Board Certified Radiologist. This report was verified electronically.
[2016-08-05] MEDS: levETIRAcetam INJ 500 MG in SODIUM CHLORIDE 0.9% INJ 100 ML IV SCH ×2 (08:24→21:27)
[2016-08-05] MEDS: DOCUSATE SODIUM 50 MG/SENNA 8.6 MG TAB PO SCH ×2 (08:25→20:04)
[2016-08-05] MEDS: SODIUM CHLORIDE 0.9% FLUSH 5 ML FLUSH IVF PRN (08:25)
[2016-08-05] MEDS: hydrALAZINE HCL 25 MG TAB PO SCH ×2 (08:25→20:03)
[2016-08-05] MEDS: CHLORHEXIDINE 0.12% (ORAL KIT) 15 ML CUP MT SCH ×2 (08:25→21:27)
[2016-08-05] MEDS: QUEtiapine FUMARATE 100 MG TAB PO SCH ×2 (08:25→20:03)
[2016-08-05] MEDS: PANTOPRAZOLE SODIUM 40 MG VIAL IV PUSH SCH (08:25)
[2016-08-05] MEDS: LACTULOSE SYRUP 20 GM/30 ML CUP PO SCH (09:00)
[2016-08-05] MEDS: POTASSIUM CL 40 MEQ/30 ML LIQ UDC PO/TUBE PRN (09:14)
[2016-08-05] MEDS: ENOXAPARIN SODIUM 40 MG/0.4 ML SYRINGE SQ SCH (11:20)
--- NOTE | 2016-08-05 12:15 | HHI.PR ---
Neuropsych Progress Notes/Response to Tx Time with Patient: 15 minutes Premorbid psychological status Premorbid Cognitive, Emotional and Behavioral Status: Tenuous. 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 The patient has prior psychiatric difficulties, and reportedly was on Seroquel 300 mg qHS prior to the accident. Substance abuse history includes TOB and ETOH. Behavioral Reactions of Patient and Family/Support System: Tenuous. The patient has no family stepping up. [facility], where reportedly he spent much of the time smoking and drinking. Emotional/Behavioral Status of Patient and Family/Support System: Tenuous. Pertinent issues, if appropriate to this patients clinical care, are described in detail above. Maximizing acute care outcome It is recommended that the patient be monitored for emergent behavioral impulsivity as the medical condition evolves. This patients psychiatric and substance dependence issues will limit their rehabilitation potential going forward, and these challenges will require specialized therapeutic skills to maximize outcome. Anticipated Problems Ongoing areas of concern will include agitation, behavioral impulsivity, lack of insight and judgment, which is unlikely to improve with time or treatment. Treatment Plan This clinician will continue to follow with you throughout the course of this patients rehabilitation treatment, and I will be available to meet with the patients family/support system to facilitate their understanding and the ongoing care of their family member. The goals of neuropsychological intervention shall be both educational and supportive to the family/support system as is deemed clinically appropriate. Diagnosis: (1) Bipolar affective, manic, unspec Status: Chronic Progress Note Narrative Ongoing follow-up of patient seen during trauma rounds. He is awaiting discharge to a long-term care facility. His agitation is effectively managed. Until he leaves, I will continue to follow with you. Bernard Higgins PhD Aug 05, 2016 12:15 pm
[2016-08-05] MEDS: LEVOFLOXACIN 750 MG PREMIX INJ 150 ML IV SCH (15:25)
--- NOTE | 2016-08-05 15:39 | HHI.CCPN ---
Subjective Brief History History of Present Illness This patient is a 51 year old male who presents to the [facility] emergency department as transfer from [facility]. He sustained a fall from the roof while he was working. This was a 12 foot roof and he landed on his back. He drove his coworkers home, prior to going to the emergency department. He was found to have multiple left-sided rib fractures, compression fracture of T8, left-sided pneumothorax and L lung contusion, for which a large bore chest tube was placed. The patients laboratory studies were remarkable for a white count of 12.2, potassium 3.0, alcohol level 150. Patient was transferred to surgical ICU with above-noted injuries It is conceivable that patient had aspirated at the time of event PMHx: Cervical spine fusion with halo placement, trigger finger, HTN, seizures, 1 PPD smoker, ETOH (drinks 8-12 12oz [place] Hard Lemonade daily) PAIN MANAGEMENT INJURIES: T8 compression fx Serial LEFT rib fxs LEFT sided PTX LEFT lung contusion Procedures: 07/12: LEFT CT (placed by [facility]) 07/16: Intubation and BRONCH 07/17: extubated 07/20: INTUBATION and BRONCH again 07/21: LEFT thoracoscopy; evacuation of empyema and decortication of the lung 07/27: Extubate & reintubated d/t secretions 07/28: Bedside trach 07/29: PEG I 24 Hour Review/Hospital Course Since arrival to the ICU patient has been stable He is awake alert and oriented He is severe left chest pain and back pain which is currently managed Neurosurgery has been consult is regarding the compression fracture of T8 and additional studies have been ordered Pulmonary contusion is severe and patient will likely get worse before he gets better as far as respiratory system is concerned for aspiration has most likely occurred at the time of the accident 07/16/2016 Patient was transferred to the floor 2 days ago and the has been doing well however became somewhat short of breath and repeat CAT scan was ordered which reveals complete collapse of the left lung with inspissated secretions and the collecting fluid around the lung Patient was transferred back to the ICU and remains well oxygenated on the 6 L nasal cannula nonetheless the left lung is completely atelectatic Today patient was intubated bronchoscoping and large amount of mucous material was obtained while the left lung reexpanded Drainage from the chest tube has also increased significantly pushing out all the fluid as the lung is reexpanded Will keep patient on the ventilator total tomorrow and then reassess needing possibly another bronchoscopy and then we'll work toward extubation 07/17/2016 As above noted patient has been intubated bronchoscoping has been doing well on the ventilator and is now successfully extubated All things equal patient will be able to return to the floor either today or tomorrow Chest tube drainage has decreased after being increased for about 24 hours and is serosanguineous and straw-colored Bilateral breath sounds 07/18/16 Since the bronchoscopy intubation and now after extubation patient has been ventilating nicely Chest tube drainage is about 400 cc per last 24 hours and it straw-colored This is inflammatory reaction the pleura which is slowly resolving so we will leave chest tube in place for this purpose Patient is still sort of somnolent in bed although the takes by mouth when asked questions he answers them appropriately but mumbles it, and remains somnolent Does not participate with care Does not cooperating with physical and occupational therapy or the nurses Asking for pain medication 07/19/2016 Patient is awake but slightly somnolent but oriented in time and space Patient requires increased amount of oxygen and this is a consistent with his anatomic and physiologic injuries Repeat CT scan of the chest reveals collapse of the left lower and part of the upper lobe with air-fluid level in the chest and partial collapse of the left lung Chest tube remains in place The partial anterior pneumothorax is due to the fact the patient was of suction when he went down to the radiology At this point patient will need to be intubated ventilated and bronchoscope the clearing of the secretions He may need prolonged intubation at this time and probably upon the evaluation the bronchial tree will decide whether patient needs a tracheostomy in the near future The interlobar bled could of course be due to the bronchial disruption but there is no need for surgery on this for it will eventually heal on its own The main thing is to support patient's respiration and pulmonary function 07/20/16 Patient has a had decreasing left lung function with the increasing levels consolidation and atelectasis Finally required intubation this morning with the bronchoscopy and clearing of the lung Massive amounts of mucous and purulent appearing material were obtained from the left lung Patient remains on the ventilator 07/22/2016 Patient status post left VATS evacuation of a loculated hemothorax and decortication of the left lung Postoperatively patient is doing well lungs are fully expanded and remains on the ventilator The patient improves respiratory ventilator weaning down gradually Antibiotics add to care in face of previous bronchoscopy findings cultures partially back Once we have better picture will adjust antibiotic coverage 07/23/16 Postoperative day 2 from his left thoracoscopic decortication Patient still has slightly elevated ventilator requirements His lung is inflated and there is no evidence of pneumothorax or air leak in the Pleur-evac 07/24/16 Tolerating chest tubes to water seal with minimal output He still has high FiO2 requirement on the ventilator He follows commands when sedation is lightened 07/25/16 Blood cultures came back 1 out of 2 with gram-positive cocci, he is already on vancomycin and Zosyn Slow weaning on the ventilator, chest x-ray remains stable with no evidence of pneumothorax and low chest tube output 07/26/16 Patient has been stable on the ventilator Drainage from the chest tubes has decreased and we will pull tomorrow the posterior chest tube and keep the anterior apical tube in place Patient has severe COPD and compromised lungs in addition to trauma so the pulmonary situation remains precarious Gram-positive cocci as per ID treatment treatment 07/27/16 Patient is gradually weaned and was extubated however asked he cannot clear secretions and while he is breathing is intact his the secretions are this point so I have it is not coughing up and not following commands Patient had to be reintubated the a few hours later Will have tracheostomy tomorrow considering this patient is extremely hard to wean in face of lung contusion heavy secretions as well as underlying severe pulmonary emphysema 07/28/16 As above noted patient was on successfully extubated yesterday had to be reintubated few hours later due to heavy secretions will collapse of the left lower lobe and the inability to ventilate and follow commands Patient underwent today tracheostomy placement and is currently on the ventilator Underwent the extensive bronchoscopy lavage with reinflation of the left upper and lower lobes At this point we'll be able to gradually we the presence of tracheostomy 07/29/2016 PTD: 16 Status post Dobbhoff placement last evening and continuation of tube feeding Patient remains on the ventilator today. He will receive a PEG from GI later today. 07/30/2016 PTD: 17 Pt remains mechanically ventilated. We will attempt a CPAP trial today, to see if we can begin weaning the vent in progression to trach collar. 07/31/2016 PTD: 18 Pt awake on rounds. Mouthing words. Very agitated and impatient. Attempt CPAP trials and progressed to T-piece. After some time on a t-piece, the patient became, agitated, restless, tachypneic and began kicking and thrashing around in the bed. Pt was placed back on previous settings, and sedation resumed for comfort and patient, and staff safety. 08/01/2016 PTD: 19 Patient is on a T piece 40% FiO2. Tolerating well. Sats equal 99% He is awake, mouthing words, and following commands. No distress noted. 08/02/2016 PTD: 20 Patient is wide awake, despite Precedex drip. Chest x-ray looks worse - persistent complete opacification of the left hemithorax. Plan for bronchoscopy at the bedside today 08/03/2016 PTD: 21 Patient in bed, wide awake. Okay to transfer to [facility] - they will be able to complete his bronchoscopy there. 08/04/2016 PTD: 22 Patient awake in bed. No distress noted. Patient will mouth words. Case management is working diligently to get the patient transferred to [facility] further [facility]-term care. 08/05/2016 PTD: 23 Patient awake, he has been on a T piece without incident. Still waiting for authorization to go through so the patient can be transferred to [facility]. He has been discharged for 3 days now. (Beatriz Murrell) Remarks seen and examined with DEVELOPER AUTOMATIC-agree with assessment and plan (Ny Bautista MD) Objective Vital Signs Date Time Temp Pulse Resp B/P Pulse Ox O2 Delivery O2 Flow Rate FiO2 08/05/16 14:00 98 08/05/16 12:05 97 40 08/05/16 12:00 98.7 16 125/72 08/04/16 17:00 T-piece 08/03/16 19:47 6.00 Intake and Output 08/04/16 08/04/16 08/05/16 08:00 16:00 00:00 Intake Total 1255 ml 1293 ml 1034 ml Output Total 1120 ml 875 ml 700 ml Balance 135 ml 418 ml 334 ml (Beatriz Murrell) Imaging Last 24 hours Impressions Chest X-Ray 08/05/16 0600 Signed Impressions: Service Date/Time: July 05:09 - CONCLUSION: No significant interval change in severe bilateral pulmonary parenchymal opacity and bilateral pleural effusions. Stevie Prather MD Objective Remarks GENERAL: This is a 51 year old male mechanically ventilated, remains wide-awake. SKIN: Warm and dry. HEAD: Atraumatic. Normocephalic. EYES: PERRLA ENT: . No nasal bleeding or discharge. Mucous membranes pink and moist. NECK: Midline trach in place. Trachea midline. No JVD. CARDIOVASCULAR: Regular rate and rhythm. HR = 78-86. CM shows sinus rhythm. RESPIRATORY: T piece. No accessory muscle use. Lungs clear upon auscultation , yet decreased throughout. No distress or dyspnea. LEFT lateral CT in place to Pleuravac drainage system. GASTROINTESTINAL: BS + x 4 quads. Abdomen soft, non-tender, nondistended. PEG tube in place with tube feeding. MUSCULOSKELETAL: Extremities without cyanosis, or edema. + peripheral pulses x 4 extremities. Warm with good capillary refill and sensation. MAEW. NEUROLOGICAL: Mechanically ventilated via trach. Awake, mouthing words. (Beatriz Brunner) Urinary Catheter Assessment Urinary Catheter: Yes Assessment to: Continue Date of Insertion: Jul 17, 2016 (Beatriz Murrell) Vascular Central Line Catheter Vascular Central Line Catheter: No (Beatriz Murrell) Assessment and Plan Assessment: (1) Spinal cord injury, cervical region ICD Code: S14.109A Status: Acute (2) Chronic pain ICD Code: G89.29 Status: Acute (3) Closed T8 spinal fracture ICD Code: S22.069A Status: Acute (4) Pneumothorax on left ICD Code: J93.9 Status: Acute (5) Multiple fractures of ribs of left side ICD Code: S22.42XA Status: Acute (6) Traumatic compression fracture of T8 thoracic vertebra ICD Code: S22.060A Status: Acute Plan This is a 51-year-old male 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 He attempted to throw bucket over the side and a cut stuck in his hand and pulled over the side of the roof. He fell from approximately 12 feet and landed on his back. EtOH +. He ambulated at the scene and was able to drive his coworkers home before transporting himself to [facility]. He was then transferred to [facility] for trauma services. He has spent an extended stay in the ICU mechanically ventilated. He has required a trach and PEG. Awaiting long-term placement. INJURIES: T8 compression fx Serial LEFT rib fxs LEFT sided PTX LEFT lung contusion Assessment and plan by systems: NEUROLOGICAL: Patient sedated lightly with Precedex T-piece continues. He is wide awake and mouthing words. Pt is sedated with a RASS score of 1-2 Provide analgesia for comfort and pain - scheduled Roxicodone. Seizure prophylaxis - Keppra for questionable alcoholic seizures HOB elevated 30 degrees. Increased Seroquel 250 mg BID. Serial neuro checks. + peripheral pulses x 4 extremities. Neurosurgery is assisting in care. CARDIOVASCULAR: HR = 79-88 Sinus rhythm BP = 125/72 Continually monitor for hemodynamic instability (shock and hypotension). BP meds - Lopressor 5 IV, Follow CMP Electrolyte protocol in place. RESPIRATORY: T-piece continues at 40 % Patient awake, follows commands. He is restless at times. Mouth's words to communicate. Increase PEEP carefully (to assist in oxygenation by recruiting alveoli.) Weaning - as tolerated O2 Sats Monitor for hypoxemia Follow ABGs - Lung sounds - clear but diminished throughout Pulmonary toilet L&S. Bronchodilators - Breathing treatments duonebs. Chest X-Ray results - no change. Bilateral pulmonary parenchymal opacity and bilateral pleural effusions. Left lateral chest tube in place to Pleur-evac drainage system - Bronchial washings sent 07/28 - left lower lobe - gram-negative rods/ Staphylococcus aureus Sputum culture 07/24: Klebsiella pneumonia. Staphylococcus aureus. Antibiotics -Ancef and Levaquin VAP protocol in place Labs tomorrow Chest X-Ray tomorrow GASTROINTESTINAL: Diet : Tube feeding: JEVITY at 60 cc/hour goal per dietary recommendations. PEG . Bowel sounds - + x 4 quads. Bowel regimen: Johanne-Colace, MOM. Lactulose daily bisacodyl TX PRN. LBM: 08/04 RENAL / URINARY: I&O - -351 BUN / creat 5 / 0.[address] to bedside drainage bag draining clear yellow urine. Urine culture - 07/24 no growth ENDOCRINE: BGM - 131 via AM labs SSI HEMATOLOGY: H&H 8.8 / 26 - monitor closely Continue to monitor for signs and symptoms of bleeding. Evaluate need for IVC filter. Transfuse for < 7.0 Monitor patient for any bleeding complications. INFECTIOUS DISEASE: Follow CBC WBC - 14.3 Fevers -none overnight Administer antipyretics for temp as needed. Blood cultures 07/24: Staphylococcus aureus 08/04: Blood cultures repeated - Bronch washings 07/28: Staphylococcus aureus and Klebsiella pneumonia Urine 07/24: No growth IV antibiotics: Rocephin Monitor pneumonia evolution with repeat chest X-Rays as needed. Maintain vigorous aseptic care of central line to avoid blood stream infections. Consult to ID for further management. LINES: 07/28: Trach 07/29: PEG 07/21: L CT 07/17: F/C PROPHYLAXIS: VAP protocol in place GI: Pepcid po DVT - Mechanical VTE with SCDs. Chemical management with Lovenox 40 SQ daily. SKIN: Warm and dry Daily chest tube dressing changes. Every shift trach care. ACTIVITY: Status - BR When OOB must wear TLSO brace PT and OT ordered. CASE MANAGEMENT: Consulted case management for DC planning. Placement - disposition - [facility]. Case management is working diligently to obtain authorization for placement. Patient has been discharged for 3 days now to [facility]. EMOTIONAL SUPPORT: Provided to patient. Plan of care discussed. Questions answered to the best of my knowledge. Patient is cleared to be discharged to [facility] once authorization complete. This patient is discharged from a trauma surgery standpoint, however awaiting authorization for transfer to [facility]. The trauma team will round , assess and evaluate the patient on a day to day basis. (Beatriz Murrell) Problem Qualifiers (1) Spinal cord injury, cervical region: Qualified Code: S14.109A - Spinal cord injury, cervical region, initial encounter (2) Chronic pain: Qualified Code: G89.4 - Chronic pain syndrome (3) Closed T8 spinal fracture: (4) Multiple fractures of ribs of left side: Qualified Code: S22.42XA - Closed fracture of multiple ribs of left side, initial encounter (5) Traumatic compression fracture of T8 thoracic vertebra: Qualified Code: S22.060K - Traumatic compression fracture of T8 thoracic vertebra, with nonunion, subsequent encounter Beatriz Murrell Aug 05, 2016 15:39 Ny Bautista MD Aug 17, 2016 17:07
[2016-08-05] MEDS: HALOPERIDOL LACTATE 5 MG/ML AMP IV PUSH PRN ×2 (16:48)
[2016-08-05] MEDS: MAGNESIUM HYDROXIDE SUSP 30 ML CUP PO SCH (20:03)
[2016-08-06] VITALS (16 sets, daily range): BP systolic 122–197; BP diastolic 69–97; PULSE 60–96; RESP 14–30; TEMP 98.4–98.6; O2SAT 91–97
[2016-08-06] MEDS: METOPROLOL TARTRATE 5 MG/5 ML VIAL IV PUSH SCH ×4 (02:00→21:00)
[2016-08-06] MEDS: oxyCODONE HCL ORAL CONC 20 MG/ML SYRINGE PO PRN ×3 (02:02→20:58)
[2016-08-06 05:26] LABS: HEMATOCRIT 21.9 % (39.0-51.0); MEAN CELL VOLUME 94.3 FL (80.0-100.0); MEAN CORPUSCULAR HEMOGLOBIN 32.5 PG (27.0-34.0); MEAN CORPUSCULAR HGB CONC 34.5 % (32.0-36.0); PLATELET COUNT 349 TH/MM3 (150-450); RED BLOOD COUNT 2.32 MIL/MM3 (4.50-5.90); RED CELL DISTRIBUTION WIDTH 13.6 % (11.6-17.2); REVIEW FLAG FINAL
[2016-08-06 06:00] LABS: BICARBONATE 28.9 MEQ/L (21.0-32.0); POTASSIUM 3.7 MEQ/L (3.5-5.1)
--- NOTE | 2016-08-06 06:24 | RADRPT ---
EXAM DATE/TIME: 08/06/2016 04:20 [place] COMPARISON: CHEST SINGLE AP, August 05, 2016, 5:09. INDICATIONS : Shortness of breath. MEDICAL HISTORY : None. SURGICAL HISTORY : None. ENCOUNTER: Subsequent ACUITY: 1 month PAIN SCORE: Non-responsive. LOCATION: chest FINDINGS: A single view of the chest demonstrates left chest tube without pneumothorax. Tracheostomy in satisfa ctory position. Bilateral left basilar airspace disease and effusions are similar to August 05. CONCLUSION: 1. Stable exam with bilateral airspace disease and effusions a left chest tube unchanged. Manish Dougherty MD on August 06, 2016 at 6:21 Board Certified Radiologist. This report was verified electronically.
[2016-08-06] MEDS: DEXMEDETOMIDINE INJ 1,000 MCG in SODIUM CHLOR 0.9% 250 ML INJ 240 ML IV SCH ×2 (06:30→21:19)
[2016-08-06] MEDS: ceFAZolin 2 GM PREMIX 50 ML IV SCH ×3 (06:31→23:53)
[2016-08-06] MEDS: oxyCODONE HCL ORAL CONC 20 MG/ML SYRINGE PO SCH ×4 (06:31→23:53)
[2016-08-06] MEDS: CHLORHEXIDINE 0.12% (ORAL KIT) 15 ML CUP MT SCH ×2 (08:00→20:00)
[2016-08-06] MEDS: PANTOPRAZOLE SODIUM 40 MG VIAL IV PUSH SCH (08:18)
[2016-08-06] MEDS: levETIRAcetam INJ 500 MG in SODIUM CHLORIDE 0.9% INJ 100 ML IV SCH ×2 (08:18→20:59)
[2016-08-06] MEDS: LACTULOSE SYRUP 20 GM/30 ML CUP PO SCH (08:18)
[2016-08-06] MEDS: hydrALAZINE HCL 25 MG TAB PO SCH ×2 (08:19→20:57)
[2016-08-06] MEDS: QUEtiapine FUMARATE 100 MG TAB PO SCH ×2 (08:19→20:57)
[2016-08-06] MEDS: DOCUSATE SODIUM 50 MG/SENNA 8.6 MG TAB PO SCH ×2 (08:19→20:59)
[2016-08-06] MEDS: MULTIVITAMINS/IRON/MINERALS CHEWABLE TAB CHEW SCH (11:15)
[2016-08-06] MEDS: ENOXAPARIN SODIUM 40 MG/0.4 ML SYRINGE SQ SCH (11:40)
--- NOTE | 2016-08-06 12:56 | HHI.PR ---
Neuropsych Progress Notes/Response to Tx Contents of Sessions: Adjustment Time with Patient: 15 minutes Premorbid psychological status Premorbid Cognitive, Emotional and Behavioral Status: Tenuous. 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 The patient has prior psychiatric difficulties, and reportedly was on Seroquel 300 mg qHS prior to the accident. Substance abuse history includes TOB and ETOH. Behavioral Reactions of Patient and Family/Support System: Tenuous. The patient has no family stepping up. He was living at a [facility]term [facility] disabled [facility], where reportedly he spent much of the time smoking and drinking. Emotional/Behavioral Status of Patient and Family/Support System: Tenuous. Pertinent issues, if appropriate to this patients clinical care, are described in detail above. Maximizing acute care outcome It is recommended that the patient be monitored for emergent behavioral impulsivity as the medical condition evolves. This patients psychiatric and substance dependence issues will limit their rehabilitation potential going forward, and these challenges will require specialized therapeutic skills to maximize outcome. Anticipated Problems Ongoing areas of concern will include agitation, behavioral impulsivity, lack of insight and judgment, which is unlikely to improve with time or treatment. Treatment Plan This clinician will continue to follow with you throughout the course of this patients rehabilitation treatment, and I will be available to meet with the patients family/support system to facilitate their understanding and the ongoing care of their family member. The goals of neuropsychological intervention shall be both educational and supportive to the family/support system as is deemed clinically appropriate. Diagnosis: (1) Bipolar affective, manic, unspec Status: Chronic Progress Note Narrative Ongoing follow-up of patient during daily trauma rounds. Patient is awaiting transfer to [facility]. His agitation has improved significantly on his original dosages of seroquel. I will continue to follow until he is discharged. Bernard Higgins PhD Aug 06, 2016 12:56 pm
[2016-08-06] MEDS: LEVOFLOXACIN 750 MG PREMIX INJ 150 ML IV SCH (14:52)
--- NOTE | 2016-08-06 16:18 | HHI.CCPN ---
Subjective Brief History History of Present Illness This patient is a 51 year old male who presents to the [facility] emergency department as transfer from [facility]. He sustained a fall from the roof while he was working. This was a 12 foot roof and he landed on his back. He drove his coworkers home, prior to going to the emergency department. He was found to have multiple left-sided rib fractures, compression fracture of T8, left-sided pneumothorax and L lung contusion, for which a large bore chest tube was placed. The patients laboratory studies were remarkable for a white count of 12.2, potassium 3.0, alcohol level 150. Patient was transferred to surgical ICU with above-noted injuries It is conceivable that patient had aspirated at the time of event PMHx: Cervical spine fusion with halo placement, trigger finger, HTN, seizures, 1 PPD smoker, ETOH (drinks 8-12 12oz [place] Hard Lemonade daily) PAIN MANAGEMENT INJURIES: T8 compression fx Serial LEFT rib fxs LEFT sided PTX LEFT lung contusion Procedures: 07/12: LEFT CT (placed by [facility]) 07/16: Intubation and BRONCH 07/17: extubated 07/20: INTUBATION and BRONCH again 07/21: LEFT thoracoscopy; evacuation of empyema and decortication of the lung 07/27: Extubate & reintubated d/t secretions 07/28: Bedside trach 07/29: PEG I 24 Hour Review/Hospital Course Since arrival to the ICU patient has been stable He is awake alert and oriented He is severe left chest pain and back pain which is currently managed Neurosurgery has been consult is regarding the compression fracture of T8 and additional studies have been ordered Pulmonary contusion is severe and patient will likely get worse before he gets better as far as respiratory system is concerned for aspiration has most likely occurred at the time of the accident 07/16/2016 Patient was transferred to the floor 2 days ago and the has been doing well however became somewhat short of breath and repeat CAT scan was ordered which reveals complete collapse of the left lung with inspissated secretions and the collecting fluid around the lung Patient was transferred back to the ICU and remains well oxygenated on the 6 L nasal cannula nonetheless the left lung is completely atelectatic Today patient was intubated bronchoscoping and large amount of mucous material was obtained while the left lung reexpanded Drainage from the chest tube has also increased significantly pushing out all the fluid as the lung is reexpanded Will keep patient on the ventilator total tomorrow and then reassess needing possibly another bronchoscopy and then we'll work toward extubation 07/17/2016 As above noted patient has been intubated bronchoscoping has been doing well on the ventilator and is now successfully extubated All things equal patient will be able to return to the floor either today or tomorrow Chest tube drainage has decreased after being increased for about 24 hours and is serosanguineous and straw-colored Bilateral breath sounds 07/18/16 Since the bronchoscopy intubation and now after extubation patient has been ventilating nicely Chest tube drainage is about 400 cc per last 24 hours and it straw-colored This is inflammatory reaction the pleura which is slowly resolving so we will leave chest tube in place for this purpose Patient is still sort of somnolent in bed although the takes by mouth when asked questions he answers them appropriately but mumbles it, and remains somnolent Does not participate with care Does not cooperating with physical and occupational therapy or the nurses Asking for pain medication 07/19/2016 Patient is awake but slightly somnolent but oriented in time and space Patient requires increased amount of oxygen and this is a consistent with his anatomic and physiologic injuries Repeat CT scan of the chest reveals collapse of the left lower and part of the upper lobe with air-fluid level in the chest and partial collapse of the left lung Chest tube remains in place The partial anterior pneumothorax is due to the fact the patient was of suction when he went down to the radiology At this point patient will need to be intubated ventilated and bronchoscope the clearing of the secretions He may need prolonged intubation at this time and probably upon the evaluation the bronchial tree will decide whether patient needs a tracheostomy in the near future The interlobar bled could of course be due to the bronchial disruption but there is no need for surgery on this for it will eventually heal on its own The main thing is to support patient's respiration and pulmonary function 07/20/16 Patient has a had decreasing left lung function with the increasing levels consolidation and atelectasis Finally required intubation this morning with the bronchoscopy and clearing of the lung Massive amounts of mucous and purulent appearing material were obtained from the left lung Patient remains on the ventilator 07/22/2016 Patient status post left VATS evacuation of a loculated hemothorax and decortication of the left lung Postoperatively patient is doing well lungs are fully expanded and remains on the ventilator The patient improves respiratory ventilator weaning down gradually Antibiotics add to care in face of previous bronchoscopy findings cultures partially back Once we have better picture will adjust antibiotic coverage 07/23/16 Postoperative day 2 from his left thoracoscopic decortication Patient still has slightly elevated ventilator requirements His lung is inflated and there is no evidence of pneumothorax or air leak in the Pleur-evac 07/24/16 Tolerating chest tubes to water seal with minimal output He still has high FiO2 requirement on the ventilator He follows commands when sedation is lightened 07/25/16 Blood cultures came back 1 out of 2 with gram-positive cocci, he is already on vancomycin and Zosyn Slow weaning on the ventilator, chest x-ray remains stable with no evidence of pneumothorax and low chest tube output 07/26/16 Patient has been stable on the ventilator Drainage from the chest tubes has decreased and we will pull tomorrow the posterior chest tube and keep the anterior apical tube in place Patient has severe COPD and compromised lungs in addition to trauma so the pulmonary situation remains precarious Gram-positive cocci as per ID treatment treatment 07/27/16 Patient is gradually weaned and was extubated however asked he cannot clear secretions and while he is breathing is intact his the secretions are this point so I have it is not coughing up and not following commands Patient had to be reintubated the a few hours later Will have tracheostomy tomorrow considering this patient is extremely hard to wean in face of lung contusion heavy secretions as well as underlying severe pulmonary emphysema 07/28/16 As above noted patient was on successfully extubated yesterday had to be reintubated few hours later due to heavy secretions will collapse of the left lower lobe and the inability to ventilate and follow commands Patient underwent today tracheostomy placement and is currently on the ventilator Underwent the extensive bronchoscopy lavage with reinflation of the left upper and lower lobes At this point we'll be able to gradually we the presence of tracheostomy 07/29/2016 PTD: 16 Status post Dobbhoff placement last evening and continuation of tube feeding Patient remains on the ventilator today. He will receive a PEG from GI later today. 07/30/2016 PTD: 17 Pt remains mechanically ventilated. We will attempt a CPAP trial today, to see if we can begin weaning the vent in progression to trach collar. 07/31/2016 PTD: 18 Pt awake on rounds. Mouthing words. Very agitated and impatient. Attempt CPAP trials and progressed to T-piece. After some time on a t-piece, the patient became, agitated, restless, tachypneic and began kicking and thrashing around in the bed. Pt was placed back on previous settings, and sedation resumed for comfort and patient, and staff safety. 08/01/2016 PTD: 19 Patient is on a T piece 40% FiO2. Tolerating well. Sats equal 99% He is awake, mouthing words, and following commands. No distress noted. 08/02/2016 PTD: 20 Patient is wide awake, despite Precedex drip. Chest x-ray looks worse - persistent complete opacification of the left hemithorax. Plan for bronchoscopy at the bedside today 08/03/2016 PTD: 21 Patient in bed, wide awake. Okay to transfer to [facility] - they will be able to complete his bronchoscopy there. 08/04/2016 PTD: 22 Patient awake in bed. No distress noted. Patient will mouth words. Case management is working diligently to get the patient transferred [facility]. 08/05/2016 PTD: 23 Patient awake, he has been on a T piece without incident. Still waiting for authorization to go through so the patient can be transferred to [facility]. He has been discharged for 3 days now. 08/06/2016 PTD: 24 Pt rests on vent settings over night, and tolerates a T-piece during the day. Just waiting on his insurance to authorize [facility]. (Beatriz Murrell) Objective Vital Signs Date Time Temp Pulse Resp B/P Pulse Ox O2 Delivery O2 Flow Rate FiO2 08/06/16 14:00 68 08/06/16 12:00 98.4 15 135/83 95 08/06/16 08:00 T-piece 40 Intake and Output 08/05/16 08/05/16 08/06/16 08:00 16:00 00:00 Intake Total 992 ml 916 ml 992 ml Output Total 1550 ml 1300 ml 670 ml Balance -558 ml -384 ml 322 ml (Beatriz Murrell) Result Diagram: 08/06/16 0509 08/06/16 0509 Imaging Last 24 hours Impressions Chest X-Ray 08/06/16 0600 Signed Impressions: Service Date/Time: Saturday, August 06, 2016 04:20 - CONCLUSION: 1. Stable exam with bilateral airspace disease and effusions a left chest tube unchanged. Manish Dougherty MD Objective Remarks GENERAL: This is a 51 year old male mechanically ventilated, remains wide-awake. SKIN: Warm and dry. HEAD: Atraumatic. Normocephalic. EYES: PERRLA ENT: . No nasal bleeding or discharge. Mucous membranes pink and moist. NECK: Midline trach in place. Trachea midline. No JVD. CARDIOVASCULAR: Regular rate and rhythm. HR = 68-87. CM shows sinus rhythm. RESPIRATORY: T piece. No accessory muscle use. Lungs clear upon auscultation , yet decreased throughout. No distress or dyspnea. LEFT lateral CT in place to Pleuravac drainage system. GASTROINTESTINAL: BS + x 4 quads. Abdomen soft, non-tender, nondistended. PEG tube in place with tube feeding. MUSCULOSKELETAL: Extremities without cyanosis, or edema. + peripheral pulses x 4 extremities. Warm with good capillary refill and sensation. MAEW. NEUROLOGICAL: T-piece via trach. Awake, mouthing words. (Beatriz Murrell) Urinary Catheter Assessment Urinary Catheter: Yes Assessment to: Continue Date of Insertion: Jul 17, 2016 (Beatriz Murrell) Vascular Central Line Catheter Vascular Central Line Catheter: No (Beatriz Murrell) Assessment and Plan Assessment: (1) Spinal cord injury, cervical region ICD Code: S14.109A Status: Acute (2) Chronic pain ICD Code: G89.29 Status: Acute (3) Closed T8 spinal fracture ICD Code: S22.069A Status: Acute (4) Pneumothorax on left ICD Code: J93.9 Status: Acute (5) Multiple fractures of ribs of left side ICD Code: S22.42XA Status: Acute (6) Traumatic compression fracture of T8 thoracic vertebra ICD Code: S22.060A Status: Acute Plan This is a 51-year-old male 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 He attempted to throw bucket over the side and a cut stuck in his hand and pulled over the side of the roof. He fell from approximately 12 feet and landed on his back. EtOH +. He ambulated at the scene and was able to drive his coworkers home before transporting himself to [facility]. He was then transferred to [place] for trauma services. He has spent an extended stay in the ICU mechanically ventilated. He has required a trach and PEG. Awaiting long-term placement. INJURIES: T8 compression fx Serial LEFT rib fxs LEFT sided PTX LEFT lung contusion Assessment and plan by systems: NEUROLOGICAL: Patient sedated lightly with Precedex T-piece continues. He is wide awake and mouthing words. Pt is sedated with a RASS score of 1-2 Provide analgesia for comfort and pain - scheduled Roxicodone. Seizure prophylaxis - Keppra for questionable alcoholic seizures HOB elevated 30 degrees. Increased Seroquel 250 mg BID. Serial neuro checks. + peripheral pulses x 4 extremities. Neurosurgery is assisting in care. CARDIOVASCULAR: HR = 68-89 Sinus rhythm BP = 135/83 Continually monitor for hemodynamic instability (shock and hypotension). BP meds - Lopressor 5 IV, Follow CMP Electrolyte protocol in place. RESPIRATORY: T-piece continues at 40 % Patient awake, follows commands. He is restless at times. Mouth's words to communicate. Increase PEEP carefully (to assist in oxygenation by recruiting alveoli.) Weaning - as tolerated O2 Sats Monitor for hypoxemia Follow ABGs - Lung sounds - clear but diminished throughout Pulmonary toilet L&S. Bronchodilators - Breathing treatments duonebs. Chest X-Ray results - no change. Bilateral pulmonary parenchymal opacity and bilateral pleural effusions. Left lateral chest tube in place to Pleur-evac drainage system - Bronchial washings sent 07/28 - left lower lobe - gram-negative rods/ Staphylococcus aureus Sputum culture 07/24: Klebsiella pneumonia. Staphylococcus aureus. Antibiotics -Ancef and Levaquin VAP protocol in place Labs tomorrow Chest X-Ray tomorrow GASTROINTESTINAL: Diet : Tube feeding: JEVITY at 60 cc/hour goal per dietary recommendations. PEG . Bowel sounds - + x 4 quads. Bowel regimen: Johanne-Colace, MOM. Lactulose daily bisacodyl NE PRN. LBM: 08/05 RENAL / URINARY: I&O - 294 BUN / creat 5 / 0.[address] to bedside drainage bag draining clear yellow urine. Urine culture - 07/24 no growth ENDOCRINE: BGM - 100 via AM labs SSI HEMATOLOGY: H&H 7.6 / 21.9 - monitor closely Continue to monitor for signs and symptoms of bleeding. Evaluate need for IVC filter. Transfuse for < 7.0 Monitor patient for any bleeding complications. INFECTIOUS DISEASE: Follow CBC WBC - 7.0 Fevers -none overnight Administer antipyretics for temp as needed. Blood cultures 07/24: Staphylococcus aureus 08/04: Blood cultures repeated - Bronch washings 07/28: Staphylococcus aureus and Klebsiella pneumonia Urine 07/24: No growth IV antibiotics: Ancef and Levaquin Monitor pneumonia evolution with repeat chest X-Rays as needed. Maintain vigorous aseptic care of central line to avoid blood stream infections. Consult to ID for further management. LINES: 07/28: Trach 07/29: PEG 07/21: L CT 07/17: F/C PROPHYLAXIS: VAP protocol in place GI: Pepcid po DVT - Mechanical VTE with SCDs. Chemical management with Lovenox 40 SQ daily. SKIN: Warm and dry Daily chest tube dressing changes. Every shift trach care. ACTIVITY: Status - BR When OOB must wear TLSO brace PT and OT ordered. CASE MANAGEMENT: Consulted case management for DC planning. Placement - disposition - [facility]. Case management is working diligently to obtain authorization for placement. Patient has been discharged for 3 days now to [facility]. However, his insurance will not authorize his transfer to [facility]. EMOTIONAL SUPPORT: Provided to patient. Plan of care discussed. Questions answered to the best of my knowledge. Patient has been discharged to [facility] once authorization complete or any LTAC that will accept him for admission and continued care.. This patient is discharged from a trauma surgery standpoint, however awaiting authorization for transfer to LTAC. The trauma team will round, assess and evaluate the patient on a day to day basis. (Beatriz Murrell) Attestation The exam, history, and the medical decision-making described in the above note were completed with the assistance of the mid-level provider. I reviewed and agree with the findings presented. I attest that I had a [id number] encounter with the patient on the same day, and personally performed and documented my assessment and findings in the medical record. Critical care time 35 minutes. (Blair Cartagena MD) Problem Qualifiers (1) Spinal cord injury, cervical region: Qualified Code: S14.109A - Spinal cord injury, cervical region, initial encounter (2) Chronic pain: Qualified Code: G89.4 - Chronic pain syndrome (3) Closed T8 spinal fracture: (4) Multiple fractures of ribs of left side: Qualified Code: S22.42XA - Closed fracture of multiple ribs of left side, initial encounter (5) Traumatic compression fracture of T8 thoracic vertebra: Qualified Code: S22.060K - Traumatic compression fracture of T8 thoracic vertebra, with nonunion, subsequent encounter Beatriz Murrell Aug 06, 2016 16:17 Blair Cartagena MD Aug 12, 2016 17:17
[2016-08-06] MEDS: HALOPERIDOL LACTATE 5 MG/ML AMP IV PUSH PRN ×2 (17:21→17:28)
--- NOTE | 2016-08-06 19:51 | HHI.IDPN ---
Subjective Subjective Remarks tolerating Tpiece afebrile alert WBC went up CT showed L sided hydrothorax Antibiotics levaquine cefazoline Allergies: Coded Allergies: No Known Allergies (Unverified , 07/13/16) Objective . Vital Signs Date Time Temp Pulse Resp B/P Pulse Ox O2 Delivery O2 Flow Rate FiO2 08/06/16 18:00 87 08/06/16 16:00 98.4 75 19 161/83 93 08/06/16 16:00 75 08/06/16 14:00 68 08/06/16 12:00 71 08/06/16 12:00 98.4 71 15 135/83 95 08/06/16 10:00 87 08/06/16 08:00 76 08/06/16 08:00 98.4 76 30 157/82 92 08/06/16 08:00 97 T-piece 40 08/06/16 07:50 97 40 08/06/16 06:00 75 08/06/16 04:39 94 40 08/06/16 04:00 72 08/06/16 04:00 98.6 72 28 122/69 94 08/06/16 02:00 70 08/06/16 01:13 97 40 08/06/16 00:00 60 08/06/16 00:00 98.4 60 14 152/81 97 08/05/16 22:00 62 08/05/16 20:06 100 40 08/05/16 20:00 98.2 82 25 130/68 98 08/05/16 20:00 82 08/05/16 08/05/16 08/06/16 15:00 23:00 07:00 Intake Total 916 ml 992 ml 966 ml Output Total 1300 ml 670 ml 610 ml Balance -384 ml 322 ml 356 ml Intake Oral 100 ml IV Total 600 ml 694 ml 621 ml Tube Feeding 156 ml 238 ml 225 ml Other 60 ml 60 ml 120 ml Output Urine Total 1150 ml 650 ml 600 ml Chest Tube Drainage Total 150 ml 20 ml 10 ml # Bowel Movements 0 0 0 . Laboratory Tests Test 08/05/16 08/06/16 04:11 05:09 White Blood Count 14.3 TH/MM3 7.0 TH/MM3 Red Blood Count 2.77 MIL/MM3 2.32 MIL/MM3 Hemoglobin 8.8 GM/DL 7.6 GM/DL Hematocrit 26.0 % 21.9 % Mean Corpuscular Volume 93.7 FL 94.3 FL Mean Corpuscular Hemoglobin 31.7 PG 32.5 PG Mean Corpuscular Hemoglobin 33.8 % 34.5 % Concent Red Cell Distribution Width 13.7 % 13.6 % Platelet Count 565 TH/MM3 349 TH/MM3 Mean Platelet Volume 7.4 FL 7.1 FL Laboratory Tests Test 08/05/16 08/06/16 04:11 05:09 Sodium Level 138 MEQ/L 139 MEQ/L Potassium Level 3.5 MEQ/L 3.7 MEQ/L Chloride Level 103 MEQ/L 104 MEQ/L Carbon Dioxide Level 26.6 MEQ/L 28.9 MEQ/L Anion Gap 8 MEQ/L 6 MEQ/L Blood Urea Nitrogen 5 MG/DL 5 MG/DL Creatinine 0.59 MG/DL 0.62 MG/DL Estimat Glomerular Filtration 144 ML/MIN 136 ML/MIN Rate Random Glucose 131 MG/DL 100 MG/DL Calcium Level 7.9 MG/DL 7.8 MG/DL Magnesium Level 1.5 MG/DL Microbiology Date/Time Procedure Status Source Growth 08/04/16 15:25 Aerobic Blood Culture - Preliminary Resulted Blood Peripheral NO GROWTH IN 2 DAYS 08/04/16 15:25 Anaerobic Blood Culture - Preliminary Resulted Blood Peripheral NO GROWTH IN 2 DAYS 08/04/16 15:33 Aerobic Blood Culture - Preliminary Resulted Blood Peripheral NO GROWTH IN 2 DAYS 08/04/16 15:33 Anaerobic Blood Culture - Preliminary Resulted Blood Peripheral NO GROWTH IN 2 DAYS Imaging Last Impressions Chest X-Ray 08/06/16 0600 Signed Impressions: Service Date/Time: Saturday, August 06, 2016 04:20 - CONCLUSION: 1. Stable exam with bilateral airspace disease and effusions a left chest tube unchanged. Manish Dougherty MD Chest CT 08/02/16 0000 Signed Impressions: Service Date/Time: Tuesday, August 02, 2016 22:56 - CONCLUSION: 1. Bilateral pulmonary parenchymal opacity and bilateral pleural effusions. The parenchymal opacity is more severe on the left. The pleural effusion is larger on the right. Differential diagnosis for these findings includes pulmonary edema and infection. There is diffuse superficial soft tissue edema. 2. There is a 6 cm rounded fluid filled cavity in the lower lobe on the left. Previously this contained and air-fluid level. 3. Hydropneumothorax is again seen on the left with pneumothorax component smaller than on the previous study. Left-sided chest tube remains in place. 4. Multiple left-sided rib fractures again seen. Stevie Prather MD Abdomen X-Ray 07/28/16 0000 Signed Impressions: Service Date/Time: Thursday, July 28, 2016 17:45 - CONCLUSION: Tip of the Dobbhoff feeding tube is in the mid stomach. Toñito Bacon MD Head CT 07/19/16 0000 Signed Impressions: Service Date/Time: Tuesday, July 19, 2016 13:25 - CONCLUSION: Negative for an acute process. Cory Butts MD FACR Thoracic Spine CT 07/13/16 0000 Signed Impressions: Service Date/Time: Wednesday, July 13, 2016 08:51 - CONCLUSION: T8 compressive deformity as described in detail above with appearance suggestive of an old injury, however some degree of acute or subacute progression cannot be excluded. If it would affect clinical management, injury could be further characterized with MRI. Toñito Cisneros MD Physical Exam CONSTITUTIONAL/GENERAL: This is an adequately nourished patient, in no apparent distress. sedated int'd on [facility] vent'n SKIN: No jaundice, rashes, or lesions. Skin temperature appropriate. Not diaphoretic. EYES: Pupils equal and round and reactive. Extraocular motions intact. No scleral icterus. No injection or drainage. Fundi not examined. ENT: oral mucosae moist NECK: trach in place, site [place] CARDIOVASCULAR: Regular rate and rhythm without murmurs, gallops, or rubs. No JVD. Peripheral pulses symmetric. RESPIRATORY/CHEST: Symmetric, unlabored respirations. Clear to auscultation. CT in place w serosag dc; GASTROINTESTINAL: Abdomen soft, non-tender, nondistended. No hepato-splenomegaly , or palpable masses. No guarding. Bowel sounds present. GENITOURINARY: Without palpable bladder distension. Dinero catheter in place. MUSCULOSKELETAL: Extremities without clubbing, cyanosis, + soft 2+ pitting edema. No mottling or clubbing. NEUROLOGICAL: awake, makes eye contact, communicates via mouthing words and following commands Assessment & Plan Remarks L lung pulm contusion L PNA, Kleb, MSSA - has been on appropriate abx > 1 week - worsening CXR MSSA bacteremia, low grade - 2 D echo neg for vegg's Acute VDRF, failure to wean ETOHism and tobaccoism - fu repeat blood clx untill final - cont cefazoline -cont levaquine - repeat sputum clx dw Martine Courtney MD Aug 06, 2016 19:51
[2016-08-06] MEDS: MAGNESIUM HYDROXIDE SUSP 30 ML CUP PO SCH (20:57)
[2016-08-07] VITALS (12 sets, daily range): BP systolic 134–170; BP diastolic 83–98; PULSE 68–104; RESP 19–33; TEMP 98.5–99.2; O2SAT 65–99
[2016-08-07] MEDS: HALOPERIDOL LACTATE 5 MG/ML AMP IV PUSH PRN ×3 (02:36→14:46)
[2016-08-07] MEDS: METOPROLOL TARTRATE 5 MG/5 ML VIAL IV PUSH SCH ×5 (03:00→20:39)
[2016-08-07] MEDS: oxyCODONE HCL ORAL CONC 20 MG/ML SYRINGE PO PRN ×3 (03:28→18:43)
[2016-08-07] MEDS: RESP: ALBUTEROL 2.5 MG/IPRATROPIUM 0.5 MG NEB (PRN) NEB (04:01)
[2016-08-07] MEDS: oxyCODONE HCL ORAL CONC 20 MG/ML SYRINGE PO SCH ×4 (05:20→22:18)
[2016-08-07] MEDS: ceFAZolin 2 GM PREMIX 50 ML IV SCH ×3 (05:21→22:17)
[2016-08-07] MEDS: DEXMEDETOMIDINE INJ 1,000 MCG in SODIUM CHLOR 0.9% 250 ML INJ 240 ML IV SCH (06:10)
[2016-08-07 06:18] LABS: AUTOMATED NEUTROPHIL # 7.5 TH/MM3 (1.8-7.7); BASOPHIL # 0.1 TH/MM3 (0-0.2); BASOPHIL % 0.7 % (0.0-2.0); EOSINOPHIL # 0.1 TH/MM3 (0-0.4); EOSINOPHIL % 0.9 % (0.0-4.0); HEMATOCRIT 24.7 % (39.0-51.0); HEMO FLAGS DIFF FINAL; LYMPH % 11.7 % (9.0-44.0); LYMPHOCYTE # 1.1 TH/MM3 (1.0-4.8); MEAN CELL VOLUME 93.5 FL (80.0-100.0); MEAN CORPUSCULAR HEMOGLOBIN 32.1 PG (27.0-34.0); MEAN CORPUSCULAR HGB CONC 34.3 % (32.0-36.0); MONO % 10.2 % (0.0-8.0); NEUT % 76.5 % (16.0-70.0); PLATELET COUNT 387 TH/MM3 (150-450); RED BLOOD COUNT 2.64 MIL/MM3 (4.50-5.90); RED CELL DISTRIBUTION WIDTH 13.4 % (11.6-17.2); WHITE BLOOD COUNT 9.7 TH/MM3 (4.0-11.0)
[2016-08-07 06:45] LABS: ANION GAP 9 MEQ/L (5-15); AST (GOT) 15 U/L (15-37); BICARBONATE 27.8 MEQ/L (21.0-32.0); BLOOD UREA NITROGEN 5 MG/DL (7-18); CHLORIDE 102 MEQ/L (98-107); GLOMERULAR FILTRATION RATE 115 ML/MIN (>89); MAGNESIUM 1.6 MG/DL (1.5-2.5); POTASSIUM 3.4 MEQ/L (3.5-5.1); SODIUM (NA) 139 MEQ/L (136-145)
[2016-08-07 06:47] LABS: ALKALINE PHOSPHATASE 110 U/L (45-117); ALT (GPT) 8 U/L (12-78); TOTAL BILIRUBIN ADULT 0.2 MG/DL (0.2-1.0)
--- NOTE | 2016-08-07 07:29 | RADRPT ---
EXAM DATE/TIME: 08/07/2016 04:48 [place] COMPARISON: CHEST SINGLE AP, August 06, 2016, 4:20. INDICATIONS : Shortness of breath. MEDICAL HISTORY : Hypertension. SURGICAL HISTORY : None. ENCOUNTER: Subsequent ACUITY: 3 weeks PAIN SCORE: Non-responsive. LOCATION: Bilateral chest FINDINGS: A single view of the chest demonstrates left chest tube with an increase in left hemithorax opacity l ikely from atelectasis in the left lung and mediastinal shift from right to left. Right basilar airsp tenzin disease and effusion remain. Tracheostomy unchanged. CONCLUSION: 1. Increase in opacity of the left hemithorax with volume loss compared with August 06, likely near co mplete atelectasis of the left lung with probable small left effusion. Left chest tube remains in kaylin ce. Stable right pleural effusion and basilar airspace disease. Manish Dougherty MD on August 07, 2016 at 7:27 Board Certified Radiologist. This report was verified electronically.
[2016-08-07] MEDS: CHLORHEXIDINE 0.12% (ORAL KIT) 15 ML CUP MT SCH ×2 (08:00→20:00)
[2016-08-07] MEDS: levETIRAcetam INJ 500 MG in SODIUM CHLORIDE 0.9% INJ 100 ML IV SCH ×2 (08:33→20:39)
[2016-08-07] MEDS: DOCUSATE SODIUM 50 MG/SENNA 8.6 MG TAB PO SCH ×2 (08:34→20:39)
[2016-08-07] MEDS: PANTOPRAZOLE SODIUM 40 MG VIAL IV PUSH SCH (08:34)
[2016-08-07] MEDS: QUEtiapine FUMARATE 100 MG TAB PO SCH ×2 (08:34→20:41)
[2016-08-07] MEDS: MULTIVITAMINS/IRON/MINERALS CHEWABLE TAB CHEW SCH (08:35)
[2016-08-07] MEDS: LACTULOSE SYRUP 20 GM/30 ML CUP PO SCH (08:35)
[2016-08-07] MEDS: hydrALAZINE HCL 25 MG TAB PO SCH ×2 (08:35→20:39)
[2016-08-07] MEDS: ENOXAPARIN SODIUM 40 MG/0.4 ML SYRINGE SQ SCH (12:09)
[2016-08-07] MEDS: LEVOFLOXACIN 750 MG PREMIX INJ 150 ML IV SCH (14:43)
--- NOTE | 2016-08-07 17:02 | HHI.CCPN ---
Subjective Brief History History of Present Illness This patient is a 51 year old male who presents to the [facility] emergency department as transfer from [facility]. He sustained a fall from the roof while he was working. This was a 12 foot roof and he landed on his back. He drove his coworkers home, prior to going to the emergency department. He was found to have multiple left-sided rib fractures, compression fracture of T8, left-sided pneumothorax and L lung contusion, for which a large bore chest tube was placed. The patients laboratory studies were remarkable for a white count of 12.2, potassium 3.0, alcohol level 150. Patient was transferred to surgical ICU with above-noted injuries It is conceivable that patient had aspirated at the time of event PMHx: Cervical spine fusion with halo placement, trigger finger, HTN, seizures, 1 PPD smoker, ETOH (drinks 8-12 12oz [place] Hard Lemonade daily) PAIN MANAGEMENT INJURIES: T8 compression fx Serial LEFT rib fxs LEFT sided PTX LEFT lung contusion Procedures: 07/12: LEFT CT (placed by [facility]) 07/16: Intubation and BRONCH 07/17: extubated 07/20: INTUBATION and BRONCH again 07/21: LEFT thoracoscopy; evacuation of empyema and decortication of the lung 07/27: Extubate & reintubated d/t secretions 07/28: Bedside trach 07/29: PEG I 24 Hour Review/Hospital Course Since arrival to the ICU patient has been stable He is awake alert and oriented He is severe left chest pain and back pain which is currently managed Neurosurgery has been consult is regarding the compression fracture of T8 and additional studies have been ordered Pulmonary contusion is severe and patient will likely get worse before he gets better as far as respiratory system is concerned for aspiration has most likely occurred at the time of the accident 07/16/2016 Patient was transferred to the floor 2 days ago and the has been doing well however became somewhat short of breath and repeat CAT scan was ordered which reveals complete collapse of the left lung with inspissated secretions and the collecting fluid around the lung Patient was transferred back to the ICU and remains well oxygenated on the 6 L nasal cannula nonetheless the left lung is completely atelectatic Today patient was intubated bronchoscoping and large amount of mucous material was obtained while the left lung reexpanded Drainage from the chest tube has also increased significantly pushing out all the fluid as the lung is reexpanded Will keep patient on the ventilator total tomorrow and then reassess needing possibly another bronchoscopy and then we'll work toward extubation 07/17/2016 As above noted patient has been intubated bronchoscoping has been doing well on the ventilator and is now successfully extubated All things equal patient will be able to return to the floor either today or tomorrow Chest tube drainage has decreased after being increased for about 24 hours and is serosanguineous and straw-colored Bilateral breath sounds 07/18/16 Since the bronchoscopy intubation and now after extubation patient has been ventilating nicely Chest tube drainage is about 400 cc per last 24 hours and it straw-colored This is inflammatory reaction the pleura which is slowly resolving so we will leave chest tube in place for this purpose Patient is still sort of somnolent in bed although the takes by mouth when asked questions he answers them appropriately but mumbles it, and remains somnolent Does not participate with care Does not cooperating with physical and occupational therapy or the nurses Asking for pain medication 07/19/2016 Patient is awake but slightly somnolent but oriented in time and space Patient requires increased amount of oxygen and this is a consistent with his anatomic and physiologic injuries Repeat CT scan of the chest reveals collapse of the left lower and part of the upper lobe with air-fluid level in the chest and partial collapse of the left lung Chest tube remains in place The partial anterior pneumothorax is due to the fact the patient was of suction when he went down to the radiology At this point patient will need to be intubated ventilated and bronchoscope the clearing of the secretions He may need prolonged intubation at this time and probably upon the evaluation the bronchial tree will decide whether patient needs a tracheostomy in the near future The interlobar bled could of course be due to the bronchial disruption but there is no need for surgery on this for it will eventually heal on its own The main thing is to support patient's respiration and pulmonary function 07/20/16 Patient has a had decreasing left lung function with the increasing levels consolidation and atelectasis Finally required intubation this morning with the bronchoscopy and clearing of the lung Massive amounts of mucous and purulent appearing material were obtained from the left lung Patient remains on the ventilator 07/22/2016 Patient status post left VATS evacuation of a loculated hemothorax and decortication of the left lung Postoperatively patient is doing well lungs are fully expanded and remains on the ventilator The patient improves respiratory ventilator weaning down gradually Antibiotics add to care in face of previous bronchoscopy findings cultures partially back Once we have better picture will adjust antibiotic coverage 07/23/16 Postoperative day 2 from his left thoracoscopic decortication Patient still has slightly elevated ventilator requirements His lung is inflated and there is no evidence of pneumothorax or air leak in the Pleur-evac 07/24/16 Tolerating chest tubes to water seal with minimal output He still has high FiO2 requirement on the ventilator He follows commands when sedation is lightened 07/25/16 Blood cultures came back 1 out of 2 with gram-positive cocci, he is already on vancomycin and Zosyn Slow weaning on the ventilator, chest x-ray remains stable with no evidence of pneumothorax and low chest tube output 07/26/16 Patient has been stable on the ventilator Drainage from the chest tubes has decreased and we will pull tomorrow the posterior chest tube and keep the anterior apical tube in place Patient has severe COPD and compromised lungs in addition to trauma so the pulmonary situation remains precarious Gram-positive cocci as per ID treatment treatment 07/27/16 Patient is gradually weaned and was extubated however asked he cannot clear secretions and while he is breathing is intact his the secretions are this point so I have it is not coughing up and not following commands Patient had to be reintubated the a few hours later Will have tracheostomy tomorrow considering this patient is extremely hard to wean in face of lung contusion heavy secretions as well as underlying severe pulmonary emphysema 07/28/16 As above noted patient was on successfully extubated yesterday had to be reintubated few hours later due to heavy secretions will collapse of the left lower lobe and the inability to ventilate and follow commands Patient underwent today tracheostomy placement and is currently on the ventilator Underwent the extensive bronchoscopy lavage with reinflation of the left upper and lower lobes At this point we'll be able to gradually we the presence of tracheostomy 07/29/2016 PTD: 16 Status post Dobbhoff placement last evening and continuation of tube feeding Patient remains on the ventilator today. He will receive a PEG from GI later today. 07/30/2016 PTD: 17 Pt remains mechanically ventilated. We will attempt a CPAP trial today, to see if we can begin weaning the vent in progression to trach collar. 07/31/2016 PTD: 18 Pt awake on rounds. Mouthing words. Very agitated and impatient. Attempt CPAP trials and progressed to T-piece. After some time on a t-piece, the patient became, agitated, restless, tachypneic and began kicking and thrashing around in the bed. Pt was placed back on previous settings, and sedation resumed for comfort and patient, and staff safety. 08/01/2016 PTD: 19 Patient is on a T piece 40% FiO2. Tolerating well. Sats equal 99% He is awake, mouthing words, and following commands. No distress noted. 08/02/2016 PTD: 20 Patient is wide awake, despite Precedex drip. Chest x-ray looks worse - persistent complete opacification of the left hemithorax. Plan for bronchoscopy at the bedside today 08/03/2016 PTD: 21 Patient in bed, wide awake. Okay to transfer to [facility] - they will be able to complete his bronchoscopy there. 08/04/2016 PTD: 22 Patient awake in bed. No distress noted. Patient will mouth words. Case management is working diligently to get the patient transferred [facility]. 08/05/2016 PTD: 23 Patient awake, he has been on a T piece without incident. Still waiting for authorization to go through so the patient can be transferred to [facility]. He has been discharged for 3 days now. 08/06/2016 PTD: 24 Pt rests on vent settings over night, and tolerates a T-piece during the day. Just waiting on his insurance to authorize [facility]. 08/07/16 Patient off the respirator on trach collar Swallow study okay patient is eating regular diet At this point patient does not require ICU care any more but insurance denied placement in the rehabilitation as we were hoping for Patient therefore remains in the ICU for his complexity of care exceeds regular floor and he would certainly bounced back problems Deescalate care 1:4 Objective Vital Signs Date Time Temp Pulse Resp B/P Pulse Ox O2 Delivery O2 Flow Rate FiO2 08/07/16 14:00 74 08/07/16 12:00 98.9 33 162/93 65 08/07/16 09:04 T-piece 6.00 50 Intake and Output 08/06/16 08/06/16 08/07/16 08:00 16:00 00:00 Intake Total 966 ml 1275 ml 1378 ml Output Total 610 ml 1010 ml 2950 ml Balance 356 ml 265 ml -1572 ml Result Diagram: 08/07/16 0552 08/07/16 0552 Imaging Last 24 hours Impressions Chest X-Ray 08/07/16 0600 Signed Impressions: Service Date/Time: Tuesday, August 07, 2016 04:48 - CONCLUSION: 1. Increase in opacity of the left hemithorax with volume loss compared with August 06, likely near complete atelectasis of the left lung with probable small left effusion. Left chest tube remains in place. Stable right pleural effusion and basilar airspace disease. Manish Dougherty MD Urinary Catheter Assessment Date of Insertion: Jul 17, 2016 Assessment and Plan Assessment: (1) Spinal cord injury, cervical region ICD Code: S14.109A Status: Acute (2) Chronic pain ICD Code: G89.29 Status: Acute (3) Closed T8 spinal fracture ICD Code: S22.069A Status: Acute (4) Pneumothorax on left ICD Code: J93.9 Status: Acute (5) Multiple fractures of ribs of left side ICD Code: S22.42XA Status: Acute (6) Traumatic compression fracture of T8 thoracic vertebra ICD Code: S22.060A Status: Acute Plan This is a 51-year-old male 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 He attempted to throw bucket over the side and a cut stuck in his hand and pulled over the side of the roof. He fell from approximately 12 feet and landed on his back. EtOH +. He ambulated at the scene and was able to drive his coworkers home before transporting himself to [facility]. He was then transferred to [facility] for trauma services. He has spent an extended stay in the ICU mechanically ventilated. He has required a trach and PEG. Awaiting long-term placement. INJURIES: T8 compression fx Serial LEFT rib fxs LEFT sided PTX LEFT lung contusion Assessment and plan by systems: NEUROLOGICAL: Patient sedated lightly with Precedex T-piece continues. He is wide awake and mouthing words. Pt is sedated with a RASS score of 1-2 Provide analgesia for comfort and pain - scheduled Roxicodone. Seizure prophylaxis - Keppra for questionable alcoholic seizures HOB elevated 30 degrees. Increased Seroquel 250 mg BID. Serial neuro checks. + peripheral pulses x 4 extremities. Neurosurgery is assisting in care. CARDIOVASCULAR: HR = 68-89 Sinus rhythm BP = 135/83 Continually monitor for hemodynamic instability (shock and hypotension). BP meds - Lopressor 5 IV, Follow CMP Electrolyte protocol in place. RESPIRATORY: T-piece continues at 40 % Patient awake, follows commands. He is restless at times. Mouth's words to communicate. Increase PEEP carefully (to assist in oxygenation by recruiting alveoli.) Weaning - as tolerated O2 Sats Monitor for hypoxemia Follow ABGs - Lung sounds - clear but diminished throughout Pulmonary toilet L&S. Bronchodilators - Breathing treatments duonebs. Chest X-Ray results - no change. Bilateral pulmonary parenchymal opacity and bilateral pleural effusions. Left lateral chest tube in place to Pleur-evac drainage system - Bronchial washings sent 07/28 - left lower lobe - gram-negative rods/ Staphylococcus aureus Sputum culture 07/24: Klebsiella pneumonia. Staphylococcus aureus. Antibiotics -Ancef and Levaquin VAP protocol in place Labs tomorrow Chest X-Ray tomorrow GASTROINTESTINAL: Diet : Tube feeding: JEVITY at 60 cc/hour goal per dietary recommendations. PEG . Bowel sounds - + x 4 quads. Bowel regimen: Johanne-Colace, MOM. Lactulose daily bisacodyl [place] PRN. LBM: 08/05 RENAL / URINARY: I&O - 294 BUN / creat 5 / 0.[address] to bedside drainage bag draining clear yellow urine. Urine culture - 07/24 no growth ENDOCRINE: BGM - 100 via AM labs SSI HEMATOLOGY: H&H 7.6 / 21.9 - monitor closely Continue to monitor for signs and symptoms of bleeding. Evaluate need for IVC filter. Transfuse for < 7.0 Monitor patient for any bleeding complications. INFECTIOUS DISEASE: Follow CBC WBC - 7.0 Fevers -none overnight Administer antipyretics for temp as needed. Blood cultures 07/24: Staphylococcus aureus 08/04: Blood cultures repeated - Bronch washings 07/28: Staphylococcus aureus and Klebsiella pneumonia Urine 07/24: No growth IV antibiotics: Ancef and Levaquin Monitor pneumonia evolution with repeat chest X-Rays as needed. Maintain vigorous aseptic care of central line to avoid blood stream infections. Consult to ID for further management. LINES: 07/28: Trach 07/29: PEG 07/21: L CT 07/17: F/C PROPHYLAXIS: VAP protocol in place GI: Pepcid po DVT - Mechanical VTE with SCDs. Chemical management with Lovenox 40 SQ daily. SKIN: Warm and dry Daily chest tube dressing changes. Every shift trach care. ACTIVITY: Status - BR When OOB must wear TLSO brace PT and OT ordered. CASE MANAGEMENT: Consulted case management for DC planning. Placement - disposition - [facility]. Case management is working diligently to obtain authorization for placement. Patient has been discharged for 3 days now to [facility]. However, his insurance will not authorize his transfer to [facility]. EMOTIONAL SUPPORT: Provided to patient. Plan of care discussed. Questions answered to the best of my knowledge. Patient has been discharged to [facility] [place] once authorization complete or any LTAC that will accept him for admission and continued care.. This patient is discharged from a trauma surgery standpoint, however awaiting authorization for transfer to LTAC. The trauma team will round, assess and evaluate the patient on a day to day basis. Problem Qualifiers (1) Spinal cord injury, cervical region: Qualified Code: S14.109A - Spinal cord injury, cervical region, initial encounter (2) Chronic pain: Qualified Code: G89.4 - Chronic pain syndrome (3) Closed T8 spinal fracture: (4) Multiple fractures of ribs of left side: Qualified Code: S22.42XA - Closed fracture of multiple ribs of left side, initial encounter (5) Traumatic compression fracture of T8 thoracic vertebra: Qualified Code: S22.060K - Traumatic compression fracture of T8 thoracic vertebra, with nonunion, subsequent encounter Blair Cartagena MD Aug 07, 2016 17:02
[2016-08-07] MEDS: MAGNESIUM HYDROXIDE SUSP 30 ML CUP PO SCH (20:39)
[2016-08-08] VITALS (14 sets, daily range): BP systolic 153–179; BP diastolic 82–99; PULSE 80–124; RESP 18–38; TEMP 98.4–100.5; O2SAT 95–100
[2016-08-08] MEDS: METOPROLOL TARTRATE 5 MG/5 ML VIAL IV PUSH SCH ×2 (02:17→07:55)
[2016-08-08] MEDS: oxyCODONE HCL ORAL CONC 20 MG/ML SYRINGE PO SCH ×4 (04:14→23:00)
[2016-08-08 04:22] LABS: AUTOMATED NEUTROPHIL # 8.2 TH/MM3 (1.8-7.7); BASOPHIL % 0.5 % (0.0-2.0); EOSINOPHIL # 0.1 TH/MM3 (0-0.4); EOSINOPHIL % 0.7 % (0.0-4.0); HEMATOCRIT 28.4 % (39.0-51.0); HEMO FLAGS DIFF FINAL; LYMPH % 10.3 % (9.0-44.0); LYMPHOCYTE # 1.1 TH/MM3 (1.0-4.8); MEAN CELL VOLUME 92.6 FL (80.0-100.0); MEAN CORPUSCULAR HEMOGLOBIN 32.4 PG (27.0-34.0); MONO % 10.2 % (0.0-8.0); NEUT % 78.3 % (16.0-70.0); PLATELET COUNT 409 TH/MM3 (150-450); RED BLOOD COUNT 3.07 MIL/MM3 (4.50-5.90); RED CELL DISTRIBUTION WIDTH 13.5 % (11.6-17.2); WHITE BLOOD COUNT 10.5 TH/MM3 (4.0-11.0)
[2016-08-08 05:16] LABS: ANION GAP 11 MEQ/L (5-15); AST (GOT) 17 U/L (15-37); BICARBONATE 27.8 MEQ/L (21.0-32.0); BLOOD UREA NITROGEN 5 MG/DL (7-18); CHLORIDE 99 MEQ/L (98-107); GLOMERULAR FILTRATION RATE 127 ML/MIN (>89); MAGNESIUM 1.6 MG/DL (1.5-2.5); POTASSIUM 3.5 MEQ/L (3.5-5.1); SODIUM (NA) 138 MEQ/L (136-145)
[2016-08-08 05:19] LABS: ALKALINE PHOSPHATASE 116 U/L (45-117); ALT (GPT) 8 U/L (12-78); TOTAL BILIRUBIN ADULT 0.2 MG/DL (0.2-1.0)
[2016-08-08] MEDS: ceFAZolin 2 GM PREMIX 50 ML IV SCH ×2 (05:45→15:06)
--- NOTE | 2016-08-08 06:34 | RADRPT ---
EXAM DATE/TIME: 08/08/2016 05:10 [place] COMPARISON: CHEST SINGLE AP, August 07, 2016, 4:48. INDICATIONS : Shortness of breath. MEDICAL HISTORY : Hypertension. SURGICAL HISTORY : None. ENCOUNTER: Subsequent ACUITY: 3 weeks PAIN SCORE: Non-responsive. LOCATION: Bilateral chest FINDINGS: Tracheostomy in satisfactory position. Left-sided chest tube without significant pneumothorax. Improv ed aeration of the left lung over the last day. Right basilar airspace disease and pleural effusion p ersists. CONCLUSION: 1. Slight improvement in aeration of the left lung since August 07. Right basilar airspace disease and effusion remain. Tracheostomy and left chest tube unchanged. Manish Dougherty MD on August 08, 2016 at 6:31 Board Certified Radiologist. This report was verified electronically.
[2016-08-08] MEDS: hydrALAZINE HCL 25 MG TAB PO SCH ×2 (07:54→20:22)
[2016-08-08] MEDS: QUEtiapine FUMARATE 100 MG TAB PO SCH ×2 (07:54→20:22)
[2016-08-08] MEDS: levETIRAcetam INJ 500 MG in SODIUM CHLORIDE 0.9% INJ 100 ML IV SCH ×2 (07:54→20:23)
[2016-08-08] MEDS: LACTULOSE SYRUP 20 GM/30 ML CUP PO SCH (07:55)
[2016-08-08] MEDS: DOCUSATE SODIUM 50 MG/SENNA 8.6 MG TAB PO SCH ×2 (07:55→20:22)
[2016-08-08] MEDS: PANTOPRAZOLE SODIUM 40 MG VIAL IV PUSH SCH (07:55)
[2016-08-08] MEDS: MULTIVITAMINS/IRON/MINERALS CHEWABLE TAB CHEW SCH (07:56)
[2016-08-08] MEDS: oxyCODONE HCL ORAL CONC 20 MG/ML SYRINGE PO PRN ×4 (07:58→20:24)
[2016-08-08] MEDS: CHLORHEXIDINE 0.12% (ORAL KIT) 15 ML CUP MT SCH (08:00)
[2016-08-08] MEDS: HALOPERIDOL LACTATE 5 MG/ML AMP IV PUSH PRN ×2 (08:05→20:23)
[2016-08-08] MEDS: ENOXAPARIN SODIUM 40 MG/0.4 ML SYRINGE SQ SCH (11:00)
[2016-08-08] MEDS: POTASSIUM CHLOR 20 MEQ PREMIX 100 ML IV PRN (11:01)
[2016-08-08] MEDS: METOPROLOL TARTRATE 25 MG TAB PO SCH ×2 (12:38→20:22)
[2016-08-08] MEDS: LEVOFLOXACIN 750 MG PREMIX INJ 150 ML IV SCH (15:07)
--- NOTE | 2016-08-08 15:22 | HHI.CCPN ---
Subjective Brief History History of Present Illness This patient is a 51 year old male who presents to the [facility] emergency department as transfer from [facility]. He sustained a fall from the roof while he was working. This was a 12 foot roof and he landed on his back. He drove his coworkers home, prior to going to the emergency department. He was found to have multiple left-sided rib fractures, compression fracture of T8, left-sided pneumothorax and L lung contusion, for which a large bore chest tube was placed. The patients laboratory studies were remarkable for a white count of 12.2, potassium 3.0, alcohol level 150. Patient was transferred to surgical ICU with above-noted injuries It is conceivable that patient had aspirated at the time of event PMHx: Cervical spine fusion with halo placement, trigger finger, HTN, seizures, 1 PPD smoker, ETOH (drinks 8-12 12oz [place] Hard Lemonade daily) PAIN MANAGEMENT INJURIES: T8 compression fx Serial LEFT rib fxs LEFT sided PTX LEFT lung contusion Procedures: 07/12: LEFT CT (placed by [facility]) 07/16: Intubation and BRONCH 07/17: extubated 07/20: INTUBATION and BRONCH again 07/21: LEFT thoracoscopy; evacuation of empyema and decortication of the lung 07/27: Extubate & reintubated d/t secretions 07/28: Bedside trach 07/29: PEG I 24 Hour Review/Hospital Course Since arrival to the ICU patient has been stable He is awake alert and oriented He is severe left chest pain and back pain which is currently managed Neurosurgery has been consult is regarding the compression fracture of T8 and additional studies have been ordered Pulmonary contusion is severe and patient will likely get worse before he gets better as far as respiratory system is concerned for aspiration has most likely occurred at the time of the accident 07/16/2016 Patient was transferred to the floor 2 days ago and the has been doing well however became somewhat short of breath and repeat CAT scan was ordered which reveals complete collapse of the left lung with inspissated secretions and the collecting fluid around the lung Patient was transferred back to the ICU and remains well oxygenated on the 6 L nasal cannula nonetheless the left lung is completely atelectatic Today patient was intubated bronchoscoping and large amount of mucous material was obtained while the left lung reexpanded Drainage from the chest tube has also increased significantly pushing out all the fluid as the lung is reexpanded Will keep patient on the ventilator total tomorrow and then reassess needing possibly another bronchoscopy and then we'll work toward extubation 07/17/2016 As above noted patient has been intubated bronchoscoping has been doing well on the ventilator and is now successfully extubated All things equal patient will be able to return to the floor either today or tomorrow Chest tube drainage has decreased after being increased for about 24 hours and is serosanguineous and straw-colored Bilateral breath sounds 07/18/16 Since the bronchoscopy intubation and now after extubation patient has been ventilating nicely Chest tube drainage is about 400 cc per last 24 hours and it straw-colored This is inflammatory reaction the pleura which is slowly resolving so we will leave chest tube in place for this purpose Patient is still sort of somnolent in bed although the takes by mouth when asked questions he answers them appropriately but mumbles it, and remains somnolent Does not participate with care Does not cooperating with physical and occupational therapy or the nurses Asking for pain medication 07/19/2016 Patient is awake but slightly somnolent but oriented in time and space Patient requires increased amount of oxygen and this is a consistent with his anatomic and physiologic injuries Repeat CT scan of the chest reveals collapse of the left lower and part of the upper lobe with air-fluid level in the chest and partial collapse of the left lung Chest tube remains in place The partial anterior pneumothorax is due to the fact the patient was of suction when he went down to the radiology At this point patient will need to be intubated ventilated and bronchoscope the clearing of the secretions He may need prolonged intubation at this time and probably upon the evaluation the bronchial tree will decide whether patient needs a tracheostomy in the near future The interlobar bled could of course be due to the bronchial disruption but there is no need for surgery on this for it will eventually heal on its own The main thing is to support patient's respiration and pulmonary function 07/20/16 Patient has a had decreasing left lung function with the increasing levels consolidation and atelectasis Finally required intubation this morning with the bronchoscopy and clearing of the lung Massive amounts of mucous and purulent appearing material were obtained from the left lung Patient remains on the ventilator 07/22/2016 Patient status post left VATS evacuation of a loculated hemothorax and decortication of the left lung Postoperatively patient is doing well lungs are fully expanded and remains on the ventilator The patient improves respiratory ventilator weaning down gradually Antibiotics add to care in face of previous bronchoscopy findings cultures partially back Once we have better picture will adjust antibiotic coverage 07/23/16 Postoperative day 2 from his left thoracoscopic decortication Patient still has slightly elevated ventilator requirements His lung is inflated and there is no evidence of pneumothorax or air leak in the Pleur-evac 07/24/16 Tolerating chest tubes to water seal with minimal output He still has high FiO2 requirement on the ventilator He follows commands when sedation is lightened 07/25/16 Blood cultures came back 1 out of 2 with gram-positive cocci, he is already on vancomycin and Zosyn Slow weaning on the ventilator, chest x-ray remains stable with no evidence of pneumothorax and low chest tube output 07/26/16 Patient has been stable on the ventilator Drainage from the chest tubes has decreased and we will pull tomorrow the posterior chest tube and keep the anterior apical tube in place Patient has severe COPD and compromised lungs in addition to trauma so the pulmonary situation remains precarious Gram-positive cocci as per ID treatment treatment 07/27/16 Patient is gradually weaned and was extubated however asked he cannot clear secretions and while he is breathing is intact his the secretions are this point so I have it is not coughing up and not following commands Patient had to be reintubated the a few hours later Will have tracheostomy tomorrow considering this patient is extremely hard to wean in face of lung contusion heavy secretions as well as underlying severe pulmonary emphysema 07/28/16 As above noted patient was on successfully extubated yesterday had to be reintubated few hours later due to heavy secretions will collapse of the left lower lobe and the inability to ventilate and follow commands Patient underwent today tracheostomy placement and is currently on the ventilator Underwent the extensive bronchoscopy lavage with reinflation of the left upper and lower lobes At this point we'll be able to gradually we the presence of tracheostomy 07/29/2016 PTD: 16 Status post Dobbhoff placement last evening and continuation of tube feeding Patient remains on the ventilator today. He will receive a PEG from GI later today. 07/30/2016 PTD: 17 Pt remains mechanically ventilated. We will attempt a CPAP trial today, to see if we can begin weaning the vent in progression to trach collar. 07/31/2016 PTD: 18 Pt awake on rounds. Mouthing words. Very agitated and impatient. Attempt CPAP trials and progressed to T-piece. After some time on a t-piece, the patient became, agitated, restless, tachypneic and began kicking and thrashing around in the bed. Pt was placed back on previous settings, and sedation resumed for comfort and patient, and staff safety. 08/01/2016 PTD: 19 Patient is on a T piece 40% FiO2. Tolerating well. Sats equal 99% He is awake, mouthing words, and following commands. No distress noted. 08/02/2016 PTD: 20 Patient is wide awake, despite Precedex drip. Chest x-ray looks worse - persistent complete opacification of the left hemithorax. Plan for bronchoscopy at the bedside today 08/03/2016 PTD: 21 Patient in bed, wide awake. Okay to transfer to [facility] - they will be able to complete his bronchoscopy there. 08/04/2016 PTD: 22 Patient awake in bed. No distress noted. Patient will mouth words. Case management is working diligently to get the patient [facility]. 08/05/2016 PTD: 23 Patient awake, he has been on a T piece without incident. Still waiting for authorization to go through so the patient can be transferred to [facility]. He has been discharged for 3 days now. 08/06/2016 PTD: 24 Pt rests on vent settings over night, and tolerates a T-piece during the day. Just waiting on his insurance to authorize [facility]. 08/07/16 Patient off the respirator on trach collar Swallow study okay patient is eating regular diet At this point patient does not require ICU care any more but insurance denied placement in the rehabilitation as we were hoping for Patient therefore remains in the ICU for his complexity of care exceeds regular floor and he would certainly bounced back problems Deescalate care 1:4 08/08/16 Patient doing well at this time He's permanently from the ventilator and remains on trach collar Able to eat drink and communicated easily Patient will need extensive physical and occupational therapy Patient can transfer to floor but due to secretions would like to be closer to the nursing station Awaiting some sort of rehabilitation placement for the patient because he does not need intrahospital care any more Objective Vital Signs Date Time Temp Pulse Resp B/P Pulse Ox O2 Delivery O2 Flow Rate FiO2 08/08/16 14:00 88 08/08/16 12:00 98.9 38 160/99 95 08/08/16 11:48 T-piece 50 08/07/16 09:04 6.00 Intake and Output 08/07/16 08/07/16 08/08/16 08:00 16:00 00:00 Intake Total 651 ml 932 ml 614 ml Output Total 1840 ml 1722 ml 1718 ml Balance -1189 ml -790 ml -1104 ml Result Diagram: 08/08/16 0353 08/08/16 0353 Imaging Last 24 hours Impressions Chest X-Ray 08/08/16 0600 Signed Impressions: Service Date/Time: Monday, August 08, 2016 05:10 - CONCLUSION: 1. Slight improvement in aeration of the left lung since August 07. Right basilar airspace disease and effusion remain. Tracheostomy and left chest tube unchanged. Manish Dougherty MD Urinary Catheter Assessment Date of Insertion: Jul 17, 2016 Assessment and Plan Assessment: (1) Spinal cord injury, cervical region ICD Code: S14.109A Status: Acute (2) Chronic pain ICD Code: G89.29 Status: Acute (3) Closed T8 spinal fracture ICD Code: S22.069A Status: Acute (4) Pneumothorax on left ICD Code: J93.9 Status: Acute (5) Multiple fractures of ribs of left side ICD Code: S22.42XA Status: Acute (6) Traumatic compression fracture of T8 thoracic vertebra ICD Code: S22.060A Status: Acute Plan This is a 51-year-old male 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 He attempted to throw bucket over the side and a cut stuck in his hand and pulled over the side of the roof. He fell from approximately 12 feet and landed on his back. EtOH +. He ambulated at the scene and was able to drive his coworkers home before transporting himself to [facility]. He was then transferred to [place] for trauma services. He has spent an extended stay in the ICU mechanically ventilated. He has required a trach and PEG. Awaiting long-term placement. INJURIES: T8 compression fx Serial LEFT rib fxs LEFT sided PTX LEFT lung contusion Assessment and plan by systems: NEUROLOGICAL: Patient sedated lightly with Precedex T-piece continues. He is wide awake and mouthing words. Pt is sedated with a RASS score of 1-2 Provide analgesia for comfort and pain - scheduled Roxicodone. Seizure prophylaxis - Keppra for questionable alcoholic seizures HOB elevated 30 degrees. Increased Seroquel 250 mg BID. Serial neuro checks. + peripheral pulses x 4 extremities. Neurosurgery is assisting in care. CARDIOVASCULAR: HR = 68-89 Sinus rhythm BP = 135/83 Continually monitor for hemodynamic instability (shock and hypotension). BP meds - Lopressor 5 IV, Follow CMP Electrolyte protocol in place. RESPIRATORY: T-piece continues at 40 % Patient awake, follows commands. He is restless at times. Mouth's words to communicate. Increase PEEP carefully (to assist in oxygenation by recruiting alveoli.) Weaning - as tolerated O2 Sats Monitor for hypoxemia Follow ABGs - Lung sounds - clear but diminished throughout Pulmonary toilet L&S. Bronchodilators - Breathing treatments duonebs. Chest X-Ray results - no change. Bilateral pulmonary parenchymal opacity and bilateral pleural effusions. Left lateral chest tube in place to Pleur-evac drainage system - Bronchial washings sent 07/28 - left lower lobe - gram-negative rods/ Staphylococcus aureus Sputum culture 07/24: Klebsiella pneumonia. Staphylococcus aureus. Antibiotics -Ancef and Levaquin VAP protocol in place Labs tomorrow Chest X-Ray tomorrow GASTROINTESTINAL: Diet : Tube feeding: JEVITY at 60 cc/hour goal per dietary recommendations. PEG . Bowel sounds - + x 4 quads. Bowel regimen: Johanne-Colace, MOM. Lactulose daily bisacodyl LA PRN. LBM: 08/05 RENAL / URINARY: I&O - 294 BUN / creat 5 / 0.[address] to bedside drainage bag draining clear yellow urine. Urine culture - 07/24 no growth ENDOCRINE: BGM - 100 via AM labs SSI HEMATOLOGY: H&H 7.6 / 21.9 - monitor closely Continue to monitor for signs and symptoms of bleeding. Evaluate need for IVC filter. Transfuse for < 7.0 Monitor patient for any bleeding complications. INFECTIOUS DISEASE: Follow CBC WBC - 7.0 Fevers -none overnight Administer antipyretics for temp as needed. Blood cultures 3/4: Staphylococcus aureus 08/04: Blood cultures repeated - Bronch washings 07/28: Staphylococcus aureus and Klebsiella pneumonia Urine 34: No growth IV antibiotics: Ancef and Levaquin Monitor pneumonia evolution with repeat chest X-Rays as needed. Maintain vigorous aseptic care of central line to avoid blood stream infections. Consult to ID for further management. LINES: 07/28: Trach 07/29: PEG 07/21: L CT 07/17: F/C PROPHYLAXIS: VAP protocol in place GI: Pepcid po DVT - Mechanical VTE with SCDs. Chemical management with Lovenox 40 SQ daily. SKIN: Warm and dry Daily chest tube dressing changes. Every shift trach care. ACTIVITY: Status - BR When OOB must wear TLSO brace PT and OT ordered. CASE MANAGEMENT: Consulted case management for DC planning. Placement - disposition - [facility]. Case management is working diligently to obtain authorization for placement. Patient has been [facility] for [facility] days now [facility]. However, his insurance will not authorize his transfer to [facility]. EMOTIONAL SUPPORT: Provided to patient. Plan of care discussed. Questions answered to the best of my knowledge. Patient has been discharged to [facility] rehabilitation center once authorization complete or any LTAC that will accept him for admission and continued care.. This patient is discharged from a trauma surgery standpoint, however awaiting authorization for transfer to LTAC. The trauma team will round, assess and evaluate the patient on a day to day basis. Attestation The exam, history, and the medical decision-making described in the above note were completed with the assistance of the mid-level provider. I reviewed and agree with the findings presented. I attest that I had a [id number] encounter with the patient on the same day, and personally performed and documented my assessment and findings in the medical record. Critical care time 30 minutes. Problem Qualifiers (1) Spinal cord injury, cervical region: Qualified Code: S14.109A - Spinal cord injury, cervical region, initial encounter (2) Chronic pain: Qualified Code: G89.4 - Chronic pain syndrome (3) Closed T8 spinal fracture: (4) Multiple fractures of ribs of left side: Qualified Code: S22.42XA - Closed fracture of multiple ribs of left side, initial encounter (5) Traumatic compression fracture of T8 thoracic vertebra: Qualified Code: S22.060K - Traumatic compression fracture of T8 thoracic vertebra, with nonunion, subsequent encounter Blair Cartagena MD Aug 08, 2016 15:22
[2016-08-08] MEDS: cloNIDine HCL 0.1 MG TAB PO PRN (18:10)
[2016-08-08] MEDS: MAGNESIUM HYDROXIDE SUSP 30 ML CUP PO SCH (20:22)
[2016-08-09] VITALS (12 sets, daily range): BP systolic 138–189; BP diastolic 78–102; PULSE 74–110; RESP 8–25; TEMP 98.3–99; O2SAT 94–100
[2016-08-09] MEDS: oxyCODONE HCL ORAL CONC 20 MG/ML SYRINGE PO PRN ×2 (01:13→13:00)
[2016-08-09] MEDS: ceFAZolin 2 GM PREMIX 50 ML IV SCH ×4 (01:14→23:00)
[2016-08-09] MEDS: oxyCODONE HCL ORAL CONC 20 MG/ML SYRINGE PO SCH ×4 (04:52→23:00)
[2016-08-09] MEDS: MULTIVITAMINS/IRON/MINERALS CHEWABLE TAB CHEW SCH (07:53)
[2016-08-09] MEDS: levETIRAcetam INJ 500 MG in SODIUM CHLORIDE 0.9% INJ 100 ML IV SCH ×2 (07:53→20:19)
[2016-08-09] MEDS: hydrALAZINE HCL 25 MG TAB PO SCH ×2 (07:53→23:00)
[2016-08-09] MEDS: LACTULOSE SYRUP 20 GM/30 ML CUP PO SCH (07:53)
[2016-08-09] MEDS: PANTOPRAZOLE SODIUM 40 MG VIAL IV PUSH SCH (07:53)
[2016-08-09] MEDS: QUEtiapine FUMARATE 100 MG TAB PO SCH ×2 (07:54→20:18)
[2016-08-09] MEDS: DOCUSATE SODIUM 50 MG/SENNA 8.6 MG TAB PO SCH ×2 (07:54→21:00)
[2016-08-09] MEDS: METOPROLOL TARTRATE 25 MG TAB PO SCH ×2 (07:54→21:09)
[2016-08-09] MEDS: HALOPERIDOL LACTATE 5 MG/ML AMP IV PUSH PRN ×4 (09:10→20:19)
[2016-08-09] MEDS: ENOXAPARIN SODIUM 40 MG/0.4 ML SYRINGE SQ SCH (11:20)
[2016-08-09] MEDS ORDERED: QUEtiapine FUMARATE 25 MG TAB PO ONE (12:00)
--- NOTE | 2016-08-09 12:42 | HHI.PR ---
Neuropsych Behavior Behavior: Moderate: Frustration Tolerance/[place], Impulsive/Agitated Progress Notes/Response to Tx Contents of Sessions: Adjustment Time with Patient: 15 minutes Premorbid psychological status Premorbid Cognitive, Emotional and Behavioral Status: Tenuous. 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 The patient has prior psychiatric difficulties, and reportedly was on Seroquel 300 mg qHS prior to the accident. Substance abuse history includes TOB and ETOH. Behavioral Reactions of Patient and Family/Support System: Tenuous. The patient has no family stepping up. He was living at a [facility], where reportedly he spent much of the time smoking and drinking. Emotional/Behavioral Status of Patient and Family/Support System: Tenuous. Pertinent issues, if appropriate to this patients clinical care, are described in detail above. Maximizing acute care outcome It is recommended that the patient be monitored for emergent behavioral impulsivity as the medical condition evolves. This patients psychiatric and substance dependence issues will limit their rehabilitation potential going forward, and these challenges will require specialized therapeutic skills to maximize outcome. Anticipated Problems Ongoing areas of concern will include agitation, behavioral impulsivity, lack of insight and judgment, which is unlikely to improve with time or treatment. Treatment Plan This clinician will continue to follow with you throughout the course of this patients rehabilitation treatment, and I will be available to meet with the patients family/support system to facilitate their understanding and the ongoing care of their family member. The goals of neuropsychological intervention shall be both educational and supportive to the family/support system as is deemed clinically appropriate. Diagnosis: (1) Bipolar affective, manic, unspec Status: Chronic Progress Note Narrative Ongoing follow-up of patient during the context of trauma rounds, with discussion with care providers. This patient's agitation has improved, yet he still has breakthrough periods of agitation and acting out behaviors. Team consensus is that his behavioral medications can be increased to 200 mg Seroquel BID from present levels. The goal would be a patient who is more compliant with directives, and not requiring restraint devices. I will continue to follow with you. Bernard Higgins PhD Aug 09, 2016 12:42 pm
[2016-08-09] MEDS: LEVOFLOXACIN 750 MG PREMIX INJ 150 ML IV SCH (14:09)
[2016-08-09] MEDS: NICOTINE 14 MG/24 HR PATCH TD SCH (14:14)
--- NOTE | 2016-08-09 15:38 | RADRPT ---
EXAM DATE/TIME: 08/09/2016 14:45 [facility] COMPARISON: CHEST SINGLE AP, August 08, 2016, 5:10. INDICATIONS : Post chest tube removal MEDICAL HISTORY : Hypertension. seizures, rib fractures SURGICAL HISTORY : tracheostomy, chest tube, cervical spine fusion ENCOUNTER: Subsequent ACUITY: 3 weeks PAIN SCORE: Non-responsive. LOCATION: Bilateral chest FINDINGS: Tracheostomy is stable. Hazy bibasilar pleural-parenchymal opacities are unchanged. There has been in terval removal of left thoracostomy tube with recurrence of left pneumothorax. There is minimal separ ation of apical pleural layers and some medial pneumothorax present. Cardiomediastinal contours are g rossly stable liver fractures again noted. CONCLUSION: Chest tube removal with small resultant pneumothorax on the left. Stable diminished aeration sandro Cisneros MD on August 09, 2016 at 15:34 Board Certified Radiologist. This report was verified electronically.
--- NOTE | 2016-08-09 18:45 | HHI.CCPN ---
Subjective Brief History History of Present Illness This patient is a 51 year old male who presents to the [facility] emergency department as transfer from [facility]. He sustained a fall from the roof while he was working. This was a 12 foot roof and he landed on his back. He drove his coworkers home, prior to going to the emergency department. He was found to have multiple left-sided rib fractures, compression fracture of T8, left-sided pneumothorax and L lung contusion, for which a large bore chest tube was placed. The patients laboratory studies were remarkable for a white count of 12.2, potassium 3.0, alcohol level 150. Patient was transferred to surgical ICU with above-noted injuries It is conceivable that patient had aspirated at the time of event PMHx: Cervical spine fusion with halo placement, trigger finger, HTN, seizures, 1 PPD smoker, ETOH (drinks 8-12 12oz Rawlins Hard Lemonade daily) PAIN MANAGEMENT INJURIES: T8 compression fx Serial LEFT rib fxs LEFT sided PTX LEFT lung contusion Procedures: 07/12: LEFT CT (placed by [facility]) 07/16: Intubation and BRONCH 07/17: extubated 07/20: INTUBATION and BRONCH again 07/21: LEFT thoracoscopy; evacuation of empyema and decortication of the lung 07/27: Extubate & reintubated d/t secretions 07/28: Bedside trach 07/29: PEG I 24 Hour Review/Hospital Course Since arrival to the ICU patient has been stable He is awake alert and oriented He is severe left chest pain and back pain which is currently managed Neurosurgery has been consult is regarding the compression fracture of T8 and additional studies have been ordered Pulmonary contusion is severe and patient will likely get worse before he gets better as far as respiratory system is concerned for aspiration has most likely occurred at the time of the accident 07/16/2016 Patient was transferred to the floor 2 days ago and the has been doing well however became somewhat short of breath and repeat CAT scan was ordered which reveals complete collapse of the left lung with inspissated secretions and the collecting fluid around the lung Patient was transferred back to the ICU and remains well oxygenated on the 6 L nasal cannula nonetheless the left lung is completely atelectatic Today patient was intubated bronchoscoping and large amount of mucous material was obtained while the left lung reexpanded Drainage from the chest tube has also increased significantly pushing out all the fluid as the lung is reexpanded Will keep patient on the ventilator total tomorrow and then reassess needing possibly another bronchoscopy and then we'll work toward extubation 07/17/2016 As above noted patient has been intubated bronchoscoping has been doing well on the ventilator and is now successfully extubated All things equal patient will be able to return to the floor either today or tomorrow Chest tube drainage has decreased after being increased for about 24 hours and is serosanguineous and straw-colored Bilateral breath sounds 07/18/16 Since the bronchoscopy intubation and now after extubation patient has been ventilating nicely Chest tube drainage is about 400 cc per last 24 hours and it straw-colored This is inflammatory reaction the pleura which is slowly resolving so we will leave chest tube in place for this purpose Patient is still sort of somnolent in bed although the takes by mouth when asked questions he answers them appropriately but mumbles it, and remains somnolent Does not participate with care Does not cooperating with physical and occupational therapy or the nurses Asking for pain medication 07/19/2016 Patient is awake but slightly somnolent but oriented in time and space Patient requires increased amount of oxygen and this is a consistent with his anatomic and physiologic injuries Repeat CT scan of the chest reveals collapse of the left lower and part of the upper lobe with air-fluid level in the chest and partial collapse of the left lung Chest tube remains in place The partial anterior pneumothorax is due to the fact the patient was of suction when he went down to the radiology At this point patient will need to be intubated ventilated and bronchoscope the clearing of the secretions He may need prolonged intubation at this time and probably upon the evaluation the bronchial tree will decide whether patient needs a tracheostomy in the near future The interlobar bled could of course be due to the bronchial disruption but there is no need for surgery on this for it will eventually heal on its own The main thing is to support patient's respiration and pulmonary function 07/20/16 Patient has a had decreasing left lung function with the increasing levels consolidation and atelectasis Finally required intubation this morning with the bronchoscopy and clearing of the lung Massive amounts of mucous and purulent appearing material were obtained from the left lung Patient remains on the ventilator 07/22/2016 Patient status post left VATS evacuation of a loculated hemothorax and decortication of the left lung Postoperatively patient is doing well lungs are fully expanded and remains on the ventilator The patient improves respiratory ventilator weaning down gradually Antibiotics add to care in face of previous bronchoscopy findings cultures partially back Once we have better picture will adjust antibiotic coverage 07/23/16 Postoperative day 2 from his left thoracoscopic decortication Patient still has slightly elevated ventilator requirements His lung is inflated and there is no evidence of pneumothorax or air leak in the Pleur-evac 07/24/16 Tolerating chest tubes to water seal with minimal output He still has high FiO2 requirement on the ventilator He follows commands when sedation is lightened 07/25/16 Blood cultures came back 1 out of 2 with gram-positive cocci, he is already on vancomycin and Zosyn Slow weaning on the ventilator, chest x-ray remains stable with no evidence of pneumothorax and low chest tube output 07/26/16 Patient has been stable on the ventilator Drainage from the chest tubes has decreased and we will pull tomorrow the posterior chest tube and keep the anterior apical tube in place Patient has severe COPD and compromised lungs in addition to trauma so the pulmonary situation remains precarious Gram-positive cocci as per ID treatment treatment 07/27/16 Patient is gradually weaned and was extubated however asked he cannot clear secretions and while he is breathing is intact his the secretions are this point so I have it is not coughing up and not following commands Patient had to be reintubated the a few hours later Will have tracheostomy tomorrow considering this patient is extremely hard to wean in face of lung contusion heavy secretions as well as underlying severe pulmonary emphysema 07/28/16 As above noted patient was on successfully extubated yesterday had to be reintubated few hours later due to heavy secretions will collapse of the left lower lobe and the inability to ventilate and follow commands Patient underwent today tracheostomy placement and is currently on the ventilator Underwent the extensive bronchoscopy lavage with reinflation of the left upper and lower lobes At this point we'll be able to gradually we the presence of tracheostomy 07/29/2016 PTD: 16 Status post Dobbhoff placement last evening and continuation of tube feeding Patient remains on the ventilator today. He will receive a PEG from GI later today. 07/30/2016 PTD: 17 Pt remains mechanically ventilated. We will attempt a CPAP trial today, to see if we can begin weaning the vent in progression to trach collar. 07/31/2016 PTD: 18 Pt awake on rounds. Mouthing words. Very agitated and impatient. Attempt CPAP trials and progressed to T-piece. After some time on a t-piece, the patient became, agitated, restless, tachypneic and began kicking and thrashing around in the bed. Pt was placed back on previous settings, and sedation resumed for comfort and patient, and staff safety. 08/01/2016 PTD: 19 Patient is on a T piece 40% FiO2. Tolerating well. Sats equal 99% He is awake, mouthing words, and following commands. No distress noted. 08/02/2016 PTD: 20 Patient is wide awake, despite Precedex drip. Chest x-ray looks worse - persistent complete opacification of the left hemithorax. Plan for bronchoscopy at the bedside today 08/03/2016 PTD: 21 Patient in bed, wide awake. Okay to transfer to [facility] - they will be able to complete his bronchoscopy there. 08/04/2016 PTD: 22 Patient awake in bed. No distress noted. Patient will mouth words. Case management is working diligently to get the patient transferred [facility] care. 08/05/2016 PTD: 23 Patient awake, he has been on a T piece without incident. Still waiting for authorization to go through so the patient can be transferred to [facility]. He has been discharged for 3 days now. 08/06/2016 PTD: 24 Pt rests on vent settings over night, and tolerates a T-piece during the day. Just waiting on his insurance to authorize [facility]. 08/07/16 Patient off the respirator on trach collar Swallow study okay patient is eating regular diet At this point patient does not require ICU care any more but insurance denied placement in the rehabilitation as we were hoping for Patient therefore remains in the ICU for his complexity of care exceeds regular floor and he would certainly bounced back problems Deescalate care 1:4 08/08/16 Patient doing well at this time He's permanently from the ventilator and remains on trach collar Able to eat drink and communicated easily Patient will need extensive physical and occupational therapy Patient can transfer to floor but due to secretions would like to be closer to the nursing station Awaiting some sort of rehabilitation placement for the patient because he does not need intrahospital care any more 08/09/16 Patient is awake alert and oriented Able to eat and drink and feed himself Communicates well Off the ventilator Patient's been transferred from ICU 2 days ago however no bed is available on the floor Objective Vital Signs Date Time Temp Pulse Resp B/P Pulse Ox O2 Delivery O2 Flow Rate FiO2 08/09/16 16:00 74 08/09/16 16:00 98.3 15 155/87 99 08/09/16 08:26 T-piece 35 08/08/16 22:01 6.00 Intake and Output 08/08/16 08/08/16 08/09/16 08:00 16:00 00:00 Intake Total 337 ml 386 ml 980 ml Output Total 2040 ml 1766 ml 1394 ml Balance -1703 ml -1380 ml -414 ml Result Diagram: 08/08/16 0353 08/08/162033 Imaging Last 24 hours Impressions Chest X-Ray 08/09/16 1500 Signed Impressions: Service Date/Time: Tuesday, August 09, 2016 14:45 - CONCLUSION: Chest tube removal with small resultant pneumothorax on the left. Stable diminished aeration otherwise. Toñito Cisneros MD Urinary Catheter Assessment Date of Insertion: Jul 17, 2016 Assessment and Plan Assessment: (1) Spinal cord injury, cervical region ICD Code: S14.109A Status: Acute (2) Chronic pain ICD Code: G89.29 Status: Acute (3) Closed T8 spinal fracture ICD Code: S22.069A Status: Acute (4) Pneumothorax on left ICD Code: J93.9 Status: Acute (5) Multiple fractures of ribs of left side ICD Code: S22.42XA Status: Acute (6) Traumatic compression fracture of T8 thoracic vertebra ICD Code: S22.060A Status: Acute Plan This is a 51-year-old male 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 He attempted to throw bucket over the side and a cut stuck in his hand and pulled over the side of the roof. He fell from approximately 12 feet and landed on his back. EtOH +. He ambulated at the scene and was able to drive his coworkers home before transporting himself to [facility]. He was then transferred to [place] for trauma services. He has spent an extended stay in the ICU mechanically ventilated. He has required a trach and PEG. Awaiting long-term placement. INJURIES: T8 compression fx Serial LEFT rib fxs LEFT sided PTX LEFT lung contusion Assessment and plan by systems: NEUROLOGICAL: Patient sedated lightly with Precedex T-piece continues. He is wide awake and mouthing words. Pt is sedated with a RASS score of 1-2 Provide analgesia for comfort and pain - scheduled Roxicodone. Seizure prophylaxis - Keppra for questionable alcoholic seizures HOB elevated 30 degrees. Increased Seroquel 250 mg BID. Serial neuro checks. + peripheral pulses x 4 extremities. Neurosurgery is assisting in care. CARDIOVASCULAR: HR = 68-89 Sinus rhythm BP = 135/83 Continually monitor for hemodynamic instability (shock and hypotension). BP meds - Lopressor 5 IV, Follow CMP Electrolyte protocol in place. RESPIRATORY: T-piece continues at 40 % Patient awake, follows commands. He is restless at times. Mouth's words to communicate. Increase PEEP carefully (to assist in oxygenation by recruiting alveoli.) Weaning - as tolerated O2 Sats Monitor for hypoxemia Follow ABGs - Lung sounds - clear but diminished throughout Pulmonary toilet L&S. Bronchodilators - Breathing treatments duonebs. Chest X-Ray results - no change. Bilateral pulmonary parenchymal opacity and bilateral pleural effusions. Left lateral chest tube in place to Pleur-evac drainage system - Bronchial washings sent 07/28 - left lower lobe - gram-negative rods/ Staphylococcus aureus Sputum culture 07/24: Klebsiella pneumonia. Staphylococcus aureus. Antibiotics -Ancef and Levaquin VAP protocol in place Labs tomorrow Chest X-Ray tomorrow GASTROINTESTINAL: Diet : Tube feeding: JEVITY at 60 cc/hour goal per dietary recommendations. PEG . Bowel sounds - + x 4 quads. Bowel regimen: Johanne-Colace, MOM. Lactulose daily bisacodyl MS PRN. LBM: 08/05 RENAL / URINARY: I&O - 294 BUN / creat 5 / 0.[address] to bedside drainage bag draining clear yellow urine. Urine culture - 07/24 no growth ENDOCRINE: BGM - 100 via AM labs SSI HEMATOLOGY: H&H 7.6 / 21.9 - monitor closely Continue to monitor for signs and symptoms of bleeding. Evaluate need for IVC filter. Transfuse for < 7.0 Monitor patient for any bleeding complications. INFECTIOUS DISEASE: Follow CBC WBC - 7.0 Fevers -none overnight Administer antipyretics for temp as needed. Blood cultures 07/24: Staphylococcus aureus 08/04: Blood cultures repeated - Bronch washings 07/28: Staphylococcus aureus and Klebsiella pneumonia Urine 07/24: No growth IV antibiotics: Ancef and Levaquin Monitor pneumonia evolution with repeat chest X-Rays as needed. Maintain vigorous aseptic care of central line to avoid blood stream infections. Consult to ID for further management. LINES: 07/28: Trach 07/29: PEG /: L CT 07/17: F/C PROPHYLAXIS: VAP protocol in place GI: Pepcid po DVT - Mechanical VTE with SCDs. Chemical management with Lovenox 40 SQ daily. SKIN: Warm and dry Daily chest tube dressing changes. Every shift trach care. ACTIVITY: Status - BR When OOB must wear TLSO brace PT and OT ordered. CASE MANAGEMENT: Consulted case management for DC planning. Placement - disposition - [facility]. Case management is working diligently to obtain authorization for placement. Patient has been discharged for 3 days now to [facility]. However, his insurance will not authorize his transfer to [facility]. EMOTIONAL SUPPORT: Provided to patient. Plan of care discussed. Questions answered to the best of my knowledge. Patient has been discharged to [facility] rehabilitation center once authorization complete or any LTAC that will accept him for admission and continued care.. This patient is discharged from a trauma surgery standpoint, however awaiting authorization for transfer to LTAC. The trauma team will round, assess and evaluate the patient on a day to day basis. Attestation The exam, history, and the medical decision-making described in the above note were completed with the assistance of the mid-level provider. I reviewed and agree with the findings presented. I attest that I had a [id number] encounter with the patient on the same day, and personally performed and documented my assessment and findings in the medical record. Problem Qualifiers (1) Spinal cord injury, cervical region: Qualified Code: S14.109A - Spinal cord injury, cervical region, initial encounter (2) Chronic pain: Qualified Code: G89.4 - Chronic pain syndrome (3) Closed T8 spinal fracture: (4) Multiple fractures of ribs of left side: Qualified Code: S22.42XA - Closed fracture of multiple ribs of left side, initial encounter (5) Traumatic compression fracture of T8 thoracic vertebra: Qualified Code: S22.060K - Traumatic compression fracture of T8 thoracic vertebra, with nonunion, subsequent encounter Blair Cartagena MD Aug 09, 2016 18:45
[2016-08-09] MEDS ORDERED: LIDOCAINE HCL 2% 100 MG/5 ML SYRINGE ONE (20:08)
[2016-08-09] MEDS ORDERED: EPINEPHrine HCL (1:10,000) 1 MG/10 ML SYRINGE ONE (20:08)
[2016-08-09] MEDS ORDERED: ATROPINE SULFATE 1 MG/10 ML SYRINGE ONE (20:08)
[2016-08-09] MEDS: MAGNESIUM HYDROXIDE SUSP 30 ML CUP PO SCH (21:00)
--- NOTE | 2016-08-09 21:07 | RADRPT ---
EXAM DATE/TIME: 08/09/2016 20:39 [place] COMPARISON: CT THORAX W/O CONTRAST, August 02, 2016, 22:56. INDICATIONS : Follow up T8 fracture. MEDICAL HISTORY : Hypertension. seizures, rib fractures SURGICAL HISTORY : Tracheostomy, chest tube, cervical spine fusion ENCOUNTER: Initial ACUITY: 1 day PAIN SCORE: Non-responsive. LOCATION: T8 FINDINGS: A single lateral view of the thoracic spine was performed. There is moderate wedge compression of T8. No spondylolisthesis is seen. The rest of the vertebral bodies appear grossly intact.. CONCLUSION: Moderate wedge compression of T8. Jose Barkley MD on August 09, 2016 at 21:04 Board Certified Radiologist. This report was verified electronically.
[2016-08-10] VITALS (8 sets, daily range): BP systolic 142–177; BP diastolic 79–98; PULSE 70–94; RESP 13–19; TEMP 98–98.7; O2SAT 93–100
[2016-08-10] MEDS: oxyCODONE HCL ORAL CONC 20 MG/ML SYRINGE PO PRN ×2 (02:21→23:26)
[2016-08-10] MEDS: oxyCODONE HCL ORAL CONC 20 MG/ML SYRINGE PO SCH ×4 (05:44→22:31)
[2016-08-10] MEDS: ceFAZolin 2 GM PREMIX 50 ML IV SCH ×3 (06:16→23:26)
[2016-08-10] MEDS: MULTIVITAMINS/IRON/MINERALS CHEWABLE TAB CHEW SCH (08:26)
[2016-08-10] MEDS: QUEtiapine FUMARATE 100 MG TAB PO SCH ×2 (08:26→20:16)
[2016-08-10] MEDS: DOCUSATE SODIUM 50 MG/SENNA 8.6 MG TAB PO SCH ×2 (08:26→20:17)
[2016-08-10] MEDS: hydrALAZINE HCL 25 MG TAB PO SCH ×2 (08:26→20:16)
[2016-08-10] MEDS: METOPROLOL TARTRATE 25 MG TAB PO SCH ×2 (08:26→20:16)
[2016-08-10] MEDS: REMOVE OLD NICOTINE PATCH TD SCH (08:27)
[2016-08-10] MEDS: NICOTINE 14 MG/24 HR PATCH TD SCH (08:27)
[2016-08-10] MEDS: levETIRAcetam INJ 500 MG in SODIUM CHLORIDE 0.9% INJ 100 ML IV SCH ×2 (08:27→20:16)
[2016-08-10] MEDS: PANTOPRAZOLE SODIUM 40 MG VIAL IV PUSH SCH (08:27)
[2016-08-10] MEDS: LACTULOSE SYRUP 20 GM/30 ML CUP PO SCH (08:27)
--- NOTE | 2016-08-10 10:23 | HHI.NSPN ---
History Chief Complaint: pain Interval History 51 yr old on disability after a cervical injury presented after a fall from a roof. He has a non displaced T8 wedge fracture. He is very drowsy from pain medications and at risk for alcohol withdrawal. GCS is 14 08/10/16 He is arousable and follows commands but still complaining of back pain. X-rays of the thoracic spine shows a stable T8 fx. The brace is on. System Review Comments Improving pulmonary status. Exam Results Vital Signs Date Time Temp Pulse Resp B/P Pulse Ox O2 Delivery O2 Flow Rate FiO2 08/10/16 08:29 100 T-piece 35 08/10/16 04:00 94 08/10/16 04:00 98.5 19 164/88 08/09/16 21:11 6.00 Intake and Output 08/09/16 08/09/16 08/10/16 08:00 16:00 00:00 Intake Total 657 ml 1068 ml 892 ml Output Total 906 ml 0 ml Balance -249 ml 1068 ml 892 ml Physical Examination Arousable, cooperative when awake, complaint of pain, Speech slurring from sedation, follows some commands TLSO ON, restraints ON Moves the right leg hip flexor well,weaker on the left,able to withdraw both lower extremities to stimulation, no clonus. Lab, Micro, Other Results Last Impressions Chest X-Ray 08/09/16 1500 Signed Impressions: Service Date/Time: Tuesday, August 09, 2016 14:45 - CONCLUSION: Chest tube removal with small resultant pneumothorax on the left. Stable diminished aeration otherwise. Toñito Cisneros MD Thoracic Spine X-Ray 08/09/16 0000 Signed Impressions: Service Date/Time: Tuesday, August 09, 2016 20:39 - CONCLUSION: Moderate wedge compression of T8. Jose Barkley MD Chest CT 08/02/16 0000 Signed Impressions: Service Date/Time: Tuesday, August 02, 2016 22:56 - CONCLUSION: 1. Bilateral pulmonary parenchymal opacity and bilateral pleural effusions. The parenchymal opacity is more severe on the left. The pleural effusion is larger on the right. Differential diagnosis for these findings includes pulmonary edema and infection. There is diffuse superficial soft tissue edema. 2. There is a 6 cm rounded fluid filled cavity in the lower lobe on the left. Previously this contained and air-fluid level. 3. Hydropneumothorax is again seen on the left with pneumothorax component smaller than on the previous study. Left-sided chest tube remains in place. 4. Multiple left-sided rib fractures again seen. Stevie Prather MD Abdomen X-Ray 07/28/16 0000 Signed Impressions: Service Date/Time: Thursday, July 28, 2016 17:45 - CONCLUSION: Tip of the Dobbhoff feeding tube is in the mid stomach. Toñito Bacon MD Head CT 07/19/16 0000 Signed Impressions: Service Date/Time: Tuesday, July 19, 2016 13:25 - CONCLUSION: Negative for an acute process. Cory Butts MD FACR Thoracic Spine CT 07/13/16 0000 Signed Impressions: Service Date/Time: Wednesday, July 13, 2016 08:51 - CONCLUSION: T8 compressive deformity as described in detail above with appearance suggestive of an old injury, however some degree of acute or subacute progression cannot be excluded. If it would affect clinical management, injury could be further characterized with MRI. Toñito Cisneros MD Medical Decision Making Impression and Plan New fall from roof, back pain and old C5 to C7 fusion, incomplete C6 exam 08/10/16 He is improving from a pulmonary point of sandra but still complains of back pain. The T8 fracture is healed with no new canal compromise or subluxation, PT/OT is continued. The brace is available for comfort but no instability is suspected at this time. Total Minutes: 10 Maged Varela Aug 10, 2016 10:23
[2016-08-10] MEDS: ENOXAPARIN SODIUM 40 MG/0.4 ML SYRINGE SQ SCH (11:39)
[2016-08-10] MEDS ORDERED: MISCELLANEOUS PHARMACY INFORMATION XX PRN (12:45)
[2016-08-10] MEDS ORDERED: ASP: Documented ESBL, MDR A baumannii or P. aeruginosa XX PRN (12:45)
--- NOTE | 2016-08-10 14:03 | HHI.PR ---
Neuropsych Progress Notes/Response to Tx Time with Patient: 15 minutes Premorbid psychological status Premorbid Cognitive, Emotional and Behavioral Status: Tenuous. 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 The patient has prior psychiatric difficulties, and reportedly was on Seroquel 300 mg qHS prior to the accident. Substance abuse history includes TOB and ETOH. Behavioral Reactions of Patient and Family/Support System: Tenuous. The patient has no family stepping up. He was living at a [facility], where reportedly he spent much of the time smoking and drinking. Emotional/Behavioral Status of Patient and Family/Support System: Tenuous. Pertinent issues, if appropriate to this patients clinical care, are described in detail above. Maximizing acute care outcome It is recommended that the patient be monitored for emergent behavioral impulsivity as the medical condition evolves. This patients psychiatric and substance dependence issues will limit their rehabilitation potential going forward, and these challenges will require specialized therapeutic skills to maximize outcome. Anticipated Problems Ongoing areas of concern will include agitation, behavioral impulsivity, lack of insight and judgment, which is unlikely to improve with time or treatment. Treatment Plan This clinician will continue to follow with you throughout the course of this patients rehabilitation treatment, and I will be available to meet with the patients family/support system to facilitate their understanding and the ongoing care of their family member. The goals of neuropsychological intervention shall be both educational and supportive to the family/support system as is deemed clinically appropriate. Diagnosis: (1) Bipolar affective, manic, unspec Status: Chronic Progress Note Narrative Ongoing follow-up of patient seen during daily trauma rounds. This patient remains unchanged neurobehaviorally, with no noted exacerbation of agitation since increased seroquel dosage yesterday. He is to be discharged to a long terms facility pending acceptance. I will continue to follow with you regarding agitation management with the goal of discontinuing restraints and reducing agitation. Bernard Higgins PhD Aug 10, 2016 2:03 pm
[2016-08-10] MEDS: ERTAPENEM INJ 1,000 MG in SODIUM CHLORIDE 0.9% INJ 100 ML IV SCH (15:06)
--- NOTE | 2016-08-10 15:23 | HHI.IDPN ---
Subjective Subjective Remarks tolerating Tpiece afebrile Growing ESBL+ from the sputum CT showed L sided hydrothorax Antibiotics levaquine cefazoline Allergies: Coded Allergies: No Known Allergies (Unverified , 07/13/16) Objective . Vital Signs Date Time Temp Pulse Resp B/P Pulse Ox O2 Delivery O2 Flow Rate FiO2 08/10/16 08:29 100 T-piece 35 08/10/16 08:00 98.2 70 14 158/79 100 08/10/16 08:00 70 08/10/16 07:00 100 T-Piece 35 08/10/16 04:00 94 08/10/16 04:00 98.5 94 19 164/88 99 08/10/16 03:21 13 08/10/16 00:00 98.3 70 15 142/80 99 08/10/16 00:00 70 08/10/16 00:00 15 08/09/16 21:11 97 T-piece 6.00 35 08/09/16 20:00 84 08/09/16 20:00 98.7 84 17 147/86 100 08/09/16 19:00 100 T-Piece 35 08/09/16 16:00 74 08/09/16 16:00 98.3 74 15 155/87 99 08/09/16 08/09/16 08/10/16 15:00 23:00 07:00 Intake Total 1068 ml 892 ml 1222 ml Output Total 0 ml Balance 1068 ml 892 ml 1222 ml Intake Oral 240 ml 240 ml IV Total 274 ml 195 ml 171 ml Tube Feeding 454 ml 397 ml 931 ml Other 100 ml 60 ml 120 ml Chest Tube Drainage Total 0 ml # Voids 3 2 2 # Bowel Movements 0 . Laboratory Tests Test 08/08/16 20:34 Potassium Level 3.7 MEQ/L Microbiology Date/Time Procedure Status Source Growth 08/08/16 00:58 Gram Stain - Final Complete Sputum Endotracheal 08/08/16 00:58 Sputum Culture - Final Complete Escherichia Coli Esbl Positive Imaging Last Impressions Chest X-Ray 08/09/16 1500 Signed Impressions: Service Date/Time: Tuesday, August 09, 2016 14:45 - CONCLUSION: Chest tube removal with small resultant pneumothorax on the left. Stable diminished aeration otherwise. Toñito Cisneros MD Thoracic Spine X-Ray 08/09/16 0000 Signed Impressions: Service Date/Time: Tuesday, August 09, 2016 20:39 - CONCLUSION: Moderate wedge compression of T8. Jose Barkley MD Chest CT 08/02/16 0000 Signed Impressions: Service Date/Time: Tuesday, August 02, 2016 22:56 - CONCLUSION: 1. Bilateral pulmonary parenchymal opacity and bilateral pleural effusions. The parenchymal opacity is more severe on the left. The pleural effusion is larger on the right. Differential diagnosis for these findings includes pulmonary edema and infection. There is diffuse superficial soft tissue edema. 2. There is a 6 cm rounded fluid filled cavity in the lower lobe on the left. Previously this contained and air-fluid level. 3. Hydropneumothorax is again seen on the left with pneumothorax component smaller than on the previous study. Left-sided chest tube remains in place. 4. Multiple left-sided rib fractures again seen. Stevie Prather MD Abdomen X-Ray 07/28/16 0000 Signed Impressions: Service Date/Time: Thursday, July 28, 2016 17:45 - CONCLUSION: Tip of the Dobbhoff feeding tube is in the mid stomach. Toñito Bacon MD Head CT 07/19/16 0000 Signed Impressions: Service Date/Time: Tuesday, July 19, 2016 13:25 - CONCLUSION: Negative for an acute process. Cory Butts MD FACR Thoracic Spine CT 07/13/16 0000 Signed Impressions: Service Date/Time: Wednesday, July 13, 2016 08:51 - CONCLUSION: T8 compressive deformity as described in detail above with appearance suggestive of an old injury, however some degree of acute or subacute progression cannot be excluded. If it would affect clinical management, injury could be further characterized with MRI. Toñito Cisneros MD Physical Exam CONSTITUTIONAL/GENERAL: This is an adequately nourished patient, in no apparent distress. sedated int'd on mec vent'n SKIN: No jaundice, rashes, or lesions. Skin temperature appropriate. Not diaphoretic. EYES: Pupils equal and round and reactive. Extraocular motions intact. No scleral icterus. No injection or drainage. Fundi not examined. ENT: oral mucosae moist NECK: trach in place, site [place] CARDIOVASCULAR: Regular rate and rhythm without murmurs, gallops, or rubs. No JVD. Peripheral pulses symmetric. RESPIRATORY/CHEST: Symmetric, unlabored respirations. Clear to auscultation. GASTROINTESTINAL: Abdomen soft, non-tender, nondistended. No hepato-splenomegaly , or palpable masses. No guarding. Bowel sounds present. GENITOURINARY: Without palpable bladder distension. Dinero catheter in place. MUSCULOSKELETAL: Extremities without clubbing, cyanosis, small amount of edema. No mottling or clubbing. NEUROLOGICAL: sleepy but easily arousable Assessment & Plan Remarks L lung pulm contusion L PNA, Kleb, MSSA -new culture is positive now for ESBL+ - worsening CXR MSSA bacteremia, low grade - 2 D echo neg for veg's Acute VDRF, failure to wean ETOHism and tobaccoism - cont cefazoline for MSSA bactermia - dc levaquine - start Ertapenem Martine Cuellar RN, MD Aug 10, 2016 15:23
--- NOTE | 2016-08-10 17:54 | HHI.CCPN ---
Subjective Brief History History of Present Illness This patient is a 51 year old male who presents to the [facility] emergency department as transfer from [facility]. He sustained a fall from the roof while he was working. This was a 12 foot roof and he landed on his back. He drove his coworkers home, prior to going to the emergency department. He was found to have multiple left-sided rib fractures, compression fracture of T8, left-sided pneumothorax and L lung contusion, for which a large bore chest tube was placed. The patients laboratory studies were remarkable for a white count of 12.2, potassium 3.0, alcohol level 150. Patient was transferred to surgical ICU with above-noted injuries It is conceivable that patient had aspirated at the time of event PMHx: Cervical spine fusion with halo placement, trigger finger, HTN, seizures, 1 PPD smoker, ETOH (drinks 8-12 12oz [place] Hard Lemonade daily) PAIN MANAGEMENT INJURIES: T8 compression fx Serial LEFT rib fxs LEFT sided PTX LEFT lung contusion Procedures: 07/12: LEFT CT (placed by [facility]) 07/16: Intubation and BRONCH 07/17: extubated 07/20: INTUBATION and BRONCH again 07/21: LEFT thoracoscopy; evacuation of empyema and decortication of the lung 07/27: Extubate & reintubated d/t secretions 07/28: Bedside trach 07/29: PEG I 24 Hour Review/Hospital Course Since arrival to the ICU patient has been stable He is awake alert and oriented He is severe left chest pain and back pain which is currently managed Neurosurgery has been consult is regarding the compression fracture of T8 and additional studies have been ordered Pulmonary contusion is severe and patient will likely get worse before he gets better as far as respiratory system is concerned for aspiration has most likely occurred at the time of the accident 07/16/2016 Patient was transferred to the floor 2 days ago and the has been doing well however became somewhat short of breath and repeat CAT scan was ordered which reveals complete collapse of the left lung with inspissated secretions and the collecting fluid around the lung Patient was transferred back to the ICU and remains well oxygenated on the 6 L nasal cannula nonetheless the left lung is completely atelectatic Today patient was intubated bronchoscoping and large amount of mucous material was obtained while the left lung reexpanded Drainage from the chest tube has also increased significantly pushing out all the fluid as the lung is reexpanded Will keep patient on the ventilator total tomorrow and then reassess needing possibly another bronchoscopy and then we'll work toward extubation 07/17/2016 As above noted patient has been intubated bronchoscoping has been doing well on the ventilator and is now successfully extubated All things equal patient will be able to return to the floor either today or tomorrow Chest tube drainage has decreased after being increased for about 24 hours and is serosanguineous and straw-colored Bilateral breath sounds 07/18/16 Since the bronchoscopy intubation and now after extubation patient has been ventilating nicely Chest tube drainage is about 400 cc per last 24 hours and it straw-colored This is inflammatory reaction the pleura which is slowly resolving so we will leave chest tube in place for this purpose Patient is still sort of somnolent in bed although the takes by mouth when asked questions he answers them appropriately but mumbles it, and remains somnolent Does not participate with care Does not cooperating with physical and occupational therapy or the nurses Asking for pain medication 07/19/2016 Patient is awake but slightly somnolent but oriented in time and space Patient requires increased amount of oxygen and this is a consistent with his anatomic and physiologic injuries Repeat CT scan of the chest reveals collapse of the left lower and part of the upper lobe with air-fluid level in the chest and partial collapse of the left lung Chest tube remains in place The partial anterior pneumothorax is due to the fact the patient was of suction when he went down to the radiology At this point patient will need to be intubated ventilated and bronchoscope the clearing of the secretions He may need prolonged intubation at this time and probably upon the evaluation the bronchial tree will decide whether patient needs a tracheostomy in the near future The interlobar bled could of course be due to the bronchial disruption but there is no need for surgery on this for it will eventually heal on its own The main thing is to support patient's respiration and pulmonary function 07/20/16 Patient has a had decreasing left lung function with the increasing levels consolidation and atelectasis Finally required intubation this morning with the bronchoscopy and clearing of the lung Massive amounts of mucous and purulent appearing material were obtained from the left lung Patient remains on the ventilator 07/22/2016 Patient status post left VATS evacuation of a loculated hemothorax and decortication of the left lung Postoperatively patient is doing well lungs are fully expanded and remains on the ventilator The patient improves respiratory ventilator weaning down gradually Antibiotics add to care in face of previous bronchoscopy findings cultures partially back Once we have better picture will adjust antibiotic coverage 07/23/16 Postoperative day 2 from his left thoracoscopic decortication Patient still has slightly elevated ventilator requirements His lung is inflated and there is no evidence of pneumothorax or air leak in the Pleur-evac 07/24/16 Tolerating chest tubes to water seal with minimal output He still has high FiO2 requirement on the ventilator He follows commands when sedation is lightened 07/25/16 Blood cultures came back 1 out of 2 with gram-positive cocci, he is already on vancomycin and Zosyn Slow weaning on the ventilator, chest x-ray remains stable with no evidence of pneumothorax and low chest tube output 07/26/16 Patient has been stable on the ventilator Drainage from the chest tubes has decreased and we will pull tomorrow the posterior chest tube and keep the anterior apical tube in place Patient has severe COPD and compromised lungs in addition to trauma so the pulmonary situation remains precarious Gram-positive cocci as per ID treatment treatment 07/27/16 Patient is gradually weaned and was extubated however asked he cannot clear secretions and while he is breathing is intact his the secretions are this point so I have it is not coughing up and not following commands Patient had to be reintubated the a few hours later Will have tracheostomy tomorrow considering this patient is extremely hard to wean in face of lung contusion heavy secretions as well as underlying severe pulmonary emphysema 07/28/16 As above noted patient was on successfully extubated yesterday had to be reintubated few hours later due to heavy secretions will collapse of the left lower lobe and the inability to ventilate and follow commands Patient underwent today tracheostomy placement and is currently on the ventilator Underwent the extensive bronchoscopy lavage with reinflation of the left upper and lower lobes At this point we'll be able to gradually we the presence of tracheostomy 07/29/2016 PTD: 16 Status post Dobbhoff placement last evening and continuation of tube feeding Patient remains on the ventilator today. He will receive a PEG from GI later today. 07/30/2016 PTD: 17 Pt remains mechanically ventilated. We will attempt a CPAP trial today, to see if we can begin weaning the vent in progression to trach collar. 07/31/2016 PTD: 18 Pt awake on rounds. Mouthing words. Very agitated and impatient. Attempt CPAP trials and progressed to T-piece. After some time on a t-piece, the patient became, agitated, restless, tachypneic and began kicking and thrashing around in the bed. Pt was placed back on previous settings, and sedation resumed for comfort and patient, and staff safety. 08/01/2016 PTD: 19 Patient is on a T piece 40% FiO2. Tolerating well. Sats equal 99% He is awake, mouthing words, and following commands. No distress noted. 08/02/2016 PTD: 20 Patient is wide awake, despite Precedex drip. Chest x-ray looks worse - persistent complete opacification of the left hemithorax. Plan for bronchoscopy at the bedside today 08/03/2016 PTD: 21 Patient in bed, wide awake. Okay [facility] - they will be able to complete his bronchoscopy there. 08/04/2016 PTD: 22 Patient awake in bed. No distress noted. Patient will mouth words. Case management is working diligently to get the patient transferred [facility]. 08/05/2016 PTD: 23 Patient awake, he has been on a T piece without incident. Still waiting for authorization to go through so the patient can be transferred to [facility]. He has been discharged for 3 days now. 08/06/2016 PTD: 24 Pt rests on vent settings over night, and tolerates a T-piece during the day. Just waiting on his insurance to authorize [facility]. 08/07/16 Patient off the respirator on trach collar Swallow study okay patient is eating regular diet At this point patient does not require ICU care any more but insurance denied placement in the rehabilitation as we were hoping for Patient therefore remains in the ICU for his complexity of care exceeds regular floor and he would certainly bounced back problems Deescalate care 1:4 08/08/16 Patient doing well at this time He's permanently from the ventilator and remains on trach collar Able to eat drink and communicated easily Patient will need extensive physical and occupational therapy Patient can transfer to floor but due to secretions would like to be closer to the nursing station Awaiting some sort of rehabilitation placement for the patient because he does not need intrahospital care any more 08/09/16 Patient is awake alert and oriented Able to eat and drink and feed himself Communicates well Off the ventilator Patient's been transferred from ICU 2 days ago however no bed is available on the floor 08/10/16 Patient is awake alert and oriented Follows commands takes by mouth diet Awaiting bed on the floor for the last 3 days Objective Vital Signs Date Time Temp Pulse Resp B/P Pulse Ox O2 Delivery O2 Flow Rate FiO2 08/10/16 16:00 85 08/10/16 16:00 98.7 17 155/86 93 08/10/16 08:29 T-piece 35 08/09/16 21:11 6.00 Intake and Output 08/09/16 08/09/16 08/10/16 08:00 16:00 00:00 Intake Total 657 ml 1068 ml 892 ml Output Total 906 ml 0 ml Balance -249 ml 1068 ml 892 ml Result Diagram: 08/08/1635208/08/162033 Other Results Microbiology Date/Time Procedure Status Source Growth 08/08/16 00:58 Gram Stain - Final Complete Sputum Endotracheal 08/08/16 00:58 Sputum Culture - Final Complete Escherichia Coli Esbl Positive Urinary Catheter Assessment Date of Insertion: Jul 17, 2016 Assessment and Plan Assessment: (1) Spinal cord injury, cervical region ICD Code: S14.109A Status: Acute (2) Chronic pain ICD Code: G89.29 Status: Acute (3) Closed T8 spinal fracture ICD Code: S22.069A Status: Acute (4) Pneumothorax on left ICD Code: J93.9 Status: Acute (5) Multiple fractures of ribs of left side ICD Code: S22.42XA Status: Acute (6) Traumatic compression fracture of T8 thoracic vertebra ICD Code: S22.060A Status: Acute Plan This is a 51-year-old male 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 He attempted to throw bucket over the side and a cut stuck in his hand and pulled over the side of the roof. He fell from approximately 12 feet and landed on his back. EtOH +. He ambulated at the scene and was able to drive his coworkers home before transporting himself to [facility]. He was then transferred to [place] for trauma services. He has spent an extended stay in the ICU mechanically ventilated. He has required a trach and PEG. Awaiting long-term placement. INJURIES: T8 compression fx Serial LEFT rib fxs LEFT sided PTX LEFT lung contusion Assessment and plan by systems: NEUROLOGICAL: Patient sedated lightly with Precedex T-piece continues. He is wide awake and mouthing words. Pt is sedated with a RASS score of 1-2 Provide analgesia for comfort and pain - scheduled Roxicodone. Seizure prophylaxis - Keppra for questionable alcoholic seizures HOB elevated 30 degrees. Increased Seroquel 250 mg BID. Serial neuro checks. + peripheral pulses x 4 extremities. Neurosurgery is assisting in care. CARDIOVASCULAR: HR = 68-89 Sinus rhythm BP = 135/83 Continually monitor for hemodynamic instability (shock and hypotension). BP meds - Lopressor 5 IV, Follow CMP Electrolyte protocol in place. RESPIRATORY: T-piece continues at 40 % Patient awake, follows commands. He is restless at times. Mouth's words to communicate. Increase PEEP carefully (to assist in oxygenation by recruiting alveoli.) Weaning - as tolerated O2 Sats Monitor for hypoxemia Follow ABGs - Lung sounds - clear but diminished throughout Pulmonary toilet L&S. Bronchodilators - Breathing treatments duonebs. Chest X-Ray results - no change. Bilateral pulmonary parenchymal opacity and bilateral pleural effusions. Left lateral chest tube in place to Pleur-evac drainage system - Bronchial washings sent 07/28 - left lower lobe - gram-negative rods/ Staphylococcus aureus Sputum culture 07/24: Klebsiella pneumonia. Staphylococcus aureus. Antibiotics -Ancef and Levaquin VAP protocol in place Labs tomorrow Chest X-Ray tomorrow GASTROINTESTINAL: Diet : Tube feeding: JEVITY at 60 cc/hour goal per dietary recommendations. PEG . Bowel sounds - + x 4 quads. Bowel regimen: Johanne-Colace, MOM. Lactulose daily bisacodyl [place] PRN. LBM: 08/05 RENAL / URINARY: I&O - 294 BUN / creat 5 / 0.[address] to bedside drainage bag draining clear yellow urine. Urine culture - 07/24 no growth ENDOCRINE: BGM - 100 via AM labs SSI HEMATOLOGY: H&H 7.6 / 21.9 - monitor closely Continue to monitor for signs and symptoms of bleeding. Evaluate need for IVC filter. Transfuse for < 7.0 Monitor patient for any bleeding complications. INFECTIOUS DISEASE: Follow CBC WBC - 7.0 Fevers -none overnight Administer antipyretics for temp as needed. Blood cultures 07/24: Staphylococcus aureus 3/15: Blood cultures repeated - Bronch washings 07/28: Staphylococcus aureus and Klebsiella pneumonia Urine 07/24: No growth IV antibiotics: Ancef and Levaquin Monitor pneumonia evolution with repeat chest X-Rays as needed. Maintain vigorous aseptic care of central line to avoid blood stream infections. Consult to ID for further management. LINES: 07/28: Trach 07/29: PEG 07/21: L CT 07/17: F/C PROPHYLAXIS: VAP protocol in place GI: Pepcid po DVT - Mechanical VTE with SCDs. Chemical management with Lovenox 40 SQ daily. SKIN: Warm and dry Daily chest tube dressing changes. Every shift trach care. ACTIVITY: Status - BR When OOB must wear TLSO brace PT and OT ordered. CASE MANAGEMENT: Consulted case management for DC planning. Placement - disposition - [facility]. Case management is working diligently to obtain authorization for placement. Patient has been discharged for 3 days now to [facility]. However, his insurance will not authorize his transfer to [facility]. EMOTIONAL SUPPORT: Provided to patient. Plan of care discussed. Questions answered to the best of my knowledge. Patient has been [facility] to [facility] once authorization complete or any LTAC that will accept him for admission and continued care.. This patient is discharged from a trauma surgery standpoint, however awaiting authorization for transfer to LTAC. The trauma team will round, assess and evaluate the patient on a day to day basis. Attestation The exam, history, and the medical decision-making described in the above note were completed with the assistance of the mid-level provider. I reviewed and agree with the findings presented. I attest that I had a [id number] encounter with the patient on the same day, and personally performed and documented my assessment and findings in the medical record. Problem Qualifiers (1) Spinal cord injury, cervical region: Qualified Code: S14.109A - Spinal cord injury, cervical region, initial encounter (2) Chronic pain: Qualified Code: G89.4 - Chronic pain syndrome (3) Closed T8 spinal fracture: (4) Multiple fractures of ribs of left side: Qualified Code: S22.42XA - Closed fracture of multiple ribs of left side, initial encounter (5) Traumatic compression fracture of T8 thoracic vertebra: Qualified Code: S22.060K - Traumatic compression fracture of T8 thoracic vertebra, with nonunion, subsequent encounter Blair Cartagena MD Aug 10, 2016 17:54
[2016-08-10] MEDS: MAGNESIUM HYDROXIDE SUSP 30 ML CUP PO SCH (20:17)
[2016-08-11] VITALS (9 sets, daily range): BP systolic 137–168; BP diastolic 71–98; PULSE 74–136; RESP 13–23; TEMP 98.5–99.2; O2SAT 92–98
[2016-08-11 04:17] LABS: BASOPHIL # 0.1 TH/MM3 (0-0.2); BASOPHIL % 1.4 % (0.0-2.0); EOSINOPHIL # 0.3 TH/MM3 (0-0.4); EOSINOPHIL % 4.9 % (0.0-4.0); HEMATOCRIT 29.7 % (39.0-51.0); HEMO FLAGS DIFF FINAL; LYMPH % 21.8 % (9.0-44.0); LYMPHOCYTE # 1.1 TH/MM3 (1.0-4.8); MEAN CELL VOLUME 93.2 FL (80.0-100.0); MEAN CORPUSCULAR HEMOGLOBIN 31.5 PG (27.0-34.0); MEAN CORPUSCULAR HGB CONC 33.7 % (32.0-36.0); MONO % 14.1 % (0.0-8.0); NEUT % 57.8 % (16.0-70.0); PLATELET COUNT 242 TH/MM3 (150-450); RED BLOOD COUNT 3.19 MIL/MM3 (4.50-5.90); RED CELL DISTRIBUTION WIDTH 13.5 % (11.6-17.2); WHITE BLOOD COUNT 5.2 TH/MM3 (4.0-11.0)
[2016-08-11 04:38] LABS: ANION GAP 8 MEQ/L (5-15); AST (GOT) 13 U/L (15-37); BICARBONATE 27.4 MEQ/L (21.0-32.0); BLOOD UREA NITROGEN 11 MG/DL (7-18); CHLORIDE 100 MEQ/L (98-107); GLOMERULAR FILTRATION RATE 136 ML/MIN (>89); MAGNESIUM 1.6 MG/DL (1.5-2.5); SODIUM (NA) 135 MEQ/L (136-145)
[2016-08-11 04:41] LABS: ALKALINE PHOSPHATASE 91 U/L (45-117); ALT (GPT) LESS THAN 6 U/L (12-78); TOTAL BILIRUBIN ADULT 0.1 MG/DL (0.2-1.0)
--- NOTE | 2016-08-11 04:49 | RADRPT ---
EXAM DATE/TIME: 08/11/2016 04:04 [place] COMPARISON: CHEST SINGLE AP, August 09, 2016, 14:45. INDICATIONS : Shortness of breath. MEDICAL HISTORY : None. SURGICAL HISTORY : None. ENCOUNTER: Subsequent ACUITY: 1 month PAIN SCORE: Non-responsive. LOCATION: Bilateral chest FINDINGS: Multiple left-sided rib fractures, cardiomegaly and pulmonary consolidation and effusions are again s een. Increasing consolidation in the left mid to lower lung, and small left-sided pneumothorax is sta ble. CONCLUSION: Increasing consolidation on the left. Otherwise stable. Jovanni Moseley MD on August 11, 2016 at 4:47 Board Certified Radiologist. This report was verified electronically.
[2016-08-11] MEDS: oxyCODONE HCL ORAL CONC 20 MG/ML SYRINGE PO SCH ×4 (05:00→22:56)
[2016-08-11] MEDS: ceFAZolin 2 GM PREMIX 50 ML IV SCH ×3 (08:19→22:57)
[2016-08-11] MEDS: PANTOPRAZOLE SODIUM 40 MG VIAL IV PUSH SCH (08:20)
[2016-08-11] MEDS: NICOTINE 14 MG/24 HR PATCH TD SCH (08:20)
[2016-08-11] MEDS: levETIRAcetam INJ 500 MG in SODIUM CHLORIDE 0.9% INJ 100 ML IV SCH ×2 (08:20→20:09)
[2016-08-11] MEDS: DOCUSATE SODIUM 50 MG/SENNA 8.6 MG TAB PO SCH ×2 (08:20→20:09)
[2016-08-11] MEDS: hydrALAZINE HCL 25 MG TAB PO SCH ×2 (08:20→20:09)
[2016-08-11] MEDS: QUEtiapine FUMARATE 100 MG TAB PO SCH ×2 (08:20→20:09)
[2016-08-11] MEDS: LACTULOSE SYRUP 20 GM/30 ML CUP PO SCH (08:20)
[2016-08-11] MEDS: REMOVE OLD NICOTINE PATCH TD SCH (08:20)
[2016-08-11] MEDS: MULTIVITAMINS/IRON/MINERALS CHEWABLE TAB CHEW SCH (08:20)
[2016-08-11] MEDS: METOPROLOL TARTRATE 25 MG TAB PO SCH ×2 (08:20→20:09)
[2016-08-11] MEDS: RESP: ALBUTEROL 2.5 MG/IPRATROPIUM 0.5 MG NEB (PRN) NEB (08:34)
[2016-08-11] MEDS: oxyCODONE HCL ORAL CONC 20 MG/ML SYRINGE PO PRN ×3 (08:52→20:33)
[2016-08-11] MEDS: ENOXAPARIN SODIUM 40 MG/0.4 ML SYRINGE SQ SCH (11:11)
--- NOTE | 2016-08-11 11:51 | HHI.PR ---
Neuropsych Emotional Emotional: Mild: Irritable/Angry/Frustrate Behavior Behavior: Mild: Coping/Acceptance, Cooperative w/ Treatment, Motivation, Frustration Tolerance/[place], Impulsive/Agitated Progress Notes/Response to Tx Contents of Sessions: Adjustment Time with Patient: 15 minutes Premorbid psychological status Premorbid Cognitive, Emotional and Behavioral Status: Tenuous. 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 The patient has prior psychiatric difficulties, and reportedly was on Seroquel 300 mg qHS prior to the accident. Substance abuse history includes TOB and ETOH. Behavioral Reactions of Patient and Family/Support System: Tenuous. The patient has no family stepping up. He was living at a care home for disabled individuals, where reportedly he spent much of the time smoking and drinking. Emotional/Behavioral Status of Patient and Family/Support System: Tenuous. Pertinent issues, if appropriate to this patients clinical care, are described in detail above. Maximizing acute care outcome It is recommended that the patient be monitored for emergent behavioral impulsivity as the medical condition evolves. This patients psychiatric and substance dependence issues will limit their rehabilitation potential going forward, and these challenges will require specialized therapeutic skills to maximize outcome. Anticipated Problems Ongoing areas of concern will include agitation, behavioral impulsivity, lack of insight and judgment, which is unlikely to improve with time or treatment. Treatment Plan This clinician will continue to follow with you throughout the course of this patients rehabilitation treatment, and I will be available to meet with the patients family/support system to facilitate their understanding and the ongoing care of their family member. The goals of neuropsychological intervention shall be both educational and supportive to the family/support system as is deemed clinically appropriate. Diagnosis: (1) Bipolar affective, manic, unspec Status: Chronic Progress Note Narrative Ongoing follow-up of patient seen during daily trauma rounding. From a neurobehavioral perspective, this patient is much improved, as he is not agitated, follows commands, and is compliant with nursing staff. He is now on 200 mg seroquel BID. He is no longer in restraints. His bipolar condition is managed effectively. He is ready for transfer to a lower level of care. I will follow with you until he is discharged. Bernard Higgins PhD Aug 11, 2016 11:51 am
[2016-08-11] MEDS: ERTAPENEM INJ 1,000 MG in SODIUM CHLORIDE 0.9% INJ 100 ML IV SCH (13:38)
--- NOTE | 2016-08-11 14:59 | HHI.CCPN ---
Subjective Brief History History of Present Illness This patient is a 51 year old male who presents to the [facility] emergency department as transfer from [facility]. He sustained a fall from the roof while he was working. This was a 12 foot roof and he landed on his back. He drove his coworkers home, prior to going to the emergency department. He was found to have multiple left-sided rib fractures, compression fracture of T8, left-sided pneumothorax and L lung contusion, for which a large bore chest tube was placed. The patients laboratory studies were remarkable for a white count of 12.2, potassium 3.0, alcohol level 150. Patient was transferred to surgical ICU with above-noted injuries It is conceivable that patient had aspirated at the time of event PMHx: Cervical spine fusion with halo placement, trigger finger, HTN, seizures, 1 PPD smoker, ETOH (drinks 8-12 12oz [place] Hard Lemonade daily) PAIN MANAGEMENT INJURIES: T8 compression fx Serial LEFT rib fxs LEFT sided PTX LEFT lung contusion Procedures: 07/12: LEFT CT (placed by [facility]) 07/16: Intubation and BRONCH 07/17: extubated 07/20: INTUBATION and BRONCH again 07/21: LEFT thoracoscopy; evacuation of empyema and decortication of the lung 07/27: Extubate & reintubated d/t secretions 07/28: Bedside trach 07/29: PEG I 24 Hour Review/Hospital Course Since arrival to the ICU patient has been stable He is awake alert and oriented He is severe left chest pain and back pain which is currently managed Neurosurgery has been consult is regarding the compression fracture of T8 and additional studies have been ordered Pulmonary contusion is severe and patient will likely get worse before he gets better as far as respiratory system is concerned for aspiration has most likely occurred at the time of the accident 07/16/2016 Patient was transferred to the floor 2 days ago and the has been doing well however became somewhat short of breath and repeat CAT scan was ordered which reveals complete collapse of the left lung with inspissated secretions and the collecting fluid around the lung Patient was transferred back to the ICU and remains well oxygenated on the 6 L nasal cannula nonetheless the left lung is completely atelectatic Today patient was intubated bronchoscoping and large amount of mucous material was obtained while the left lung reexpanded Drainage from the chest tube has also increased significantly pushing out all the fluid as the lung is reexpanded Will keep patient on the ventilator total tomorrow and then reassess needing possibly another bronchoscopy and then we'll work toward extubation 07/17/2016 As above noted patient has been intubated bronchoscoping has been doing well on the ventilator and is now successfully extubated All things equal patient will be able to return to the floor either today or tomorrow Chest tube drainage has decreased after being increased for about 24 hours and is serosanguineous and straw-colored Bilateral breath sounds 07/18/16 Since the bronchoscopy intubation and now after extubation patient has been ventilating nicely Chest tube drainage is about 400 cc per last 24 hours and it straw-colored This is inflammatory reaction the pleura which is slowly resolving so we will leave chest tube in place for this purpose Patient is still sort of somnolent in bed although the takes by mouth when asked questions he answers them appropriately but mumbles it, and remains somnolent Does not participate with care Does not cooperating with physical and occupational therapy or the nurses Asking for pain medication 07/19/2016 Patient is awake but slightly somnolent but oriented in time and space Patient requires increased amount of oxygen and this is a consistent with his anatomic and physiologic injuries Repeat CT scan of the chest reveals collapse of the left lower and part of the upper lobe with air-fluid level in the chest and partial collapse of the left lung Chest tube remains in place The partial anterior pneumothorax is due to the fact the patient was of suction when he went down to the radiology At this point patient will need to be intubated ventilated and bronchoscope the clearing of the secretions He may need prolonged intubation at this time and probably upon the evaluation the bronchial tree will decide whether patient needs a tracheostomy in the near future The interlobar bled could of course be due to the bronchial disruption but there is no need for surgery on this for it will eventually heal on its own The main thing is to support patient's respiration and pulmonary function 07/20/16 Patient has a had decreasing left lung function with the increasing levels consolidation and atelectasis Finally required intubation this morning with the bronchoscopy and clearing of the lung Massive amounts of mucous and purulent appearing material were obtained from the left lung Patient remains on the ventilator 07/22/2016 Patient status post left VATS evacuation of a loculated hemothorax and decortication of the left lung Postoperatively patient is doing well lungs are fully expanded and remains on the ventilator The patient improves respiratory ventilator weaning down gradually Antibiotics add to care in face of previous bronchoscopy findings cultures partially back Once we have better picture will adjust antibiotic coverage 07/23/16 Postoperative day 2 from his left thoracoscopic decortication Patient still has slightly elevated ventilator requirements His lung is inflated and there is no evidence of pneumothorax or air leak in the Pleur-evac 07/24/16 Tolerating chest tubes to water seal with minimal output He still has high FiO2 requirement on the ventilator He follows commands when sedation is lightened 07/25/16 Blood cultures came back 1 out of 2 with gram-positive cocci, he is already on vancomycin and Zosyn Slow weaning on the ventilator, chest x-ray remains stable with no evidence of pneumothorax and low chest tube output 07/26/16 Patient has been stable on the ventilator Drainage from the chest tubes has decreased and we will pull tomorrow the posterior chest tube and keep the anterior apical tube in place Patient has severe COPD and compromised lungs in addition to trauma so the pulmonary situation remains precarious Gram-positive cocci as per ID treatment treatment 07/27/16 Patient is gradually weaned and was extubated however asked he cannot clear secretions and while he is breathing is intact his the secretions are this point so I have it is not coughing up and not following commands Patient had to be reintubated the a few hours later Will have tracheostomy tomorrow considering this patient is extremely hard to wean in face of lung contusion heavy secretions as well as underlying severe pulmonary emphysema 07/28/16 As above noted patient was on successfully extubated yesterday had to be reintubated few hours later due to heavy secretions will collapse of the left lower lobe and the inability to ventilate and follow commands Patient underwent today tracheostomy placement and is currently on the ventilator Underwent the extensive bronchoscopy lavage with reinflation of the left upper and lower lobes At this point we'll be able to gradually we the presence of tracheostomy 07/29/2016 PTD: 16 Status post Dobbhoff placement last evening and continuation of tube feeding Patient remains on the ventilator today. He will receive a PEG from GI later today. 07/30/2016 PTD: 17 Pt remains mechanically ventilated. We will attempt a CPAP trial today, to see if we can begin weaning the vent in progression to trach collar. 07/31/2016 PTD: 18 Pt awake on rounds. Mouthing words. Very agitated and impatient. Attempt CPAP trials and progressed to T-piece. After some time on a t-piece, the patient became, agitated, restless, tachypneic and began kicking and thrashing around in the bed. Pt was placed back on previous settings, and sedation resumed for comfort and patient, and staff safety. 08/01/2016 PTD: 19 Patient is on a T piece 40% FiO2. Tolerating well. Sats equal 99% He is awake, mouthing words, and following commands. No distress noted. 08/02/2016 PTD: 20 Patient is wide awake, despite Precedex drip. Chest x-ray looks worse - persistent complete opacification of the left hemithorax. Plan for bronchoscopy at the bedside today 08/03/2016 PTD: 21 Patient in bed, wide awake. Okay to transfer to [facility] - they will be able to complete his bronchoscopy there. 08/04/2016 PTD: 22 Patient awake in bed. No distress noted. Patient will mouth words. Case management is working diligently to get the [facility]. 08/05/2016 PTD: 23 Patient awake, he has been on a T piece without incident. Still waiting for authorization to go through so the patient can be transferred to [facility]. He has been discharged for 3 days now. 08/06/2016 PTD: 24 Pt rests on vent settings over night, and tolerates a T-piece during the day. Just waiting on his insurance to authorize [facility]. 08/07/16 Patient off the respirator on trach collar Swallow study okay patient is eating regular diet At this point patient does not require ICU care any more but insurance denied placement in the rehabilitation as we were hoping for Patient therefore remains in the ICU for his complexity of care exceeds regular floor and he would certainly bounced back problems Deescalate care 1:4 08/08/16 Patient doing well at this time He's permanently from the ventilator and remains on trach collar Able to eat drink and communicated easily Patient will need extensive physical and occupational therapy Patient can transfer to floor but due to secretions would like to be closer to the nursing station Awaiting some sort of rehabilitation placement for the patient because he does not need intrahospital care any more 08/09/16 Patient is awake alert and oriented Able to eat and drink and feed himself Communicates well Off the ventilator Patient's been transferred from ICU 2 days ago however no bed is available on the floor 08/10/16 Patient is awake alert and oriented Follows commands takes by mouth diet Awaiting bed on the floor for the last 3 days 08/11/16 Patient doing well Slightly more sedated today with the neuro modulators as per Dr. Higgins Able to take by mouth diet Awake alert and oriented responding appropriately Patient is awaiting bed close to the nursing station for the last 4 days and remains in the unit as a border Objective Vital Signs Date Time Temp Pulse Resp B/P Pulse Ox O2 Delivery O2 Flow Rate FiO2 08/11/16 12:00 86 08/11/16 12:00 98.6 16 137/71 98 08/11/16 08:34 T-piece 8.00 28 Intake and Output 08/10/16 08/10/16 08/11/16 08:00 16:00 00:00 Intake Total 1222 ml 1090 ml 782 ml Output Total 0 ml 200 ml Balance 1222 ml 1090 ml 582 ml Result Diagram: 08/11/16 0400 08/11/16 0400 Imaging Last 24 hours Impressions Chest X-Ray 08/11/16 0600 Signed Impressions: Service Date/Time: Thursday, August 11, 2016 04:04 - CONCLUSION: Increasing consolidation on the left. Otherwise stable. Jovanni Moseley MD Urinary Catheter Assessment Date of Insertion: Jul 17, 2016 Assessment and Plan Assessment: (1) Spinal cord injury, cervical region ICD Code: S14.109A Status: Acute (2) Chronic pain ICD Code: G89.29 Status: Acute (3) Closed T8 spinal fracture ICD Code: S22.069A Status: Acute (4) Pneumothorax on left ICD Code: J93.9 Status: Acute (5) Multiple fractures of ribs of left side ICD Code: S22.42XA Status: Acute (6) Traumatic compression fracture of T8 thoracic vertebra ICD Code: S22.060A Status: Acute Plan This is a 51-year-old male 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 He attempted to throw bucket over the side and a cut stuck in his hand and pulled over the side of the roof. He fell from approximately 12 feet and landed on his back. EtOH +. He ambulated at the scene and was able to drive his coworkers home before transporting himself to [facility]. He was then transferred to [facility] for trauma services. He has spent an extended stay in the ICU mechanically ventilated. He has required a trach and PEG. Awaiting long-term placement. INJURIES: T8 compression fx Serial LEFT rib fxs LEFT sided PTX LEFT lung contusion Assessment and plan by systems: NEUROLOGICAL: Patient sedated lightly with Precedex T-piece continues. He is wide awake and mouthing words. Pt is sedated with a RASS score of 1-2 Provide analgesia for comfort and pain - scheduled Roxicodone. Seizure prophylaxis - Keppra for questionable alcoholic seizures HOB elevated 30 degrees. Increased Seroquel 250 mg BID. Serial neuro checks. + peripheral pulses x 4 extremities. Neurosurgery is assisting in care. CARDIOVASCULAR: HR = 68-89 Sinus rhythm BP = 135/83 Continually monitor for hemodynamic instability (shock and hypotension). BP meds - Lopressor 5 IV, Follow CMP Electrolyte protocol in place. RESPIRATORY: T-piece continues at 40 % Patient awake, follows commands. He is restless at times. Mouth's words to communicate. Increase PEEP carefully (to assist in oxygenation by recruiting alveoli.) Weaning - as tolerated O2 Sats Monitor for hypoxemia Follow ABGs - Lung sounds - clear but diminished throughout Pulmonary toilet L&S. Bronchodilators - Breathing treatments duonebs. Chest X-Ray results - no change. Bilateral pulmonary parenchymal opacity and bilateral pleural effusions. Left lateral chest tube in place to Pleur-evac drainage system - Bronchial washings sent 07/28 - left lower lobe - gram-negative rods/ Staphylococcus aureus Sputum culture 07/24: Klebsiella pneumonia. Staphylococcus aureus. Antibiotics -Ancef and Levaquin VAP protocol in place Labs tomorrow Chest X-Ray tomorrow GASTROINTESTINAL: Diet : Tube feeding: JEVITY at 60 cc/hour goal per dietary recommendations. PEG . Bowel sounds - + x 4 quads. Bowel regimen: Johanne-Colace, MOM. Lactulose daily bisacodyl SC PRN. LBM: 08/05 RENAL / URINARY: I&O - 294 BUN / creat 5 / 0.[address] to bedside drainage bag draining clear yellow urine. Urine culture - 07/24 no growth ENDOCRINE: BGM - 100 via AM labs SSI HEMATOLOGY: H&H 7.6 / 21.9 - monitor closely Continue to monitor for signs and symptoms of bleeding. Evaluate need for IVC filter. Transfuse for < 7.0 Monitor patient for any bleeding complications. INFECTIOUS DISEASE: Follow CBC WBC - 7.0 Fevers -none overnight Administer antipyretics for temp as needed. Blood cultures 07/24: Staphylococcus aureus 08/04: Blood cultures repeated - Bronch washings 07/28: Staphylococcus aureus and Klebsiella pneumonia Urine 07/24: No growth IV antibiotics: Ancef and Levaquin Monitor pneumonia evolution with repeat chest X-Rays as needed. Maintain vigorous aseptic care of central line to avoid blood stream infections. Consult to ID for further management. LINES: 07/28: Trach 07/29: PEG 07/21: L CT 07/17: F/C PROPHYLAXIS: VAP protocol in place GI: Pepcid po DVT - Mechanical VTE with SCDs. Chemical management with Lovenox 40 SQ daily. SKIN: Warm and dry Daily chest tube dressing changes. Every shift trach care. ACTIVITY: Status - BR When OOB must wear TLSO brace PT and OT ordered. CASE MANAGEMENT: Consulted case management for DC planning. Placement - disposition - [facility]. Case management is working diligently to obtain authorization for placement. Patient has been discharged for 3 days now to [facility]. However, his insurance will not authorize his transfer to [facility]. EMOTIONAL SUPPORT: Provided to patient. Plan of care discussed. Questions answered to the best of my knowledge. Patient has been discharged to [facility] once authorization complete or any LTAC that will accept him for admission and continued care.. This patient is discharged from a trauma surgery standpoint, however awaiting authorization for transfer to LTAC. The trauma team will round, assess and evaluate the patient on a day to day basis. Attestation The exam, history, and the medical decision-making described in the above note were completed with the assistance of the mid-level provider. I reviewed and agree with the findings presented. I attest that I had a [id number] encounter with the patient on the same day, and personally performed and documented my assessment and findings in the medical record. Problem Qualifiers (1) Spinal cord injury, cervical region: Qualified Code: S14.109A - Spinal cord injury, cervical region, initial encounter (2) Chronic pain: Qualified Code: G89.4 - Chronic pain syndrome (3) Closed T8 spinal fracture: (4) Multiple fractures of ribs of left side: Qualified Code: S22.42XA - Closed fracture of multiple ribs of left side, initial encounter (5) Traumatic compression fracture of T8 thoracic vertebra: Qualified Code: S22.060K - Traumatic compression fracture of T8 thoracic vertebra, with nonunion, subsequent encounter Blair Cartagena MD Aug 11, 2016 14:59
[2016-08-11] MEDS: MAGNESIUM HYDROXIDE SUSP 30 ML CUP PO SCH (20:09)
[2016-08-12] VITALS (10 sets, daily range): BP systolic 132–156; BP diastolic 77–87; PULSE 72–94; RESP 14–29; TEMP 98.5–99; O2SAT 93–100
[2016-08-12] MEDS: oxyCODONE HCL ORAL CONC 20 MG/ML SYRINGE PO PRN ×4 (01:37→18:48)
[2016-08-12] MEDS: oxyCODONE HCL ORAL CONC 20 MG/ML SYRINGE PO SCH ×4 (04:40→23:00)
[2016-08-12] MEDS: LACTULOSE SYRUP 20 GM/30 ML CUP PO SCH (08:43)
[2016-08-12] MEDS: ceFAZolin 2 GM PREMIX 50 ML IV SCH ×2 (08:43→15:30)
[2016-08-12] MEDS: NICOTINE 14 MG/24 HR PATCH TD SCH (08:43)
[2016-08-12] MEDS: levETIRAcetam INJ 500 MG in SODIUM CHLORIDE 0.9% INJ 100 ML IV SCH ×2 (08:45→21:15)
[2016-08-12] MEDS: PANTOPRAZOLE SODIUM 40 MG VIAL IV PUSH SCH (08:45)
[2016-08-12] MEDS: DOCUSATE SODIUM 50 MG/SENNA 8.6 MG TAB PO SCH ×2 (08:45→21:00)
[2016-08-12] MEDS: hydrALAZINE HCL 25 MG TAB PO SCH ×2 (08:45→21:13)
[2016-08-12] MEDS: METOPROLOL TARTRATE 25 MG TAB PO SCH ×2 (08:45→21:15)
[2016-08-12] MEDS: REMOVE OLD NICOTINE PATCH TD SCH (08:45)
[2016-08-12] MEDS: MULTIVITAMINS/IRON/MINERALS CHEWABLE TAB CHEW SCH (08:45)
[2016-08-12] MEDS: QUEtiapine FUMARATE 100 MG TAB PO SCH ×2 (08:45→21:15)
[2016-08-12] MEDS: RESP: ALBUTEROL 2.5 MG/IPRATROPIUM 0.5 MG NEB (PRN) NEB (09:52)
[2016-08-12] MEDS: ENOXAPARIN SODIUM 40 MG/0.4 ML SYRINGE SQ SCH (11:04)
--- NOTE | 2016-08-12 11:41 | HHI.PR ---
Neuropsych Behavior Behavior: Intact: Cooperative w/ Treatment, Frustration Tolerance/[place], Impulsive/Agitated, Mild: Behavior Progress Notes/Response to Tx Premorbid psychological status Premorbid Cognitive, Emotional and Behavioral Status: Tenuous. 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 The patient has prior psychiatric difficulties, and reportedly was on Seroquel 300 mg qHS prior to the accident. Substance abuse history includes TOB and ETOH. Behavioral Reactions of Patient and Family/Support System: Tenuous. The patient has no family stepping up. He was living at a assisted for disabled individuals, where reportedly he spent much of the time smoking and drinking. Emotional/Behavioral Status of Patient and Family/Support System: Tenuous. Pertinent issues, if appropriate to this patients clinical care, are described in detail above. Maximizing acute care outcome It is recommended that the patient be monitored for emergent behavioral impulsivity as the medical condition evolves. This patients psychiatric and substance dependence issues will limit their rehabilitation potential going forward, and these challenges will require specialized therapeutic skills to maximize outcome. Anticipated Problems Ongoing areas of concern will include agitation, behavioral impulsivity, lack of insight and judgment, which is unlikely to improve with time or treatment. Treatment Plan This clinician will continue to follow with you throughout the course of this patients rehabilitation treatment, and I will be available to meet with the patients family/support system to facilitate their understanding and the ongoing care of their family member. The goals of neuropsychological intervention shall be both educational and supportive to the family/support system as is deemed clinically appropriate. Diagnosis: (1) Bipolar affective, manic, unspec Status: Chronic Progress Note Narrative Ongoing follow-up of patient seen during daily trauma rounds. Nursing report is that he is compliant, not aggressive, feeding himself, although somewhat sedated. He no longer requires restraints. He is ready for transfer. I will continue to monitor this patient for behavioral issues throughout his stay. Bernard Higgins PhD Aug 12, 2016 11:40 am
[2016-08-12] MEDS: ERTAPENEM INJ 1,000 MG in SODIUM CHLORIDE 0.9% INJ 100 ML IV SCH (13:27)
--- NOTE | 2016-08-12 16:11 | HHI.CCPN ---
Subjective Brief History History of Present Illness This patient is a 51 year old male who presents to the [facility] emergency department as transfer from [facility]. He sustained a fall from the roof while he was working. This was a 12 foot roof and he landed on his back. He drove his coworkers home, prior to going to the emergency department. He was found to have multiple left-sided rib fractures, compression fracture of T8, left-sided pneumothorax and L lung contusion, for which a large bore chest tube was placed. The patients laboratory studies were remarkable for a white count of 12.2, potassium 3.0, alcohol level 150. Patient was transferred to surgical ICU with above-noted injuries It is conceivable that patient had aspirated at the time of event PMHx: Cervical spine fusion with halo placement, trigger finger, HTN, seizures, 1 PPD smoker, ETOH (drinks 8-12 12oz [place] Lemonade daily) PAIN MANAGEMENT INJURIES: T8 compression fx Serial LEFT rib fxs LEFT sided PTX LEFT lung contusion Procedures: 07/12: LEFT CT (placed by [facility]) 07/16: Intubation and BRONCH 07/17: extubated 07/20: INTUBATION and BRONCH again 07/21: LEFT thoracoscopy; evacuation of empyema and decortication of the lung 07/27: Extubate & reintubated d/t secretions 07/28: Bedside trach 07/29: PEG I 24 Hour Review/Hospital Course Since arrival to the ICU patient has been stable He is awake alert and oriented He is severe left chest pain and back pain which is currently managed Neurosurgery has been consult is regarding the compression fracture of T8 and additional studies have been ordered Pulmonary contusion is severe and patient will likely get worse before he gets better as far as respiratory system is concerned for aspiration has most likely occurred at the time of the accident 07/16/2016 Patient was transferred to the floor 2 days ago and the has been doing well however became somewhat short of breath and repeat CAT scan was ordered which reveals complete collapse of the left lung with inspissated secretions and the collecting fluid around the lung Patient was transferred back to the ICU and remains well oxygenated on the 6 L nasal cannula nonetheless the left lung is completely atelectatic Today patient was intubated bronchoscoping and large amount of mucous material was obtained while the left lung reexpanded Drainage from the chest tube has also increased significantly pushing out all the fluid as the lung is reexpanded Will keep patient on the ventilator total tomorrow and then reassess needing possibly another bronchoscopy and then we'll work toward extubation 07/17/2016 As above noted patient has been intubated bronchoscoping has been doing well on the ventilator and is now successfully extubated All things equal patient will be able to return to the floor either today or tomorrow Chest tube drainage has decreased after being increased for about 24 hours and is serosanguineous and straw-colored Bilateral breath sounds 07/18/16 Since the bronchoscopy intubation and now after extubation patient has been ventilating nicely Chest tube drainage is about 400 cc per last 24 hours and it straw-colored This is inflammatory reaction the pleura which is slowly resolving so we will leave chest tube in place for this purpose Patient is still sort of somnolent in bed although the takes by mouth when asked questions he answers them appropriately but mumbles it, and remains somnolent Does not participate with care Does not cooperating with physical and occupational therapy or the nurses Asking for pain medication 07/19/2016 Patient is awake but slightly somnolent but oriented in time and space Patient requires increased amount of oxygen and this is a consistent with his anatomic and physiologic injuries Repeat CT scan of the chest reveals collapse of the left lower and part of the upper lobe with air-fluid level in the chest and partial collapse of the left lung Chest tube remains in place The partial anterior pneumothorax is due to the fact the patient was of suction when he went down to the radiology At this point patient will need to be intubated ventilated and bronchoscope the clearing of the secretions He may need prolonged intubation at this time and probably upon the evaluation the bronchial tree will decide whether patient needs a tracheostomy in the near future The interlobar bled could of course be due to the bronchial disruption but there is no need for surgery on this for it will eventually heal on its own The main thing is to support patient's respiration and pulmonary function 07/20/16 Patient has a had decreasing left lung function with the increasing levels consolidation and atelectasis Finally required intubation this morning with the bronchoscopy and clearing of the lung Massive amounts of mucous and purulent appearing material were obtained from the left lung Patient remains on the ventilator 07/22/2016 Patient status post left VATS evacuation of a loculated hemothorax and decortication of the left lung Postoperatively patient is doing well lungs are fully expanded and remains on the ventilator The patient improves respiratory ventilator weaning down gradually Antibiotics add to care in face of previous bronchoscopy findings cultures partially back Once we have better picture will adjust antibiotic coverage 07/23/16 Postoperative day 2 from his left thoracoscopic decortication Patient still has slightly elevated ventilator requirements His lung is inflated and there is no evidence of pneumothorax or air leak in the Pleur-evac 07/24/16 Tolerating chest tubes to water seal with minimal output He still has high FiO2 requirement on the ventilator He follows commands when sedation is lightened 07/25/16 Blood cultures came back 1 out of 2 with gram-positive cocci, he is already on vancomycin and Zosyn Slow weaning on the ventilator, chest x-ray remains stable with no evidence of pneumothorax and low chest tube output 07/26/16 Patient has been stable on the ventilator Drainage from the chest tubes has decreased and we will pull tomorrow the posterior chest tube and keep the anterior apical tube in place Patient has severe COPD and compromised lungs in addition to trauma so the pulmonary situation remains precarious Gram-positive cocci as per ID treatment treatment 07/27/16 Patient is gradually weaned and was extubated however asked he cannot clear secretions and while he is breathing is intact his the secretions are this point so I have it is not coughing up and not following commands Patient had to be reintubated the a few hours later Will have tracheostomy tomorrow considering this patient is extremely hard to wean in face of lung contusion heavy secretions as well as underlying severe pulmonary emphysema 07/28/16 As above noted patient was on successfully extubated yesterday had to be reintubated few hours later due to heavy secretions will collapse of the left lower lobe and the inability to ventilate and follow commands Patient underwent today tracheostomy placement and is currently on the ventilator Underwent the extensive bronchoscopy lavage with reinflation of the left upper and lower lobes At this point we'll be able to gradually we the presence of tracheostomy 07/29/2016 PTD: 16 Status post Dobbhoff placement last evening and continuation of tube feeding Patient remains on the ventilator today. He will receive a PEG from GI later today. 07/30/2016 PTD: 17 Pt remains mechanically ventilated. We will attempt a CPAP trial today, to see if we can begin weaning the vent in progression to trach collar. 07/31/2016 PTD: 18 Pt awake on rounds. Mouthing words. Very agitated and impatient. Attempt CPAP trials and progressed to T-piece. After some time on a t-piece, the patient became, agitated, restless, tachypneic and began kicking and thrashing around in the bed. Pt was placed back on previous settings, and sedation resumed for comfort and patient, and staff safety. 08/01/2016 PTD: 19 Patient is on a T piece 40% FiO2. Tolerating well. Sats equal 99% He is awake, mouthing words, and following commands. No distress noted. 08/02/2016 PTD: 20 Patient is wide awake, despite Precedex drip. Chest x-ray looks worse - persistent complete opacification of the left hemithorax. Plan for bronchoscopy at the bedside today 08/03/2016 PTD: 21 Patient in bed, wide awake. Okay to transfer to [facility] - they will be able to complete his bronchoscopy there. 08/04/2016 PTD: 22 Patient awake in bed. No distress noted. Patient will mouth words. Case management is working diligently to get the patient [facility] care. 08/05/2016 PTD: 23 Patient awake, he has been on a T piece without incident. Still waiting for authorization to go through so the patient can be transferred to [facility]. He has been discharged for 3 days now. 08/06/2016 PTD: 24 Pt rests on vent settings over night, and tolerates a T-piece during the day. Just waiting on his insurance to authorize [facility]. 08/07/16 Patient off the respirator on trach collar Swallow study okay patient is eating regular diet At this point patient does not require ICU care any more but insurance denied placement in the rehabilitation as we were hoping for Patient therefore remains in the ICU for his complexity of care exceeds regular floor and he would certainly bounced back problems Deescalate care 1:4 08/08/16 Patient doing well at this time He's permanently from the ventilator and remains on trach collar Able to eat drink and communicated easily Patient will need extensive physical and occupational therapy Patient can transfer to floor but due to secretions would like to be closer to the nursing station Awaiting some sort of rehabilitation placement for the patient because he does not need intrahospital care any more 08/09/16 Patient is awake alert and oriented Able to eat and drink and feed himself Communicates well Off the ventilator Patient's been transferred from ICU 2 days ago however no bed is available on the floor 08/10/16 Patient is awake alert and oriented Follows commands takes by mouth diet Awaiting bed on the floor for the last 3 days 08/11/16 Patient doing well Slightly more sedated today with the neuro modulators as per Dr. Higgins Able to take by mouth diet Awake alert and oriented responding appropriately Patient is awaiting bed close to the nursing station for the last 4 days and remains in the unit as a border 08/12/16 Patient is awake and alert taking diet by mouth however awaiting bed on the floor and remains in the units for the last 5 days as a border Will downsize the trach to size 6 because there is still significant secretions present Objective Vital Signs Date Time Temp Pulse Resp B/P Pulse Ox O2 Delivery O2 Flow Rate FiO2 08/12/16 12:00 92 08/12/16 12:00 98.6 15 132/80 93 08/12/16 11:45 T-piece 6.00 50 Intake and Output 08/11/16 08/11/16 08/12/16 08:00 16:00 00:00 Intake Total 589 ml 610 ml 522 ml Output Total 150 ml 400 ml 250 ml Balance 439 ml 210 ml 272 ml Result Diagram: 08/11/16 0400 08/11/16 0400 Urinary Catheter Assessment Date of Insertion: Jul 17, 2016 Assessment and Plan Assessment: (1) Spinal cord injury, cervical region ICD Code: S14.109A Status: Acute (2) Chronic pain ICD Code: G89.29 Status: Acute (3) Closed T8 spinal fracture ICD Code: S22.069A Status: Acute (4) Pneumothorax on left ICD Code: J93.9 Status: Acute (5) Multiple fractures of ribs of left side ICD Code: S22.42XA Status: Acute (6) Traumatic compression fracture of T8 thoracic vertebra ICD Code: S22.060A Status: Acute Plan This is a 51-year-old male 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 He attempted to throw bucket over the side and a cut stuck in his hand and pulled over the side of the roof. He fell from approximately 12 feet and landed on his back. EtOH +. He ambulated at the scene and was able to drive his coworkers home before transporting himself to [facility]. He was then transferred to [facility] for trauma services. He has spent an extended stay in the ICU mechanically ventilated. He has required a trach and PEG. Awaiting long-term placement. INJURIES: T8 compression fx Serial LEFT rib fxs LEFT sided PTX LEFT lung contusion Assessment and plan by systems: NEUROLOGICAL: Patient sedated lightly with Precedex T-piece continues. He is wide awake and mouthing words. Pt is sedated with a RASS score of 1-2 Provide analgesia for comfort and pain - scheduled Roxicodone. Seizure prophylaxis - Keppra for questionable alcoholic seizures HOB elevated 30 degrees. Increased Seroquel 250 mg BID. Serial neuro checks. + peripheral pulses x 4 extremities. Neurosurgery is assisting in care. CARDIOVASCULAR: HR = 68-89 Sinus rhythm BP = 135/83 Continually monitor for hemodynamic instability (shock and hypotension). BP meds - Lopressor 5 IV, Follow CMP Electrolyte protocol in place. RESPIRATORY: T-piece continues at 40 % Patient awake, follows commands. He is restless at times. Mouth's words to communicate. Increase PEEP carefully (to assist in oxygenation by recruiting alveoli.) Weaning - as tolerated O2 Sats Monitor for hypoxemia Follow ABGs - Lung sounds - clear but diminished throughout Pulmonary toilet L&S. Bronchodilators - Breathing treatments duonebs. Chest X-Ray results - no change. Bilateral pulmonary parenchymal opacity and bilateral pleural effusions. Left lateral chest tube in place to Pleur-evac drainage system - Bronchial washings sent 07/28 - left lower lobe - gram-negative rods/ Staphylococcus aureus Sputum culture 07/24: Klebsiella pneumonia. Staphylococcus aureus. Antibiotics -Ancef and Levaquin VAP protocol in place Labs tomorrow Chest X-Ray tomorrow GASTROINTESTINAL: Diet : Tube feeding: JEVITY at 60 cc/hour goal per dietary recommendations. PEG . Bowel sounds - + x 4 quads. Bowel regimen: Johanne-Colace, MOM. Lactulose daily bisacodyl MS PRN. LBM: 08/05 RENAL / URINARY: I&O - 294 BUN / creat 5 / 0.[address] to bedside drainage bag draining clear yellow urine. Urine culture - 07/24 no growth ENDOCRINE: BGM - 100 via AM labs SSI HEMATOLOGY: H&H 7.6 / 21.9 - monitor closely Continue to monitor for signs and symptoms of bleeding. Evaluate need for IVC filter. Transfuse for < 7.0 Monitor patient for any bleeding complications. INFECTIOUS DISEASE: Follow CBC WBC - 7.0 Fevers -none overnight Administer antipyretics for temp as needed. Blood cultures 07/24: Staphylococcus aureus 08/04: Blood cultures repeated - Bronch washings 07/28: Staphylococcus aureus and Klebsiella pneumonia Urine 07/24: No growth IV antibiotics: Ancef and Levaquin Monitor pneumonia evolution with repeat chest X-Rays as needed. Maintain vigorous aseptic care of central line to avoid blood stream infections. Consult to ID for further management. LINES: 07/28: Trach 07/29: PEG 07/21: L CT 07/17: F/C PROPHYLAXIS: VAP protocol in place GI: Pepcid po DVT - Mechanical VTE with SCDs. Chemical management with Lovenox 40 SQ daily. SKIN: Warm and dry Daily chest tube dressing changes. Every shift trach care. ACTIVITY: Status - BR When OOB must wear TLSO brace PT and OT ordered. CASE MANAGEMENT: Consulted case management for DC planning. Placement - disposition - [facility]. Case management is working diligently to obtain authorization for placement. Patient has been discharged for [facility] days now to [facility]. However, his insurance will not authorize his transfer to [facility]. EMOTIONAL SUPPORT: Provided to patient. Plan of care discussed. Questions answered to the best of my knowledge. Patient has been discharged to [facility] once authorization complete or any LTAC that will accept him for admission and continued care.. This patient is discharged from a trauma surgery standpoint, however awaiting authorization for transfer to LTAC. The trauma team will round, assess and evaluate the patient on a day to day basis. Attestation The exam, history, and the medical decision-making described in the above note were completed with the assistance of the mid-level provider. I reviewed and agree with the findings presented. I attest that I had a [id number] encounter with the patient on the same day, and personally performed and documented my assessment and findings in the medical record. Problem Qualifiers (1) Spinal cord injury, cervical region: Qualified Code: S14.109A - Spinal cord injury, cervical region, initial encounter (2) Chronic pain: Qualified Code: G89.4 - Chronic pain syndrome (3) Closed T8 spinal fracture: (4) Multiple fractures of ribs of left side: Qualified Code: S22.42XA - Closed fracture of multiple ribs of left side, initial encounter (5) Traumatic compression fracture of T8 thoracic vertebra: Qualified Code: S22.060K - Traumatic compression fracture of T8 thoracic vertebra, with nonunion, subsequent encounter Blair Cartagena MD Aug 12, 2016 16:11
[2016-08-12] MEDS: HALOPERIDOL LACTATE 5 MG/ML AMP IV PUSH PRN (17:32)
[2016-08-12] MEDS: MAGNESIUM HYDROXIDE SUSP 30 ML CUP PO SCH (21:13)
[2016-08-13] VITALS (8 sets, daily range): BP systolic 110–156; BP diastolic 63–86; PULSE 68–94; RESP 15–20; TEMP 97.9–99; O2SAT 95–98
[2016-08-13] MEDS: oxyCODONE HCL ORAL CONC 20 MG/ML SYRINGE PO PRN ×5 (03:17→21:35)
[2016-08-13] MEDS: oxyCODONE HCL ORAL CONC 20 MG/ML SYRINGE PO SCH (05:00)
[2016-08-13] MEDS: ACETAMINOPHEN 325 MG TAB PO PRN (05:21)
[2016-08-13] MEDS: HALOPERIDOL LACTATE 5 MG/ML AMP IV PUSH PRN ×2 (05:22→15:09)
[2016-08-13] MEDS: REMOVE OLD NICOTINE PATCH TD SCH (09:00)
[2016-08-13] MEDS: ceFAZolin 2 GM PREMIX 50 ML IV SCH ×3 (10:16→15:09)
[2016-08-13] MEDS: NICOTINE 14 MG/24 HR PATCH TD SCH (10:16)
[2016-08-13] MEDS: levETIRAcetam INJ 500 MG in SODIUM CHLORIDE 0.9% INJ 100 ML IV SCH ×2 (10:17→19:50)
[2016-08-13] MEDS: METOPROLOL TARTRATE 25 MG TAB PO SCH ×2 (10:17→19:51)
[2016-08-13] MEDS: MULTIVITAMINS/IRON/MINERALS CHEWABLE TAB CHEW SCH (10:17)
[2016-08-13] MEDS: hydrALAZINE HCL 25 MG TAB PO SCH ×2 (10:17→19:52)
[2016-08-13] MEDS: PANTOPRAZOLE SODIUM 40 MG VIAL IV PUSH SCH (10:17)
[2016-08-13] MEDS: LACTULOSE SYRUP 20 GM/30 ML CUP PO SCH (10:18)
[2016-08-13] MEDS: QUEtiapine FUMARATE 100 MG TAB PO SCH ×2 (10:18→19:50)
[2016-08-13] MEDS: DOCUSATE SODIUM 50 MG/SENNA 8.6 MG TAB PO SCH ×2 (10:18→19:51)
[2016-08-13] MEDS: ENOXAPARIN SODIUM 40 MG/0.4 ML SYRINGE SQ SCH (11:29)
--- NOTE | 2016-08-13 11:31 | HHI.PR ---
Neuropsych Progress Notes/Response to Tx Contents of Sessions: Adjustment Time with Patient: 15 minutes Premorbid psychological status Premorbid Cognitive, Emotional and Behavioral Status: Tenuous. 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 The patient has prior psychiatric difficulties, and reportedly was on Seroquel 300 mg qHS prior to the accident. Substance abuse history includes TOB and ETOH. Behavioral Reactions of Patient and Family/Support System: Tenuous. The patient has no family stepping up. He was living at a skilled nursing for disabled individuals, where reportedly he spent much of the time smoking and drinking. Emotional/Behavioral Status of Patient and Family/Support System: Tenuous. Pertinent issues, if appropriate to this patients clinical care, are described in detail above. Maximizing acute care outcome It is recommended that the patient be monitored for emergent behavioral impulsivity as the medical condition evolves. This patients psychiatric and substance dependence issues will limit their rehabilitation potential going forward, and these challenges will require specialized therapeutic skills to maximize outcome. Anticipated Problems Ongoing areas of concern will include agitation, behavioral impulsivity, lack of insight and judgment, which is unlikely to improve with time or treatment. Treatment Plan This clinician will continue to follow with you throughout the course of this patients rehabilitation treatment, and I will be available to meet with the patients family/support system to facilitate their understanding and the ongoing care of their family member. The goals of neuropsychological intervention shall be both educational and supportive to the family/support system as is deemed clinically appropriate. Diagnosis: (1) Bipolar affective, manic, unspec Status: Chronic Progress Note Narrative Ongoing follow-up of patient seen during trauma rounds. This patient's neurobehavioral status is unchanged. His agitation is effectively managed. He is not in restraints. He is ready for discharge. I will continue to follow until he is discharged. Bernard Higgins PhD Aug 13, 2016 11:31 am
--- NOTE | 2016-08-13 11:37 | HHI.CCPN ---
Subjective Brief History History of Present Illness This patient is a 51 year old male who presents to the [facility] emergency department as transfer from [facility]. He sustained a fall from the roof while he was working. This was a 12 foot roof and he landed on his back. He drove his coworkers home, prior to going to the emergency department. He was found to have multiple left-sided rib fractures, compression fracture of T8, left-sided pneumothorax and L lung contusion, for which a large bore chest tube was placed. The patients laboratory studies were remarkable for a white count of 12.2, potassium 3.0, alcohol level 150. Patient was transferred to surgical ICU with above-noted injuries It is conceivable that patient had aspirated at the time of event PMHx: Cervical spine fusion with halo placement, trigger finger, HTN, seizures, 1 PPD smoker, ETOH (drinks 8-12 12oz Ackerly Hard Lemonade daily) PAIN MANAGEMENT INJURIES: T8 compression fx Serial LEFT rib fxs LEFT sided PTX LEFT lung contusion Procedures: 07/12: LEFT CT (placed by [facility]) 07/16: Intubation and BRONCH 07/17: extubated 07/20: INTUBATION and BRONCH again 07/21: LEFT thoracoscopy; evacuation of empyema and decortication of the lung 07/27: Extubate & reintubated d/t secretions 07/28: Bedside trach 07/29: PEG I 24 Hour Review/Hospital Course Since arrival to the ICU patient has been stable He is awake alert and oriented He is severe left chest pain and back pain which is currently managed Neurosurgery has been consult is regarding the compression fracture of T8 and additional studies have been ordered Pulmonary contusion is severe and patient will likely get worse before he gets better as far as respiratory system is concerned for aspiration has most likely occurred at the time of the accident 07/16/2016 Patient was transferred to the floor 2 days ago and the has been doing well however became somewhat short of breath and repeat CAT scan was ordered which reveals complete collapse of the left lung with inspissated secretions and the collecting fluid around the lung Patient was transferred back to the ICU and remains well oxygenated on the 6 L nasal cannula nonetheless the left lung is completely atelectatic Today patient was intubated bronchoscoping and large amount of mucous material was obtained while the left lung reexpanded Drainage from the chest tube has also increased significantly pushing out all the fluid as the lung is reexpanded Will keep patient on the ventilator total tomorrow and then reassess needing possibly another bronchoscopy and then we'll work toward extubation 07/17/2016 As above noted patient has been intubated bronchoscoping has been doing well on the ventilator and is now successfully extubated All things equal patient will be able to return to the floor either today or tomorrow Chest tube drainage has decreased after being increased for about 24 hours and is serosanguineous and straw-colored Bilateral breath sounds 07/18/16 Since the bronchoscopy intubation and now after extubation patient has been ventilating nicely Chest tube drainage is about 400 cc per last 24 hours and it straw-colored This is inflammatory reaction the pleura which is slowly resolving so we will leave chest tube in place for this purpose Patient is still sort of somnolent in bed although the takes by mouth when asked questions he answers them appropriately but mumbles it, and remains somnolent Does not participate with care Does not cooperating with physical and occupational therapy or the nurses Asking for pain medication 07/19/2016 Patient is awake but slightly somnolent but oriented in time and space Patient requires increased amount of oxygen and this is a consistent with his anatomic and physiologic injuries Repeat CT scan of the chest reveals collapse of the left lower and part of the upper lobe with air-fluid level in the chest and partial collapse of the left lung Chest tube remains in place The partial anterior pneumothorax is due to the fact the patient was of suction when he went down to the radiology At this point patient will need to be intubated ventilated and bronchoscope the clearing of the secretions He may need prolonged intubation at this time and probably upon the evaluation the bronchial tree will decide whether patient needs a tracheostomy in the near future The interlobar bled could of course be due to the bronchial disruption but there is no need for surgery on this for it will eventually heal on its own The main thing is to support patient's respiration and pulmonary function 07/20/16 Patient has a had decreasing left lung function with the increasing levels consolidation and atelectasis Finally required intubation this morning with the bronchoscopy and clearing of the lung Massive amounts of mucous and purulent appearing material were obtained from the left lung Patient remains on the ventilator 07/22/2016 Patient status post left VATS evacuation of a loculated hemothorax and decortication of the left lung Postoperatively patient is doing well lungs are fully expanded and remains on the ventilator The patient improves respiratory ventilator weaning down gradually Antibiotics add to care in face of previous bronchoscopy findings cultures partially back Once we have better picture will adjust antibiotic coverage 07/23/16 Postoperative day 2 from his left thoracoscopic decortication Patient still has slightly elevated ventilator requirements His lung is inflated and there is no evidence of pneumothorax or air leak in the Pleur-evac 07/24/16 Tolerating chest tubes to water seal with minimal output He still has high FiO2 requirement on the ventilator He follows commands when sedation is lightened 07/25/16 Blood cultures came back 1 out of 2 with gram-positive cocci, he is already on vancomycin and Zosyn Slow weaning on the ventilator, chest x-ray remains stable with no evidence of pneumothorax and low chest tube output 07/26/16 Patient has been stable on the ventilator Drainage from the chest tubes has decreased and we will pull tomorrow the posterior chest tube and keep the anterior apical tube in place Patient has severe COPD and compromised lungs in addition to trauma so the pulmonary situation remains precarious Gram-positive cocci as per ID treatment treatment 07/27/16 Patient is gradually weaned and was extubated however asked he cannot clear secretions and while he is breathing is intact his the secretions are this point so I have it is not coughing up and not following commands Patient had to be reintubated the a few hours later Will have tracheostomy tomorrow considering this patient is extremely hard to wean in face of lung contusion heavy secretions as well as underlying severe pulmonary emphysema 07/28/16 As above noted patient was on successfully extubated yesterday had to be reintubated few hours later due to heavy secretions will collapse of the left lower lobe and the inability to ventilate and follow commands Patient underwent today tracheostomy placement and is currently on the ventilator Underwent the extensive bronchoscopy lavage with reinflation of the left upper and lower lobes At this point we'll be able to gradually we the presence of tracheostomy 07/29/2016 PTD: 16 Status post Dobbhoff placement last evening and continuation of tube feeding Patient remains on the ventilator today. He will receive a PEG from GI later today. 07/30/2016 PTD: 17 Pt remains mechanically ventilated. We will attempt a CPAP trial today, to see if we can begin weaning the vent in progression to trach collar. 07/31/2016 PTD: 18 Pt awake on rounds. Mouthing words. Very agitated and impatient. Attempt CPAP trials and progressed to T-piece. After some time on a t-piece, the patient became, agitated, restless, tachypneic and began kicking and thrashing around in the bed. Pt was placed back on previous settings, and sedation resumed for comfort and patient, and staff safety. 08/01/2016 PTD: 19 Patient is on a T piece 40% FiO2. Tolerating well. Sats equal 99% He is awake, mouthing words, and following commands. No distress noted. 08/02/2016 PTD: 20 Patient is wide awake, despite Precedex drip. Chest x-ray looks worse - persistent complete opacification of the left hemithorax. Plan for bronchoscopy at the bedside today 08/03/2016 PTD: 21 Patient in bed, wide awake. Okay to transfer to [facility] - they will be able to complete his bronchoscopy there. 08/04/2016 PTD: 22 Patient awake in bed. No distress noted. Patient will mouth words. Case management is working diligently to get the patient transferred [facility] care. 08/05/2016 PTD: 23 Patient awake, he has been on a T piece without incident. Still waiting for authorization to go through so the patient can be transferred to [facility]. He has been discharged for 3 days now. 08/06/2016 PTD: 24 Pt rests on vent settings over night, and tolerates a T-piece during the day. Just waiting on his insurance to authorize [facility]. 08/07/16 Patient off the respirator on trach collar Swallow study okay patient is eating regular diet At this point patient does not require ICU care any more but insurance denied placement in the rehabilitation as we were hoping for Patient therefore remains in the ICU for his complexity of care exceeds regular floor and he would certainly bounced back problems Deescalate care 1:4 08/08/16 Patient doing well at this time He's permanently from the ventilator and remains on trach collar Able to eat drink and communicated easily Patient will need extensive physical and occupational therapy Patient can transfer to floor but due to secretions would like to be closer to the nursing station Awaiting some sort of rehabilitation placement for the patient because he does not need intrahospital care any more 08/09/16 Patient is awake alert and oriented Able to eat and drink and feed himself Communicates well Off the ventilator Patient's been transferred from ICU 2 days ago however no bed is available on the floor 08/10/16 Patient is awake alert and oriented Follows commands takes by mouth diet Awaiting bed on the floor for the last 3 days 08/11/16 Patient doing well Slightly more sedated today with the neuro modulators as per Dr. Higgins Able to take by mouth diet Awake alert and oriented responding appropriately Patient is awaiting bed close to the nursing station for the last 4 days and remains in the unit as a border 08/12/16 Patient is awake and alert taking diet by mouth however awaiting bed on the floor and remains in the units for the last 5 days as a border Will downsize the trach to size 6 because there is still significant secretions present 08/13/16 Patient doing well he is awake and alert Feeding himself There is essentially no reason for patient to be in the ICU for the last 5 days however somehow no floor will take the patient for it appears there are no beds close to the nursing station Will address with the nursing directorship today. Patient's poor insurance and no rehabilitation will take him either so he keeps occupying an ICU bed Objective Vital Signs Date Time Temp Pulse Resp B/P Pulse Ox O2 Delivery O2 Flow Rate FiO2 08/13/16 10:25 97 T-piece 28 08/13/16 04:00 98.1 70 20 156/81 08/12/16 11:45 6.00 Intake and Output 08/12/16 08/12/16 08/13/16 08:00 16:00 00:00 Intake Total 603 ml 539 ml 500 ml Output Total 700 ml 800 ml 700 ml Balance -97 ml -261 ml -200 ml Result Diagram: 08/11/16 0400 08/11/16 0400 Urinary Catheter Assessment Date of Insertion: Jul 17, 2016 Assessment and Plan Assessment: (1) Spinal cord injury, cervical region ICD Code: S14.109A Status: Acute (2) Chronic pain ICD Code: G89.29 Status: Acute (3) Closed T8 spinal fracture ICD Code: S22.069A Status: Acute (4) Pneumothorax on left ICD Code: J93.9 Status: Acute (5) Multiple fractures of ribs of left side ICD Code: S22.42XA Status: Acute (6) Traumatic compression fracture of T8 thoracic vertebra ICD Code: S22.060A Status: Acute Plan This is a 51-year-old male 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 He attempted to throw bucket over the side and a cut stuck in his hand and pulled over the side of the roof. He fell from approximately 12 feet and landed on his back. EtOH +. He ambulated at the scene and was able to drive his coworkers home before transporting himself to [facility]. He was then transferred to [place] for trauma services. He has spent an extended stay in the ICU mechanically ventilated. He has required a trach and PEG. Awaiting long-term placement. INJURIES: T8 compression fx Serial LEFT rib fxs LEFT sided PTX LEFT lung contusion Assessment and plan by systems: NEUROLOGICAL: Patient sedated lightly with Precedex T-piece continues. He is wide awake and mouthing words. Pt is sedated with a RASS score of 1-2 Provide analgesia for comfort and pain - scheduled Roxicodone. Seizure prophylaxis - Keppra for questionable alcoholic seizures HOB elevated 30 degrees. Increased Seroquel 250 mg BID. Serial neuro checks. + peripheral pulses x 4 extremities. Neurosurgery is assisting in care. CARDIOVASCULAR: HR = 68-89 Sinus rhythm BP = 135/83 Continually monitor for hemodynamic instability (shock and hypotension). BP meds - Lopressor 5 IV, Follow CMP Electrolyte protocol in place. RESPIRATORY: T-piece continues at 40 % Patient awake, follows commands. He is restless at times. Mouth's words to communicate. Increase PEEP carefully (to assist in oxygenation by recruiting alveoli.) Weaning - as tolerated O2 Sats Monitor for hypoxemia Follow ABGs - Lung sounds - clear but diminished throughout Pulmonary toilet L&S. Bronchodilators - Breathing treatments duonebs. Chest X-Ray results - no change. Bilateral pulmonary parenchymal opacity and bilateral pleural effusions. Left lateral chest tube in place to Pleur-evac drainage system - Bronchial washings sent 07/28 - left lower lobe - gram-negative rods/ Staphylococcus aureus Sputum culture 07/24: Klebsiella pneumonia. Staphylococcus aureus. Antibiotics -Ancef and Levaquin VAP protocol in place Labs tomorrow Chest X-Ray tomorrow GASTROINTESTINAL: Diet : Tube feeding: JEVITY at 60 cc/hour goal per dietary recommendations. PEG . Bowel sounds - + x 4 quads. Bowel regimen: Johanne-Colace, MOM. Lactulose daily bisacodyl ID PRN. LBM: 3/16 RENAL / URINARY: I&O - 294 BUN / creat 5 / 0.[address] to bedside drainage bag draining clear yellow urine. Urine culture - 07/24 no growth ENDOCRINE: BGM - 100 via AM labs SSI HEMATOLOGY: H&H 7.6 / 21.9 - monitor closely Continue to monitor for signs and symptoms of bleeding. Evaluate need for IVC filter. Transfuse for < 7.0 Monitor patient for any bleeding complications. INFECTIOUS DISEASE: Follow CBC WBC - 7.0 Fevers -none overnight Administer antipyretics for temp as needed. Blood cultures 07/24: Staphylococcus aureus 08/04: Blood cultures repeated - Bronch washings 07/28: Staphylococcus aureus and Klebsiella pneumonia Urine 07/24: No growth IV antibiotics: Ancef and Levaquin Monitor pneumonia evolution with repeat chest X-Rays as needed. Maintain vigorous aseptic care of central line to avoid blood stream infections. Consult to ID for further management. LINES: 07/28: Trach 07/29: PEG 07/21: L CT 07/17: F/C PROPHYLAXIS: VAP protocol in place GI: Pepcid po DVT - Mechanical VTE with SCDs. Chemical management with Lovenox 40 SQ daily. SKIN: Warm and dry Daily chest tube dressing changes. Every shift trach care. ACTIVITY: Status - BR When OOB must wear TLSO brace PT and OT ordered. CASE MANAGEMENT: Consulted case management for DC planning. Placement - disposition - [facility]. Case management is working diligently to obtain authorization for placement. Patient has been [facility] for [facility] days now to [facility]. However, his insurance will not authorize his transfer to [facility]. EMOTIONAL SUPPORT: Provided to patient. Plan of care discussed. Questions answered to the best of my knowledge. Patient has been discharged to [facility] rehabilitation center once authorization complete or any LTAC that will accept him for admission and continued care.. This patient is discharged from a trauma surgery standpoint, however awaiting authorization for transfer to LTAC. The trauma team will round, assess and evaluate the patient on a day to day basis. Attestation The exam, history, and the medical decision-making described in the above note were completed with the assistance of the mid-level provider. I reviewed and agree with the findings presented. I attest that I had a [id number] encounter with the patient on the same day, and personally performed and documented my assessment and findings in the medical record. Problem Qualifiers (1) Spinal cord injury, cervical region: Qualified Code: S14.109A - Spinal cord injury, cervical region, initial encounter (2) Chronic pain: Qualified Code: G89.4 - Chronic pain syndrome (3) Closed T8 spinal fracture: (4) Multiple fractures of ribs of left side: Qualified Code: S22.42XA - Closed fracture of multiple ribs of left side, initial encounter (5) Traumatic compression fracture of T8 thoracic vertebra: Qualified Code: S22.060K - Traumatic compression fracture of T8 thoracic vertebra, with nonunion, subsequent encounter Blair Cartagena MD Aug 13, 2016 11:36
[2016-08-13] MEDS: ERTAPENEM INJ 1,000 MG in SODIUM CHLORIDE 0.9% INJ 100 ML IV SCH (15:07)
--- NOTE | 2016-08-13 15:50 | HHI.NSPN ---
History Chief Complaint: T8 compression fracture Interval History 08/13/16: Pt awake and alert. Denies any pain currently. No back, chest, abdomen pain. Follows commands well. Review of Systems General: Negative for: fever, chills, insomnia Respiratory: Negative for: shortness of breath, cough, sputum Cardiovascular: Negative for: chest pain Gastrointestinal: Negative for: nausea, vomitting, diarrhea, constipation Exam Results Vital Signs Date Time Temp Pulse Resp B/P Pulse Ox O2 Delivery O2 Flow Rate FiO2 08/13/16 12:00 81 08/13/16 12:00 98.3 16 110/63 96 08/13/16 10:25 T-piece 28 08/12/16 11:45 6.00 Intake and Output 08/12/16 08/12/16 08/13/16 08:00 16:00 00:00 Intake Total 603 ml 539 ml 500 ml Output Total 700 ml 800 ml 700 ml Balance -97 ml -261 ml -200 ml Physical Examination Resp: CTA bilaterally. Trach in place. Heart: NSR no murmurs Abd: Soft positive bs Skin: No cyanosis or erythema Muscle: Moves all 4 extremities. 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 Neuro: Pt awake and alert. Some confusion. Follows commands well. Lab, Micro, Other Results Last Impressions Chest X-Ray 08/11/16 0600 Signed Impressions: Service Date/Time: Thursday, August 11, 2016 04:04 - CONCLUSION: Increasing consolidation on the left. Otherwise stable. Jovanni Moseley MD Thoracic Spine X-Ray 08/09/16 0000 Signed Impressions: Service Date/Time: Tuesday, August 09, 2016 20:39 - CONCLUSION: Moderate wedge compression of T8. Jose Barkley MD Chest CT 08/02/16 0000 Signed Impressions: Service Date/Time: Tuesday, August 02, 2016 22:56 - CONCLUSION: 1. Bilateral pulmonary parenchymal opacity and bilateral pleural effusions. The parenchymal opacity is more severe on the left. The pleural effusion is larger on the right. Differential diagnosis for these findings includes pulmonary edema and infection. There is diffuse superficial soft tissue edema. 2. There is a 6 cm rounded fluid filled cavity in the lower lobe on the left. Previously this contained and air-fluid level. 3. Hydropneumothorax is again seen on the left with pneumothorax component smaller than on the previous study. Left-sided chest tube remains in place. 4. Multiple left-sided rib fractures again seen. Stevie Prather MD Abdomen X-Ray 07/28/16 0000 Signed Impressions: Service Date/Time: Thursday, July 28, 2016 17:45 - CONCLUSION: Tip of the Dobbhoff feeding tube is in the mid stomach. Toñito Bacon MD Head CT 07/19/16 0000 Signed Impressions: Service Date/Time: Tuesday, July 19, 2016 13:25 - CONCLUSION: Negative for an acute process. Cory Butts MD FACR Thoracic Spine CT 07/13/16 0000 Signed Impressions: Service Date/Time: Wednesday, July 13, 2016 08:51 - CONCLUSION: T8 compressive deformity as described in detail above with appearance suggestive of an old injury, however some degree of acute or subacute progression cannot be excluded. If it would affect clinical management, injury could be further characterized with MRI. Toñito Cisneros MD 08/12/16 08/12/16 08/13/16 15:00 23:00 07:00 Intake Total 539 ml 500 ml 500 ml Output Total 800 ml 700 ml 650 ml Balance -261 ml -200 ml -150 ml Intake Oral 200 ml 300 ml 500 ml IV Total 339 ml 200 ml Output Urine Total 800 ml 700 ml 650 ml # Bowel Movements 2 0 0 Medical Decision Making Impression and Plan A: 51 y/o M with T8 Compression fracture P: Continue to monitor Continue with current care Rehab efforts. Tee Geiger Aug 13, 2016 15:50
--- NOTE | 2016-08-13 17:41 | HHI.IDPN ---
Subjective Subjective Remarks tolerating Tpiece afebrile Growing ESBL+ from the sputum CT showed L sided hydrothorax cont to improve afebrile Antibiotics ertapenem cefazoline Allergies: Coded Allergies: *MDRO Multi-Drug Resistant Organism (Verified Adverse Reaction, Unknown, ) ESBL E. coli (sputum) - 08/08/2016 Objective . Vital Signs Date Time Temp Pulse Resp B/P Pulse Ox O2 Delivery O2 Flow Rate FiO2 08/13/16 12:00 81 08/13/16 12:00 98.3 81 16 110/63 96 08/13/16 10:25 97 T-piece 28 08/13/16 08:00 97.9 72 16 155/86 97 08/13/16 08:00 72 08/13/16 07:00 100 T-Piece 28 08/13/16 04:00 98.1 70 20 156/81 95 08/13/16 04:00 82 08/13/16 00:00 70 08/13/16 00:00 98.4 70 18 145/79 98 08/12/16 20:38 99 T-piece 40 08/12/16 20:00 98 T-Piece 28 08/12/16 20:00 98.6 94 20 149/80 100 08/12/16 20:00 94 08/12/16 08/12/16 08/13/16 15:00 23:00 07:00 Intake Total 539 ml 500 ml 500 ml Output Total 800 ml 700 ml 650 ml Balance -261 ml -200 ml -150 ml Intake Oral 200 ml 300 ml 500 ml IV Total 339 ml 200 ml Output Urine Total 800 ml 700 ml 650 ml # Bowel Movements 2 0 0 Imaging Last Impressions Chest X-Ray 08/11/16 0600 Signed Impressions: Service Date/Time: Thursday, August 11, 2016 04:04 - CONCLUSION: Increasing consolidation on the left. Otherwise stable. Jovanni Moseley MD Thoracic Spine X-Ray 08/09/16 0000 Signed Impressions: Service Date/Time: Tuesday, August 09, 2016 20:39 - CONCLUSION: Moderate wedge compression of T8. Jose Barkley MD Chest CT 08/02/16 0000 Signed Impressions: Service Date/Time: Tuesday, August 02, 2016 22:56 - CONCLUSION: 1. Bilateral pulmonary parenchymal opacity and bilateral pleural effusions. The parenchymal opacity is more severe on the left. The pleural effusion is larger on the right. Differential diagnosis for these findings includes pulmonary edema and infection. There is diffuse superficial soft tissue edema. 2. There is a 6 cm rounded fluid filled cavity in the lower lobe on the left. Previously this contained and air-fluid level. 3. Hydropneumothorax is again seen on the left with pneumothorax component smaller than on the previous study. Left-sided chest tube remains in place. 4. Multiple left-sided rib fractures again seen. Stevie Prather MD Abdomen X-Ray 07/28/16 0000 Signed Impressions: Service Date/Time: Thursday, July 28, 2016 17:45 - CONCLUSION: Tip of the Dobbhoff feeding tube is in the mid stomach. Toñito Bacon MD Head CT 07/19/16 0000 Signed Impressions: Service Date/Time: Tuesday, July 19, 2016 13:25 - CONCLUSION: Negative for an acute process. Cory Butts MD FACR Thoracic Spine CT 07/13/16 0000 Signed Impressions: Service Date/Time: Wednesday, July 13, 2016 08:51 - CONCLUSION: T8 compressive deformity as described in detail above with appearance suggestive of an old injury, however some degree of acute or subacute progression cannot be excluded. If it would affect clinical management, injury could be further characterized with MRI. Toñito Cisneros MD Physical Exam CONSTITUTIONAL/GENERAL: This is an adequately nourished patient, in no apparent distress. sedated int'd on mech vent'n SKIN: No jaundice, rashes, or lesions. Skin temperature appropriate. Not diaphoretic. EYES: Pupils equal and round and reactive. Extraocular motions intact. No scleral icterus. No injection or drainage. Fundi not examined. ENT: oral mucosae moist NECK: trach in place, site [place] CARDIOVASCULAR: Regular rate and rhythm without murmurs, gallops, or rubs. No JVD. Peripheral pulses symmetric. RESPIRATORY/CHEST: Symmetric, unlabored respirations. Clear to auscultation. GASTROINTESTINAL: Abdomen soft, non-tender, nondistended. Bowel sounds present. GENITOURINARY: Without palpable bladder distension. Dinero catheter in place. MUSCULOSKELETAL: Extremities without clubbing, cyanosis, small amount of edema. No mottling or clubbing. NEUROLOGICAL: awake, conversant confused follows commands Assessment & Plan Remarks L lung pulm contusion L PNA, Kleb, MSSA -new culture is positive now for ESBL+ - worsening CXR MSSA bacteremia, low grade - 2 D echo neg for veg's Acute VDRF, failure to wean ETOHism and tobaccoism - cont cefazoline for MSSA bactermia thru August 21 ( 4 weeks total tx) - cont Ertapenem x 7 days at least (thru 08/17) , longer (up to 10-14 days) if cont to have signs of ongoing infection Martine Moncada MD Aug 13, 2016 17:41
[2016-08-13] MEDS: MAGNESIUM HYDROXIDE SUSP 30 ML CUP PO SCH (19:50)
[2016-08-14] VITALS (8 sets, daily range): BP systolic 120–160; BP diastolic 71–85; PULSE 70–97; RESP 15–23; TEMP 97.8–98.7; O2SAT 95–98
[2016-08-14] MEDS: ceFAZolin 2 GM PREMIX 50 ML IV SCH ×4 (00:05→23:52)
[2016-08-14] MEDS: oxyCODONE HCL ORAL CONC 20 MG/ML SYRINGE PO PRN ×6 (00:59→21:34)
[2016-08-14] MEDS: HALOPERIDOL LACTATE 5 MG/ML AMP IV PUSH PRN ×3 (02:04→23:52)
[2016-08-14] MEDS: PANTOPRAZOLE SODIUM 40 MG VIAL IV PUSH SCH (08:49)
[2016-08-14] MEDS: hydrALAZINE HCL 25 MG TAB PO SCH ×2 (08:50→20:24)
[2016-08-14] MEDS: MULTIVITAMINS/IRON/MINERALS CHEWABLE TAB CHEW SCH (08:50)
[2016-08-14] MEDS: METOPROLOL TARTRATE 25 MG TAB PO SCH ×2 (08:50→20:24)
[2016-08-14] MEDS: QUEtiapine FUMARATE 100 MG TAB PO SCH ×2 (08:50→20:26)
[2016-08-14] MEDS: levETIRAcetam INJ 500 MG in SODIUM CHLORIDE 0.9% INJ 100 ML IV SCH ×2 (08:52→20:26)
[2016-08-14] MEDS: LACTULOSE SYRUP 20 GM/30 ML CUP PO SCH (08:52)
[2016-08-14] MEDS: DOCUSATE SODIUM 50 MG/SENNA 8.6 MG TAB PO SCH ×2 (08:52→20:24)
[2016-08-14] MEDS: REMOVE OLD NICOTINE PATCH TD SCH (08:53)
[2016-08-14] MEDS: NICOTINE 14 MG/24 HR PATCH TD SCH (08:53)
--- NOTE | 2016-08-14 11:40 | HHI.CCPN ---
Subjective Brief History History of Present Illness This patient is a 51 year old male who presents to the [facility] emergency department as transfer from [facility]. He sustained a fall from the roof while he was working. This was a 12 foot roof and he landed on his back. He drove his coworkers home, prior to going to the emergency department. He was found to have multiple left-sided rib fractures, compression fracture of T8, left-sided pneumothorax and L lung contusion, for which a large bore chest tube was placed. The patients laboratory studies were remarkable for a white count of 12.2, potassium 3.0, alcohol level 150. Patient was transferred to surgical ICU with above-noted injuries It is conceivable that patient had aspirated at the time of event PMHx: Cervical spine fusion with halo placement, trigger finger, HTN, seizures, 1 PPD smoker, ETOH (drinks 8-12 12oz [place] Hard Lemonade daily) PAIN MANAGEMENT INJURIES: T8 compression fx Serial LEFT rib fxs LEFT sided PTX LEFT lung contusion Procedures: 07/12: LEFT CT (placed by [facility]) 07/16: Intubation and BRONCH 07/17: extubated 07/20: INTUBATION and BRONCH again 07/21: LEFT thoracoscopy; evacuation of empyema and decortication of the lung 07/27: Extubate & reintubated d/t secretions 07/28: Bedside trach 07/29: PEG I 24 Hour Review/Hospital Course Since arrival to the ICU patient has been stable He is awake alert and oriented He is severe left chest pain and back pain which is currently managed Neurosurgery has been consult is regarding the compression fracture of T8 and additional studies have been ordered Pulmonary contusion is severe and patient will likely get worse before he gets better as far as respiratory system is concerned for aspiration has most likely occurred at the time of the accident 07/16/2016 Patient was transferred to the floor 2 days ago and the has been doing well however became somewhat short of breath and repeat CAT scan was ordered which reveals complete collapse of the left lung with inspissated secretions and the collecting fluid around the lung Patient was transferred back to the ICU and remains well oxygenated on the 6 L nasal cannula nonetheless the left lung is completely atelectatic Today patient was intubated bronchoscoping and large amount of mucous material was obtained while the left lung reexpanded Drainage from the chest tube has also increased significantly pushing out all the fluid as the lung is reexpanded Will keep patient on the ventilator total tomorrow and then reassess needing possibly another bronchoscopy and then we'll work toward extubation 07/17/2016 As above noted patient has been intubated bronchoscoping has been doing well on the ventilator and is now successfully extubated All things equal patient will be able to return to the floor either today or tomorrow Chest tube drainage has decreased after being increased for about 24 hours and is serosanguineous and straw-colored Bilateral breath sounds 07/18/16 Since the bronchoscopy intubation and now after extubation patient has been ventilating nicely Chest tube drainage is about 400 cc per last 24 hours and it straw-colored This is inflammatory reaction the pleura which is slowly resolving so we will leave chest tube in place for this purpose Patient is still sort of somnolent in bed although the takes by mouth when asked questions he answers them appropriately but mumbles it, and remains somnolent Does not participate with care Does not cooperating with physical and occupational therapy or the nurses Asking for pain medication 07/19/2016 Patient is awake but slightly somnolent but oriented in time and space Patient requires increased amount of oxygen and this is a consistent with his anatomic and physiologic injuries Repeat CT scan of the chest reveals collapse of the left lower and part of the upper lobe with air-fluid level in the chest and partial collapse of the left lung Chest tube remains in place The partial anterior pneumothorax is due to the fact the patient was of suction when he went down to the radiology At this point patient will need to be intubated ventilated and bronchoscope the clearing of the secretions He may need prolonged intubation at this time and probably upon the evaluation the bronchial tree will decide whether patient needs a tracheostomy in the near future The interlobar bled could of course be due to the bronchial disruption but there is no need for surgery on this for it will eventually heal on its own The main thing is to support patient's respiration and pulmonary function 07/20/16 Patient has a had decreasing left lung function with the increasing levels consolidation and atelectasis Finally required intubation this morning with the bronchoscopy and clearing of the lung Massive amounts of mucous and purulent appearing material were obtained from the left lung Patient remains on the ventilator 07/22/2016 Patient status post left VATS evacuation of a loculated hemothorax and decortication of the left lung Postoperatively patient is doing well lungs are fully expanded and remains on the ventilator The patient improves respiratory ventilator weaning down gradually Antibiotics add to care in face of previous bronchoscopy findings cultures partially back Once we have better picture will adjust antibiotic coverage 07/23/16 Postoperative day 2 from his left thoracoscopic decortication Patient still has slightly elevated ventilator requirements His lung is inflated and there is no evidence of pneumothorax or air leak in the Pleur-evac 07/24/16 Tolerating chest tubes to water seal with minimal output He still has high FiO2 requirement on the ventilator He follows commands when sedation is lightened 07/25/16 Blood cultures came back 1 out of 2 with gram-positive cocci, he is already on vancomycin and Zosyn Slow weaning on the ventilator, chest x-ray remains stable with no evidence of pneumothorax and low chest tube output 07/26/16 Patient has been stable on the ventilator Drainage from the chest tubes has decreased and we will pull tomorrow the posterior chest tube and keep the anterior apical tube in place Patient has severe COPD and compromised lungs in addition to trauma so the pulmonary situation remains precarious Gram-positive cocci as per ID treatment treatment 07/27/16 Patient is gradually weaned and was extubated however asked he cannot clear secretions and while he is breathing is intact his the secretions are this point so I have it is not coughing up and not following commands Patient had to be reintubated the a few hours later Will have tracheostomy tomorrow considering this patient is extremely hard to wean in face of lung contusion heavy secretions as well as underlying severe pulmonary emphysema 07/28/16 As above noted patient was on successfully extubated yesterday had to be reintubated few hours later due to heavy secretions will collapse of the left lower lobe and the inability to ventilate and follow commands Patient underwent today tracheostomy placement and is currently on the ventilator Underwent the extensive bronchoscopy lavage with reinflation of the left upper and lower lobes At this point we'll be able to gradually we the presence of tracheostomy 07/29/2016 PTD: 16 Status post Dobbhoff placement last evening and continuation of tube feeding Patient remains on the ventilator today. He will receive a PEG from GI later today. 07/30/2016 PTD: 17 Pt remains mechanically ventilated. We will attempt a CPAP trial today, to see if we can begin weaning the vent in progression to trach collar. 07/31/2016 PTD: 18 Pt awake on rounds. Mouthing words. Very agitated and impatient. Attempt CPAP trials and progressed to T-piece. After some time on a t-piece, the patient became, agitated, restless, tachypneic and began kicking and thrashing around in the bed. Pt was placed back on previous settings, and sedation resumed for comfort and patient, and staff safety. 08/01/2016 PTD: 19 Patient is on a T piece 40% FiO2. Tolerating well. Sats equal 99% He is awake, mouthing words, and following commands. No distress noted. 08/02/2016 PTD: 20 Patient is wide awake, despite Precedex drip. Chest x-ray looks worse - persistent complete opacification of the left hemithorax. Plan for bronchoscopy at the bedside today 08/03/2016 PTD: 21 Patient in bed, wide awake. Okay [facility] - they will be able to complete his bronchoscopy there. 08/04/2016 PTD: 22 Patient awake in bed. No distress noted. Patient will mouth words. Case management is working diligently to get the [facility]. 08/05/2016 PTD: 23 Patient awake, he has been on a T piece without incident. Still waiting for authorization to go through so the patient can be transferred to [facility]. He has been discharged for 3 days now. 08/06/2016 PTD: 24 Pt rests on vent settings over night, and tolerates a T-piece during the day. Just waiting on his insurance to authorize [facility]. 08/07/16 Patient off the respirator on trach collar Swallow study okay patient is eating regular diet At this point patient does not require ICU care any more but insurance denied placement in the rehabilitation as we were hoping for Patient therefore remains in the ICU for his complexity of care exceeds regular floor and he would certainly bounced back problems Deescalate care 1:4 08/08/16 Patient doing well at this time He's permanently from the ventilator and remains on trach collar Able to eat drink and communicated easily Patient will need extensive physical and occupational therapy Patient can transfer to floor but due to secretions would like to be closer to the nursing station Awaiting some sort of rehabilitation placement for the patient because he does not need intrahospital care any more 08/09/16 Patient is awake alert and oriented Able to eat and drink and feed himself Communicates well Off the ventilator Patient's been transferred from ICU 2 days ago however no bed is available on the floor 08/10/16 Patient is awake alert and oriented Follows commands takes by mouth diet Awaiting bed on the floor for the last 3 days 08/11/16 Patient doing well Slightly more sedated today with the neuro modulators as per Dr. Higgins Able to take by mouth diet Awake alert and oriented responding appropriately Patient is awaiting bed close to the nursing station for the last 4 days and remains in the unit as a border 08/12/16 Patient is awake and alert taking diet by mouth however awaiting bed on the floor and remains in the units for the last 5 days as a border Will downsize the trach to size 6 because there is still significant secretions present 08/13/16 Patient doing well he is awake and alert Feeding himself There is essentially no reason for patient to be in the ICU for the last 5 days however somehow no floor will take the patient for it appears there are no beds close to the nursing station Will address with the nursing directorship today. Patient's poor insurance and no rehabilitation will take him either so he keeps occupying an ICU bed 08/14/16 Patient doing very well he is awake alert and oriented The tracheostomy cannula has been capped Patient doing very well Unfortunately due to busy Hospital census patient has been for the last 7 days sitting in the ICU waiting for bed on the floor. 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 He attempted to throw bucket over the side and a cut stuck in his hand and pulled over the side of the roof. He fell from approximately 12 feet and landed on his back. EtOH +. He ambulated at the scene and was able to drive his coworkers home before transporting himself to [facility]. He was then transferred to [place] for trauma services. He has spent an extended stay in the ICU mechanically ventilated. He has required a trach and PEG. Awaiting long-term placement. INJURIES: T8 compression fx Serial LEFT rib fxs LEFT sided PTX LEFT lung contusion Assessment and plan by systems: NEUROLOGICAL: Patient sedated lightly with Precedex T-piece continues. He is wide awake and mouthing words. Pt is sedated with a RASS score of 1-2 Provide analgesia for comfort and pain - scheduled Roxicodone. Seizure prophylaxis - Keppra for questionable alcoholic seizures HOB elevated 30 degrees. Increased Seroquel 250 mg BID. Serial neuro checks. + peripheral pulses x 4 extremities. Neurosurgery is assisting in care. CARDIOVASCULAR: HR = 68-89 Sinus rhythm BP = 135/83 Continually monitor for hemodynamic instability (shock and hypotension). BP meds - Lopressor 5 IV, Follow CMP Electrolyte protocol in place. RESPIRATORY: T-piece continues at 40 % Patient awake, follows commands. He is restless at times. Mouth's words to communicate. Increase PEEP carefully (to assist in oxygenation by recruiting alveoli.) Weaning - as tolerated O2 Sats Monitor for hypoxemia Follow ABGs - Lung sounds - clear but diminished throughout Pulmonary toilet L&S. Bronchodilators - Breathing treatments duonebs. Chest X-Ray results - no change. Bilateral pulmonary parenchymal opacity and bilateral pleural effusions. Left lateral chest tube in place to Pleur-evac drainage system - Bronchial washings sent 07/28 - left lower lobe - gram-negative rods/ Staphylococcus aureus Sputum culture 07/24: Klebsiella pneumonia. Staphylococcus aureus. Antibiotics -Ancef and Levaquin VAP protocol in place Labs tomorrow Chest X-Ray tomorrow GASTROINTESTINAL: Diet : Tube feeding: JEVITY at 60 cc/hour goal per dietary recommendations. PEG . Bowel sounds - + x 4 quads. Bowel regimen: Johanne-Colace, MOM. Lactulose daily bisacodyl HI PRN. LBM: 08/05 RENAL / URINARY: I&O - 294 BUN / creat 5 / 0.[address] to bedside drainage bag draining clear yellow urine. Urine culture - 07/24 no growth ENDOCRINE: BGM - 100 via AM labs SSI HEMATOLOGY: H&H 7.6 / 21.9 - monitor closely Continue to monitor for signs and symptoms of bleeding. Evaluate need for IVC filter. Transfuse for < 7.0 Monitor patient for any bleeding complications. INFECTIOUS DISEASE: Follow CBC WBC - 7.0 Fevers -none overnight Administer antipyretics for temp as needed. Blood cultures 07/24: Staphylococcus aureus 08/04: Blood cultures repeated - Bronch washings 07/28: Staphylococcus aureus and Klebsiella pneumonia Urine 07/24: No growth IV antibiotics: Ancef and Levaquin Monitor pneumonia evolution with repeat chest X-Rays as needed. Maintain vigorous aseptic care of central line to avoid blood stream infections. Consult to ID for further management. LINES: 07/28: Trach 07/29: PEG 07/21: L CT 07/17: F/C PROPHYLAXIS: VAP protocol in place GI: Pepcid po DVT - Mechanical VTE with SCDs. Chemical management with Lovenox 40 SQ daily. SKIN: Warm and dry Daily chest tube dressing changes. Every shift trach care. ACTIVITY: Status - BR When OOB must wear TLSO brace PT and OT ordered. CASE MANAGEMENT: Consulted case management for DC planning. Placement - disposition - [facility]. Case management is working diligently to obtain authorization for placement. Patient has been [facility] for [facility]. However, his insurance will not authorize his transfer to [facility]. EMOTIONAL SUPPORT: Provided to patient. Plan of care discussed. Questions answered to the best of my knowledge. Patient has been [facility] once authorization complete or any LTAC that will accept him for admission and continued care.. This patient is discharged from a trauma surgery standpoint, however awaiting authorization for transfer to LTAC. The trauma team will round, assess and evaluate the patient on a day to day basis. Attestation The exam, history, and the medical decision-making described in the above note were completed with the assistance of the mid-level provider. I reviewed and agree with the findings presented. I attest that I had a [id number] encounter with the patient on the same day, and personally performed and documented my assessment and findings in the medical record. Problem Qualifiers (1) Spinal cord injury, cervical region: Qualified Code: S14.109A - Spinal cord injury, cervical region, initial encounter (2) Chronic pain: Qualified Code: G89.4 - Chronic pain syndrome (3) Closed T8 spinal fracture: (4) Multiple fractures of ribs of left side: Qualified Code: S22.42XA - Closed fracture of multiple ribs of left side, initial encounter (5) Traumatic compression fracture of T8 thoracic vertebra: Qualified Code: S22.060K - Traumatic compression fracture of T8 thoracic vertebra, with nonunion, subsequent encounter Blair Cartagena MD Aug 14, 2016 11:40
[2016-08-14] MEDS: ERTAPENEM INJ 1,000 MG in SODIUM CHLORIDE 0.9% INJ 100 ML IV SCH (13:21)
[2016-08-14] MEDS: ENOXAPARIN SODIUM 40 MG/0.4 ML SYRINGE SQ SCH (13:22)
[2016-08-14] MEDS: MAGNESIUM HYDROXIDE SUSP 30 ML CUP PO SCH (20:24)
[2016-08-15] VITALS (7 sets, daily range): BP systolic 140–167; BP diastolic 77–95; PULSE 71–93; RESP 18–25; TEMP 98.1–98.3; O2SAT 93–97
[2016-08-15] MEDS: oxyCODONE HCL ORAL CONC 20 MG/ML SYRINGE PO PRN ×3 (04:25→20:11)
[2016-08-15] MEDS: levETIRAcetam INJ 500 MG in SODIUM CHLORIDE 0.9% INJ 100 ML IV SCH (08:39)
[2016-08-15] MEDS: hydrALAZINE HCL 25 MG TAB PO SCH ×2 (08:39→20:10)
[2016-08-15] MEDS: ceFAZolin 2 GM PREMIX 50 ML IV SCH ×2 (08:39→15:04)
[2016-08-15] MEDS: QUEtiapine FUMARATE 100 MG TAB PO SCH ×2 (08:39→20:11)
[2016-08-15] MEDS: MULTIVITAMINS/IRON/MINERALS CHEWABLE TAB CHEW SCH (08:40)
[2016-08-15] MEDS: LACTULOSE SYRUP 20 GM/30 ML CUP PO SCH (08:40)
[2016-08-15] MEDS: PANTOPRAZOLE SODIUM 40 MG VIAL IV PUSH SCH (08:40)
[2016-08-15] MEDS: DOCUSATE SODIUM 50 MG/SENNA 8.6 MG TAB PO SCH ×2 (08:40→20:10)
[2016-08-15] MEDS: ACETAMINOPHEN 325 MG TAB PO PRN (08:40)
[2016-08-15] MEDS: METOPROLOL TARTRATE 25 MG TAB PO SCH ×2 (08:40→20:10)
[2016-08-15] MEDS: REMOVE OLD NICOTINE PATCH TD SCH (08:41)
[2016-08-15] MEDS: NICOTINE 14 MG/24 HR PATCH TD SCH (08:41)
--- NOTE | 2016-08-15 11:30 | HHI.CCPN ---
Subjective Brief History History of Present Illness This patient is a 51 year old male who presents to the [facility] emergency department as transfer from [facility]. He sustained a fall from the roof while he was working. This was a 12 foot roof and he landed on his back. He drove his coworkers home, prior to going to the emergency department. He was found to have multiple left-sided rib fractures, compression fracture of T8, left-sided pneumothorax and L lung contusion, for which a large bore chest tube was placed. The patients laboratory studies were remarkable for a white count of 12.2, potassium 3.0, alcohol level 150. Patient was transferred to surgical ICU with above-noted injuries It is conceivable that patient had aspirated at the time of event PMHx: Cervical spine fusion with halo placement, trigger finger, HTN, seizures, 1 PPD smoker, ETOH (drinks 8-12 12oz [place] Hard Lemonade daily) PAIN MANAGEMENT INJURIES: T8 compression fx Serial LEFT rib fxs LEFT sided PTX LEFT lung contusion Procedures: 07/12: LEFT CT (placed by [facility]) 07/16: Intubation and BRONCH 07/17: extubated 07/20: INTUBATION and BRONCH again 07/21: LEFT thoracoscopy; evacuation of empyema and decortication of the lung 07/27: Extubate & reintubated d/t secretions 07/28: Bedside trach 07/29: PEG I 24 Hour Review/Hospital Course Since arrival to the ICU patient has been stable He is awake alert and oriented He is severe left chest pain and back pain which is currently managed Neurosurgery has been consult is regarding the compression fracture of T8 and additional studies have been ordered Pulmonary contusion is severe and patient will likely get worse before he gets better as far as respiratory system is concerned for aspiration has most likely occurred at the time of the accident 07/16/2016 Patient was transferred to the floor 2 days ago and the has been doing well however became somewhat short of breath and repeat CAT scan was ordered which reveals complete collapse of the left lung with inspissated secretions and the collecting fluid around the lung Patient was transferred back to the ICU and remains well oxygenated on the 6 L nasal cannula nonetheless the left lung is completely atelectatic Today patient was intubated bronchoscoping and large amount of mucous material was obtained while the left lung reexpanded Drainage from the chest tube has also increased significantly pushing out all the fluid as the lung is reexpanded Will keep patient on the ventilator total tomorrow and then reassess needing possibly another bronchoscopy and then we'll work toward extubation 07/17/2016 As above noted patient has been intubated bronchoscoping has been doing well on the ventilator and is now successfully extubated All things equal patient will be able to return to the floor either today or tomorrow Chest tube drainage has decreased after being increased for about 24 hours and is serosanguineous and straw-colored Bilateral breath sounds 07/18/16 Since the bronchoscopy intubation and now after extubation patient has been ventilating nicely Chest tube drainage is about 400 cc per last 24 hours and it straw-colored This is inflammatory reaction the pleura which is slowly resolving so we will leave chest tube in place for this purpose Patient is still sort of somnolent in bed although the takes by mouth when asked questions he answers them appropriately but mumbles it, and remains somnolent Does not participate with care Does not cooperating with physical and occupational therapy or the nurses Asking for pain medication 07/19/2016 Patient is awake but slightly somnolent but oriented in time and space Patient requires increased amount of oxygen and this is a consistent with his anatomic and physiologic injuries Repeat CT scan of the chest reveals collapse of the left lower and part of the upper lobe with air-fluid level in the chest and partial collapse of the left lung Chest tube remains in place The partial anterior pneumothorax is due to the fact the patient was of suction when he went down to the radiology At this point patient will need to be intubated ventilated and bronchoscope the clearing of the secretions He may need prolonged intubation at this time and probably upon the evaluation the bronchial tree will decide whether patient needs a tracheostomy in the near future The interlobar bled could of course be due to the bronchial disruption but there is no need for surgery on this for it will eventually heal on its own The main thing is to support patient's respiration and pulmonary function 07/20/16 Patient has a had decreasing left lung function with the increasing levels consolidation and atelectasis Finally required intubation this morning with the bronchoscopy and clearing of the lung Massive amounts of mucous and purulent appearing material were obtained from the left lung Patient remains on the ventilator 07/22/2016 Patient status post left VATS evacuation of a loculated hemothorax and decortication of the left lung Postoperatively patient is doing well lungs are fully expanded and remains on the ventilator The patient improves respiratory ventilator weaning down gradually Antibiotics add to care in face of previous bronchoscopy findings cultures partially back Once we have better picture will adjust antibiotic coverage 07/23/16 Postoperative day 2 from his left thoracoscopic decortication Patient still has slightly elevated ventilator requirements His lung is inflated and there is no evidence of pneumothorax or air leak in the Pleur-evac 07/24/16 Tolerating chest tubes to water seal with minimal output He still has high FiO2 requirement on the ventilator He follows commands when sedation is lightened 07/25/16 Blood cultures came back 1 out of 2 with gram-positive cocci, he is already on vancomycin and Zosyn Slow weaning on the ventilator, chest x-ray remains stable with no evidence of pneumothorax and low chest tube output 07/26/16 Patient has been stable on the ventilator Drainage from the chest tubes has decreased and we will pull tomorrow the posterior chest tube and keep the anterior apical tube in place Patient has severe COPD and compromised lungs in addition to trauma so the pulmonary situation remains precarious Gram-positive cocci as per ID treatment treatment 07/27/16 Patient is gradually weaned and was extubated however asked he cannot clear secretions and while he is breathing is intact his the secretions are this point so I have it is not coughing up and not following commands Patient had to be reintubated the a few hours later Will have tracheostomy tomorrow considering this patient is extremely hard to wean in face of lung contusion heavy secretions as well as underlying severe pulmonary emphysema 07/28/16 As above noted patient was on successfully extubated yesterday had to be reintubated few hours later due to heavy secretions will collapse of the left lower lobe and the inability to ventilate and follow commands Patient underwent today tracheostomy placement and is currently on the ventilator Underwent the extensive bronchoscopy lavage with reinflation of the left upper and lower lobes At this point we'll be able to gradually we the presence of tracheostomy 07/29/2016 PTD: 16 Status post Dobbhoff placement last evening and continuation of tube feeding Patient remains on the ventilator today. He will receive a PEG from GI later today. 07/30/2016 PTD: 17 Pt remains mechanically ventilated. We will attempt a CPAP trial today, to see if we can begin weaning the vent in progression to trach collar. 07/31/2016 PTD: 18 Pt awake on rounds. Mouthing words. Very agitated and impatient. Attempt CPAP trials and progressed to T-piece. After some time on a t-piece, the patient became, agitated, restless, tachypneic and began kicking and thrashing around in the bed. Pt was placed back on previous settings, and sedation resumed for comfort and patient, and staff safety. 08/01/2016 PTD: 19 Patient is on a T piece 40% FiO2. Tolerating well. Sats equal 99% He is awake, mouthing words, and following commands. No distress noted. 08/02/2016 PTD: 20 Patient is wide awake, despite Precedex drip. Chest x-ray looks worse - persistent complete opacification of the left hemithorax. Plan for bronchoscopy at the bedside today 08/03/2016 PTD: 21 Patient in bed, wide awake. Okay to transfer [facility] - they will be able to complete his bronchoscopy there. 08/04/2016 PTD: 22 Patient awake in bed. No distress noted. Patient will mouth words. Case management is working diligently to get the [facility]. 08/05/2016 PTD: 23 Patient awake, he has been on a T piece without incident. Still waiting for authorization to go through so the patient can be transferred to [facility]. He has been discharged for 3 days now. 08/06/2016 PTD: 24 Pt rests on vent settings over night, and tolerates a T-piece during the day. Just waiting on his insurance to authorize [facility]. 08/07/16 Patient off the respirator on trach collar Swallow study okay patient is eating regular diet At this point patient does not require ICU care any more but insurance denied placement in the rehabilitation as we were hoping for Patient therefore remains in the ICU for his complexity of care exceeds regular floor and he would certainly bounced back problems Deescalate care 1:4 08/08/16 Patient doing well at this time He's permanently from the ventilator and remains on trach collar Able to eat drink and communicated easily Patient will need extensive physical and occupational therapy Patient can transfer to floor but due to secretions would like to be closer to the nursing station Awaiting some sort of rehabilitation placement for the patient because he does not need intrahospital care any more 08/09/16 Patient is awake alert and oriented Able to eat and drink and feed himself Communicates well Off the ventilator Patient's been transferred from ICU 2 days ago however no bed is available on the floor 08/10/16 Patient is awake alert and oriented Follows commands takes by mouth diet Awaiting bed on the floor for the last 3 days 08/11/16 Patient doing well Slightly more sedated today with the neuro modulators as per Dr. Higgins Able to take by mouth diet Awake alert and oriented responding appropriately Patient is awaiting bed close to the nursing station for the last 4 days and remains in the unit as a border 08/12/16 Patient is awake and alert taking diet by mouth however awaiting bed on the floor and remains in the units for the last 5 days as a border Will downsize the trach to size 6 because there is still significant secretions present 08/13/16 Patient doing well he is awake and alert Feeding himself There is essentially no reason for patient to be in the ICU for the last 5 days however somehow no floor will take the patient for it appears there are no beds close to the nursing station Will address with the nursing directorship today. Patient's poor insurance and no rehabilitation will take him either so he keeps occupying an ICU bed 08/14/16 Patient doing very well he is awake alert and oriented The tracheostomy cannula has been capped Patient doing very well Unfortunately due to busy Hospital census patient has been for the last 7 days sitting in the ICU waiting for bed on the floor. Last 7 days of ICU stay are not warranted and are in the roll of a border waiting for a floor bed 08/15/16 Awake alert oriented This is the eighth day the patient is an ICU not requiring ICU acutely of care but rather that of a floor. Apparently no beds are available We will remove tracheostomy cannula today Patient to be transferred to floor as soon as bed is available Objective Vital Signs Date Time Temp Pulse Resp B/P Pulse Ox O2 Delivery O2 Flow Rate FiO2 08/15/16 09:40 22 08/15/16 09:34 95 Nasal Cannula 3.00 08/15/16 08:00 98.2 93 155/95 08/14/16 08:48 28 Intake and Output 08/14/16 08/14/16 08/15/16 08:00 16:00 00:00 Intake Total 731 ml 876 ml 694 ml Output Total 200 ml 400 ml 200 ml Balance 531 ml 476 ml 494 ml Result Diagram: 3/0 08/11/160 Urinary Catheter Assessment Date of Insertion: Jul 17, 2016 Assessment and Plan Assessment: (1) Spinal cord injury, cervical region ICD Code: S14.109A Status: Acute (2) Chronic pain ICD Code: G89.29 Status: Acute (3) Closed T8 spinal fracture ICD Code: S22.069A Status: Acute (4) Pneumothorax on left ICD Code: J93.9 Status: Acute (5) Multiple fractures of ribs of left side ICD Code: S22.42XA Status: Acute (6) Traumatic compression fracture of T8 thoracic vertebra ICD Code: S22.060A Status: Acute Plan This is a 51-year-old male 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 He attempted to throw bucket over the side and a cut stuck in his hand and pulled over the side of the roof. He fell from approximately 12 feet and landed on his back. EtOH +. He ambulated at the scene and was able to drive his coworkers home before transporting himself to [facility]. He was then transferred to [place] for trauma services. He has spent an extended stay in the ICU mechanically ventilated. He has required a trach and PEG. Awaiting long-term placement. INJURIES: T8 compression fx Serial LEFT rib fxs LEFT sided PTX LEFT lung contusion Assessment and plan by systems: NEUROLOGICAL: Patient sedated lightly with Precedex T-piece continues. He is wide awake and mouthing words. Pt is sedated with a RASS score of 1-2 Provide analgesia for comfort and pain - scheduled Roxicodone. Seizure prophylaxis - Keppra for questionable alcoholic seizures HOB elevated 30 degrees. Increased Seroquel 250 mg BID. Serial neuro checks. + peripheral pulses x 4 extremities. Neurosurgery is assisting in care. CARDIOVASCULAR: HR = 68-89 Sinus rhythm BP = 135/83 Continually monitor for hemodynamic instability (shock and hypotension). BP meds - Lopressor 5 IV, Follow CMP Electrolyte protocol in place. RESPIRATORY: T-piece continues at 40 % Patient awake, follows commands. He is restless at times. Mouth's words to communicate. Increase PEEP carefully (to assist in oxygenation by recruiting alveoli.) Weaning - as tolerated O2 Sats Monitor for hypoxemia Follow ABGs - Lung sounds - clear but diminished throughout Pulmonary toilet L&S. Bronchodilators - Breathing treatments duonebs. Chest X-Ray results - no change. Bilateral pulmonary parenchymal opacity and bilateral pleural effusions. Left lateral chest tube in place to Pleur-evac drainage system - Bronchial washings sent 07/28 - left lower lobe - gram-negative rods/ Staphylococcus aureus Sputum culture 07/24: Klebsiella pneumonia. Staphylococcus aureus. Antibiotics -Ancef and Levaquin VAP protocol in place Labs tomorrow Chest X-Ray tomorrow GASTROINTESTINAL: Diet : Tube feeding: JEVITY at 60 cc/hour goal per dietary recommendations. PEG . Bowel sounds - + x 4 quads. Bowel regimen: Johanne-Colace, MOM. Lactulose daily bisacodyl PA PRN. LBM: 08/05 RENAL / URINARY: I&O - 294 BUN / creat 5 / 0.[address] to bedside drainage bag draining clear yellow urine. Urine culture - 07/24 no growth ENDOCRINE: BGM - 100 via AM labs SSI HEMATOLOGY: H&H 7.6 / 21.9 - monitor closely Continue to monitor for signs and symptoms of bleeding. Evaluate need for IVC filter. Transfuse for < 7.0 Monitor patient for any bleeding complications. INFECTIOUS DISEASE: Follow CBC WBC - 7.0 Fevers -none overnight Administer antipyretics for temp as needed. Blood cultures 07/24: Staphylococcus aureus 08/04: Blood cultures repeated - Bronch washings 07/28: Staphylococcus aureus and Klebsiella pneumonia Urine 07/24: No growth IV antibiotics: Ancef and Levaquin Monitor pneumonia evolution with repeat chest X-Rays as needed. Maintain vigorous aseptic care of central line to avoid blood stream infections. Consult to ID for further management. LINES: 07/28: Trach 07/29: PEG 07/21: L CT 07/17: F/C PROPHYLAXIS: VAP protocol in place GI: Pepcid po DVT - Mechanical VTE with SCDs. Chemical management with Lovenox 40 SQ daily. SKIN: Warm and dry Daily chest tube dressing changes. Every shift trach care. ACTIVITY: Status - BR When OOB must wear TLSO brace PT and OT ordered. CASE MANAGEMENT: Consulted case management for DC planning. Placement - disposition - [facility]. Case management is working diligently to obtain authorization for placement. Patient has been [facility] for [facility] days now to [facility]. However, his insurance will not authorize his transfer to [facility]. EMOTIONAL SUPPORT: Provided to patient. Plan of care discussed. Questions answered to the best of my knowledge. Patient has been [facility] once authorization complete or any LTAC that will accept him for admission and continued care.. This patient is discharged from a trauma surgery standpoint, however awaiting authorization for transfer to LTAC. The trauma team will round, assess and evaluate the patient on a day to day basis. Attestation Patient remains in the ICU for the last 8 days not needing ICU care however not bed is available for him on the floor Patient will need placement in some sort of a rehabilitation before he can go back into community The exam, history, and the medical decision-making described in the above note were completed with the assistance of the mid-level provider. I reviewed and agree with the findings presented. I attest that I had a [id number] encounter with the patient on the same day, and personally performed and documented my assessment and findings in the medical record. Problem Qualifiers (1) Spinal cord injury, cervical region: Qualified Code: S14.109A - Spinal cord injury, cervical region, initial encounter (2) Chronic pain: Qualified Code: G89.4 - Chronic pain syndrome (3) Closed T8 spinal fracture: (4) Multiple fractures of ribs of left side: Qualified Code: S22.42XA - Closed fracture of multiple ribs of left side, initial encounter (5) Traumatic compression fracture of T8 thoracic vertebra: Qualified Code: S22.060K - Traumatic compression fracture of T8 thoracic vertebra, with nonunion, subsequent encounter Blair Cartagena MD Aug 15, 2016 11:30
[2016-08-15] MEDS: ENOXAPARIN SODIUM 40 MG/0.4 ML SYRINGE SQ SCH (11:34)
[2016-08-15] MEDS: ERTAPENEM INJ 1,000 MG in SODIUM CHLORIDE 0.9% INJ 100 ML IV SCH (14:00)
[2016-08-15] MEDS: MAGNESIUM HYDROXIDE SUSP 30 ML CUP PO SCH (20:11)
[2016-08-16] VITALS (8 sets, daily range): BP systolic 129–173; BP diastolic 51–94; PULSE 71–82; RESP 14–22; TEMP 98–98.9; O2SAT 92–98
[2016-08-16] MEDS: oxyCODONE HCL ORAL CONC 20 MG/ML SYRINGE PO PRN ×5 (00:22→23:39)
[2016-08-16] MEDS: HALOPERIDOL LACTATE 5 MG/ML AMP IV PUSH PRN ×3 (00:23→16:34)
[2016-08-16] MEDS: ceFAZolin 2 GM PREMIX 50 ML IV SCH ×4 (00:23→23:41)
[2016-08-16] MEDS: LACTULOSE SYRUP 20 GM/30 ML CUP PO SCH (09:00)
[2016-08-16] MEDS: REMOVE OLD NICOTINE PATCH TD SCH (09:00)
[2016-08-16] MEDS: DOCUSATE SODIUM 50 MG/SENNA 8.6 MG TAB PO SCH ×2 (09:00→20:05)
[2016-08-16] MEDS: hydrALAZINE HCL 25 MG TAB PO SCH ×2 (09:38→20:04)
[2016-08-16] MEDS: QUEtiapine FUMARATE 100 MG TAB PO SCH ×2 (09:38→20:04)
[2016-08-16] MEDS: MULTIVITAMINS/IRON/MINERALS CHEWABLE TAB CHEW SCH (09:38)
[2016-08-16] MEDS: PANTOPRAZOLE SODIUM 40 MG VIAL IV PUSH SCH (09:38)
[2016-08-16] MEDS: METOPROLOL TARTRATE 25 MG TAB PO SCH ×2 (09:38→20:04)
[2016-08-16] MEDS: NICOTINE 14 MG/24 HR PATCH TD SCH (09:39)
--- NOTE | 2016-08-16 11:10 | HHI.CCPN ---
Subjective Brief History History of Present Illness This patient is a 51 year old male who presents to the [facility] emergency department as transfer from [facility]. He sustained a fall from the roof while he was working. This was a 12 foot roof and he landed on his back. He drove his coworkers home, prior to going to the emergency department. He was found to have multiple left-sided rib fractures, compression fracture of T8, left-sided pneumothorax and L lung contusion, for which a large bore chest tube was placed. The patients laboratory studies were remarkable for a white count of 12.2, potassium 3.0, alcohol level 150. Patient was transferred to surgical ICU with above-noted injuries It is conceivable that patient had aspirated at the time of event PMHx: Cervical spine fusion with halo placement, trigger finger, HTN, seizures, 1 PPD smoker, ETOH (drinks 8-12 12oz [place] Hard Lemonade daily) PAIN MANAGEMENT INJURIES: T8 compression fx Serial LEFT rib fxs LEFT sided PTX LEFT lung contusion Procedures: 07/12: LEFT CT (placed by [facility]) 07/16: Intubation and BRONCH 07/17: extubated 07/20: INTUBATION and BRONCH again 07/21: LEFT thoracoscopy; evacuation of empyema and decortication of the lung 07/27: Extubate & reintubated d/t secretions 07/28: Bedside trach 07/29: PEG I 24 Hour Review/Hospital Course Since arrival to the ICU patient has been stable He is awake alert and oriented He is severe left chest pain and back pain which is currently managed Neurosurgery has been consult is regarding the compression fracture of T8 and additional studies have been ordered Pulmonary contusion is severe and patient will likely get worse before he gets better as far as respiratory system is concerned for aspiration has most likely occurred at the time of the accident 07/16/2016 Patient was transferred to the floor 2 days ago and the has been doing well however became somewhat short of breath and repeat CAT scan was ordered which reveals complete collapse of the left lung with inspissated secretions and the collecting fluid around the lung Patient was transferred back to the ICU and remains well oxygenated on the 6 L nasal cannula nonetheless the left lung is completely atelectatic Today patient was intubated bronchoscoping and large amount of mucous material was obtained while the left lung reexpanded Drainage from the chest tube has also increased significantly pushing out all the fluid as the lung is reexpanded Will keep patient on the ventilator total tomorrow and then reassess needing possibly another bronchoscopy and then we'll work toward extubation 07/17/2016 As above noted patient has been intubated bronchoscoping has been doing well on the ventilator and is now successfully extubated All things equal patient will be able to return to the floor either today or tomorrow Chest tube drainage has decreased after being increased for about 24 hours and is serosanguineous and straw-colored Bilateral breath sounds 07/18/16 Since the bronchoscopy intubation and now after extubation patient has been ventilating nicely Chest tube drainage is about 400 cc per last 24 hours and it straw-colored This is inflammatory reaction the pleura which is slowly resolving so we will leave chest tube in place for this purpose Patient is still sort of somnolent in bed although the takes by mouth when asked questions he answers them appropriately but mumbles it, and remains somnolent Does not participate with care Does not cooperating with physical and occupational therapy or the nurses Asking for pain medication 07/19/2016 Patient is awake but slightly somnolent but oriented in time and space Patient requires increased amount of oxygen and this is a consistent with his anatomic and physiologic injuries Repeat CT scan of the chest reveals collapse of the left lower and part of the upper lobe with air-fluid level in the chest and partial collapse of the left lung Chest tube remains in place The partial anterior pneumothorax is due to the fact the patient was of suction when he went down to the radiology At this point patient will need to be intubated ventilated and bronchoscope the clearing of the secretions He may need prolonged intubation at this time and probably upon the evaluation the bronchial tree will decide whether patient needs a tracheostomy in the near future The interlobar bled could of course be due to the bronchial disruption but there is no need for surgery on this for it will eventually heal on its own The main thing is to support patient's respiration and pulmonary function 07/20/16 Patient has a had decreasing left lung function with the increasing levels consolidation and atelectasis Finally required intubation this morning with the bronchoscopy and clearing of the lung Massive amounts of mucous and purulent appearing material were obtained from the left lung Patient remains on the ventilator 07/22/2016 Patient status post left VATS evacuation of a loculated hemothorax and decortication of the left lung Postoperatively patient is doing well lungs are fully expanded and remains on the ventilator The patient improves respiratory ventilator weaning down gradually Antibiotics add to care in face of previous bronchoscopy findings cultures partially back Once we have better picture will adjust antibiotic coverage 07/23/16 Postoperative day 2 from his left thoracoscopic decortication Patient still has slightly elevated ventilator requirements His lung is inflated and there is no evidence of pneumothorax or air leak in the Pleur-evac 07/24/16 Tolerating chest tubes to water seal with minimal output He still has high FiO2 requirement on the ventilator He follows commands when sedation is lightened 07/25/16 Blood cultures came back 1 out of 2 with gram-positive cocci, he is already on vancomycin and Zosyn Slow weaning on the ventilator, chest x-ray remains stable with no evidence of pneumothorax and low chest tube output 07/26/16 Patient has been stable on the ventilator Drainage from the chest tubes has decreased and we will pull tomorrow the posterior chest tube and keep the anterior apical tube in place Patient has severe COPD and compromised lungs in addition to trauma so the pulmonary situation remains precarious Gram-positive cocci as per ID treatment treatment 07/27/16 Patient is gradually weaned and was extubated however asked he cannot clear secretions and while he is breathing is intact his the secretions are this point so I have it is not coughing up and not following commands Patient had to be reintubated the a few hours later Will have tracheostomy tomorrow considering this patient is extremely hard to wean in face of lung contusion heavy secretions as well as underlying severe pulmonary emphysema 07/28/16 As above noted patient was on successfully extubated yesterday had to be reintubated few hours later due to heavy secretions will collapse of the left lower lobe and the inability to ventilate and follow commands Patient underwent today tracheostomy placement and is currently on the ventilator Underwent the extensive bronchoscopy lavage with reinflation of the left upper and lower lobes At this point we'll be able to gradually we the presence of tracheostomy 07/29/2016 PTD: 16 Status post Dobbhoff placement last evening and continuation of tube feeding Patient remains on the ventilator today. He will receive a PEG from GI later today. 07/30/2016 PTD: 17 Pt remains mechanically ventilated. We will attempt a CPAP trial today, to see if we can begin weaning the vent in progression to trach collar. 07/31/2016 PTD: 18 Pt awake on rounds. Mouthing words. Very agitated and impatient. Attempt CPAP trials and progressed to T-piece. After some time on a t-piece, the patient became, agitated, restless, tachypneic and began kicking and thrashing around in the bed. Pt was placed back on previous settings, and sedation resumed for comfort and patient, and staff safety. 08/01/2016 PTD: 19 Patient is on a T piece 40% FiO2. Tolerating well. Sats equal 99% He is awake, mouthing words, and following commands. No distress noted. 08/02/2016 PTD: 20 Patient is wide awake, despite Precedex drip. Chest x-ray looks worse - persistent complete opacification of the left hemithorax. Plan for bronchoscopy at the bedside today 08/03/2016 PTD: 21 Patient in bed, wide awake. Okay to transfer to [facility] - they will be able to complete his bronchoscopy there. 08/04/2016 PTD: 22 Patient awake in bed. No distress noted. Patient will mouth words. Case management is working diligently to get the [facility]. 08/05/2016 PTD: 23 Patient awake, he has been on a T piece without incident. Still waiting for authorization to go through so the patient can be transferred to [facility]. He has been discharged for 3 days now. 08/06/2016 PTD: 24 Pt rests on vent settings over night, and tolerates a T-piece during the day. Just waiting on his insurance to authorize [facility]. 08/07/16 Patient off the respirator on trach collar Swallow study okay patient is eating regular diet At this point patient does not require ICU care any more but insurance denied placement in the rehabilitation as we were hoping for Patient therefore remains in the ICU for his complexity of care exceeds regular floor and he would certainly bounced back problems Deescalate care 1:4 08/08/16 Patient doing well at this time He's permanently from the ventilator and remains on trach collar Able to eat drink and communicated easily Patient will need extensive physical and occupational therapy Patient can transfer to floor but due to secretions would like to be closer to the nursing station Awaiting some sort of rehabilitation placement for the patient because he does not need intrahospital care any more 08/09/16 Patient is awake alert and oriented Able to eat and drink and feed himself Communicates well Off the ventilator Patient's been transferred from ICU 2 days ago however no bed is available on the floor 08/10/16 Patient is awake alert and oriented Follows commands takes by mouth diet Awaiting bed on the floor for the last 3 days 08/11/16 Patient doing well Slightly more sedated today with the neuro modulators as per Dr. Higgins Able to take by mouth diet Awake alert and oriented responding appropriately Patient is awaiting bed close to the nursing station for the last 4 days and remains in the unit as a border 08/12/16 Patient is awake and alert taking diet by mouth however awaiting bed on the floor and remains in the units for the last 5 days as a border Will downsize the trach to size 6 because there is still significant secretions present 08/13/16 Patient doing well he is awake and alert Feeding himself There is essentially no reason for patient to be in the ICU for the last 5 days however somehow no floor will take the patient for it appears there are no beds close to the nursing station Will address with the nursing directorship today. Patient's poor insurance and no rehabilitation will take him either so he keeps occupying an ICU bed 08/14/16 Patient doing very well he is awake alert and oriented The tracheostomy cannula has been capped Patient doing very well Unfortunately due to busy Hospital census patient has been for the last 7 days sitting in the ICU waiting for bed on the floor. Last 7 days of ICU stay are not warranted and are in the roll of a border waiting for a floor bed 08/15/16 Awake alert oriented This is the eighth day the patient is an ICU not requiring ICU acutely of care but rather that of a floor. Apparently no beds are available We will remove tracheostomy cannula today Patient to be transferred to floor as soon as bed is available 08/16/16 Patient doing well awake alert and oriented Tracheostomy has been removed and now patient can go to any floor does not have to be close to nursing station and can be discharged to rehabilitation Patient has been discharged from ICU 9 days ago but still remains here as a border Nothing to add to care Objective Vital Signs Date Time Temp Pulse Resp B/P Pulse Ox O2 Delivery O2 Flow Rate FiO2 08/16/16 08:00 98.9 82 18 148/86 96 08/16/16 07:00 Room Air 08/15/16 09:34 3.00 08/14/16 08:48 28 Intake and Output 08/15/16 08/15/16 08/16/16 08:00 16:00 00:00 Intake Total 696 ml 898 ml 200 ml Output Total 650 ml 800 ml 500 ml Balance 46 ml 98 ml -300 ml Urinary Catheter Assessment Date of Insertion: Jul 17, 2016 Assessment and Plan Assessment: (1) Spinal cord injury, cervical region ICD Code: S14.109A Status: Acute (2) Chronic pain ICD Code: G89.29 Status: Acute (3) Closed T8 spinal fracture ICD Code: S22.069A Status: Acute (4) Pneumothorax on left ICD Code: J93.9 Status: Acute (5) Multiple fractures of ribs of left side ICD Code: S22.42XA Status: Acute (6) Traumatic compression fracture of T8 thoracic vertebra ICD Code: S22.060A Status: Acute Plan This is a 51-year-old male 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 He attempted to throw bucket over the side and a cut stuck in his hand and pulled over the side of the roof. He fell from approximately 12 feet and landed on his back. EtOH +. He ambulated at the scene and was able to drive his coworkers home before transporting himself to [facility]. He was then transferred to [place] for trauma services. He has spent an extended stay in the ICU mechanically ventilated. He has required a trach and PEG. Awaiting long-term placement. INJURIES: T8 compression fx Serial LEFT rib fxs LEFT sided PTX LEFT lung contusion Assessment and plan by systems: NEUROLOGICAL: Patient sedated lightly with Precedex T-piece continues. He is wide awake and mouthing words. Pt is sedated with a RASS score of 1-2 Provide analgesia for comfort and pain - scheduled Roxicodone. Seizure prophylaxis - Keppra for questionable alcoholic seizures HOB elevated 30 degrees. Increased Seroquel 250 mg BID. Serial neuro checks. + peripheral pulses x 4 extremities. Neurosurgery is assisting in care. CARDIOVASCULAR: HR = 68-89 Sinus rhythm BP = 135/83 Continually monitor for hemodynamic instability (shock and hypotension). BP meds - Lopressor 5 IV, Follow CMP Electrolyte protocol in place. RESPIRATORY: T-piece continues at 40 % Patient awake, follows commands. He is restless at times. Mouth's words to communicate. Increase PEEP carefully (to assist in oxygenation by recruiting alveoli.) Weaning - as tolerated O2 Sats Monitor for hypoxemia Follow ABGs - Lung sounds - clear but diminished throughout Pulmonary toilet L&S. Bronchodilators - Breathing treatments duonebs. Chest X-Ray results - no change. Bilateral pulmonary parenchymal opacity and bilateral pleural effusions. Left lateral chest tube in place to Pleur-evac drainage system - Bronchial washings sent 07/28 - left lower lobe - gram-negative rods/ Staphylococcus aureus Sputum culture 07/24: Klebsiella pneumonia. Staphylococcus aureus. Antibiotics -Ancef and Levaquin VAP protocol in place Labs tomorrow Chest X-Ray tomorrow GASTROINTESTINAL: Diet : Tube feeding: JEVITY at 60 cc/hour goal per dietary recommendations. PEG . Bowel sounds - + x 4 quads. Bowel regimen: Johanne-Colace, MOM. Lactulose daily bisacodyl MI PRN. LBM: 08/05 RENAL / URINARY: I&O - 294 BUN / creat 5 / 0.[address] to bedside drainage bag draining clear yellow urine. Urine culture - 07/24 no growth ENDOCRINE: BGM - 100 via AM labs SSI HEMATOLOGY: H&H 7.6 / 21.9 - monitor closely Continue to monitor for signs and symptoms of bleeding. Evaluate need for IVC filter. Transfuse for < 7.0 Monitor patient for any bleeding complications. INFECTIOUS DISEASE: Follow CBC WBC - 7.0 Fevers -none overnight Administer antipyretics for temp as needed. Blood cultures 07/24: Staphylococcus aureus 08/04: Blood cultures repeated - Bronch washings 07/28: Staphylococcus aureus and Klebsiella pneumonia Urine 07/24: No growth IV antibiotics: Ancef and Levaquin Monitor pneumonia evolution with repeat chest X-Rays as needed. Maintain vigorous aseptic care of central line to avoid blood stream infections. Consult to ID for further management. LINES: 07/28: Trach 07/29: PEG 07/21: L CT 07/17: F/C PROPHYLAXIS: VAP protocol in place GI: Pepcid po DVT - Mechanical VTE with SCDs. Chemical management with Lovenox 40 SQ daily. SKIN: Warm and dry Daily chest tube dressing changes. Every shift trach care. ACTIVITY: Status - BR When OOB must wear TLSO brace PT and OT ordered. CASE MANAGEMENT: Consulted case management for DC planning. Placement - disposition - [facility]. Case management is working diligently to obtain authorization for placement. Patient has been [facility] for [facility] now [facility]. However, his insurance will not authorize his transfer to [facility]. EMOTIONAL SUPPORT: Provided to patient. Plan of care discussed. Questions answered to the best of my knowledge. Patient has been [facility] once authorization complete or any LTAC that will accept him for admission and continued care.. This patient is discharged from a trauma surgery standpoint, however awaiting authorization for transfer to LTAC. The trauma team will round, assess and evaluate the patient on a day to day basis. Attestation The exam, history, and the medical decision-making described in the above note were completed with the assistance of the mid-level provider. I reviewed and agree with the findings presented. I attest that I had a [id number] encounter with the patient on the same day, and personally performed and documented my assessment and findings in the medical record. Problem Qualifiers (1) Spinal cord injury, cervical region: Qualified Code: S14.109A - Spinal cord injury, cervical region, initial encounter (2) Chronic pain: Qualified Code: G89.4 - Chronic pain syndrome (3) Closed T8 spinal fracture: (4) Multiple fractures of ribs of left side: Qualified Code: S22.42XA - Closed fracture of multiple ribs of left side, initial encounter (5) Traumatic compression fracture of T8 thoracic vertebra: Qualified Code: S22.060K - Traumatic compression fracture of T8 thoracic vertebra, with nonunion, subsequent encounter Blair Cartagena MD Aug 16, 2016 11:10
[2016-08-16] MEDS: ENOXAPARIN SODIUM 40 MG/0.4 ML SYRINGE SQ SCH (11:15)
--- NOTE | 2016-08-16 11:18 | HHI.PR ---
Neuropsych Progress Notes/Response to Tx Time with Patient: 15 minutes Premorbid psychological status Premorbid Cognitive, Emotional and Behavioral Status: Tenuous. 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 The patient has prior psychiatric difficulties, and reportedly was on Seroquel 300 mg qHS prior to the accident. Substance abuse history includes TOB and ETOH. Behavioral Reactions of Patient and Family/Support System: Tenuous. The patient has no family stepping up. He was living at a long-term for disabled individuals, where reportedly he spent much of the time smoking and drinking. Emotional/Behavioral Status of Patient and Family/Support System: Tenuous. Pertinent issues, if appropriate to this patients clinical care, are described in detail above. Maximizing acute care outcome It is recommended that the patient be monitored for emergent behavioral impulsivity as the medical condition evolves. This patients psychiatric and substance dependence issues will limit their rehabilitation potential going forward, and these challenges will require specialized therapeutic skills to maximize outcome. Anticipated Problems Ongoing areas of concern will include agitation, behavioral impulsivity, lack of insight and judgment, which is unlikely to improve with time or treatment. Treatment Plan This clinician will continue to follow with you throughout the course of this patients rehabilitation treatment, and I will be available to meet with the patients family/support system to facilitate their understanding and the ongoing care of their family member. The goals of neuropsychological intervention shall be both educational and supportive to the family/support system as is deemed clinically appropriate. Diagnosis: (1) Bipolar affective, manic, unspec Status: Chronic Progress Note Narrative Ongoing follow-up of patient who remains on the [facility] as a border who is ready for discharge. There are no changes, as his agitation is appropriately managed. I will continue to follow with you. Bernard Higgins PhD Aug 16, 2016 11:18 am
[2016-08-16] MEDS: ERTAPENEM INJ 1,000 MG in SODIUM CHLORIDE 0.9% INJ 100 ML IV SCH (13:15)
[2016-08-16] MEDS: MAGNESIUM HYDROXIDE SUSP 30 ML CUP PO SCH (20:05)
[2016-08-17] MEDS: oxyCODONE HCL ORAL CONC 20 MG/ML SYRINGE PO PRN ×5 (03:33→20:29)
[2016-08-17 08:00] VITALS: BP 173/85; PULSE 81; RESP 18; TEMP 97.7; O2SAT 96
[2016-08-17] MEDS: LACTULOSE SYRUP 20 GM/30 ML CUP PO SCH (08:25)
[2016-08-17] MEDS: METOPROLOL TARTRATE 25 MG TAB PO SCH ×2 (08:25→20:30)
[2016-08-17] MEDS: NICOTINE 14 MG/24 HR PATCH TD SCH (08:25)
[2016-08-17] MEDS: PANTOPRAZOLE SOD 40 MG DELAYED RELEASE TAB PO SCH (08:26)
[2016-08-17] MEDS: hydrALAZINE HCL 25 MG TAB PO SCH ×2 (08:26→20:36)
[2016-08-17] MEDS: REMOVE OLD NICOTINE PATCH TD SCH (08:26)
[2016-08-17] MEDS: QUEtiapine FUMARATE 100 MG TAB PO SCH ×2 (08:26→20:30)
[2016-08-17] MEDS: MULTIVITAMINS/IRON/MINERALS CHEWABLE TAB CHEW SCH (08:26)
[2016-08-17] MEDS: DOCUSATE SODIUM 50 MG/SENNA 8.6 MG TAB PO SCH ×2 (08:26→20:31)
[2016-08-17] MEDS: ceFAZolin 2 GM PREMIX 50 ML IV SCH ×2 (08:26→16:02)
[2016-08-17] MEDS: ENOXAPARIN SODIUM 40 MG/0.4 ML SYRINGE SQ SCH (11:47)
[2016-08-17 12:00] VITALS: BP 148/78; PULSE 78; RESP 18; TEMP 97.7; O2SAT 95
--- NOTE | 2016-08-17 13:13 | HHI.PR ---
Subjective Subjective Notes Confused, asking when he can be discharged Objective Vitals/I&O Vital Signs Date Time Temp Pulse Resp B/P Pulse Ox O2 Delivery O2 Flow Rate FiO2 08/17/16 12:00 97.7 78 18 148/78 95 08/16/16 19:27 21 08/16/16 19:00 Room Air 08/15/16 09:34 3.00 Radiology Last Impressions Chest X-Ray 07/14/16 0600 Signed Impressions: Service Date/Time: Thursday, July 14, 2016 06:52 - CONCLUSION: Prominence interval increase in left lung parenchymal opacity with leftward cardiomediastinal shift. This presumably reflects extensive left lung atelectasis/collapse superimposed on pre-existing lung contusion. Toñito Cisneros MD Thoracic Spine CT 07/13/16 0000 Signed Impressions: Service Date/Time: Wednesday, July 13, 2016 08:51 - CONCLUSION: T8 compressive deformity as described in detail above with appearance suggestive of an old injury, however some degree of acute or subacute progression cannot be excluded. If it would affect clinical management, injury could be further characterized with MRI. Toñito Cisneros MD Narrative Exam GENERAL: 51-year-old male lying in bed. SKIN: Warm and dry. ENT: No nasal bleeding or discharge. Mucous membranes pink and moist. NECK: Trachea midline. No JVD. CARDIOVASCULAR: Regular rate and rhythm. RESPIRATORY: No accessory muscle use. Lungs clear and diminished to auscultation. GASTROINTESTINAL: Abdomen soft, non-tender, nondistended. + BS. MUSCULOSKELETAL: Extremities without cyanosis, or edema. LEFT lower extremity weakness noted (chronic). NEUROLOGICAL: Awake and alert. Follow commands x4. A/P Problem List: (1) Spinal cord injury, cervical region (2) Chronic pain (3) Closed T8 spinal fracture (4) Pneumothorax on left (5) Multiple fractures of ribs of left side (6) Traumatic compression fracture of T8 thoracic vertebra Assessment and Plan [place]: Working on top of a roof and attempted to throw a 10lb bucket over the side and it got stuck on his finger and pulled him over the side of the roof. Fell from 12 ft, landing on his back. + ETOH. Ambulated at scene and was able to drive his coworkers home before transporting himself to the [facility]. Transferred to [place] for trauma services. INJURIES: T8 compression fx LEFT sided PTX LEFT lung contusion Serial LEFT rib fxs PMHx: Cervical spine fusion with halo placement, trigger finger, HTN, seizures, 1 PPD smoker, ETOH abuse 07/12: LEFT CT (placed by [facility]) 07/12: LEFT CT (placed by [facility]) 07/16: Intubated and bronched 07/17: extubated 07/20: Intubated and Bronched again 07/21: LEFT thoracoscopy; evacuation of empyema and decortication of the lung 07/27: Extubated & reintubated d/t secretions 07/28: Bedside trach 07/29: PEG 08/09: L CT discontinued 08/15: decannulated Diet: TF - Jevity @ 50 at night- mechanical soft diet during the day Pulmonary: IS, encouraged use. Pain: Roxicodone and Haldol IV. Pain controlled Activity: OOB. PT evaluating. TLSO brace. GI: Pepcid Bowel: Johanne-colace, MOM. Lactulose QD. Bisacodyl DC PRN. LBM 08/15 DVT: SCDs, Lovenox 40 QD Vancomycin discontinued. WBC count normal. Will continue to monitor. Case management assisting with discharge planning. Home with daughter vs SNF. Remarks seen and examined with [employer]- continue current care nutrition dvt prophylaxis dc abx Problem Qualifiers (1) Spinal cord injury, cervical region: Qualified Code: S14.109A - Spinal cord injury, cervical region, initial encounter (2) Chronic pain: Qualified Code: G89.4 - Chronic pain syndrome (3) Closed T8 spinal fracture: (4) Multiple fractures of ribs of left side: Qualified Code: S22.42XA - Closed fracture of multiple ribs of left side, initial encounter (5) Traumatic compression fracture of T8 thoracic vertebra: Qualified Code: S22.060K - Traumatic compression fracture of T8 thoracic vertebra, with nonunion, subsequent encounter Ramesh Paul Aug 17, 2016 13:13 Ny Bautista MD Aug 17, 2016 18:11
[2016-08-17] MEDS: ERTAPENEM INJ 1,000 MG in SODIUM CHLORIDE 0.9% INJ 100 ML IV SCH (14:01)
[2016-08-17 16:00] VITALS: BP 158/80; PULSE 73; RESP 18; TEMP 98.7; O2SAT 98
[2016-08-17] MEDS: HALOPERIDOL LACTATE 5 MG/ML AMP IV PUSH PRN (17:48)
[2016-08-17 20:00] VITALS: BP 118/87; PULSE 82; RESP 20; TEMP 99.1; O2SAT 96
[2016-08-17 20:07] VITALS: O2SAT 98
[2016-08-17] MEDS: MAGNESIUM HYDROXIDE SUSP 30 ML CUP PO SCH (20:30)
[2016-08-18] VITALS: BP 141/88; PULSE 76; RESP 20; TEMP 98.7; O2SAT 95
[2016-08-18] MEDS: ceFAZolin 2 GM PREMIX 50 ML IV SCH ×3 (00:06→16:21)
[2016-08-18] MEDS: HALOPERIDOL LACTATE 5 MG/ML AMP IV PUSH PRN ×2 (00:06→06:13)
[2016-08-18] MEDS: oxyCODONE HCL ORAL CONC 20 MG/ML SYRINGE PO PRN ×6 (00:07→21:46)
[2016-08-18 05:26] LABS: AUTOMATED NEUTROPHIL # 2.5 TH/MM3 (1.8-7.7); BASOPHIL % 0.8 % (0.0-2.0); EOSINOPHIL # 0.2 TH/MM3 (0-0.4); EOSINOPHIL % 3.7 % (0.0-4.0); HEMATOCRIT 28.7 % (39.0-51.0); HEMO FLAGS DIFF FINAL; LYMPH % 34.8 % (9.0-44.0); LYMPHOCYTE # 1.8 TH/MM3 (1.0-4.8); MEAN CELL VOLUME 91.3 FL (80.0-100.0); MEAN CORPUSCULAR HEMOGLOBIN 30.8 PG (27.0-34.0); MEAN CORPUSCULAR HGB CONC 33.8 % (32.0-36.0); MONO % 11.6 % (0.0-8.0); NEUT % 49.1 % (16.0-70.0); PLATELET COUNT 232 TH/MM3 (150-450); RED BLOOD COUNT 3.14 MIL/MM3 (4.50-5.90); RED CELL DISTRIBUTION WIDTH 12.9 % (11.6-17.2); WHITE BLOOD COUNT 5.1 TH/MM3 (4.0-11.0)
[2016-08-18 05:30] LABS: ALT (GPT) 7 U/L (12-78); ANION GAP 7 MEQ/L (5-15); AST (GOT) 17 U/L (15-37); BICARBONATE 28.1 MEQ/L (21.0-32.0); BLOOD UREA NITROGEN 8 MG/DL (7-18); CHLORIDE 100 MEQ/L (98-107); GLOMERULAR FILTRATION RATE 153 ML/MIN (>89); POTASSIUM 3.9 MEQ/L (3.5-5.1); SODIUM (NA) 135 MEQ/L (136-145)
[2016-08-18 05:33] LABS: ALKALINE PHOSPHATASE 91 U/L (45-117); TOTAL BILIRUBIN ADULT 0.2 MG/DL (0.2-1.0)
[2016-08-18] MEDS: ACETAMINOPHEN 325 MG TAB PO PRN ×2 (06:14→11:36)
[2016-08-18 08:00] VITALS: BP 141/73; PULSE 75; RESP 18; TEMP 98.2; O2SAT 95
[2016-08-18] MEDS: hydrALAZINE HCL 25 MG TAB PO SCH ×2 (08:59→21:00)
[2016-08-18] MEDS: PANTOPRAZOLE SOD 40 MG DELAYED RELEASE TAB PO SCH (08:59)
[2016-08-18] MEDS: DOCUSATE SODIUM 50 MG/SENNA 8.6 MG TAB PO SCH ×2 (08:59→21:00)
[2016-08-18] MEDS: MULTIVITAMINS/IRON/MINERALS CHEWABLE TAB CHEW SCH (08:59)
[2016-08-18] MEDS: QUEtiapine FUMARATE 100 MG TAB PO SCH ×2 (08:59→21:00)
[2016-08-18] MEDS: METOPROLOL TARTRATE 25 MG TAB PO SCH ×2 (08:59→21:00)
[2016-08-18] MEDS: NICOTINE 14 MG/24 HR PATCH TD SCH (09:00)
[2016-08-18] MEDS: REMOVE OLD NICOTINE PATCH TD SCH (09:00)
[2016-08-18] MEDS: LACTULOSE SYRUP 20 GM/30 ML CUP PO SCH (09:13)
[2016-08-18] MEDS: ENOXAPARIN SODIUM 40 MG/0.4 ML SYRINGE SQ SCH (11:36)
[2016-08-18 12:00] VITALS: BP 139/67; PULSE 79; RESP 18; TEMP 98.8; O2SAT 96
[2016-08-18] MEDS: ERTAPENEM INJ 1,000 MG in SODIUM CHLORIDE 0.9% INJ 100 ML IV SCH (14:00)
--- NOTE | 2016-08-18 14:35 | HHI.PR ---
Subjective Subjective Notes No complaints today. Confused. Objective Vitals/I&O Vital Signs Date Time Temp Pulse Resp B/P Pulse Ox O2 Delivery O2 Flow Rate FiO2 08/18/16 12:00 98.8 79 18 139/67 96 08/17/16 20:07 21 08/16/16 19:00 Room Air 08/15/16 09:34 3.00 Labs Laboratory Tests Test 08/18/16 04:25 White Blood Count 5.1 Red Blood Count 3.14 Hemoglobin 9.7 Hematocrit 28.7 Mean Corpuscular Volume 91.3 Mean Corpuscular Hemoglobin 30.8 Mean Corpuscular Hemoglobin 33.8 Concent Red Cell Distribution Width 12.9 Platelet Count 232 Mean Platelet Volume 7.3 Neutrophils (%) (Auto) 49.1 Lymphocytes (%) (Auto) 34.8 Monocytes (%) (Auto) 11.6 Eosinophils (%) (Auto) 3.7 Basophils (%) (Auto) 0.8 Neutrophils # (Auto) 2.5 Lymphocytes # (Auto) 1.8 Monocytes # (Auto) 0.6 Eosinophils # (Auto) 0.2 Basophils # (Auto) 0.0 CBC Comment DIFF FINAL Differential Comment Sodium Level 135 Potassium Level 3.9 Chloride Level 100 Carbon Dioxide Level 28.1 Anion Gap 7 Blood Urea Nitrogen 8 Creatinine 0.56 Estimat Glomerular Filtration 153 Rate Random Glucose 80 Calcium Level 8.4 Total Bilirubin 0.2 Aspartate Amino Transf 17 (AST/SGOT) Alanine Aminotransferase 7 (ALT/SGPT) Alkaline Phosphatase 91 Total Protein 7.4 Albumin 2.2 Radiology Last Impressions Chest X-Ray 07/14/16 0600 Signed Impressions: Service Date/Time: Thursday, July 14, 2016 06:52 - CONCLUSION: Prominence interval increase in left lung parenchymal opacity with leftward cardiomediastinal shift. This presumably reflects extensive left lung atelectasis/collapse superimposed on pre-existing lung contusion. Toñito Cisneros MD Thoracic Spine CT 07/13/16 0000 Signed Impressions: Service Date/Time: Wednesday, July 13, 2016 08:51 - CONCLUSION: T8 compressive deformity as described in detail above with appearance suggestive of an old injury, however some degree of acute or subacute progression cannot be excluded. If it would affect clinical management, injury could be further characterized with MRI. Toñito Cisneros MD Narrative Exam GENERAL: 51-year-old male lying in bed. SKIN: Warm and dry. ENT: No nasal bleeding or discharge. Mucous membranes pink and moist. NECK: Trachea midline. No JVD. Scabbed area from trach site noted. CARDIOVASCULAR: Regular rate and rhythm. RESPIRATORY: No accessory muscle use. Lungs clear and diminished to auscultation. GASTROINTESTINAL: Abdomen soft, non-tender, nondistended. + BS. MUSCULOSKELETAL: Extremities without cyanosis, or edema. LEFT lower extremity weakness noted (chronic). NEUROLOGICAL: Awake and alert. Follow commands x4. A/P Problem List: (1) Spinal cord injury, cervical region (2) Chronic pain (3) Closed T8 spinal fracture (4) Pneumothorax on left (5) Multiple fractures of ribs of left side (6) Traumatic compression fracture of T8 thoracic vertebra Assessment and Plan [place]: Working on top of a roof and attempted to throw a 10lb bucket over the side and it got stuck on his finger and pulled him over the side of the roof. Fell from 12 ft, landing on his back. + ETOH. Ambulated at scene and was able to drive his coworkers home before transporting himself to the [facility]. Transferred to [place] for trauma services. INJURIES: T8 compression fx LEFT sided PTX LEFT lung contusion Serial LEFT rib fxs PMHx: Cervical spine fusion with halo placement, trigger finger, HTN, seizures, 1 PPD smoker, ETOH abuse 07/12: LEFT CT (placed by [facility]) 07/12: LEFT CT (placed by [facility]) 07/16: Intubated and bronched 07/17: extubated 07/20: Intubated and Bronched again 07/21: LEFT thoracoscopy; evacuation of empyema and decortication of the lung 07/27: Extubated & reintubated d/t secretions 07/28: Bedside trach 07/29: PEG 08/09: L CT discontinued 08/15: decannulated Diet: TF - Jevity @ 50 at night- mechanical soft diet during the day Pulmonary: IS, encouraged use. Pain: Roxicodone and Haldol IV. Pain controlled Activity: OOB. PT evaluating. TLSO brace. GI: Pepcid Bowel: Johanne-colace, MOM. Lactulose QD. Bisacodyl IA PRN. LBM 08/15 DVT: SCDs, Lovenox 40 QD ID following and managing antibiotics. + Ecoli ESBL sputum. ST consulted for cognitive eval. Case management assisting with discharge planning. Home with daughter vs SNF. Remarks Seen and examined with the nurse practitioner Continue current care-dispo planning Problem Qualifiers (1) Spinal cord injury, cervical region: Qualified Code: S14.109A - Spinal cord injury, cervical region, initial encounter (2) Chronic pain: Qualified Code: G89.4 - Chronic pain syndrome (3) Closed T8 spinal fracture: (4) Multiple fractures of ribs of left side: Qualified Code: S22.42XA - Closed fracture of multiple ribs of left side, initial encounter (5) Traumatic compression fracture of T8 thoracic vertebra: Qualified Code: S22.060K - Traumatic compression fracture of T8 thoracic vertebra, with nonunion, subsequent encounter Ramesh Paul Aug 18, 2016 14:35 Ny Bautista MD Aug 18, 2016 18:28
--- NOTE | 2016-08-18 14:47 | HHI.IDPN ---
Subjective Subjective Remarks On RA afebrile Antibiotics ertapenem cefazoline Allergies: Coded Allergies: *MDRO Multi-Drug Resistant Organism (Verified Adverse Reaction, Unknown, ) ESBL E. coli (sputum) - 08/08/2016 Objective . Vital Signs Date Time Temp Pulse Resp B/P Pulse Ox O2 Delivery O2 Flow Rate FiO2 08/18/16 12:00 98.8 79 18 139/67 96 08/18/16 11:04 18 08/18/16 08:00 98.2 75 18 141/73 95 08/18/16 07:14 16 08/18/16 00:00 98.7 76 20 141/88 95 08/17/16 20:07 98 21 08/17/16 20:00 99.1 82 20 118/87 96 08/17/16 16:00 98.7 73 18 158/80 98 08/17/16 08/17/16 08/18/16 15:00 23:00 07:00 Intake Total 404 ml 120 ml 180 ml Output Total 500 ml 550 ml Balance -96 ml 120 ml -370 ml Intake Oral 240 ml 120 ml 180 ml IV Total 164 ml 0 ml Output Urine Total 500 ml 550 ml # Voids 2 # Bowel Movements 0 . Laboratory Tests Test 08/18/16 04:25 White Blood Count 5.1 TH/MM3 Red Blood Count 3.14 MIL/MM3 Hemoglobin 9.7 GM/DL Hematocrit 28.7 % Mean Corpuscular Volume 91.3 FL Mean Corpuscular Hemoglobin 30.8 PG Mean Corpuscular Hemoglobin 33.8 % Concent Red Cell Distribution Width 12.9 % Platelet Count 232 TH/MM3 Mean Platelet Volume 7.3 FL Neutrophils (%) (Auto) 49.1 % Lymphocytes (%) (Auto) 34.8 % Monocytes (%) (Auto) 11.6 % Eosinophils (%) (Auto) 3.7 % Basophils (%) (Auto) 0.8 % Neutrophils # (Auto) 2.5 TH/MM3 Lymphocytes # (Auto) 1.8 TH/MM3 Monocytes # (Auto) 0.6 TH/MM3 Eosinophils # (Auto) 0.2 TH/MM3 Basophils # (Auto) 0.0 TH/MM3 CBC Comment DIFF FINAL Differential Comment Laboratory Tests Test 08/18/16 04:25 Sodium Level 135 MEQ/L Potassium Level 3.9 MEQ/L Chloride Level 100 MEQ/L Carbon Dioxide Level 28.1 MEQ/L Anion Gap 7 MEQ/L Blood Urea Nitrogen 8 MG/DL Creatinine 0.56 MG/DL Estimat Glomerular Filtration 153 ML/MIN Rate Random Glucose 80 MG/DL Calcium Level 8.4 MG/DL Total Bilirubin 0.2 MG/DL Aspartate Amino Transf 17 U/L (AST/SGOT) Alanine Aminotransferase 7 U/L (ALT/SGPT) Alkaline Phosphatase 91 U/L Total Protein 7.4 GM/DL Albumin 2.2 GM/DL Imaging Last Impressions Chest X-Ray 08/11/16 0600 Signed Impressions: Service Date/Time: Thursday, August 11, 2016 04:04 - CONCLUSION: Increasing consolidation on the left. Otherwise stable. Jovanni Moseley MD Thoracic Spine X-Ray 08/09/16 0000 Signed Impressions: Service Date/Time: Tuesday, August 09, 2016 20:39 - CONCLUSION: Moderate wedge compression of T8. Jose Barkley MD Chest CT 08/02/16 0000 Signed Impressions: Service Date/Time: Tuesday, August 02, 2016 22:56 - CONCLUSION: 1. Bilateral pulmonary parenchymal opacity and bilateral pleural effusions. The parenchymal opacity is more severe on the left. The pleural effusion is larger on the right. Differential diagnosis for these findings includes pulmonary edema and infection. There is diffuse superficial soft tissue edema. 2. There is a 6 cm rounded fluid filled cavity in the lower lobe on the left. Previously this contained and air-fluid level. 3. Hydropneumothorax is again seen on the left with pneumothorax component smaller than on the previous study. Left-sided chest tube remains in place. 4. Multiple left-sided rib fractures again seen. Stevie Prather MD Abdomen X-Ray 07/28/16 0000 Signed Impressions: Service Date/Time: Thursday, July 28, 2016 17:45 - CONCLUSION: Tip of the [place] feeding tube is in the mid stomach. Toñito Bacon MD Head CT 07/19/16 0000 Signed Impressions: Service Date/Time: Tuesday, July 19, 2016 13:25 - CONCLUSION: Negative for an acute process. Cory Butts MD FACR Thoracic Spine CT 07/13/16 0000 Signed Impressions: Service Date/Time: Wednesday, July 13, 2016 08:51 - CONCLUSION: T8 compressive deformity as described in detail above with appearance suggestive of an old injury, however some degree of acute or subacute progression cannot be excluded. If it would affect clinical management, injury could be further characterized with MRI. Toñito Cisneros MD Physical Exam CONSTITUTIONAL/GENERAL: This is an adequately nourished patient, in no apparent distress. sedated int'd on mech vent'n SKIN: No jaundice, rashes, or lesions. Skin temperature appropriate. Not diaphoretic. EYES: Pupils equal and round and reactive. Extraocular motions intact. No scleral icterus. No injection or drainage. Fundi not examined. CARDIOVASCULAR: Regular rate and rhythm without murmurs, gallops, or rubs. No JVD. Peripheral pulses symmetric. RESPIRATORY/CHEST: Symmetric, unlabored respirations. Clear to auscultation. Diminished L base BS GASTROINTESTINAL: Abdomen soft, non-tender, nondistended. Bowel sounds present. GENITOURINARY: Without palpable bladder distension. MUSCULOSKELETAL: Extremities without clubbing, cyanosis, no edema. NEUROLOGICAL: awake, conversant confused follows commands Assessment & Plan Remarks L lung pulm contusion L PNA, Kleb, MSSA -new culture is positive now for ESBL+ - clincially resolved MSSA bacteremia, low grade - 2 D echo neg for veg's ETOHism and tobaccoism - cont cefazoline for MSSA bactermia thru August 21 ( 4 weeks total tx) - rechk BC if fever again - cont Ertapenem x 7 days at least (thru 08/17) , longer (up to 10-14 days) if cont to have signs of ongoing infection will s/o at this point, please reconsult if any further questions Martine Moncada MD Aug 18, 2016 14:47
[2016-08-18 16:00] VITALS: BP 129/78; PULSE 79; RESP 18; TEMP 97.7; O2SAT 96
[2016-08-18 20:00] VITALS: BP 151/88; PULSE 92; RESP 20; TEMP 98.2; O2SAT 96
[2016-08-18] MEDS: MAGNESIUM HYDROXIDE SUSP 30 ML CUP PO SCH (21:00)
[2016-08-19] VITALS: BP 148/82; PULSE 88; RESP 20; TEMP 97.4; O2SAT 97
[2016-08-19] MEDS: ceFAZolin 2 GM PREMIX 50 ML IV SCH ×4 (01:14→22:26)
[2016-08-19] MEDS: oxyCODONE HCL ORAL CONC 20 MG/ML SYRINGE PO PRN ×6 (02:05→22:27)
[2016-08-19 08:00] VITALS: BP 128/79; PULSE 70; RESP 20; TEMP 97.7; O2SAT 95
[2016-08-19] MEDS: DOCUSATE SODIUM 50 MG/SENNA 8.6 MG TAB PO SCH ×2 (09:00→21:00)
[2016-08-19] MEDS: LACTULOSE SYRUP 20 GM/30 ML CUP PO SCH (09:00)
[2016-08-19] MEDS: hydrALAZINE HCL 25 MG TAB PO SCH ×2 (09:39→22:17)
[2016-08-19] MEDS: METOPROLOL TARTRATE 25 MG TAB PO SCH ×2 (09:39→22:17)
[2016-08-19] MEDS: MULTIVITAMINS/IRON/MINERALS CHEWABLE TAB CHEW SCH (09:39)
[2016-08-19] MEDS: NICOTINE 14 MG/24 HR PATCH TD SCH (09:39)
[2016-08-19] MEDS: QUEtiapine FUMARATE 100 MG TAB PO SCH ×2 (09:39→22:17)
[2016-08-19] MEDS: PANTOPRAZOLE SOD 40 MG DELAYED RELEASE TAB PO SCH (09:40)
[2016-08-19] MEDS: REMOVE OLD NICOTINE PATCH TD SCH (10:15)
[2016-08-19 12:00] VITALS: BP 145/71; PULSE 73; RESP 19; TEMP 98.7; O2SAT 95
[2016-08-19] MEDS: ENOXAPARIN SODIUM 40 MG/0.4 ML SYRINGE SQ SCH (12:26)
--- NOTE | 2016-08-19 14:12 | HHI.PR ---
Subjective Subjective Notes Patient asking when he can leave. Agreeable to rehab. Requesting beer. Objective Vitals/I&O Vital Signs Date Time Temp Pulse Resp B/P Pulse Ox O2 Delivery O2 Flow Rate FiO2 08/19/16 12:00 98.7 73 19 145/71 95 08/17/16 20:07 21 08/16/16 19:00 Room Air 08/15/16 09:34 3.00 Labs Laboratory Tests Test 08/18/16 04:25 White Blood Count 5.1 TH/MM3 Red Blood Count 3.14 MIL/MM3 Hemoglobin 9.7 GM/DL Hematocrit 28.7 % Mean Corpuscular Volume 91.3 FL Mean Corpuscular Hemoglobin 30.8 PG Mean Corpuscular Hemoglobin 33.8 % Concent Red Cell Distribution Width 12.9 % Platelet Count 232 TH/MM3 Mean Platelet Volume 7.3 FL Neutrophils (%) (Auto) 49.1 % Lymphocytes (%) (Auto) 34.8 % Monocytes (%) (Auto) 11.6 % Eosinophils (%) (Auto) 3.7 % Basophils (%) (Auto) 0.8 % Neutrophils # (Auto) 2.5 TH/MM3 Lymphocytes # (Auto) 1.8 TH/MM3 Monocytes # (Auto) 0.6 TH/MM3 Eosinophils # (Auto) 0.2 TH/MM3 Basophils # (Auto) 0.0 TH/MM3 CBC Comment DIFF FINAL Differential Comment Sodium Level 135 MEQ/L Potassium Level 3.9 MEQ/L Chloride Level 100 MEQ/L Carbon Dioxide Level 28.1 MEQ/L Anion Gap 7 MEQ/L Blood Urea Nitrogen 8 MG/DL Creatinine 0.56 MG/DL Estimat Glomerular Filtration 153 ML/MIN Rate Random Glucose 80 MG/DL Calcium Level 8.4 MG/DL Total Bilirubin 0.2 MG/DL Aspartate Amino Transf 17 U/L (AST/SGOT) Alanine Aminotransferase 7 U/L (ALT/SGPT) Alkaline Phosphatase 91 U/L Total Protein 7.4 GM/DL Albumin 2.2 GM/DL Radiology Last Impressions Chest X-Ray 07/14/16 0600 Signed Impressions: Service Date/Time: Thursday, July 14, 2016 06:52 - CONCLUSION: Prominence interval increase in left lung parenchymal opacity with leftward cardiomediastinal shift. This presumably reflects extensive left lung atelectasis/collapse superimposed on pre-existing lung contusion. Toñito Cisneros MD Thoracic Spine CT 07/13/16 0000 Signed Impressions: Service Date/Time: Wednesday, July 13, 2016 08:51 - CONCLUSION: T8 compressive deformity as described in detail above with appearance suggestive of an old injury, however some degree of acute or subacute progression cannot be excluded. If it would affect clinical management, injury could be further characterized with MRI. Toñito Cisneros MD Narrative Exam GENERAL: 51-year-old male lying in bed in no acute distress. SKIN: Warm and dry. ENT: No nasal bleeding or discharge. Mucous membranes pink and moist. NECK: Trachea midline. No JVD. Scabbed area from trach site noted. CARDIOVASCULAR: Regular rate and rhythm. RESPIRATORY: No accessory muscle use. Lungs clear to auscultation. GASTROINTESTINAL: Abdomen soft, non-tender, nondistended. + BS. MUSCULOSKELETAL: Extremities without cyanosis, or edema. LEFT lower extremity weakness noted (chronic). NEUROLOGICAL: Awake and alert. Follow commands x4. A/P Problem List: (1) Spinal cord injury, cervical region (2) Chronic pain (3) Closed T8 spinal fracture (4) Pneumothorax on left (5) Multiple fractures of ribs of left side (6) Traumatic compression fracture of T8 thoracic vertebra Assessment and Plan [place]: Working on top of a roof and attempted to throw a 10lb bucket over the side and it got stuck on his finger and pulled him over the side of the roof. Fell from 12 ft, landing on his back. + ETOH. Ambulated at scene and was able to drive his coworkers home before transporting himself to the [facility]. Transferred to [place] for trauma services. INJURIES: T8 compression fx LEFT sided PTX LEFT lung contusion Serial LEFT rib fxs PMHx: Cervical spine fusion with halo placement, trigger finger, HTN, seizures, 1 PPD smoker, ETOH abuse 07/12: LEFT CT (placed by [facility]) 07/12: LEFT CT (placed by [facility]) 07/16: Intubated and bronched 07/17: extubated 07/20: Intubated and Bronched again 07/21: LEFT thoracoscopy; evacuation of empyema and decortication of the lung 07/27: Extubated & reintubated d/t secretions 07/28: Bedside trach 07/29: PEG 08/09: L CT discontinued 08/15: decannulated Diet: TF - Jevity @ 50 at night- mechanical soft diet during the day. Dietitian consulted for further recommendations. Patient tolerating PO diet well. Pulmonary: IS, encouraged use. Pain: Roxicodone and Haldol IV. Pain controlled Activity: OOB. PT evaluating. TLSO brace. GI: Pepcid Bowel: Johanne-colace, MOM. Lactulose QD. Bisacodyl NE PRN. LBM 08/17 DVT: SCDs, Lovenox 40 QD ID following and managing antibiotics. + E-coli ESBL sputum. ST consulted for cognitive eval. Appreciate input. Case management assisting with discharge planning. Case management arranging for SNF placement. Patient is agreeable to rehabilitation just getting anxious and would like to go soon. Patient is clear for discharge when arrangements made. The exam, history, and the medical decision-making described in the above note were completed with the assistance of the mid-level provider. I reviewed and agree with the findings presented. I attest that I had a [id number] encounter with the patient on the same day, and personally performed and documented my assessment and findings in the medical record. Problem Qualifiers (1) Spinal cord injury, cervical region: Qualified Code: S14.109A - Spinal cord injury, cervical region, initial encounter (2) Chronic pain: Qualified Code: G89.4 - Chronic pain syndrome (3) Closed T8 spinal fracture: (4) Multiple fractures of ribs of left side: Qualified Code: S22.42XA - Closed fracture of multiple ribs of left side, initial encounter (5) Traumatic compression fracture of T8 thoracic vertebra: Qualified Code: S22.060K - Traumatic compression fracture of T8 thoracic vertebra, with nonunion, subsequent encounter Ramesh Paul Aug 19, 2016 14:12 Juan Daniel Parra MD Sep 15, 2016 13:15
[2016-08-19 16:00] VITALS: BP 125/78; PULSE 71; RESP 20; TEMP 97.9; O2SAT 96
[2016-08-19 20:00] VITALS: BP 116/74; PULSE 91; RESP 21; TEMP 97.1; O2SAT 95
[2016-08-19] MEDS: MAGNESIUM HYDROXIDE SUSP 30 ML CUP PO SCH (21:00)
[2016-08-19 23:43] VITALS: BP 134/80; PULSE 84; RESP 21; TEMP 96.8; O2SAT 96
[2016-08-20] MEDS: oxyCODONE HCL ORAL CONC 20 MG/ML SYRINGE PO PRN ×4 (04:31→23:05)
[2016-08-20 08:00] VITALS: BP 140/77; PULSE 69; RESP 14; TEMP 97; O2SAT 96
[2016-08-20] MEDS: LACTULOSE SYRUP 20 GM/30 ML CUP PO SCH (09:00)
[2016-08-20] MEDS: DOCUSATE SODIUM 50 MG/SENNA 8.6 MG TAB PO SCH ×2 (09:00→21:00)
[2016-08-20] MEDS: ceFAZolin 2 GM PREMIX 50 ML IV SCH ×3 (09:08→23:04)
[2016-08-20] MEDS: QUEtiapine FUMARATE 100 MG TAB PO SCH ×2 (09:09→21:34)
[2016-08-20] MEDS: MULTIVITAMINS/IRON/MINERALS CHEWABLE TAB CHEW SCH (09:09)
[2016-08-20] MEDS: METOPROLOL TARTRATE 25 MG TAB PO SCH ×2 (09:09→21:33)
[2016-08-20] MEDS: PANTOPRAZOLE SOD 40 MG DELAYED RELEASE TAB PO SCH (09:09)
[2016-08-20] MEDS: hydrALAZINE HCL 25 MG TAB PO SCH ×2 (09:09→21:34)
[2016-08-20] MEDS: NICOTINE 14 MG/24 HR PATCH TD SCH (09:10)
[2016-08-20] MEDS: REMOVE OLD NICOTINE PATCH TD SCH (09:20)
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
[2016-08-20] MEDS: ENOXAPARIN SODIUM 40 MG/0.4 ML SYRINGE SQ SCH (11:52)
[2016-08-20 12:00] VITALS: BP 134/75; PULSE 74; RESP 16; TEMP 97.6; O2SAT 97
--- NOTE | 2016-08-20 13:22 | HHI.NSPN ---
History Chief Complaint: T8 compression fracture Interval History 08/13/16: Pt awake and alert. Denies any pain currently. No back, chest, abdomen pain. Follows commands well. 08/20/16: Pt awake and alert. He is confused but pleasant. Denies back pain. Complains of left rib pain. Review of Systems General: Negative for: fever, chills, insomnia Respiratory: Negative for: shortness of breath, cough, sputum Cardiovascular: Positive for: chest pain (left rib pain.) Gastrointestinal: Negative for: nausea, vomitting, diarrhea, constipation Exam Results Vital Signs Date Time Temp Pulse Resp B/P Pulse Ox O2 Delivery O2 Flow Rate FiO2 08/20/16 08:00 97.0 69 14 140/77 96 08/17/16 20:07 21 08/16/16 19:00 Room Air Intake and Output 08/19/16 08/19/16 08/19/16 07:59 15:59 23:59 Intake Total 720 ml 519 ml 240 ml Output Total 850 ml 500 ml 300 ml Balance -130 ml 19 ml -60 ml Physical Examination Resp: CTA bilaterally. Trach in place. Heart: NSR no murmurs Abd: Soft positive bs Skin: No cyanosis or erythema Muscle: Moves all 4 extremities. 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 Neuro: Pt awake and alert. Some confusion but pleasant. Follows commands well. Lab, Micro, Other Results Last Impressions Chest X-Ray 08/11/16 0600 Signed Impressions: Service Date/Time: Thursday, August 11, 2016 04:04 - CONCLUSION: Increasing consolidation on the left. Otherwise stable. Jovanni Moseley MD Thoracic Spine X-Ray 08/09/16 0000 Signed Impressions: Service Date/Time: Tuesday, August 09, 2016 20:39 - CONCLUSION: Moderate wedge compression of T8. Jose Barkley MD Chest CT 08/02/16 0000 Signed Impressions: Service Date/Time: Tuesday, August 02, 2016 22:56 - CONCLUSION: 1. Bilateral pulmonary parenchymal opacity and bilateral pleural effusions. The parenchymal opacity is more severe on the left. The pleural effusion is larger on the right. Differential diagnosis for these findings includes pulmonary edema and infection. There is diffuse superficial soft tissue edema. 2. There is a 6 cm rounded fluid filled cavity in the lower lobe on the left. Previously this contained and air-fluid level. 3. Hydropneumothorax is again seen on the left with pneumothorax component smaller than on the previous study. Left-sided chest tube remains in place. 4. Multiple left-sided rib fractures again seen. Stevie Prather MD Abdomen X-Ray 07/28/16 0000 Signed Impressions: Service Date/Time: Thursday, July 28, 2016 17:45 - CONCLUSION: Tip of the [place] feeding tube is in the mid stomach. Toñito Bacon MD Head CT 07/19/16 0000 Signed Impressions: Service Date/Time: Tuesday, July 19, 2016 13:25 - CONCLUSION: Negative for an acute process. Cory Butts MD FACR Thoracic Spine CT 07/13/16 0000 Signed Impressions: Service Date/Time: Wednesday, July 13, 2016 08:51 - CONCLUSION: T8 compressive deformity as described in detail above with appearance suggestive of an old injury, however some degree of acute or subacute progression cannot be excluded. If it would affect clinical management, injury could be further characterized with MRI. Toñito Cisneros MD 08/19/16 08/19/16 08/20/16 14:59 22:59 06:59 Intake Total 519 ml 240 ml 654 ml Output Total 500 ml 300 ml 800 ml Balance 19 ml -60 ml -146 ml Intake Oral 480 ml 240 ml 360 ml IV Total 39 ml 50 ml Tube Feeding 244 ml Output Urine Total 500 ml 300 ml 800 ml # Bowel Movements 0 0 Medical Decision Making Impression and Plan A: 51 y/o M with T8 Compression fracture P: Continue to monitor Continue with current care Rehab efforts. Follow up with Dr. Varela's office in 6 weeks, last x-ray was 08/09. Tee Geiger Aug 20, 2016 13:22
[2016-08-20 16:00] VITALS: BP 152/77; PULSE 74; RESP 16; TEMP 97.6; O2SAT 97
[2016-08-20 17:54] VITALS: O2SAT 97
[2016-08-20 20:00] VITALS: BP 156/85; PULSE 72; RESP 21; TEMP 97.8; O2SAT 96
[2016-08-20] MEDS: MAGNESIUM HYDROXIDE SUSP 30 ML CUP PO SCH (21:00)
[2016-08-21] VITALS: BP 157/86; PULSE 81; RESP 20; TEMP 96.8; O2SAT 97
[2016-08-21] MEDS: oxyCODONE HCL ORAL CONC 20 MG/ML SYRINGE PO PRN ×4 (06:04→18:52)
[2016-08-21 08:00] VITALS: BP 147/83; PULSE 85; RESP 20; TEMP 98.1; O2SAT 96
[2016-08-21] MEDS: PANTOPRAZOLE SOD 40 MG DELAYED RELEASE TAB PO SCH (08:01)
[2016-08-21] MEDS: hydrALAZINE HCL 25 MG TAB PO SCH ×2 (08:01→21:45)
[2016-08-21] MEDS: DOCUSATE SODIUM 50 MG/SENNA 8.6 MG TAB PO SCH ×2 (08:01→21:46)
[2016-08-21] MEDS: QUEtiapine FUMARATE 100 MG TAB PO SCH ×2 (08:01→21:46)
[2016-08-21] MEDS: METOPROLOL TARTRATE 25 MG TAB PO SCH ×2 (08:01→21:45)
[2016-08-21] MEDS: LACTULOSE SYRUP 20 GM/30 ML CUP PO SCH (08:01)
[2016-08-21] MEDS: MULTIVITAMINS/IRON/MINERALS CHEWABLE TAB CHEW SCH (08:01)
[2016-08-21] MEDS: ceFAZolin 2 GM PREMIX 50 ML IV SCH (08:02)
[2016-08-21] MEDS: NICOTINE 14 MG/24 HR PATCH TD SCH (08:02)
[2016-08-21] MEDS: REMOVE OLD NICOTINE PATCH TD SCH (08:02)
[2016-08-21] MEDS ORDERED: HALOPERIDOL LACTATE 5 MG/ML AMP IM PRN (09:30)
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
[2016-08-21] MEDS: ENOXAPARIN SODIUM 40 MG/0.4 ML SYRINGE SQ SCH (10:32)
[2016-08-21 12:00] VITALS: BP 132/94; PULSE 75; RESP 16; TEMP 97.6; O2SAT 96
[2016-08-21] MEDS ORDERED: VALPROIC ACID 250 MG CAP PO ONE (12:00)
[2016-08-21 16:00] VITALS: BP 154/92; PULSE 73; RESP 18; TEMP 98.4; O2SAT 97
[2016-08-21] MEDS: HALOPERIDOL LACTATE 5 MG/ML AMP IV PUSH PRN (17:59)
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
[2016-08-21 20:00] VITALS: BP 151/85; PULSE 70; RESP 24; TEMP 98.6; O2SAT 97
[2016-08-21] MEDS: MAGNESIUM HYDROXIDE SUSP 30 ML CUP PO SCH (21:00)
[2016-08-21] MEDS: VALPROIC ACID 250 MG CAP PO SCH (21:45)
[2016-08-22] VITALS: BP 135/78; PULSE 75; RESP 22; TEMP 96.5; O2SAT 96
[2016-08-22] MEDS: oxyCODONE HCL ORAL CONC 20 MG/ML SYRINGE PO PRN ×5 (00:08→17:52)
[2016-08-22] MEDS: HALOPERIDOL LACTATE 5 MG/ML AMP IV PUSH PRN ×3 (01:37→17:52)
[2016-08-22] MEDS ORDERED: diphenhydrAMINE HCL 50 MG/ML VIAL IM ONE (06:00)
[2016-08-22] MEDS ORDERED: HALOPERIDOL LACTATE 5 MG/ML AMP IM ONE (06:00)
[2016-08-22 07:27] VITALS: O2SAT 96
[2016-08-22] MEDS: REMOVE OLD NICOTINE PATCH TD SCH (08:49)
[2016-08-22] MEDS: NICOTINE 14 MG/24 HR PATCH TD SCH (08:49)
[2016-08-22] MEDS: hydrALAZINE HCL 25 MG TAB PO SCH ×2 (08:50→21:17)
[2016-08-22] MEDS: MULTIVITAMINS/IRON/MINERALS CHEWABLE TAB CHEW SCH (08:50)
[2016-08-22] MEDS: VALPROIC ACID 250 MG CAP PO SCH ×2 (08:50→21:17)
[2016-08-22] MEDS: DOCUSATE SODIUM 50 MG/SENNA 8.6 MG TAB PO SCH ×2 (08:50→21:17)
[2016-08-22] MEDS: LACTULOSE SYRUP 20 GM/30 ML CUP PO SCH (08:50)
[2016-08-22] MEDS: QUEtiapine FUMARATE 100 MG TAB PO SCH ×2 (08:50→21:17)
[2016-08-22] MEDS: METOPROLOL TARTRATE 25 MG TAB PO SCH ×2 (08:50→21:17)
[2016-08-22] MEDS: PANTOPRAZOLE SOD 40 MG DELAYED RELEASE TAB PO SCH (08:50)
--- NOTE | 2016-08-22 10:34 | HHI.PR ---
Subjective Subjective Notes PTD: 40 Patient awake, risks requiring restraints due to violent outbursts, safety. Patient states, "it's quite fast and hard." Patient thought process is very erratic. He then begins yelling, and screaming, unable to control or calm. Objective Vitals/I&O Vital Signs Date Time Temp Pulse Resp B/P Pulse Ox O2 Delivery O2 Flow Rate FiO2 08/22/16 07:27 96 21 08/22/16 00:00 96.5 75 22 135/78 Labs Laboratory Tests Test 08/18/16 04:25 White Blood Count 5.1 TH/MM3 Red Blood Count 3.14 MIL/MM3 Hemoglobin 9.7 GM/DL Hematocrit 28.7 % Mean Corpuscular Volume 91.3 FL Mean Corpuscular Hemoglobin 30.8 PG Mean Corpuscular Hemoglobin 33.8 % Concent Red Cell Distribution Width 12.9 % Platelet Count 232 TH/MM3 Mean Platelet Volume 7.3 FL Neutrophils (%) (Auto) 49.1 % Lymphocytes (%) (Auto) 34.8 % Monocytes (%) (Auto) 11.6 % Eosinophils (%) (Auto) 3.7 % Basophils (%) (Auto) 0.8 % Neutrophils # (Auto) 2.5 TH/MM3 Lymphocytes # (Auto) 1.8 TH/MM3 Monocytes # (Auto) 0.6 TH/MM3 Eosinophils # (Auto) 0.2 TH/MM3 Basophils # (Auto) 0.0 TH/MM3 CBC Comment DIFF FINAL Differential Comment Sodium Level 135 MEQ/L Potassium Level 3.9 MEQ/L Chloride Level 100 MEQ/L Carbon Dioxide Level 28.1 MEQ/L Anion Gap 7 MEQ/L Blood Urea Nitrogen 8 MG/DL Creatinine 0.56 MG/DL Estimat Glomerular Filtration 153 ML/MIN Rate Random Glucose 80 MG/DL Calcium Level 8.4 MG/DL Total Bilirubin 0.2 MG/DL Aspartate Amino Transf 17 U/L (AST/SGOT) Alanine Aminotransferase 7 U/L (ALT/SGPT) Alkaline Phosphatase 91 U/L Total Protein 7.4 GM/DL Albumin 2.2 GM/DL Radiology Last Impressions Chest X-Ray 07/14/16 0600 Signed Impressions: Service Date/Time: Thursday, July 14, 2016 06:52 - CONCLUSION: Prominence interval increase in left lung parenchymal opacity with leftward cardiomediastinal shift. This presumably reflects extensive left lung atelectasis/collapse superimposed on pre-existing lung contusion. Toñito Cisneros MD Thoracic Spine CT 07/13/16 0000 Signed Impressions: Service Date/Time: Wednesday, July 13, 2016 08:51 - CONCLUSION: T8 compressive deformity as described in detail above with appearance suggestive of an old injury, however some degree of acute or subacute progression cannot be excluded. If it would affect clinical management, injury could be further characterized with MRI. Toñito Cisneros MD Narrative Exam GENERAL: This is a 51-year-old male who looks older than his stated age. SKIN: Warm and dry. HEAD: Atraumatic. Normocephalic. EYES: PERRLA ENT: No nasal bleeding or discharge. Mucous membranes pink and moist. NECK: Trachea midline. (old trach site noted - healing) No JVD. CARDIOVASCULAR: Regular rate and rhythm. RESPIRATORY: No accessory muscle use. Lungs are clear to auscultation. Breath sounds equal bilaterally. No distress or dyspnea. GASTROINTESTINAL: BS + x 4 quads. Abdomen soft, non-tender, nondistended. PEG in place. MUSCULOSKELETAL: Extremities without cyanosis, or edema. + peripheral pulses x 4 extremities. Warm with good capillary refill and sensation. MAEW. NEUROLOGICAL: Awake and alert x 1-2. His speech, and thought process is very erratic . He sees things, animals, and people in the room that are not there . He is confused, and becomes easily agitated, and he will scream and yell out- of-control. A/P Problem List: (1) Spinal cord injury, cervical region (2) Chronic pain (3) Closed T8 spinal fracture (4) Pneumothorax on left (5) Multiple fractures of ribs of left side (6) Traumatic compression fracture of T8 thoracic vertebra Assessment and Plan CIRCLE: This is a 51-year-old male who apparently was working on the top of a roof and attempted to throw a 10 pound bucket over the side and it got stuck on his hand and pulled him over the side of the roof. He fell approximately 12 feet and landed on his backside.+ EtOH. Apparently he ambulated at the scene and was able to drive his coworkers home before he transported himself to [facility]. He was then transferred to [facility] for trauma services. PMHx: Cervical spine fusion with halo placement, trigger finger, HTN, seizures, 1 PPD smoker, ETOH (drinks 8-12 12oz [place] Hard Lemonade daily) INJURIES: T8 compression fx Serial LEFT rib fxs LEFT sided PTX LEFT lung contusion Procedures: 07/12: LEFT CT (placed by [facility]) 07/16: Intubation and BRONCH 07/17: extubated 07/20: INTUBATION and BRONCH again 07/21: LEFT thoracoscopy; evacuation of empyema and decortication of the lung 07/27: Extubate & reintubated d/t secretions 07/28: Bedside trach 07/29: PEG 08/09: L CT pulled 08/15: decannulate Consults: Neurosurgery. [facility]. Consult Psychiatry: New confusion, agitation, violence, and paranoid behavior. Collaborated with Dr. Lopez, and he will be in contact with Dr. Sharma. Attempting to transfer the patient to inpatient psych - for continuation in appropriate care. Restraints for patient and staff safety. Patient is having violent outbursts, and throwing items at the staff. Diet: Regular mechanical soft diet. Tolerating po diet. Encourage good po intake with each meal. TF- Jevity at 50 mL/hr. Pulmonary: Encourage good pulmonary toileting. IS and acapella at bedside and pt encouraged to use. Rationale for use explained to patient, and verbalized understanding. PAIN Management: Roxicodone. Behavior management: Seroquel. Restarted Valproic acid. Added Haldol PRN. Activity: OOB. PT ordered. (TLSO brace when out of bed.) GI prophylaxis: Protonix po. Bowel regimen: Johanne-colace and MOM. Lactulose daily. Bisacodyl NM PRN. LBM: . He has been refusing his bowel medications Discussed the importance of a good bowel regimen when taking narcotic pain medicines. DVT prophylaxis: Mechanical VTE with SCDs. Chemical management Lovenox sq DC Planning: Case management consulted for assistance with final discharge disposition. However at this time, it appears that an inpatient psychiatric admission would be in the patient's best interest for continued appropriate care. HTN management: Lopressor q 12. Apresoline q 12, Clonidine PRN. Emotional support provided to patient at bedside and plan of care discussed. Discussed with RN at bedside. Patient is hemodynamically stable and being managed on the med/surg floor. Problem Qualifiers (1) Spinal cord injury, cervical region: Qualified Code: S14.109A - Spinal cord injury, cervical region, initial encounter (2) Chronic pain: Qualified Code: G89.4 - Chronic pain syndrome (3) Closed T8 spinal fracture: (4) Multiple fractures of ribs of left side: Qualified Code: S22.42XA - Closed fracture of multiple ribs of left side, initial encounter (5) Traumatic compression fracture of T8 thoracic vertebra: Qualified Code: S22.060K - Traumatic compression fracture of T8 thoracic vertebra, with nonunion, subsequent encounter Beatriz Murrell Aug 22, 2016 10:34
[2016-08-22 12:00] VITALS: BP 182/87; PULSE 70; RESP 20; TEMP 96.2; O2SAT 94
[2016-08-22] MEDS: ENOXAPARIN SODIUM 40 MG/0.4 ML SYRINGE SQ SCH (12:47)
[2016-08-22] MEDS: cloNIDine HCL 0.1 MG TAB PO PRN (12:48)
[2016-08-22 20:00] VITALS: BP 157/89; PULSE 92; RESP 20; TEMP 97.8; O2SAT 97
[2016-08-22] MEDS: MAGNESIUM HYDROXIDE SUSP 30 ML CUP PO SCH (21:00)
[2016-08-23] VITALS: BP 150/93; PULSE 87; RESP 20; TEMP 97.7; O2SAT 96
[2016-08-23] MEDS: oxyCODONE HCL ORAL CONC 20 MG/ML SYRINGE PO PRN ×2 (00:44→19:58)
[2016-08-23 08:00] VITALS: BP 165/82; PULSE 79; RESP 18; TEMP 97.9; O2SAT 98
[2016-08-23] MEDS: DOCUSATE SODIUM 50 MG/SENNA 8.6 MG TAB PO SCH ×2 (08:55→19:52)
[2016-08-23] MEDS: PANTOPRAZOLE SOD 40 MG DELAYED RELEASE TAB PO SCH (08:55)
[2016-08-23] MEDS: hydrALAZINE HCL 25 MG TAB PO SCH ×2 (08:55→19:53)
[2016-08-23] MEDS: METOPROLOL TARTRATE 25 MG TAB PO SCH ×2 (08:55→19:57)
[2016-08-23] MEDS: LACTULOSE SYRUP 20 GM/30 ML CUP PO SCH (08:55)
[2016-08-23] MEDS: MULTIVITAMINS/IRON/MINERALS CHEWABLE TAB CHEW SCH (08:55)
[2016-08-23] MEDS: REMOVE OLD NICOTINE PATCH TD SCH (08:55)
[2016-08-23] MEDS: NICOTINE 14 MG/24 HR PATCH TD SCH (08:55)
[2016-08-23] MEDS: VALPROIC ACID 250 MG CAP PO SCH ×2 (08:55→19:57)
[2016-08-23] MEDS: QUEtiapine FUMARATE 100 MG TAB PO SCH ×2 (08:55→19:57)
--- NOTE | 2016-08-23 11:40 | HHI.PR ---
Subjective Subjective Notes PTD: 41 Pt confused. Speech and though process is erratic. Pt sees bunnies hopping in his room. He speaks to people who are not there. Objective Vitals/I&O Vital Signs Date Time Temp Pulse Resp B/P Pulse Ox O2 Delivery O2 Flow Rate FiO2 08/23/16 08:00 97.9 79 18 165/82 98 08/22/16 07:27 21 Labs Laboratory Tests Test 08/23/16 17:30 Valproic Acid (Depakene) Level 32 MCG/ML Radiology Last Impressions Chest X-Ray 07/14/16 0600 Signed Impressions: Service Date/Time: Thursday, July 14, 2016 06:52 - CONCLUSION: Prominence interval increase in left lung parenchymal opacity with leftward cardiomediastinal shift. This presumably reflects extensive left lung atelectasis/collapse superimposed on pre-existing lung contusion. Toñito Cisneros MD Thoracic Spine CT 07/13/16 0000 Signed Impressions: Service Date/Time: Wednesday, July 13, 2016 08:51 - CONCLUSION: T8 compressive deformity as described in detail above with appearance suggestive of an old injury, however some degree of acute or subacute progression cannot be excluded. If it would affect clinical management, injury could be further characterized with MRI. Toñito Cisneros MD Narrative Exam GENERAL: This is a 51-year-old male who looks older than his stated age. He is confused, can be redirected, but speech and though process becomes erratic. SKIN: Warm and dry. HEAD: Atraumatic. Normocephalic. EYES: PERRLA ENT: No nasal bleeding or discharge. Mucous membranes pink and moist. NECK: Trachea midline. (old trach site noted - healing) No JVD. CARDIOVASCULAR: Regular rate and rhythm. RESPIRATORY: No accessory muscle use. Lungs are clear to auscultation. Breath sounds equal bilaterally. No distress or dyspnea. GASTROINTESTINAL: BS + x 4 quads. Abdomen soft, non-tender, nondistended. PEG in place. MUSCULOSKELETAL: Extremities without cyanosis, or edema. + peripheral pulses x 4 extremities. Warm with good capillary refill and sensation. MAEW. NEUROLOGICAL: Awake and alert x 1-2. His speech, and thought process remains erratic . He sees things, animals, and people in the room that are not there . He remains confused, and becomes easily agitated, and he will scream and yell [id number]. A/P Problem List: (1) Spinal cord injury, cervical region (2) Chronic pain (3) Closed T8 spinal fracture (4) Pneumothorax on left (5) Multiple fractures of ribs of left side (6) Traumatic compression fracture of T8 thoracic vertebra Assessment and Plan [place]: This is a 51-year-old male who apparently was working on the top of a roof and attempted to throw a 10 pound bucket over the side and it got stuck on his hand and pulled him over the side of the roof. He fell approximately 12 feet and landed on his backside.+ EtOH. Apparently he ambulated at the scene and was able to drive his coworkers home before he transported himself to [facility]. He was then transferred to [facility] for trauma services. PMHx: Cervical spine fusion with halo placement, trigger finger, HTN, seizures, 1 PPD smoker, ETOH (drinks 8-12 12oz [place] Hard Lemonade daily) INJURIES: T8 compression fx Serial LEFT rib fxs LEFT sided PTX LEFT lung contusion Procedures: 07/12: LEFT CT (placed by [facility]) 07/16: Intubation and BRONCH 07/17: extubated 07/20: INTUBATION and BRONCH again 07/21: LEFT thoracoscopy; evacuation of empyema and decortication of the lung 07/27: Extubate & reintubated d/t secretions 07/28: Bedside trach 07/29: PEG 08/09: L CT pulled 08/15: decannulate Consults: Neurosurgery. [facility]. Consult Psychiatry: New confusion, agitation, violence, and paranoid behavior. Attempting to transfer the patient to inpatient psych - for continuation in appropriate care, however Dr. Sharma does not feel his condition is psych in nature despite his long psychiatric history and continued behavior issues while admitted. Restraints for patient and staff safety. Patient is having violent outbursts, and throwing items at the staff. Diet: Regular mechanical soft diet. Tolerating po diet. Encourage good po intake with each meal. TF- Jevity at 50 mL/hr. Pulmonary: Encourage good pulmonary toileting. IS and acapella at bedside and pt encouraged to use. Rationale for use explained to patient, and verbalized understanding. PAIN Management: Roxicodone. Behavior management: Seroquel. Valproic acid. Added Haldol PRN. Activity: OOB. PT ordered. (TLSO brace when out of bed.) GI prophylaxis: Protonix po. Bowel regimen: Johanne-colace and MOM. Lactulose daily. Bisacodyl MA PRN. LBM: . DVT prophylaxis: Mechanical VTE with SCDs. Chemical management Lovenox sq DC Planning: Case management consulted for assistance with final discharge disposition. Pt has been medically cleared for discharge for almost 3 weeks. Attempting SNF or rehab facility. Pt unable to produce financials required, and unable to obtain his daughters assistance in securing the paperwork needed to arrange admission into a SNF or rehab. Hopeful for admission into inpatient psych facility for continued care and treatment. HTN management: Lopressor q 12. Apresoline q 12, Clonidine PRN. Emotional support provided to patient at bedside and plan of care discussed. Discussed with RN at bedside. Patient is hemodynamically stable and being managed on the med/surg floor. Remarks seen and examined with HOST AND HOSTESS-agree with assesment and plan mental status improving dispo planning Problem Qualifiers (1) Spinal cord injury, cervical region: Qualified Code: S14.109A - Spinal cord injury, cervical region, initial encounter (2) Chronic pain: Qualified Code: G89.4 - Chronic pain syndrome (3) Closed T8 spinal fracture: (4) Multiple fractures of ribs of left side: Qualified Code: S22.42XA - Closed fracture of multiple ribs of left side, initial encounter (5) Traumatic compression fracture of T8 thoracic vertebra: Qualified Code: S22.060K - Traumatic compression fracture of T8 thoracic vertebra, with nonunion, subsequent encounter Beatriz Murrell Aug 23, 2016 11:40 Ny Bautista MD Aug 24, 2016 17:50
[2016-08-23 12:00] VITALS: BP 133/93; PULSE 87; RESP 19; TEMP 97.1; O2SAT 99
[2016-08-23] MEDS: ENOXAPARIN SODIUM 40 MG/0.4 ML SYRINGE SQ SCH (12:22)
--- NOTE | 2016-08-23 15:36 | HHI.PYPN ---
Subjective Remarks Patient seen for psychiatric reevaluation, patient was found restrained in 4 points, he was alert, but lethargic, obtunded, completely disoriented, confused , unable to participate in the psychiatric assessment, and unable to provide any meaningful information for a follow-up. Patient doesn't even follow simple commands, his attention is quite limited and impaired. As per nurse in charge, patient has been agitated, at times aggressive, internally stimulated, talking to himself and having visual hallucinations. Review of Systems ROS Limitations: Uncooperative Objective Alert: Yes [place]: Person (patient is completely disoriented) Mood: Oppositional, Other Affect: Restricted Memory Intact: Comment (patient doesn't even follow simple commands) Hallucinations: Visual, Other (internally stimulated) Delusions: No Delusion Type: Other (none observed) Suicidal: Ideation (unable to be assessed) Homicidal: Ideation (unable to be as assessed) Insight/Judgement Poor Vitals/IOs Vital Signs Date Time Temp Pulse Resp B/P Pulse Ox O2 Delivery O2 Flow Rate FiO2 08/23/16 12:00 97.1 87 19 133/93 99 08/22/16 07:27 21 Intake and Output 08/22/16 08/22/16 08/23/16 08:00 16:00 00:00 Intake Total 480 ml 480 ml 480 ml Balance 480 ml 480 ml 480 ml Assessment & Plan Problem List: (1) Delirium due to another medical condition Assessment & Plan: At the moment of this evaluation patient seems to be very confused, lethargic, disoriented in time person and place, with visible impaired attention and level of consciousness. Visual hallucinations, agitation and aggressive behavior has been reported by nursing in charge. The current presentation is consistent with delirium due to underlying medical conditions. The current changes in mentation, including visual hallucinations, are usually secondary to organic causes rather than acute major psychiatric illness decompensation. For his agitation and aggressive behavior Depakote can be increased to 500 mg twice a day. Will order Depakote levels. The patient does not meet criteria for inpatient involuntary psychiatric admission at this moment. I will continue the follow-up the floor. Might consider complete workup for delirium including: CBC, CMP, ammonia level, TSH, T3, T4, RPR, HIV test, B12, folate. Since changes in mentation has been described as new onset, might consider head CT/MRI and reconsult neurology. ICD Code: F05 Assessment & Plan Estimated LOS: days Justification for Cont. Inpt. Patient does not meet criteria for psychiatric admission at this moment Shawn Sharma MD Aug 23, 2016 15:36
[2016-08-23 16:00] VITALS: BP 142/82; PULSE 75; RESP 17; TEMP 96.2; O2SAT 98
[2016-08-23] MEDS: MAGNESIUM HYDROXIDE SUSP 30 ML CUP PO SCH (19:52)
[2016-08-23 20:00] VITALS: BP 121/75; PULSE 83; RESP 17; TEMP 96.6; O2SAT 98
[2016-08-24] VITALS: BP 130/76; PULSE 79; RESP 17; TEMP 98.7; O2SAT 98
[2016-08-24] MEDS: HALOPERIDOL LACTATE 5 MG/ML AMP IV PUSH PRN (00:46)
[2016-08-24] MEDS: oxyCODONE HCL ORAL CONC 20 MG/ML SYRINGE PO PRN ×3 (01:52→20:25)
[2016-08-24 08:00] VITALS: BP 153/79; PULSE 67; RESP 18; TEMP 96.9; O2SAT 98
[2016-08-24] MEDS: REMOVE OLD NICOTINE PATCH TD SCH (09:00)
[2016-08-24] MEDS: DOCUSATE SODIUM 50 MG/SENNA 8.6 MG TAB PO SCH ×2 (09:10→20:25)
[2016-08-24] MEDS: PANTOPRAZOLE SOD 40 MG DELAYED RELEASE TAB PO SCH (09:11)
[2016-08-24] MEDS: QUEtiapine FUMARATE 100 MG TAB PO SCH ×2 (09:11→20:24)
[2016-08-24] MEDS: hydrALAZINE HCL 25 MG TAB PO SCH ×2 (09:11→20:25)
[2016-08-24] MEDS: LACTULOSE SYRUP 20 GM/30 ML CUP PO SCH (09:11)
[2016-08-24] MEDS: VALPROIC ACID 250 MG CAP PO SCH ×2 (09:11→20:24)
[2016-08-24] MEDS: METOPROLOL TARTRATE 25 MG TAB PO SCH ×2 (09:11→20:25)
[2016-08-24] MEDS: MULTIVITAMINS/IRON/MINERALS CHEWABLE TAB CHEW SCH (09:12)
[2016-08-24] MEDS: NICOTINE 14 MG/24 HR PATCH TD SCH (09:12)
[2016-08-24 12:00] VITALS: BP 159/81; PULSE 68; RESP 17; TEMP 96.5; O2SAT 99
[2016-08-24] MEDS: ENOXAPARIN SODIUM 40 MG/0.4 ML SYRINGE SQ SCH (12:28)
--- NOTE | 2016-08-24 12:29 | HHI.PR ---
Subjective Subjective Notes More oriented and calm today. No complaints. Objective Vitals/I&O Vital Signs Date Time Temp Pulse Resp B/P Pulse Ox O2 Delivery O2 Flow Rate FiO2 08/24/16 08:00 96.9 67 18 153/79 98 08/22/16 07:27 21 Labs Laboratory Tests Test 08/23/16 17:30 Valproic Acid (Depakene) Level 32 Radiology Last Impressions Chest X-Ray 07/14/16 0600 Signed Impressions: Service Date/Time: Thursday, July 14, 2016 06:52 - CONCLUSION: Prominence interval increase in left lung parenchymal opacity with leftward cardiomediastinal shift. This presumably reflects extensive left lung atelectasis/collapse superimposed on pre-existing lung contusion. Toñito Cisneros MD Thoracic Spine CT 07/13/16 0000 Signed Impressions: Service Date/Time: Wednesday, July 13, 2016 08:51 - CONCLUSION: T8 compressive deformity as described in detail above with appearance suggestive of an old injury, however some degree of acute or subacute progression cannot be excluded. If it would affect clinical management, injury could be further characterized with MRI. Toñito Cisneros MD Narrative Exam GENERAL: 51-year-old male lying in bed in no acute distress. SKIN: Warm and dry. ENT: No nasal bleeding or discharge. Mucous membranes pink and moist. NECK: Trachea midline. No JVD. Scabbed area from trach site noted. CARDIOVASCULAR: Regular rate and rhythm. RESPIRATORY: No accessory muscle use. Lungs clear and diminished to auscultation. GASTROINTESTINAL: Abdomen soft, non-tender, nondistended. + BS. MUSCULOSKELETAL: Extremities without cyanosis, or edema. Chronic LEFT lower extremity weakness noted. NEUROLOGICAL: Awake and alert. Follow commands x4. A/P Problem List: (1) Spinal cord injury, cervical region (2) Chronic pain (3) Closed T8 spinal fracture (4) Pneumothorax on left (5) Multiple fractures of ribs of left side (6) Traumatic compression fracture of T8 thoracic vertebra Assessment and Plan [place]: Working on top of a roof and attempted to throw a 10lb bucket over the side and it got stuck on his finger and pulled him over the side of the roof. Fell from 12 ft, landing on his back. + ETOH. Ambulated at scene and was able to drive his coworkers home before transporting himself to the [facility]. Transferred to [place] for trauma services. INJURIES: T8 compression fx LEFT sided PTX LEFT lung contusion Serial LEFT rib fxs PMHx: Cervical spine fusion with halo placement, trigger finger, HTN, seizures, 1 PPD smoker, ETOH abuse 07/12: LEFT CT (placed by [facility]) 07/16: Intubated and bronched 07/17: extubated 07/20: Intubated and Bronched again 07/21: LEFT thoracoscopy; evacuation of empyema and decortication of the lung 07/27: Extubated & reintubated d/t secretions 07/28: Bedside trach 07/29: PEG 08/09: L CT discontinued 08/15: Decannulated Diet: Refusing nocturnal tube feeding. On mechanical soft diet during the day. Dietitian following and ordered calorie count. Pulmonary: IS, encouraged use. Pain: Roxicodone and Haldol IV. Pain controlled Activity: OOB. PT evaluating. TLSO brace. GI: Pepcid Bowel: Johanne-colace, MOM. Lactulose QD. Bisacodyl [place] PRN. LBM 08/17 DVT: SCDs, Lovenox 40 QD ID following and managing antibiotics. + E-coli ESBL sputum. Appreciate Psychiatry input. ST consulted for cognitive eval. Appreciate input. Case management assisting with discharge planning. Case management arranging for SNF placement. Patient is clear for discharge when arrangements made. Remarks seen and examined with UPHOLSTERY DEPARTMENT SUPERVISOR-agree with assessment and plan stable from trauma standpoint mental status improving dispo planning Problem Qualifiers (1) Spinal cord injury, cervical region: Qualified Code: S14.109A - Spinal cord injury, cervical region, initial encounter (2) Chronic pain: Qualified Code: G89.4 - Chronic pain syndrome (3) Closed T8 spinal fracture: (4) Multiple fractures of ribs of left side: Qualified Code: S22.42XA - Closed fracture of multiple ribs of left side, initial encounter (5) Traumatic compression fracture of T8 thoracic vertebra: Qualified Code: S22.060K - Traumatic compression fracture of T8 thoracic vertebra, with nonunion, subsequent encounter Ramesh Paul Aug 24, 2016 12:29 Ny Bautista MD Aug 24, 2016 18:03
[2016-08-24 16:00] VITALS: BP 125/69; PULSE 100; RESP 16; TEMP 98.2; O2SAT 97
[2016-08-24 20:00] VITALS: BP 118/78; PULSE 86; RESP 17; TEMP 99.5; O2SAT 96
[2016-08-24] MEDS: MAGNESIUM HYDROXIDE SUSP 30 ML CUP PO SCH (20:24)
[2016-08-25] VITALS: BP 152/82; PULSE 76; RESP 17; TEMP 96.6; O2SAT 97
[2016-08-25] MEDS: oxyCODONE HCL ORAL CONC 20 MG/ML SYRINGE PO PRN ×5 (04:05→21:33)
[2016-08-25 08:00] VITALS: BP 128/85; PULSE 68; RESP 16; TEMP 97.8; O2SAT 99
[2016-08-25] MEDS: hydrALAZINE HCL 25 MG TAB PO SCH ×2 (08:40→21:32)
[2016-08-25] MEDS: QUEtiapine FUMARATE 100 MG TAB PO SCH ×2 (08:40→21:32)
[2016-08-25] MEDS: MULTIVITAMINS/IRON/MINERALS CHEWABLE TAB CHEW SCH (08:40)
[2016-08-25] MEDS: METOPROLOL TARTRATE 25 MG TAB PO SCH ×2 (08:40→21:32)
[2016-08-25] MEDS: LACTULOSE SYRUP 20 GM/30 ML CUP PO SCH (08:40)
[2016-08-25] MEDS: VALPROIC ACID 250 MG CAP PO SCH ×2 (08:40→21:32)
[2016-08-25] MEDS: DOCUSATE SODIUM 50 MG/SENNA 8.6 MG TAB PO SCH ×2 (08:40→21:32)
[2016-08-25] MEDS: PANTOPRAZOLE SOD 40 MG DELAYED RELEASE TAB PO SCH (08:41)
[2016-08-25] MEDS: REMOVE OLD NICOTINE PATCH TD SCH (08:41)
[2016-08-25] MEDS: NICOTINE 14 MG/24 HR PATCH TD SCH (08:42)
[2016-08-25 12:00] VITALS: BP 117/72; PULSE 75; RESP 17; TEMP 97; O2SAT 97
[2016-08-25] MEDS: ENOXAPARIN SODIUM 40 MG/0.4 ML SYRINGE SQ SCH (12:42)
--- NOTE | 2016-08-25 13:53 | HHI.PR ---
Subjective Subjective Notes Awake and alert. No complaints. Objective Vitals/I&O Vital Signs Date Time Temp Pulse Resp B/P Pulse Ox O2 Delivery O2 Flow Rate FiO2 08/25/16 12:00 97.0 75 17 117/72 97 08/22/16 07:27 21 Radiology Last Impressions Chest X-Ray 07/14/16 0600 Signed Impressions: Service Date/Time: Thursday, July 14, 2016 06:52 - CONCLUSION: Prominence interval increase in left lung parenchymal opacity with leftward cardiomediastinal shift. This presumably reflects extensive left lung atelectasis/collapse superimposed on pre-existing lung contusion. Toñito Cisneros MD Thoracic Spine CT 07/13/16 0000 Signed Impressions: Service Date/Time: Wednesday, July 13, 2016 08:51 - CONCLUSION: T8 compressive deformity as described in detail above with appearance suggestive of an old injury, however some degree of acute or subacute progression cannot be excluded. If it would affect clinical management, injury could be further characterized with MRI. Toñito Cisneros MD Narrative Exam GENERAL: 51-year-old male lying in bed in no acute distress. SKIN: Warm and dry. ENT: No nasal bleeding or discharge. Mucous membranes pink and moist. NECK: Trachea midline. No JVD. Scabbed area from trach site noted. CARDIOVASCULAR: Regular rate and rhythm. RESPIRATORY: No accessory muscle use. Lungs clear and diminished to auscultation. GASTROINTESTINAL: Abdomen soft, non-tender, nondistended. + BS. MUSCULOSKELETAL: Extremities without cyanosis, or edema. Chronic LEFT lower extremity weakness noted. NEUROLOGICAL: Awake and alert. Follow commands x4. A/P Problem List: (1) Spinal cord injury, cervical region (2) Chronic pain (3) Closed T8 spinal fracture (4) Pneumothorax on left (5) Multiple fractures of ribs of left side (6) Traumatic compression fracture of T8 thoracic vertebra Assessment and Plan [place]: Working on top of a roof and attempted to throw a 10lb bucket over the side and it got stuck on his finger and pulled him over the side of the roof. Fell from 12 ft, landing on his back. + ETOH. Ambulated at scene and was able to drive his coworkers home before transporting himself to the [facility]. Transferred to [place] for trauma services. INJURIES: T8 compression fx LEFT sided PTX LEFT lung contusion Serial LEFT rib fxs PMHx: Cervical spine fusion with halo placement, trigger finger, HTN, seizures, 1 PPD smoker, ETOH abuse 07/12: LEFT CT (placed by [facility]) 07/16: Intubated and bronched 07/17: extubated 07/20: Intubated and Bronched again 07/21: LEFT thoracoscopy; evacuation of empyema and decortication of the lung 07/27: Extubated & reintubated d/t secretions 07/28: Bedside trach 07/29: PEG 08/09: L CT discontinued 08/15: Decannulated Diet: Refusing nocturnal tube feeding. On mechanical soft diet during the day. Dietitian following and ordered calorie count. Pulmonary: IS, encouraged use. Pain: Roxicodone and Haldol IV. Pain controlled Activity: OOB. PT evaluating. TLSO brace. GI: Pepcid Bowel: Johanne-colace, MOM. Lactulose QD. Bisacodyl CT PRN. LBM 08/23 DVT: SCDs, Lovenox 40 QD ID following and managing antibiotics. + E-coli ESBL sputum. Appreciate Psychiatry input. Patient more alert, no further hallucinations, cooperative. ST consulted for cognitive eval. Appreciate input. Case management assisting with discharge planning. Case management arranging for SNF placement. Patient is clear for discharge when arrangements made. Attending Statement The exam, history, and the medical decision-making described in the above note were completed with the assistance of the mid-level provider. I reviewed and agree with the findings presented. I attest that I had a [id number] encounter with the patient on the same day, and personally performed and documented my assessment and findings in the medical record. Problem Qualifiers (1) Spinal cord injury, cervical region: Qualified Code: S14.109A - Spinal cord injury, cervical region, initial encounter (2) Chronic pain: Qualified Code: G89.4 - Chronic pain syndrome (3) Closed T8 spinal fracture: (4) Multiple fractures of ribs of left side: Qualified Code: S22.42XA - Closed fracture of multiple ribs of left side, initial encounter (5) Traumatic compression fracture of T8 thoracic vertebra: Qualified Code: S22.060K - Traumatic compression fracture of T8 thoracic vertebra, with nonunion, subsequent encounter Ramesh Paul FACILITY MAINTENANCE TECHNICIAN Aug 25, 2016 13:53 Ruslan Beltran MD Aug 27, 2016 19:23
[2016-08-25 16:00] VITALS: BP 121/72; PULSE 83; RESP 16; TEMP 98.1; O2SAT 97
[2016-08-25 20:00] VITALS: BP 126/74; PULSE 78; RESP 20; TEMP 97.4; O2SAT 96
[2016-08-25] MEDS: MAGNESIUM HYDROXIDE SUSP 30 ML CUP PO SCH (21:00)
[2016-08-26] VITALS: BP 122/64; PULSE 80; RESP 20; TEMP 97.8; O2SAT 98
[2016-08-26] MEDS: oxyCODONE HCL ORAL CONC 20 MG/ML SYRINGE PO PRN ×5 (02:26→21:39)
[2016-08-26 08:00] VITALS: BP 133/73; PULSE 83; RESP 18; TEMP 97.2; O2SAT 97
[2016-08-26] MEDS: PANTOPRAZOLE SOD 40 MG DELAYED RELEASE TAB PO SCH (09:00)
[2016-08-26] MEDS: REMOVE OLD NICOTINE PATCH TD SCH (09:00)
[2016-08-26] MEDS: MULTIVITAMINS/IRON/MINERALS CHEWABLE TAB CHEW SCH (09:17)
[2016-08-26] MEDS: NICOTINE 14 MG/24 HR PATCH TD SCH (09:17)
[2016-08-26] MEDS: METOPROLOL TARTRATE 25 MG TAB PO SCH ×2 (09:18→21:40)
[2016-08-26] MEDS: DOCUSATE SODIUM 50 MG/SENNA 8.6 MG TAB PO SCH ×2 (09:18→21:40)
[2016-08-26] MEDS: LACTULOSE SYRUP 20 GM/30 ML CUP PO SCH (09:18)
[2016-08-26] MEDS: QUEtiapine FUMARATE 100 MG TAB PO SCH ×2 (09:18→21:40)
[2016-08-26] MEDS: VALPROIC ACID 250 MG CAP PO SCH ×2 (09:19→21:40)
[2016-08-26] MEDS: hydrALAZINE HCL 25 MG TAB PO SCH ×2 (09:19→21:40)
[2016-08-26] MEDS: BISACODYL 10 MG SUPP RECTAL PRN (09:29)
[2016-08-26 12:00] VITALS: BP 133/78; PULSE 80; RESP 17; TEMP 98; O2SAT 98
--- NOTE | 2016-08-26 12:44 | HHI.PR ---
Subjective Subjective Notes Ambulating OOB to bathroom Alert and oriented Objective Vitals/I&O Vital Signs Date Time Temp Pulse Resp B/P Pulse Ox O2 Delivery O2 Flow Rate FiO2 08/26/16 12:00 98.0 80 17 133/78 98 08/22/16 07:27 21 Radiology Last Impressions Chest X-Ray 07/14/16 0600 Signed Impressions: Service Date/Time: Thursday, July 14, 2016 06:52 - CONCLUSION: Prominence interval increase in left lung parenchymal opacity with leftward cardiomediastinal shift. This presumably reflects extensive left lung atelectasis/collapse superimposed on pre-existing lung contusion. Toñito Cisneros MD Thoracic Spine CT 07/13/16 0000 Signed Impressions: Service Date/Time: Wednesday, July 13, 2016 08:51 - CONCLUSION: T8 compressive deformity as described in detail above with appearance suggestive of an old injury, however some degree of acute or subacute progression cannot be excluded. If it would affect clinical management, injury could be further characterized with MRI. Toñito Cisneros MD Narrative Exam GENERAL: 51-year-old male ambulating O OB. SKIN: Warm and dry. ENT: No nasal bleeding or discharge. Mucous membranes pink and moist. NECK: Trachea midline. No JVD. Scabbed area from trach site noted. CARDIOVASCULAR: Regular rate and rhythm. RESPIRATORY: No accessory muscle use. Lungs clear and diminished to auscultation. GASTROINTESTINAL: Abdomen soft, non-tender, nondistended. + BS. MUSCULOSKELETAL: Extremities without cyanosis, or edema. Chronic LEFT lower extremity weakness noted. NEUROLOGICAL: Awake and alert. Follow commands x4. A/P Problem List: (1) Spinal cord injury, cervical region (2) Chronic pain (3) Closed T8 spinal fracture (4) Pneumothorax on left (5) Multiple fractures of ribs of left side (6) Traumatic compression fracture of T8 thoracic vertebra Assessment and Plan [place]: Working on top of a roof and attempted to throw a 10lb bucket over the side and it got stuck on his finger and pulled him over the side of the roof. Fell from 12 ft, landing on his back. + ETOH. Ambulated at scene and was able to drive his coworkers home before transporting himself to the [facility]. Transferred to [place] for trauma services. INJURIES: T8 compression fx LEFT sided PTX LEFT lung contusion Serial LEFT rib fxs PMHx: Cervical spine fusion with halo placement, trigger finger, HTN, seizures, 1 PPD smoker, ETOH abuse 07/12: LEFT CT (placed by [facility]) 07/16: Intubated and bronched 07/17: extubated 07/20: Intubated and Bronched again 07/21: LEFT thoracoscopy; evacuation of empyema and decortication of the lung 07/27: Extubated & reintubated d/t secretions 07/28: Bedside trach 07/29: PEG 08/09: L CT discontinued 08/15: Decannulated Diet: Refusing nocturnal tube feeding. On mechanical soft diet during the day. Dietitian following and ordered calorie count. Pulmonary: IS, encouraged use. Pain: Roxicodone and Haldol IV. Pain controlled Activity: OOB. PT evaluating. TLSO brace. GI: Pepcid Bowel: Johanne-colace, MOM. Lactulose QD. Bisacodyl MD PRN. LBM 08/26 DVT: SCDs, Lovenox 40 QD Speech therapy we consulted for swallow evaluation. Patient still on mechanical soft diet. Please evaluate for advancement. ID following and managing antibiotics. + E-coli ESBL sputum. Appreciate Psychiatry input. Patient more alert, no further hallucinations, cooperative. ST consulted for cognitive eval. Appreciate input. Case management assisting with discharge planning. Case management arranging for SNF placement. Patient is clear for discharge when arrangements made. Attending Statement The exam, history, and the medical decision-making described in the above note were completed with the assistance of the mid-level provider. I reviewed and agree with the findings presented. I attest that I had a [id number] encounter with the patient on the same day, and personally performed and documented my assessment and findings in the medical record. Problem Qualifiers (1) Spinal cord injury, cervical region: Qualified Code: S14.109A - Spinal cord injury, cervical region, initial encounter (2) Chronic pain: Qualified Code: G89.4 - Chronic pain syndrome (3) Closed T8 spinal fracture: (4) Multiple fractures of ribs of left side: Qualified Code: S22.42XA - Closed fracture of multiple ribs of left side, initial encounter (5) Traumatic compression fracture of T8 thoracic vertebra: Qualified Code: S22.060K - Traumatic compression fracture of T8 thoracic vertebra, with nonunion, subsequent encounter Ramesh Paul Aug 26, 2016 12:44 Ruslan Beltran MD Aug 27, 2016 19:27
[2016-08-26] MEDS: ENOXAPARIN SODIUM 40 MG/0.4 ML SYRINGE SQ SCH (13:32)
[2016-08-26 16:00] VITALS: BP 119/72; PULSE 90; RESP 16; TEMP 97.9; O2SAT 97
[2016-08-26 20:00] VITALS: BP 141/76; PULSE 86; RESP 20; TEMP 98.4; O2SAT 96
[2016-08-26] MEDS: MAGNESIUM HYDROXIDE SUSP 30 ML CUP PO SCH (21:00)
[2016-08-26 23:54] VITALS: BP 153/82; PULSE 84; RESP 20; TEMP 98.1; O2SAT 98
[2016-08-27] MEDS: oxyCODONE HCL ORAL CONC 20 MG/ML SYRINGE PO PRN ×3 (01:57→14:15)
[2016-08-27 08:00] VITALS: BP 129/75; PULSE 95; RESP 16; TEMP 96.8; O2SAT 97
[2016-08-27] MEDS: LACTULOSE SYRUP 20 GM/30 ML CUP PO SCH (08:45)
[2016-08-27] MEDS: METOPROLOL TARTRATE 25 MG TAB PO SCH (08:45)
[2016-08-27] MEDS: REMOVE OLD NICOTINE PATCH TD SCH (08:45)
[2016-08-27] MEDS: NICOTINE 14 MG/24 HR PATCH TD SCH (08:45)
[2016-08-27] MEDS: QUEtiapine FUMARATE 100 MG TAB PO SCH (08:46)
[2016-08-27] MEDS: MULTIVITAMINS/IRON/MINERALS CHEWABLE TAB CHEW SCH (08:46)
[2016-08-27] MEDS: hydrALAZINE HCL 25 MG TAB PO SCH (08:46)
[2016-08-27] MEDS: VALPROIC ACID 250 MG CAP PO SCH (08:46)
[2016-08-27] MEDS: DOCUSATE SODIUM 50 MG/SENNA 8.6 MG TAB PO SCH (08:46)
[2016-08-27] MEDS: PANTOPRAZOLE SOD 40 MG DELAYED RELEASE TAB PO SCH (08:47)
--- NOTE | 2016-08-27 11:41 | HHI.PYPN ---
Subjective Remarks Patient is seen for psychiatric evaluation today, patient is calm, cooperative and pleasant. Patient stated that he feels much better, reports good mood, he is logical coherent and relevant, oriented 3, denies suicidal and homicidal ideation, denies visual and auditory hallucination at this time. No aggressive behavior, no agitation, no delusions or paranoia observed or reported.. Review of Systems Other No somatic complaints today Objective Alert: Yes [place]: Person (patient is completely disoriented), Place, Date Mood: Calm, Other Affect: Appropriate Memory Intact: Immediate, Recent, Remote Hallucinations: Other (none) Delusions: No Delusion Type: Other (none observed) Suicidal: Ideation (he denies) Homicidal: Ideation (he denies) Insight/Judgment Fair Vitals/IOs Vital Signs Date Time Temp Pulse Resp B/P Pulse Ox O2 Delivery O2 Flow Rate FiO2 08/27/16 08:00 96.8 95 16 129/75 97 Intake and Output 08/26/16 08/26/16 08/27/16 08:00 16:00 00:00 Intake Total 440 ml 1224 ml 240 ml Output Total 1150 ml 300 ml 400 ml Balance -710 ml 924 ml -160 ml Assessment & Plan Problem List: (1) Delirium due to another medical condition Assessment & Plan: Patient does not present any evidence of acute depression, anxiety, ashley or perceptual disturbances. Patient denies suicidal and homicidal ideation, he denies visual and auditory hallucinations. Patient is fully oriented 3, future oriented and endorses motivation to continue medical treatment and recommendations. He does not meet criteria for psychiatric admission at this moment. Continue current psychotropics, no changes necessary. Patient is a Stable to continue medical treatment and to be discharged. ICD Code: F05 Assessment & Plan Estimated LOS: days Justification for Cont. Inpt. Patient does not meet criteria for psychiatric admission, Saunders act can be lifted Shawn Sharma MD Aug 27, 2016 11:41
[2016-08-27 12:00] VITALS: BP 125/82; PULSE 79; RESP 18; TEMP 97.2; O2SAT 97
[2016-08-27] MEDS: ENOXAPARIN SODIUM 40 MG/0.4 ML SYRINGE SQ SCH (12:02)
[2016-08-27] MEDS ORDERED: PERC5TAB12 PO (12:14)
--- NOTE | 2016-08-27 13:45 | HHI.FF ---
Face to Face Verification Diagnosis: (1) Traumatic compression fracture of T8 thoracic vertebra (2) Multiple fractures of ribs of left side Physical Therapy Order: Evaluate and Treat, Improve ambulation, Strength and gait training Home Health Nursing Order: Nursing assessment with vital signs I have seen patient Shubham Pryor Jr Nithya on 08/27/16. My clinical findings support the need for the requested home health care services because: Limited ability to care for self High risk of falls I certify that my clinical findings support that this patient is homebound because: Unsteady gait/balance Ramesh PaulP Aug 27, 2016 13:45
[2016-08-27] MEDS ORDERED: QUET1TAB8 PO (13:50)
[2016-08-27] MEDS ORDERED: METO25TA3 PO (13:50)
[2016-08-27] MEDS ORDERED: HYDR25TA35 PO (13:50)
[2016-08-27] MEDS ORDERED: WALKER WHEELS/F1 MIS (13:58)
--- NOTE | 2016-08-27 14:06 | HHI.DS ---
Discharge Summary Admission Date Jul 13, 2016 at 01:46 Discharge Date: Aug 27, 2016 Admitting Diagnosis Multiple rib fx, pneumothorax, t8 compression fx (1) Spinal cord injury, cervical region (2) Chronic pain (3) Closed T8 spinal fracture (4) Pneumothorax on left (5) Multiple fractures of ribs of left side (6) Traumatic compression fracture of T8 thoracic vertebra Brief History S/P trauma: Fall Imaging Last Impressions Chest X-Ray 08/11/16 0600 Signed Impressions: Service Date/Time: Thursday, August 11, 2016 04:04 - CONCLUSION: Increasing consolidation on the left. Otherwise stable. Jovanni Moseley MD Thoracic Spine X-Ray 08/09/16 0000 Signed Impressions: Service Date/Time: Tuesday, August 09, 2016 20:39 - CONCLUSION: Moderate wedge compression of T8. Jose Barkley MD Chest CT 08/02/16 0000 Signed Impressions: Service Date/Time: Tuesday, August 02, 2016 22:56 - CONCLUSION: 1. Bilateral pulmonary parenchymal opacity and bilateral pleural effusions. The parenchymal opacity is more severe on the left. The pleural effusion is larger on the right. Differential diagnosis for these findings includes pulmonary edema and infection. There is diffuse superficial soft tissue edema. 2. There is a 6 cm rounded fluid filled cavity in the lower lobe on the left. Previously this contained and air-fluid level. 3. Hydropneumothorax is again seen on the left with pneumothorax component smaller than on the previous study. Left-sided chest tube remains in place. 4. Multiple left-sided rib fractures again seen. Stevie Prather MD Abdomen X-Ray 07/28/16 0000 Signed Impressions: Service Date/Time: Thursday, July 28, 2016 17:45 - CONCLUSION: Tip of the [place] feeding tube is in the mid stomach. Toñito Bacon MD Head CT 07/19/16 0000 Signed Impressions: Service Date/Time: Tuesday, July 19, 2016 13:25 - CONCLUSION: Negative for an acute process. oCry Butts MD FACR Thoracic Spine CT 07/13/16 0000 Signed Impressions: Service Date/Time: Wednesday, July 13, 2016 08:51 - CONCLUSION: T8 compressive deformity as described in detail above with appearance suggestive of an old injury, however some degree of acute or subacute progression cannot be excluded. If it would affect clinical management, injury could be further characterized with MRI. Toñito Cisneros MD PE at Discharge GENERAL: 51-year-old male ambulating in room. SKIN: Warm and dry. ENT: No nasal bleeding or discharge. Mucous membranes pink and moist. NECK: Trachea midline. No JVD. Scabbed area from trach site noted. CARDIOVASCULAR: Regular rate and rhythm. RESPIRATORY: No accessory muscle use. Lungs clear and diminished to auscultation. GASTROINTESTINAL: Abdomen soft, non-tender, nondistended. + BS. MUSCULOSKELETAL: Extremities without cyanosis, or edema. Chronic LEFT lower extremity weakness noted. NEUROLOGICAL: Awake and alert. Clear speech. Hospital Course [place]: Working on top of a roof and attempted to throw a 10lb bucket over the side and it got stuck on his hand and pulled him over the side of the roof. Fell from 12 ft, landing on his back. + ETOH. Ambulated at scene and was able to drive his coworkers home before transporting himself to the [facility]. Transferred to [place] for trauma services. INJURIES: T8 compression fx (non-op) Serial LEFT rib fxs LEFT sided PTX LEFT lung contusion 07/12: LEFT CT (placed by [facility]) 07/16: Intubation and BRONCH 07/17: extubated 07/20: INTUBATION and BRONCH again 07/21: LEFT thoracoscopy; evacuation of empyema and decortication of the lung 07/27: Extubate & reintubated d/t secretions 07/28: Bedside trach 07/29: PEG 08/09: L CT pulled 08/15: decannulate Diet: Regular, soft, tolerating Pulmonary: IS, encouraged home use Pain: Roxicodone (Seroquel). Activity: OOB. PT evaluated. TLSO brace. PT recommends inpatient rehabilitation , patient refusing. GI: Pepcid Bowel: Johanne-colace, MOM. Lactulose QD. LBM 08/27. DVT: SCDs, Lovenox 40 QD Discontinue PEG today by GI team. Plan of care discussed with patient and nurse at bedside. Patient is clear from trauma surgery standpoint to safely discharge to inpatient rehab, but patient is refusing. Requesting to go home with home health care PT. Pt Condition on Discharge: Stable Discharge Disposition: Disch w/ Home Health Serv Discharge Instructions DIET: Follow Instructions for: Soft Diet Activities you can perform: See Additionl Instruction Other Activity Instructions: TLSO brace when out of bed. Attending Statement The exam, history, and the medical decision-making described in the above note were completed with the assistance of the mid-level provider. I reviewed and agree with the findings presented. I attest that I had a [id number] encounter with the patient on the same day, and personally performed and documented my assessment and findings in the medical record. Ramesh Paul Aug 27, 2016 14:06 Ruslan Beltran MD Aug 27, 2016 19:33
--- NOTE | 2016-08-27 15:56 | HHI.GIFU ---
Subjective Remarks Reconsulted for PEG tube removal. Pt is no longer using PEG tube. He denies any difficulty swallowing. He denies any nausea/vomiting. He is eating all of his meals. He denies abdominal pain. (Yesi Gonzales) Objective Vitals I&O Vital Signs Date Time Temp Pulse Resp B/P Pulse Ox O2 Delivery O2 Flow Rate FiO2 08/27/16 12:00 97.2 79 18 125/82 97 08/27/16 11:09 18 08/27/16 08:00 96.8 95 16 129/75 97 08/26/16 23:54 98.1 84 20 153/82 98 08/26/16 20:00 98.4 86 20 141/76 96 08/26/16 16:00 97.9 90 16 119/72 97 I/O 08/26/16 08/26/16 08/26/16 08/27/16 08/27/16 08/27/16 07:00 15:00 23:00 07:00 15:00 23:00 Intake Total 440 ml 1224 ml 240 ml 120 ml 750 ml Output Total 550 ml 900 ml 400 ml Balance -110 ml 324 ml -160 ml 120 ml 750 ml Intake Oral 440 ml 1224 ml 240 ml 120 ml 750 ml Output Urine Total 550 ml 900 ml 400 ml # Voids 1 2 3 # Bowel Movements 0 1 1 0 Imaging Last Impressions Chest X-Ray 08/11/16 0600 Signed Impressions: Service Date/Time: Thursday, August 11, 2016 04:04 - CONCLUSION: Increasing consolidation on the left. Otherwise stable. Jovanni Moseley MD Thoracic Spine X-Ray 08/09/16 0000 Signed Impressions: Service Date/Time: Tuesday, August 09, 2016 20:39 - CONCLUSION: Moderate wedge compression of T8. Jose Barkley MD Chest CT 08/02/16 0000 Signed Impressions: Service Date/Time: Tuesday, August 02, 2016 22:56 - CONCLUSION: 1. Bilateral pulmonary parenchymal opacity and bilateral pleural effusions. The parenchymal opacity is more severe on the left. The pleural effusion is larger on the right. Differential diagnosis for these findings includes pulmonary edema and infection. There is diffuse superficial soft tissue edema. 2. There is a 6 cm rounded fluid filled cavity in the lower lobe on the left. Previously this contained and air-fluid level. 3. Hydropneumothorax is again seen on the left with pneumothorax component smaller than on the previous study. Left-sided chest tube remains in place. 4. Multiple left-sided rib fractures again seen. Stevie Prather MD Abdomen X-Ray 07/28/16 0000 Signed Impressions: Service Date/Time: Thursday, July 28, 2016 17:45 - CONCLUSION: Tip of the [place] feeding tube is in the mid stomach. Toñito Bacon MD Head CT 07/19/16 0000 Signed Impressions: Service Date/Time: Tuesday, July 19, 2016 13:25 - CONCLUSION: Negative for an acute process. Cory Butts MD FACR Thoracic Spine CT 07/13/16 0000 Signed Impressions: Service Date/Time: Wednesday, July 13, 2016 08:51 - CONCLUSION: T8 compressive deformity as described in detail above with appearance suggestive of an old injury, however some degree of acute or subacute progression cannot be excluded. If it would affect clinical management, injury could be further characterized with MRI. Toñito Cisneros MD Physical Exam HEENT: Normocephalic; atraumatic; no jaundice. CHEST: CTA CARDIAC: RRR ABDOMEN: Soft, nondistended, nontender; no hepatosplenomegaly; bowel sounds are present in all four quadrants. PEG tube site without redness or swelling EXTREMITIES: Generalized edema. SKIN: Normal; no rash; no jaundice. LICENSED [employer]INTE[employer]CE ENGINEER: Awake. Follows commands (Yesi Gonzales) Assessment and Plan Plan - Reconsulted for PEG tube removal. Pt had EGD with peg (07/29/16). Site without redness or swelling. No longer using PEG tube. Denies any difficulty swallowing- ST recommends regular diet with thin liquids. He is eating 100% meals. No n/v, no abdominal pain. PEG tube removed without difficulty. Instructed patient not to eat/drink x 3-4 hours. Verbalizes understanding. Plan: - S/P PEG tube removal at bedside. - NPO 3-4 hours - GI will sign off, please reconsult as needed - Patient seen and examined by and myself and this note is written on his behalf (Yesi Gonzales) Physician Comments Seen and examined with SPA CONSULTANT, peg removed at the bedside by SANDI. Ok to go home with gi fu as needed. Advised to keep area clean and dry for 48 hours. Thank you (Rafael Alvarado MD) Yesi Gonzales Aug 27, 2016 15:55 Rafael Alvarado MD Aug 27, 2016 19:18
== END 2016-08-27 15:46 | disposition home health service (06) | DRG 3 ==
LOC: NEPC 00:56 → NEDA 01:46 → N03A 06:36 → N07B 19:27 → N03A 07-15 22:31 → N03B 07-17 11:23 → N03A 08-03 06:51 → N07A 08-16 23:10
PROVIDERS: ADMIT Surgery; ATTEND Surgery
PROC: 0BH18EZ Insertion of Endotracheal Airway into Trachea, Via Natural or Artificial Opening Endoscopic (ICD-10-PCS; 2016-07-16)
PROC: 5A1955Z Respiratory Ventilation, Greater than 96 Consecutive Hours (ICD-10-PCS; 2016-07-16)
PROC: 0BCB8ZZ Extirpation of Matter from Left Lower Lobe Bronchus, Via Natural or Artificial Opening Endoscopic (ICD-10-PCS; 2016-07-16)
PROC: 0BC88ZZ Extirpation of Matter from Left Upper Lobe Bronchus, Via Natural or Artificial Opening Endoscopic (ICD-10-PCS; 2016-07-16)
PROC: 0W9B40Z Drainage of Left Pleural Cavity with Drainage Device, Percutaneous Endoscopic Approach (ICD-10-PCS; 2016-07-21)
PROC: 0BDP4ZZ Extraction of Left Pleura, Percutaneous Endoscopic Approach (ICD-10-PCS; principal; 2016-07-21 10:23)
PROC: 0B113F4 Bypass Trachea to Cutaneous with Tracheostomy Device, Percutaneous Approach (ICD-10-PCS; 2016-07-28)
PROC: 5A1955Z Respiratory Ventilation, Greater than 96 Consecutive Hours (ICD-10-PCS; 2016-07-28)
PROC: 0BJ08ZZ Inspection of Tracheobronchial Tree, Via Natural or Artificial Opening Endoscopic (ICD-10-PCS; 2016-07-28)
PROC: 0B9B8ZX Drainage of Left Lower Lobe Bronchus, Via Natural or Artificial Opening Endoscopic, Diagnostic (ICD-10-PCS; 2016-07-28)
PROC: 0DH63UZ Insertion of Feeding Device into Stomach, Percutaneous Approach (ICD-10-PCS; 2016-07-29)
DX: S27.321A Contusion of lung, unilateral, initial encounter (principal); J86.9 Pyothorax without fistula; J15.0 Pneumonia due to Klebsiella pneumoniae; J15.211 Pneumonia due to Methicillin susceptible Staphylococcus aureus; S27.2XXA Traumatic hemopneumothorax, initial encounter; J15.5 Pneumonia due to Escherichia coli; R78.81 Bacteremia; T17.990A Other foreign object in respiratory tract, part unspecified in causing asphyxiation, initial encounter; J96.01 Acute respiratory failure with hypoxia; J44.0 Chronic obstructive pulmonary disease with (acute) lower respiratory infection; S22.060A Wedge compression fracture of T7-T8 vertebra, initial encounter for closed fracture; F05 Delirium due to known physiological condition; J98.11 Atelectasis; G89.4 Chronic pain syndrome; S14.14 Brown-Sequard syndrome of cervical spinal cord; F31.9 Bipolar disorder, unspecified; R13.10 Dysphagia, unspecified; F17.210 Nicotine dependence, cigarettes, uncomplicated; I10 Essential (primary) hypertension; B95.61 Methicillin susceptible Staphylococcus aureus infection as the cause of diseases classified elsewhere; E87.6 Hypokalemia; G40.909 Epilepsy, unspecified, not intractable, without status epilepticus; W13.2XXA Fall from, out of or through roof, initial encounter; Z75.1 Person awaiting admission to adequate facility elsewhere
CPT/HCPCS: 31500; 31600; 31624; 36600; 70450; 71010; 71250; 71260; 72020; 72128; 74000; 76937; 80048; 80053; 80164; 80202; 81001; 82805; 83735; 84100; 84132; 84155; 85007; 85025; 85027; 86403; 86850; 86900; 86901; 86920; 87015; 87040; 87070; 87077; 87086; 87102; 87116; 87147; 87186; 87205; 87206; 87641; 89051; 93005; 93306; 94002; 94003; 94150; 94640; 94664; 94667; 94668; 95819; 99291; A7520; A7521; C9113; C9399; J0131; J0171; J0461; J0690; J0696; J1170; J1200; J1335; J1630; J1650; J1940; J1953; J1956; J2060; J2250; J2270; J2405; J2543; J3010; J3370; J3411; J3480; J7030; J7040; J7050; J7120; L0200; L0484; Q9967